=== PATIENT | male | born 1935 | race Caucasian/White ===

== ENCOUNTER → 2016-11-05 | Outpatient (CLI) | payer BC ==
[~2016-11-05] MED LIST: ASPI81TA28 PO; BTH25 PO; CHOL100010 PO; CLOP1TAB15 PO; CRD4 PO; CYAN250T PO; FINA5TAB PO; FOLI1TAB7 PO; LITH150C6 PO; LUTE15CA PO; MULT60CA PO; PANT40TA PO; VITACAP26 PO
--- NOTE | 2016-11-05 16:26 | ECHOCARDIOGRAM REPORT ---
*NOTICE TO RECEIVING REPUBLICAN AGENCY This information is strictly Confidential and protected under [place] law. [place] law prohibits you from making any further disclosure of this information unless further disclosure is expressly permitted by the written consent of the person to whom it pertains or is authorized by law. A general authorization for the release of medical or other information is not sufficient for this purpose. Hospital accepts no responsibility if the information is made available to any other person, INCLUDING THE PATIENT. Interpretation Summary * Name: RAHEL MORRISON Study Date: 11/05/2016 02:36 PM * Patient Location: [facility] HR: 61 * : 1935 (M/d/yyyy) Gender: Male Height: 71 in * Age: 81 yrs Ethnicity: CA Weight: 172 lb * Ordering Physician: Roberto Atkinson * Referring Physician: Roberto Atkinson * Performed By: Loyda Flood RDCS * * Reason For Study: Aortic stenosis, palpitations * BSA: 2.0 m2 * -- Conclusions -- * The left ventricle is hyperdynamic. * No regional wall motion abnormalities noted. * Ejection Fraction = >70 %. * There is borderline concentric left ventricular hypertrophy. * Grade I diastolic dysfunction, (abnormal relaxation pattern). * The prosthetic aortic valve appears to open well. Procedure Details * A complete two-dimensional transthoracic echocardiogram was performed (2D, M-mode, Doppler and color flow Doppler). Left Ventricle * The left ventricle is normal in size. * There is borderline concentric left ventricular hypertrophy. * Ejection Fraction = >70 %. * The left ventricle is hyperdynamic. * No regional wall motion abnormalities noted. Right Ventricle * The right ventricle is normal size. * The right ventricular systolic function is normal as assessed by tricuspid annular plane systolic excursion (TAPSE) (normal >1.5 cm). Atria * Borderline left atrial enlargement. * Right atrial size is normal. * No ASD detected; PFO is not assessed. Mitral Valve * The mitral valve anatomy is normal. * There is trace mitral regurgitation. Tricuspid Valve * The tricuspid valve anatomy is normal. * There is trace tricuspid regurgitation. Aortic Valve * No aortic regurgitation is present. * The prosthetic aortic valve is well-seated. * The prosthetic aortic valve appears to open well. Pulmonic Valve * The pulmonary valve is not well seen, but the Doppler examination is normal without significant regurgitation or stenosis. Great Vessels * The aortic root is normal size. * The pulmonary artery is not well visualized, but is probably normal size. Pericardium/Pleural * There is no pericardial effusion. Great Vessels * IVC not well seen. Left Ventricular Diastolic Function * Grade I diastolic dysfunction, (abnormal relaxation pattern). MMode 2D Measurements and Calculations IVSd 1.0 cm LVIDd 3.5 cm LVIDs 2.2 cm LVPWd 1.3 cm IVS/LVPW 0.80 FS 36.9 % EDV(Teich) 51.9 ml ESV(Teich) 16.7 ml EF(Teich) 67.8 % EDV(cubed) 44.0 ml ESV(cubed) 11.0 ml EF(cubed) 74.9 % LV mass(C)d 129.1 grams LV mass(C)dI 65.3 grams/m\S\2 SV(Teich) 35.2 ml SI(Teich) 17.8 ml/m\S\2 SV(cubed) 32.9 ml SI(cubed) 16.6 ml/m\S\2 LA dimension 3.0 cm asc Aorta Diam 3.0 cm LVAd ap4 20.8 cm\S\2 LVLd ap4 6.9 cm EDV(MOD-sp4) 51.5 ml EDV(sp4-el) 53.0 ml LVAs ap4 10.3 cm\S\2 LVLs ap4 5.6 cm ESV(MOD-sp4) 17.7 ml ESV(sp4-el) 15.8 ml EF(MOD-sp4) 65.7 % EF(sp4-el) 70.1 % LVAd ap2 22.9 cm\S\2 LVLd ap2 7.7 cm EDV(MOD-sp2) 54.8 ml EDV(sp2-el) 57.7 ml LVAs ap2 12.9 cm\S\2 LVLs ap2 6.8 cm ESV(MOD-sp2) 21.5 ml ESV(sp2-el) 20.8 ml EF(MOD-sp2) 60.8 % EF(sp2-el) 64.1 % LVLd %diff 10.3 % EDV(MOD-bp) 56.7 ml LVLs %diff 17.7 % ESV(MOD-bp) 21.2 ml EF(MOD-bp) 62.6 % SV(MOD-sp4) 33.8 ml SI(MOD-sp4) 17.1 ml/m\S\2 SV(MOD-sp2) 33.4 ml SI(MOD-sp2) 16.9 ml/m\S\2 SV(MOD-bp) 35.5 ml SI(MOD-bp) 18.0 ml/m\S\2 SV(sp4-el) 37.2 ml SI(sp4-el) 18.8 ml/m\S\2 SV(sp2-el) 37.0 ml SI(sp2-el) 18.7 ml/m\S\2 Doppler Measurements and Calculations MV E max mason 60.4 cm/sec MV A max mason 96.0 cm/sec MV E/A 0.63 MV dec time 0.29 sec Ao V2 max 239.7 cm/sec Ao max PG 23.0 mmHg Ao max PG (full) 16.7 mmHg Ao V2 mean 162.9 cm/sec Ao mean PG 12.2 mmHg Ao V2 VTI 49.5 cm LV V1 max PG 6.3 mmHg LV V1 max 125.1 cm/sec PA V2 max 87.1 cm/sec PA max PG 3.0 mmHg PA acc slope 654.0 cm/sec\S\2 PA acc time 0.12 sec PI max mason 136.5 cm/sec PI max PG 7.5 mmHg PI dec slope 104.9 cm/sec\S\2 PI P1/2t 381.1 msec TR max mason 203.2 cm/sec PA pr(Accel) 24.8 mmHg
== END | disposition home or self-care (01) ==
LOC: C.CPL 13:43
PROVIDERS: ATTEND Family Medicine
DX: I35.0 Nonrheumatic aortic (valve) stenosis (principal)

== ENCOUNTER → 2016-12-07 | Outpatient (CLI) | payer BC ==
[2016-12-07 12:11] LABS: BASO % 0.1 %; BASO ABS # 0.01 K/uL (0-0.2); COMPLETE YES; EOS % 0.6 %; HEMATOCRIT 41.6 % (42-52); IG% 0.3 %; LYMPH % 13.5 %; LYMPH ABS # 1.19 K/uL (1.2-3.4); MEAN CELL VOLUME 96.1 fL (80-100); MEAN CORPUSCULAR HEMOGLOBIN 33.3 pg (25-34); MEAN CORPUSCULAR HGB CONC 34.6 g/dl (32-36); MEAN PLATELET VOLUME 10.2 fL (7.4-10.4); MONO % 6.7 %; NEUT % 78.8 %; PLATELET COUNT 159 K/uL (130-400); RED BLOOD COUNT 4.33 M/uL (4.7-6.1); WHITE BLOOD COUNT 8.83 K/uL (4.8-10.8)
[2016-12-07 12:34] LABS: ESTIMATED AVERAGE GLUCOSE 126 mg/dl; HA1C FLAG Normal (Normal)
[2016-12-07 12:37] LABS: ALT/SGPT 28 U/L (12-78); AST/SGOT 18 U/L (15-37); BLOOD UREA NITROGEN 27 mg/dl (7-18); BUN/CREATININE RATIO 20.5 (10-20); CALCIUM 8.7 mg/dl (8.5-10.1); CARBON DIOXIDE 28 mmol/L (21-32); CHLORIDE 107 mmol/L (98-107); CHOLESTEROL 136 mg/dl (0-200); GLUCOSE 112 mg/dl (70-99); SODIUM 142 mmol/L (136-145); TRIGLYCERIDES 58 mg/dl (0-150); VERY LOW DENSITY LIPOPROT CALC 12 mg/dl
[2016-12-07 12:46] LABS: ALB/GLOB RATIO 1.3 (0.9-2); ALKALINE PHOSPHATASE 77 U/L (45-117); CHOLESTEROL/HDL RATIO 2.8; HDL CHOLESTEROL 49 mg/dl; LDL CHOLESTEROL CALCULATED 75 mg/dl; THYROID STIMULATING HORMONE 0.616 uIu/ml (0.300-4.500); TOTAL IRON BINDING CAPACITY 252 mcg/dl (250-450); URIC ACID 4.2 mg/dl (2.6-7.2)
[2016-12-09 22:05] LABS: 18KDIGG BAND NONREACTIVE (NONREACTIVE); 23KDIGG BAND NONREACTIVE (NONREACTIVE); 23KDIGM BAND REACTIVE (NONREACTIVE); 28KDIGG BAND NONREACTIVE (NONREACTIVE); 30KDIGG BAND NONREACTIVE (NONREACTIVE); 39KDIGG BAND NONREACTIVE (NONREACTIVE); 39KDIGM BAND NONREACTIVE (NONREACTIVE); 41KDIGG BAND REACTIVE (NONREACTIVE); 41KDIGM BAND REACTIVE (NONREACTIVE); 45KDIGG BAND NONREACTIVE (NONREACTIVE); 58KDIGG BAND NONREACTIVE (NONREACTIVE); 66KDIGG BAND REACTIVE (NONREACTIVE); 93KDIGG BAND NONREACTIVE (NONREACTIVE)
--- NOTE | 2016-12-14 08:37 | CODING QUERY MEDICAL NECESSITY ---
CQSUPPORTING DIAGNOSIS NEEDED A supporting diagnosis is required for the test/procedure performed on this patient in order for us to be reimbursed by the patient's insurance. Please provide a supporting diagnosis for the following test/procedure listed below next to the test name along with your signature. *If there is no additional diagnosis for this patient that would support the following test/procedure please document that below next to the test/procedure. Test(s)/Procedure(s) that require a supporting diagnosis: DOS 12/07/16 GLYCATED HEMOGLOBIN VITAMIN D VITAIN B12 FOLIC ACID Provider Signature: Date: Thank you [facility] Once completed, please kindly fax back to [phone] For questions please call [phone]
== END | disposition home or self-care (01) ==
LOC: C.LAB 09:40
PROVIDERS: ATTEND Family Medicine
DX: R53.83 Other fatigue (principal); E11.9 Type 2 diabetes mellitus without complications

== ENCOUNTER → 2017-02-10 | Outpatient (CLI) | payer BC ==
--- NOTE | 2017-02-10 11:40 | DIAGNOSTIC IMAGING REPORT ---
CHEST 2 VIEWS ROUTINE CLINICAL HISTORY: COUGH cough. Dyspnea. COMPARISON STUDY: 05/24/2016 FINDINGS: Tortuous thoracic aorta. Minimal chronic interstitial change left lung base. No focal infiltrate IMPRESSION: Chronic change. No acute process. Electronically signed by: Sukhjinder Wild M.D. 02/10/2017 11:39 AM Dictated Date/Time: 02/10/2017 11:38 AM
--- NOTE | 2017-02-10 14:40 | DIAGNOSTIC IMAGING REPORT ---
VIDEO SWALLOW CLINICAL HISTORY: 81-year-old male with a history of pneumonia, aspiration, swallow study for further evaluation. TECHNIQUE: Video fluoroscopic evaluation of swallowing was performed in the AP and lateral projections by the speech pathology staff. The patient is fed nectar-thick and thin liquid barium, a barium coated wafer, and barium pudding. COMPARISON: None. FINDINGS: There is normal hyoid excursion and epiglottic deflection. No significant penetration or aspiration identified. Swallowing function is within normal limits. Intraesophageal reflux noted. No gross evidence of morphologic esophageal abnormality. FLUOROSCOPY TIME: 2.4 minutes. IMPRESSION: 1. No aspiration or penetration. 2. Esophageal dysmotility evidenced by intraesophageal reflux. 3. Please see the speech pathologist report for detailed findings and recommendations. Electronically signed by: Edson Zhou M.D. 02/10/2017 12:28 PM Dictated Date/Time: 02/10/2017 12:24 PM
== END | disposition home or self-care (01) ==
LOC: C.RAD 11:17
PROVIDERS: ATTEND Family Medicine
DX: R05 Cough (principal); K22.4 Dyskinesia of esophagus; T17.920A Food in respiratory tract, part unspecified causing asphyxiation, initial encounter; X58.XXXA Exposure to other specified factors, initial encounter

== ENCOUNTER → 2017-02-10 | Outpatient (CLI) | payer BC ==
--- NOTE | 2017-02-10 14:09 | SWALLOWING EVALUATION ---
HISTORY: This 81 year-old man was referred for a VFSS at [facility] in order to rule out aspiration. The patient has a PMH significant for DM, HLD, HYN, restless leg, UTI, hypotension, stanton, dehydration, and aortic stenosis. Currently the patient's diet level is regular. PROCEDURE: The patient was seen in the Radiology Department of [facility] for the VFSS. Cursory examination of the oral cavity revealed adequate dentition. Movement of the articulators was WNL. The patient was seated on a stool and was viewed in both the Anterior-Posterior (A-P) and Lateral planes. Volitional phonation exercises completed in the A-P plane revealed bilateral vocal fold movement and vocal intensity was mildly low. In the lateral plane, the patient was given the following boluses: 1 tsp. thin liquid barium x 2, single swallow thin liquid barium self-presented from a cup, sequential swallows of thin liquid barium self-presented from a cup, 1 tsp. nectar-thick liquid barium, single swallow nectar-thick liquid barium self-presented from a cup, sequential swallows nectar-thick liquid barium self-presented from a cup, 1 tsp. barium pudding, and 1 club cracker with barium pudding. The patient was then repositioned into the A-P plane and given the following boluses: 1 tsp. nectar-thick liquid barium and 1 tsp. barium pudding. RESULTS: Oral Stage: Labial closure was adequate. There was a cohesive bolus held by the tongue. Mastication was timely and efficient. Bolus transport was mildly slow. There was a collection of residue on the tongue, however this was completely cleared with a second swallow. Swallow was slightly delayed with the bolus head at the valleculae at the initiation of the pharyngeal swallow. Delayed swallow is functional for patient's age. Pharyngeal Stage: Soft palate elevation was adequate. Laryngeal elevation was partial with partial superior movement of the thyroid cartilage and partial approximation of arytenoids to the epiglottic base. Anterior hyoid excursion was complete. Epiglottic inversion was complete. Laryngeal vestibular closure was incomplete with a narrow column of contrast. Pharyngeal stripping wave was present and complete. Pharyngeal contraction was complete. Pharyngoesophageal segment opening had partial distension and partial obstruction of flow. Tongue base retraction was slightly reduced with trace column of contrast between the tongue base and pharyngeal wall. There was complete pharyngeal clearance. There was no aspiration, but mild laryngeal penetration. Laryngeal movement was reduced, but functional for the patient's age. Esophageal Stage: There was mild esophageal retention and retrograde flow which is indicated of reflux and dysmotility. SUMMARY/RECOMMENDATIONS: This patient presents with mild oral-pharyngeal dysphagia characterized by reduced laryngeal movement and delayed swallow. Patient shows esophageal dysfunction. The following is recommended: 1. Regular diet, thin liquids. 2. GERD precautions: patient should be seated fully upright during and for 30 minutes after meals. Take small bites and small sips. Alternate solids and liquids. Head of bed should be elevated at least 30 degrees at all times even for bed. 3. Consider use of reflux medication to alleviate symptoms as needed. A summary of the results and recommendations was discussed with patient and understanding was verbalized. Thank you for referral of this patient. Please contact me at if any additional information is needed Mercedes Mcguire [facility]
[2017-02-10 14:31] LABS: BASO % 0.4 %; BASO ABS # 0.02 K/uL (0-0.2); COMPLETE YES; EOS % 2.7 %; HEMATOCRIT 39.4 % (42-52); IG% 0.2 %; LYMPH % 14.5 %; LYMPH ABS # 0.76 K/uL (1.2-3.4); MEAN CELL VOLUME 96.8 fL (80-100); MEAN CORPUSCULAR HEMOGLOBIN 33.2 pg (25-34); MEAN CORPUSCULAR HGB CONC 34.3 g/dl (32-36); MEAN PLATELET VOLUME 10.3 fL (7.4-10.4); MONO % 8.8 %; NEUT % 73.4 %; PLATELET COUNT 167 K/uL (130-400); RED BLOOD COUNT 4.07 M/uL (4.7-6.1); WHITE BLOOD COUNT 5.24 K/uL (4.8-10.8)
[2017-02-10 15:10] LABS: ALB/GLOB RATIO 1.3 (0.9-2); ALKALINE PHOSPHATASE 73 U/L (45-117); ALT/SGPT 22 U/L (12-78); AST/SGOT 20 U/L (15-37); BLOOD UREA NITROGEN 33 mg/dl (7-18); BUN/CREATININE RATIO 23.8 (10-20); CALCIUM 8.7 mg/dl (8.5-10.1); CARBON DIOXIDE 27 mmol/L (21-32); CHLORIDE 112 mmol/L (98-107); GLUCOSE 90 mg/dl (70-99); POTASSIUM 4.3 mmol/L (3.5-5.1); SODIUM 145 mmol/L (136-145)
[2017-02-10 15:45] LABS: URINE APPEARANCE CLEAR (CLEAR); URINE BILIRUBIN NEG (NEG); URINE COLOR DK YELLOW; URINE EPITHELIAL CELL AUTO >30 /lpf (0-5); URINE NITRITE NEG (NEG); URINE PH 5.5 (4.5-7.5); URINE SPECIFIC GRAVITY 1.025 (1.000-1.030); UROBILINOGEN NEG (NEG)
[2017-02-10 16:02] LABS: MANUAL MICROSCOPIC REQUIRED? NO; REVIEW REQ? NO
== END | disposition home or self-care (01) ==
LOC: C.LAB 13:39
PROVIDERS: ATTEND Family Medicine
DX: R53.83 Other fatigue (principal)

== ENCOUNTER → 2017-02-15 | Outpatient (CLI) | payer BC ==
--- NOTE | 2017-02-22 14:23 | PULMONARY FUNCTION TEST ---
CLINICAL DATA: An 81-year-old male with a height of 71 inches and a weight of 172 pounds, referred by Dr. Atkinson for evaluation of asthma and persistent cough. Spirometry pre- and post-bronchodilator, lung volumes, and diffusion capacity were performed. FINDINGS: Prebronchodilator spirometry demonstrates very mild obstructive small airways disease. FVC was 102% of predicted. FEV1 was 99% of predicted. JZO50-05 was 79% of predicted. There was slight improvement after inhaled bronchodilator. FVC improved to 9% to 111% of predicted. FEV1 improved 6% to 104% of predicted. JII42-32 improved 1% to 80% of predicted. Lung volumes show minimal elevation in residual volume at 131% of predicted. Diffusion capacity is normal at 101% of predicted. IMPRESSION: Very mild obstructive small airways disease with slight improvement after inhaled bronchodilator. MTDD
== END | disposition home or self-care (01) ==
LOC: C.RC 10:04
PROVIDERS: ATTEND Family Medicine
DX: J45.909 Unspecified asthma, uncomplicated (principal); R05 Cough

== ENCOUNTER → 2017-03-10 | Outpatient (CLI) | payer BC | END | disposition home or self-care (01) | LOC: C.LAB 11:45 | PROVIDERS: ATTEND Family Medicine | DX: R53.83 Other fatigue (principal) ==

== ENCOUNTER → 2017-03-30 | Outpatient (CLI) | payer BC ==
--- NOTE | 2017-03-30 15:06 | ECHOCARDIOGRAM REPORT ---
*NOTICE TO RECEIVING CONSTITUTION PARTY AGENCY This information is strictly Confidential and protected under [place] law. [place] law prohibits you from making any further disclosure of this information unless further disclosure is expressly permitted by the written consent of the person to whom it pertains or is authorized by law. A general authorization for the release of medical or other information is not sufficient for this purpose. Hospital accepts no responsibility if the information is made available to any other person, INCLUDING THE PATIENT. Interpretation Summary * Name: RAHEL MORRISON Study Date: 03/30/2017 01:04 PM BP: 129/56 mmHg * Patient Location: [facility] HR: 60 * : 1935 (M/d/yyyy) Gender: Male Height: 70 in * Age: 82 yrs Ethnicity: CA Weight: 165 lb * Ordering Physician: Roberto Atkinson * Referring Physician: Roberto Atkinson * Performed By: Diane Stuart RDCS * * Reason For Study: AORTIC STENOSIS * BSA: 1.9 m2 * Normal biventricular systolic function. * Mild concentric left ventricular hypertrophy. * Class I left ventricular diastolic dysfunction. * Borderline left atrial enlargement. * Properly functioning bioprosthetic aortic valve. * Trace pulmonic,mitral,and tricuspid regurgitation. * Normal estimated right ventricular systolic and central venous pressures. Procedure Details * A complete two-dimensional transthoracic echocardiogram was performed (2D, M-mode, Doppler and color flow Doppler). Left Ventricle * The left ventricle is normal in size. * There is mild concentric left ventricular hypertrophy. * Ejection Fraction = 65-70%. * A full diastolic examination was done with clinical findings of Class I diastolic dysfunction. * Left ventricular systolic function is normal. * No regional wall motion abnormalities noted. Right Ventricle * The right ventricle is normal in size and function. * The right ventricular systolic function is normal as assessed by tricuspid annular plane systolic excursion (TAPSE) (normal >1.5 cm). Atria * Borderline left atrial enlargement. * Right atrial size is normal. * No ASD detected; PFO is not assessed. Mitral Valve * The mitral valve is normal. * There is no mitral valve stenosis. * There is trace mitral regurgitation. Tricuspid Valve * The tricuspid valve is normal. * There is no tricuspid stenosis. * There is trace tricuspid regurgitation. * Right ventricular systolic pressure is normal. Aortic Valve * No aortic regurgitation is present. * There is a bioprosthetic aortic valve. * The gradient is normal for this prosthetic aortic valve. Pulmonic Valve * The pulmonic valve is not well visualized. * The pulmonary valve is inadequately visualized, but the Doppler data is adequate for interpretation. * There is no pulmonic valvular stenosis. * Trace pulmonic valvular regurgitation. Great Vessels * The aortic root is normal size. Pericardium/Pleural * There is no pericardial effusion. Great Vessels * Normal inferior vena cava diameter and respiratory variation suggests normal central venous pressure. MMode 2D Measurements and Calculations IVSd 1.2 cm IVSs 1.5 cm LVIDd 4.0 cm LVIDs 2.5 cm LVPWd 1.3 cm LVPWs 1.8 cm IVS/LVPW 0.94 FS 36.2 % EDV(Teich) 69.3 ml ESV(Teich) 23.3 ml EF(Teich) 66.4 % EDV(cubed) 63.2 ml ESV(cubed) 16.4 ml EF(cubed) 74.0 % % IVS thick 22.4 % % LVPW thick 35.9 % LV mass(C)d 182.5 grams LV mass(C)dI 94.9 grams/m\S\2 LV mass(C)s 155.3 grams LV mass(C)sI 80.8 grams/m\S\2 SV(Teich) 46.0 ml SI(Teich) 23.9 ml/m\S\2 SV(cubed) 46.8 ml SI(cubed) 24.3 ml/m\S\2 Ao root diam 3.5 cm Ao root area 9.9 cm\S\2 LA dimension 4.0 cm LA/Ao 1.1 LVOT diam 1.9 cm LVOT area 2.9 cm\S\2 LVAd ap4 30.4 cm\S\2 LVLd ap4 8.3 cm EDV(MOD-sp4) 92.6 ml EDV(sp4-el) 94.6 ml LVAs ap4 14.9 cm\S\2 LVLs ap4 6.9 cm ESV(MOD-sp4) 30.3 ml ESV(sp4-el) 27.5 ml EF(MOD-sp4) 67.3 % EF(sp4-el) 70.9 % SV(MOD-sp4) 62.4 ml SI(MOD-sp4) 32.4 ml/m\S\2 SV(sp4-el) 67.1 ml SI(sp4-el) 34.9 ml/m\S\2 Doppler Measurements and Calculations MV E max mason 57.2 cm/sec MV A max mason 78.7 cm/sec MV E/A 0.73 MV dec time 0.37 sec Ao V2 max 216.6 cm/sec Ao max PG 18.8 mmHg Ao max PG (full) 15.3 mmHg Ao V2 mean 146.0 cm/sec Ao mean PG 9.6 mmHg Ao mean PG (full) 7.8 mmHg Ao V2 VTI 44.6 cm DEEPA(I,A) 1.3 cm\S\2 DEEPA(I,D) 1.3 cm\S\2 DEEPA(V,A) 1.2 cm\S\2 DEEPA(V,D) 1.2 cm\S\2 LV V1 max PG 3.5 mmHg LV V1 mean PG 1.8 mmHg LV V1 max 93.3 cm/sec LV V1 mean 61.0 cm/sec LV V1 VTI 20.3 cm SV(Ao) 440.8 ml SI(Ao) 229.2 ml/m\S\2 SV(LVOT) 58.8 ml SI(LVOT) 30.6 ml/m\S\2 TR max mason 215.4 cm/sec
== END | disposition home or self-care (01) ==
LOC: C.CPL 12:55
PROVIDERS: ATTEND Family Medicine
DX: I35.0 Nonrheumatic aortic (valve) stenosis (principal); R01.1 Cardiac murmur, unspecified

== ENCOUNTER → 2017-07-05 | Outpatient (CLI) | payer BC ==
--- NOTE | 2017-07-05 12:52 | DIAGNOSTIC IMAGING REPORT ---
BRAIN WITHOUT CONTRAST HISTORY: 82 years-old Male CEREBRAL INFARCTION,AFIB,S/P VALVE REPLACEMENT acute dizziness with history of recent cardiac valve replacement. Associated headache. History of malignant melanoma COMPARISON: None available TECHNIQUE: Multiplanar multisequence MRI of the brain was obtained without contrast FINDINGS: There is no restricted diffusion to suggest acute infarction. The midline structures including the corpus callosum, brainstem, optic chiasm, pituitary and pineal glands are unremarkable the sagittal T1 sequence. No cerebellar tonsillar herniation. Degenerative changes of the imaged upper cervical spine are noted. No acute intracranial hemorrhage, midline shift, abnormal extra-axial collections or hydrocephalus. Moderate atrophy with ex vacuo ventriculomegaly. There is minimal degree of periventricular T2/FLAIR prolongation suggesting subtle chronic microvascular ischemic changes. The major flow voids at the level the skull base are patent. Orbits are symmetric. The mastoid air cells and paranasal sinuses are generally clear. Scalp, soft tissues and calvarium are unremarkable. IMPRESSION: No acute intracranial abnormality. Study is negative for infarction or hemorrhage. The above report was generated using voice recognition software. It may contain grammatical, syntax or spelling errors. Electronically signed by: Luís Heredia M.D. 07/05/2017 12:51 PM Dictated Date/Time: 07/05/2017 12:46 PM
[2017-07-05 13:33] LABS: BASO % 0.2 %; BASO ABS # 0.01 K/uL (0-0.2); COMPLETE YES; EOS % 0.8 %; HEMATOCRIT 41.1 % (42-52); IG% 0.4 %; LYMPH ABS # 0.92 K/uL (1.2-3.4); MEAN CELL VOLUME 96.5 fL (80-100); MEAN CORPUSCULAR HEMOGLOBIN 32.9 pg (25-34); MEAN CORPUSCULAR HGB CONC 34.1 g/dl (32-36); MEAN PLATELET VOLUME 10.2 fL (7.4-10.4); MONO % 7.8 %; NEUT % 72.8 %; PLATELET COUNT 137 K/uL (130-400); RED BLOOD COUNT 4.26 M/uL (4.7-6.1); WHITE BLOOD COUNT 5.11 K/uL (4.8-10.8)
[2017-07-05 14:07] LABS: ALT/SGPT 19 U/L (12-78); AST/SGOT 18 U/L (15-37); BLOOD UREA NITROGEN 27 mg/dl (7-18); BUN/CREATININE RATIO 20.2 (10-20); CALCIUM 8.5 mg/dl (8.5-10.1); CARBON DIOXIDE 30 mmol/L (21-32); CHLORIDE 107 mmol/L (98-107); CREATININE 1.35 mg/dl (0.60-1.40); GLUCOSE 100 mg/dl (70-99); POTASSIUM 3.9 mmol/L (3.5-5.1); SODIUM 142 mmol/L (136-145)
[2017-07-05 14:14] LABS: ALB/GLOB RATIO 1.1 (0.9-2); ALKALINE PHOSPHATASE 79 U/L (45-117); TOTAL IRON BINDING CAPACITY 261 mcg/dl (250-450)
== END | disposition home or self-care (01) ==
LOC: C.MRI 11:27
PROVIDERS: ATTEND Family Medicine
DX: I63.40 Cerebral infarction due to embolism of unspecified cerebral artery (principal); Z95.2 Presence of prosthetic heart valve; I48.0 Paroxysmal atrial fibrillation; R53.83 Other fatigue

== ENCOUNTER → 2017-08-18 | Outpatient (CLI) | payer BC | END | disposition home or self-care (01) | LOC: C.CTS 13:09 | DX: C65.9 Malignant neoplasm of unspecified renal pelvis (principal); K57.32 Diverticulitis of large intestine without perforation or abscess without bleeding ==

== ENCOUNTER → 2017-12-07 | Outpatient (CLI) | payer BC ==
[~2017-12-07] MED LIST changes: +ALBUTEROL NEB INH; +ASCO1CAP3 PO; -CHOL100010 PO; +CHOL20007 PO; +CLON1TAB3 PO; -CLOP1TAB15 PO; +CYAN100020 PO; -CYAN250T PO; -FOLI1TAB7 PO; -LITH150C6 PO; +MULT-190 PO; -MULT60CA PO; -PANT40TA PO; -VITACAP26 PO
== END | disposition home or self-care (01) ==
LOC: C.LABSPEC 17:16
PROVIDERS: ATTEND Urology
DX: R33.9 Retention of urine, unspecified (principal)

== ENCOUNTER → 2017-12-13 | Day surgery (SDC) | payer BC ==
[2017-12-02 08:40] VITALS: BMI 24.0
--- NOTE | 2017-12-02 09:22 | PAT Medication Instructions ---
Service Date December 02, 2017. Current Home Medication List Ascorbic Acid (Vitamin C), 500 MG PO QPM Aspirin (Aspirin Ec), 81 MG PO QPM Bethanechol Chl (Bethanechol Chloride), 25 MG PO BID Cholecalciferol (Vitamin D3), 1 TAB PO QPM Clonazepam (Klonopin), 1 MG PO HS Cyanocobalamin (Vitamin B12), 1,000 MCG PO QPM Doxazosin Mesylate (Doxazosin Mesylate), 4 MG PO QAM Finasteride (Proscar), 5 MG PO QAM Lutein-Zeaxanthin (Lutein), 20 MG PO BID Ocuvite Preservision (Ocuvite Preservision), 1 TAB PO BID [Albuterol Neb], 1 PUFF INH PRN Medication Instructions For Your Scheduled Surgery - Hold the following medications starting today: Lutein-Zeaxanthin (Lutein), 20 MG PO BID Ocuvite Preservision (Ocuvite Preservision), 1 TAB PO BID - Hold the following medications the morning of surgery: Bethanechol Chl (Bethanechol Chloride), 25 MG PO BID Finasteride (Proscar), 5 MG PO QAM - Take the following medications the morning of surgery with a sip of water: Doxazosin Mesylate (Doxazosin Mesylate), 4 MG PO QAM [Albuterol Neb], 1 PUFF INH PRN (if needed) - Take the following medications as scheduled the night before surgery: Ascorbic Acid (Vitamin C), 500 MG PO QPM Aspirin (Aspirin Ec), 81 MG PO QPM Bethanechol Chl (Bethanechol Chloride), 25 MG PO BID Cholecalciferol (Vitamin D3), 1 TAB PO QPM Clonazepam (Klonopin), 1 MG PO HS Cyanocobalamin (Vitamin B12), 1,000 MCG PO QPM [Albuterol Neb], 1 PUFF INH PRN (if needed) If you have any questions please call us at [phone] or [phone] or [phone]
[2017-12-02 10:10] LABS: BASO % 0.4 %; BASO ABS # 0.02 K/uL (0-0.2); EOS % 1.3 %; EOS ABS # 0.06 K/uL (0-0.5); HEMATOCRIT 40.2 % (42-52); HEMOGLOBIN 13.8 g/dL (14.0-18.0); IG# 0.01 K/uL (0.00-0.02); LYMPH ABS # 0.83 K/uL (1.2-3.4); MEAN CORPUSCULAR HEMOGLOBIN 32.6 pg (25-34); MEAN CORPUSCULAR HGB CONC 34.3 g/dl (32-36); MONO ABS # 0.46 K/uL (0.11-0.59); NEUT % 70.1 %; NEUT ABS # 3.24 K/uL (1.4-6.5); PLATELET COUNT 143 K/uL (130-400); RED CELL DISTRIBUTION WIDTH CV 13.3 % (11.5-14.5); RED CELL DISTRIBUTION WIDTH SD 46.4 fL (36.4-46.3); WHITE BLOOD COUNT 4.62 K/uL (4.8-10.8)
[2017-12-02 11:32] LABS: CALCIUM 8.8 mg/dl (8.5-10.1); CREATININE 1.42 mg/dl (0.60-1.40); POTASSIUM 4.2 mmol/L (3.5-5.1)
[~2017-12-13] VITALS: Ht 177.8 cm; Wt 77.3 kg
[~2017-12-13] MED LIST changes: +ACETAMINOPHEN 325 MG TAB PO PRN; +ATROPINE SULFATE 0.1 MG/ML 5ML SYR IV PRN; +CIPR-255 PO; +CIPROFLOXACIN / D5W 400 MG IV SCH; +DEXAMETHASONE SOD INJ 4 MG/ML VIAL ONE; +EpHEDrine SULFATE INJ 50 MG/ML AMP IV PRN; +EpHEDrine SULFATE INJ 50 MG/ML AMP ONE; +FENTANYL CITRATE INJ 50 MCG/1 ML 2 ML VIAL ONE; +HYDROCODONE/ACETAMIN 5/325MG TAB PO PRN; +HYDROmorphone INJ 2 MG/ML SYR/VIAL IV PRN; +LACTATED RINGER'S 1000ML 1,000 ML IV SCH; +LIDOCAINE HCL 2% 2 ML VIAL (20MG/ML) ONE; +ONDANSETRON INJ 2 MG/ML 2 ML VIAL IV PRN; +ONDANSETRON INJ 2 MG/ML 2 ML VIAL ONE; +PHEN95TA14 PO; +PHENYLEPHRINE 100MCG/ML 5ML SYR IV PRN; +PROPOFOL IV EMULSION 10 MG/ML 20 ML VIAL ONE; +SODIUM CHLORIDE 0.9% 1000ML 1,000 ML IV SCH
--- NOTE | 2017-12-13 07:23 | History & Physical Bridge Note ---
H&P Re-Evaluation Bridge Note: I have examined the patient, reviewed the History & Physical and in the interval since the performance of the History & Physical I have noted the following changes of clinical significance: No changes noted
[2017-12-13 09:32] VITALS: BP 107/54; PULSE 58; TEMP 36.9; O2SAT 96; Ht 177.8 cm; Wt 77.3 kg
--- NOTE | 2017-12-13 11:29 | [facility] Operative Report ---
Operative Report Operative Date December 13, 2017. Pre-Operative Diagnosis Benign Prostatic Hyperplasia, Urinary Retention Post-Operative Diagnosis Benign Prostatic Hyperplasia, Urinary Retention Procedure(s) Performed Transurethral Resection of Prostate Surgeon Dr. Burrows Account Executive Surgeon(s) none Estimated Blood Loss 5mL Specimens none per surgeon Drains 22 Georgian Oliver Anesthesia Type General Complication(s) none Disposition yes Recovery Room / PACU Indications Urinary retention Description of Procedure Patient was identified in the preoperative holding area, appropriate informed consents reviewed and completed and the patient was transported to the operating suite. Upon arrival he received appropriate preoperative antibiotics in the form of ciprofloxacin. Adequate general anesthesia was achieved, the patient was placed in dorsal lithotomy position where he was sterilely prepped and draped in standard fashion. I began the case by passing a 27 Georgian resectoscope with 30 lens and visual obturator. Inspection of the urethra revealed no evidence of stricture disease. Inspection of the prostate reveals a prostate that is status post TURP, however there is significant obstruction from an anterior left lateral lobe which hangs in a pedunculated fashion into the prostatic urethra. With the bladder full, he also has a tight band across the posterior aspect of the bladder neck which I suspect causes the obstruction he feels on occasion with passage of catheters. Inspection of the bladder revealed healthy appearing mucosa with ureteral orifices in orthotopic position. Following my inspection, exchanged the visual obturator for resecting element, choosing a button electrode. I then resected the tissue from a left anterior aspect of the prostate to completely clear the prostatic urethra. I incised the bladder neck at 5 and 7:00 to try to further reduce this intervening segment of tight tissue. I ensured excellent hemostasis, I confirmed an open and patent prostatic urethra, and I concluded the case. A 22 Georgian Oliver catheter with 30 balloon was placed without difficulty. Patient was subsequently extubated and taken to the PACU in stable condition. I attest to the content of the Intraoperative Record and any orders documented therein. Any exceptions are noted below.
--- NOTE | 2017-12-13 11:32 | Discharge Instructions ---
Discharge Instructions Date of Service December 13, 2017. Admission Reason for Admission: Urinary Retention Discharge Discharge Diagnosis / Problem: urinary retention Discharge Goals Goal(s): Decrease discomfort, Improve function, Increase independence, Improve disease control Activity Recommendations Activity Limitations: resume your previous activity Lifting Limitations: none, gradually increase as tolerated Exercise/Sports Limitations: none, gradually increase as tolerated May Resume Sexual Activity: when tolerated Shower/Bathe: no limitations Driving or Machine Use: resume 1 day after discharge . Instructions / Follow-Up Instructions / Follow-Up Please come to Dr. Burrows's office tomorrow to have your catheter removed. Please record the volume of urine you are voiding spontaneously as well as the volumes you are obtaining by self catheterization. As the majority of your output shifts to spontaneous voiding, I would like you to taper off the catheterizations. Current Hospital Diet Patient's current hospital diet: Discharge Diet Recommended Diet: Regular Diet Procedures Procedures Performed: Transurethral Resection of Prostate Pending Studies Studies pending at discharge: no Medical Emergencies . Who to Call and When: Medical Emergencies: If at any time you feel your situation is an emergency, please call 911 immediately. . Non-Emergent Contact Non-Emergency issues call your: Urologist Call Non-Emergent contact if: you have a fever, temperature is above 101.5, your pain is not controlled, your pain is worsening . . "Provider Documentation" section prepared by Torey Antonio. .
--- NOTE | 2017-12-13 11:45 | Anesthesiology Progress Note ---
Anesthesia Post Op Note Date & Time December 13, 2017 at 11:44 Vital Signs Pain Intensity: 3 Vital Signs Past 12 Hours Date Time Temp Pulse Resp B/P (MAP) Pulse Ox O2 Delivery O2 Flow Rate FiO2 12/13/17 09:32 36.9 58 18 107/54 (71) 96 Room Air Notes Mental Status: alert / awake / arousable, participated in evaluation Pt Amnestic to Procedure: Yes Nausea / Vomiting: adequately controlled Pain: adequately controlled Airway Patency, RR, SpO2: stable & adequate BP & HR: stable & adequate Hydration State: stable & adequate Anesthetic Complications: no major complications apparent
[2017-12-13 12:20] VITALS: BP 104/55; PULSE 57; TEMP 36.4; O2SAT 97
[2017-12-13 12:50] VITALS: BP 108/53; PULSE 50; O2SAT 99
[2017-12-13 13:20] VITALS: BP 96/56; PULSE 57; O2SAT 98
[2017-12-13 13:50] VITALS: BP 97/48; PULSE 51; TEMP 36.5; O2SAT 98
== END | disposition home or self-care (01) ==
LOC: C.ACU 08:53
PROVIDERS: ATTEND Urology
DX: N40.1 Benign prostatic hyperplasia with lower urinary tract symptoms (principal); R33.9 Retention of urine, unspecified; N31.2 Flaccid neuropathic bladder, not elsewhere classified; J44.9 Chronic obstructive pulmonary disease, unspecified; I25.10 Atherosclerotic heart disease of native coronary artery without angina pectoris; E11.40 Type 2 diabetes mellitus with diabetic neuropathy, unspecified; I48.91 Unspecified atrial fibrillation; K21.9 Gastro-esophageal reflux disease without esophagitis; Z95.2 Presence of prosthetic heart valve; Z79.82 Long term (current) use of aspirin; Z85.820 Personal history of malignant melanoma of skin; Z90.5 Acquired absence of kidney; Z83.3 Family history of diabetes mellitus; Z80.42 Family history of malignant neoplasm of prostate

== ENCOUNTER 2018-10-30 17:32 | Inpatient (IN) ==
[2018-10-30] MEDS ORDERED: ONDANSETRON INJ 2 MG/ML 2 ML VIAL IV STA ×2 (17:40→19:17)
[2018-10-30] MEDS ORDERED: SODIUM CHLORIDE 0.9% 1000ML 1,000 ML IV SCH (17:45)
[2018-10-30 18:26] LABS: Basophils # (auto) 0.01 K/uL (0-0.2); Basophils % (auto) 0.2 %; Eosinophils # (auto) 0.11 K/uL (0-0.5); Eosinophils % (auto) 1.7 %; Hematocrit (blood only) 41.3 % (42-52); Hemoglobin 14.7 g/dL (14.0-18.0); Immature Granulocytes # (auto) 0.02 K/uL (0.00-0.02); Immature Granulocytes % (auto) 0.3 %; Lymphocytes # (auto) 0.94 K/uL (1.2-3.4); Lymphocytes % (auto) 14.2 %; Mean Corpuscular Hgb Conc 35.6 g/dL (32-36); Mean Corpuscular Volume 96.3 fL (80-100); Mean Platelet Volume 10.1 fL (7.4-10.4); Monocytes # (auto) 0.57 K/uL (0.11-0.59); Monocytes % (auto) 8.6 %; Neutrophils # (auto) 4.99 K/uL (1.4-6.5); Platelet Count 119 K/uL (130-400); RDW Coefficient of Variation 14.1 % (11.5-14.5); RDW Standard Deviation 50.1 fL (36.4-46.3); Red Blood Count 4.29 M/uL (4.7-6.1); White Blood Count 6.64 K/uL (4.8-10.8)
[2018-10-30 18:33] LABS: Albumin Level 3.6 gm/dl (3.4-5.0); BUN Creatinine Ratio 25.4 (10-20); Calcium 8.6 mg/dl (8.5-10.1); Creatinine Clr Calc Pharmacy 41.7 ml/min; Est GFR (African American) 53.4; Est GFR (Non-African American) 46.1; Potassium 3.8 mmol/L (3.5-5.1)
[2018-10-30 18:37] LABS: Albumin Globulin Ratio 1.2 (0.9-2); Bilirubin,Total 0.6 mg/dl (0.2-1); Globulin 2.9 gm/dl (2.5-4.0); Total Protein 6.5 gm/dl (6.4-8.2)
[2018-10-30] MEDS ORDERED: MoRPHine SULFATE 4 MG/ML 1 ML CARP\\VIAL IV STA ×2 (19:17→19:58)
[2018-10-30] MEDS ORDERED: IOVERSOL 100ml IV PRN (19:31)
--- NOTE | 2018-10-30 19:57 | CT Scan Report ---
CT SCAN OF THE ABDOMEN AND PELVIS WITH IV CONTRAST CLINICAL HISTORY: Generalized abdominal pain. COMPARISON STUDY: Abdominal CT dated 03/29/2018. TECHNIQUE: Following the IV administration of 93 cc of Optiray 320, CT scan of the abdomen and pelvi s is performed from the lung bases to the proximal femora. Images are reviewed in the axial, sagittal , and coronal planes. IV contrast was administered without complication. A dose lowering technique wa s utilized adhering to the principles of ALARA. CT DOSE: 404.15 mGy.cm FINDINGS: Lung bases: Postoperative change is noted at the aortic valve. The heart is mildly enlarged and witho ut pericardial effusion. There are scattered calcified granulomas. The lung bases are otherwise clear noting bibasilar scarring/atelectasis. Liver: The contrast-enhanced liver is normal in size, contour, and attenuation. There is mild central intrahepatic biliary ductal dilatation. The hepatic veins and portal veins are patent. A 1.3 cm lipo ma is noted in the right lobe on image #82. Foci of linear subcapsular gas are present within the lef t hepatic lobe. Gallbladder: Surgically absent noting clips in the gallbladder fossa. Spleen: Normal in size and attenuation. Pancreas: There is moderate glandular atrophy of the pancreas. Scattered glandular calcifications sug gest chronic pancreatitis. Adrenal glands: Unremarkable. Kidneys: The left kidney is not identified and presumed surgically absent. The contrast enhanced righ t kidney demonstrates cortical atrophy and is without hydronephrosis. The right kidney enhances homog eneously. Foci of cortical scarring are noted in the interpolar region. A 3 mm nonobstructing calculu s is noted. 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 A 2.2 cm cyst a rises from the lower pole of the right kidney. Additional parapelvic cysts are noted. Abdominal vasculature: There is moderate atherosclerotic calcification and mild ectasia of the abdomi nal aorta. Bowel: The stomach is distended and filled with fluid. The proximal small bowel loops are also disten ded and fluid-filled measuring up to 4.5 cm diameter. The mid to distal small bowel and colon are dec ompressed, and a focal transition point is identified in the left upper quadrant on image #154. The a ppearance is consistent with a high-grade small bowel obstruction. There is trace interloop fluid wit h mild inflammatory change. No pneumatosis intestinalis. No mesenteric venous gas is appreciated. The re is subcapsular gas within the left hepatic lobe such that portal venous gas is not excluded. A duo denal diverticulum is noted. There is a large jejunal diverticulum seen in the anterior left upper qu adrant image #201. The appendix is well-visualized and normal. Peritoneum: There is no intraperitoneal free air. Trace pelvic ascites is noted. Lymphadenopathy: Prominent mesenteric lymph nodes in the left upper quadrant measure up to 10 mm and are likely on a reactive basis. Pelvic viscera: The prostate gland is diminutive and heterogeneous, noting median lobe hypertrophy. T he bladder is distended. The bladder wall is thickened and trabeculated indicating chronic outlet obs truction. There is a fat-containing left inguinal hernia. Skeletal structures: The skeletal structures are osteopenic. Moderate lumbosacral spondylosis is obse rved as well as mild scoliosis. No lytic or blastic lesions are seen. IMPRESSION: 1. Findings are consistent with a high-grade small bowel obstruction. A transition point is identifie d involving the jejunum in the left upper quadrant. 2. There is interloop fluid and trace pelvic ascites. 3. No focally thick walled bowel loops are identified. There is no intraperitoneal free air, pneumato sis intestinalis, or mesenteric venous gas. 4. Subcapsular gas within the left hepatic lobe is nonspecific and portal venous gas is suspected. Pn eumobilia is considered less likely given the peripheral location. 5. Right-sided nephrolithiasis. 6. 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 7. A large diverticulum is noted in the proximal jejunum. There is also a duodenal diverticulum. 8. Prostatomegaly with evidence of chronic bladder outlet obstruction. 9. Additional findings as above. Electronically signed by: Oliver Ram M.D. 10/30/2018 7:55 PM
[2018-10-30] MEDS ORDERED: AMPICILLIN/SULBACTAM SOD 3,000 MG in 0.9 % SODIUM CHLORIDE 100 ML IV STA (19:58)
[2018-10-30] MEDS ORDERED: metroNIDAZOLE 500 MG/100 ML BAG IV STA (19:58)
--- NOTE | 2018-10-30 21:00 | Surgery Consultation ---
Date of Consultation October 30, 2018 Assessment & Plan (1) Small bowel obstruction due to adhesions: 83-year-old male with small bowel obstruction likely secondary to adhesions from prior abdominal surgery. No acute surgical intervention indicated at this time The attempts at NG tube placement appear to be quite traumatic for the patient, so we will hold off as he is not vomiting and his abdominal pain is improved. If patient begins to vomit or his distention worsens, then we will reattempt with a smaller tube Admit to medicine service, appreciate their assistance with this patient N.p.o., IV fluids, ambulation Surgery will continue to follow, call with questions or concerns Present on Admission?: Yes History of Present Illness Reason for Consultation: Small bowel obstruction History of Present Illness 83-year-old male sent to the emergency department with worsening abdominal pain. Started on Tuesday, continued to worsen. He has been eating and drinking normally up until this point. He ate oatmeal for breakfast with no problem. He did not want to eat lunch due to the pain. Denies any vomiting. Had a bowel movement this morning, denies any flatus in the past few hours. He has never had similar symptoms in the past. He had prior abdominal surgery to include a lap scopic cholecystectomy, prostate surgery, right inguinal hernia repair, and left nephrectomy. He also had an aortic valve replacement. Allergies Allergy/AdvReac Type Severity Reaction Status Date / Time No Known Allergies Allergy Verified 10/30/18 18:55 Home Medications Home Medications Medication Instructions Recorded Confirmed Type albuterol sulfate 2.5 mg INHALATION QID PRN 05/10/18 10/30/18 History ascorbic acid (vitamin C) [Vitamin 500 mg PO DAILY 05/10/18 10/30/18 History C] bethanechol chloride 25 mg PO BID 05/10/18 10/30/18 History clonazepam 1 mg PO HS 05/10/18 10/30/18 History doxazosin 4 mg PO DAILY 05/10/18 10/30/18 History finasteride 5 mg PO DAILY 05/10/18 10/30/18 History lutein 20 mg PO BID 05/10/18 10/30/18 History memantine 10 mg PO BID 05/10/18 10/30/18 History metoprolol succinate 25 mg PO DAILY 05/10/18 10/30/18 History mirtazapine 7.5 mg PO HS 05/10/18 10/30/18 History pantoprazole 40 mg PO DAILY 05/10/18 10/30/18 History Patient History Medical History Aortic stenosis (Acute) Complication, blocked Oliver catheter (Acute) Hypotension (Acute) UTI (urinary tract infection) (Acute) Family History Other No significant family history Social History Feels Safe at Home: Yes Smoking Status: Never smoker Review of Systems 10 point review of systems negative except as above Physical Exam Vital Signs (Past 24 Hours): Last Vital Signs Temp 36.7 C 10/30/18 17:28 Pulse 63 10/30/18 20:07 Resp 20 10/30/18 20:07 BP 123/69 10/30/18 20:07 Pulse Ox 97 10/30/18 20:07 Constitutional: WD/WN, vitals as above Eyes: PERRL, conjunctivae normal, anicteric sclerae ENMT: external ear and nose normal, oropharynx normal (Some dried blood from attempted NG tube placement.) Neck: trachea midline, no thyromegaly Respiratory: normal respiratory effort, lungs clear to auscultation Cardiovascular: RRR, no murmur, no edema Gastrointestinal (Abdomen): Inspection/Auscultation: + abdomen distended Percussion/Palpation: abdomen soft; abdomen nontender, no guarding and no hernia Low midline incision and multiple port site incision Musculoskeletal: no cyanosis or clubbing, extremities motor strength 5/5 Skin: no rashes, warm and dry Neurologic: PERRL, EOMI, accommodation nl, no face palsy, no dysarthria Psychiatric: A+Ox3, euthymic affect Lymphatic: no cervical or axillary lymphadenopathy Results & Data Laboratory Results Laboratory Results - last 24 hr 10/30/18 10/30/18 17:56 17:56 WBC 6.64 RBC 4.29 L Hgb 14.7 Hct 41.3 L MCV 96.3 MCH 34.3 H MCHC 35.6 RDW Std Deviation 50.1 H RDW Coeff of Edgardo 14.1 Plt Count 119 L MPV 10.1 Immature Gran % (Auto) 0.3 Neut % (Auto) 75.0 Lymph % (Auto) 14.2 Rabun % (Auto) 8.6 Eos % (Auto) 1.7 Baso % (Auto) 0.2 Immature Gran # (Auto) 0.02 Neut # (Auto) 4.99 Lymph # (Auto) 0.94 L Rabun # (Auto) 0.57 Eos # (Auto) 0.11 Baso # (Auto) 0.01 Sodium 143 Potassium 3.8 Chloride 107 Carbon Dioxide 31 Anion Gap 5.0 BUN 36 H Creatinine 1.41 H Est Cr Clr Drug Dosing 41.7 Est GFR ( Amer) 53.4 Est GFR (Non-Af Amer) 46.1 BUN/Creatinine Ratio 25.4 H Glucose 131 H Calcium 8.6 Total Bilirubin 0.6 AST 20 ALT 25 Alkaline Phosphatase 101 Total Protein 6.5 Albumin 3.6 Globulin 2.9 Albumin/Globulin Ratio 1.2 [address] SCAN OF THE ABDOMEN AND PELVIS WITH IV CONTRAST CLINICAL HISTORY: Generalized abdominal pain. COMPARISON STUDY: Abdominal CT dated 03/29/2018. TECHNIQUE: Following the IV administration of 93 cc of Optiray 320, CT scan of the abdomen and pelvis is performed from the lung bases to the proximal femora. Images are reviewed in the axial, sagittal, and coronal planes. IV contrast was administered without complication. A dose lowering technique was utilized adhering to the principles of ALARA. CT DOSE: 404.15 mGy.cm FINDINGS: Lung bases: Postoperative change is noted at the aortic valve. The heart is mildly enlarged and without pericardial effusion. There are scattered calcified granulomas. The lung bases are otherwise clear noting bibasilar scarring/atelectasis. Liver: The contrast-enhanced liver is normal in size, contour, and attenuation. There is mild central intrahepatic biliary ductal dilatation. The hepatic veins and portal veins are patent. A 1.3 cm lipoma is noted in the right lobe on image #82. Foci of linear subcapsular gas are present within the left hepatic lobe. Gallbladder: Surgically absent noting clips in the gallbladder fossa. Spleen: Normal in size and attenuation. Pancreas: There is moderate glandular atrophy of the pancreas. Scattered glandular calcifications suggest chronic pancreatitis. Adrenal glands: Unremarkable. Kidneys: The left kidney is not identified and presumed surgically absent. The contrast enhanced right kidney demonstrates cortical atrophy and is without hyd ronephrosis. The right kidney enhances homogeneously. Foci of cortical scarring are noted in the interpolar region. A 3 mm nonobstructing calculus is noted. 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 A 2.2 cm cyst arises from the lower pole of the right kidney. Additional parapelvic cysts are noted. Abdominal vasculature: There is moderate atherosclerotic calcification and mild ectasia of the abdominal aorta. Bowel: The stomach is distended and filled with fluid. The proximal small bowel loops are also distended and fluid-filled measuring up to 4.5 cm diameter. The mid to distal small bowel and colon are decompressed, and a focal transition point is identified in the left upper quadrant on image #154. The appearance is consistent with a high-grade small bowel obstruction. There is trace interloop fluid with mild inflammatory change. No pneumatosis intestinalis. No mesenteric venous gas is appreciated. There is subcapsular gas within the left hepatic lobe such that portal venous gas is not excluded. A duodenal diverticulum is noted. There is a large jejunal diverticulum seen in the anterior left upper quadrant image #201. The appendix is well-visualized and normal. Peritoneum: There is no intraperitoneal free air. Trace pelvic ascites is noted. Lymphadenopathy: Prominent mesenteric lymph nodes in the left upper quadrant measure up to 10 mm and are likely on a reactive basis. Pelvic viscera: The prostate gland is diminutive and heterogeneous, noting median lobe hypertrophy. The bladder is distended. The bladder wall is thickened and trabeculated indicating chronic outlet obstruction. There is a fat- containing left inguinal hernia. Skeletal structures: The skeletal structures are osteopenic. Moderate lumbosacral spondylosis is observed as well as mild scoliosis. No lytic or blastic lesions are seen. IMPRESSION: 1. Findings are consistent with a high-grade small bowel obstruction. A transition point is identified involving the jejunum in the left upper quadrant. 2. There is interloop fluid and trace pelvic ascites. 3. No focally thick walled bowel loops are identified. There is no intraperitoneal free air, pneumatosis intestinalis, or mesenteric venous gas. 4. Subcapsular gas within the left hepatic lobe is nonspecific and portal venous gas is suspected. Pneumobilia is considered less likely given the peripheral location. 5. Right-sided nephrolithiasis. 6. 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 7. A large diverticulum is noted in the proximal jejunum. There is also a duodenal diverticulum. 8. Prostatomegaly with evidence of chronic bladder outlet obstruction. 9. Additional findings as above.
--- NOTE | 2018-10-30 22:41 | History & Physical Report ---
Date of Service October 30, 2018 Assessment & Plan (1) Small bowel obstruction due to adhesions: 83yoM with hx of difficulty finding words (mild dementia), Afib (not on anticoagulation), peptic ulcer disease, CKDIII, AV replacement (biprosthetic) in 2017, DM2, precancerous kidney lesion for which he had L nephrectomy, BPH, anxiety and R ankle fusion who presents with worsening abdominal pain x 3 days. SBO: shelia-umbilical abdominal pain -CT abdomen: high-grade small bowel obstruction, transition point in jejunum LUQ, interloop fluid and trace pelvic ascites -Received flagyl, amp-sulbactam, zofran, 1L NS and morphine in the ED -NG attempted in ED but pt had traumatic nose bleed - ok to hold off per Dr. Kevin -NPO on IVFs NS at 125cc/hr -Continue flagyl, amp-sulbactam -Zofran PRN for nausea -Tylenol PRN for pain -Surgery Dr. Kevin consulted: -conservative therapy: NPO, NG if vomits or distention worsens Hx of Afib (not-anticoagulated) -Continue home metoprolol CKDII -Baseline Cr 1.3-1.4 -BUN/Cr 36/1.4 (elevated BUN/Cr ratio likely due to dehydration in the setting of abdominal pain and decreased PO intake) -On IVFs -Monitor BMP Anxiety -Continue mirtazapine and clonazepam prn Mild dementia (chronic difficulty finding words) -Continue home memantine Peptic Ulcer Disease -Continue home protonix Hx of wheezing, asthma? -Continue home albuterol PRN BPH with urinary retention -Continue home doxazosin, bethannechol and finasteride Mild thrombocytopenia -Plt 119 -Plt 126 on 10/06 but previously normal -continue to monitor CBC Code: Full DVT prop: Lovenox and SCD Dispo: med/surg telemetry (2) BPH (benign prostatic hyperplasia): (3) Afib: (4) CKD (chronic kidney disease): (5) Peptic ulcer disease: (6) Mild dementia: (7) Anxiety: History of Present Illness Primary Care Provider: Roberto Atkinson 83yoM with hx of difficulty finding words (mild dementia), Afib (not on anticoagulation), peptic ulcer disease, CKDIII, AV replacement (biprosthetic) in 2017, DM2, precancerous kidney lesion for which he had L nephrectomy, BPH, anxiety, and R ankle fusion who presents with worsening abdominal pain x 3 days. Per pt and : Abdominal pain started on tuesday. Described as shelia- umbilical, achy and occasionally sharp as well. Pain was intermittent on tuesday but gradually worsened and became more constant today. Pt has been eating and drinking normally. Had a formed, brown, non-bloody bowel movement this morning. No flatus in the past few hours. A/w nasuea but no vomiting until this evening in the ED. Has not had similar symptoms in the past. Hx of prior abdominal surgeries: cholecystectomy, prostate surgery, right inguinal hernia repair, and left nephrectomy. He also had an aortic valve replacement. Denies any f/c, cold symptoms, sob, cp, dysuria, hematuria. Allergies Allergy/AdvReac Type Severity Reaction Status Date / Time No Known Allergies Allergy Verified 10/30/18 18:55 Home Medications Home Medications Medication Instructions Recorded Confirmed Type albuterol sulfate 2.5 mg INHALATION QID PRN 05/10/18 10/30/18 History ascorbic acid (vitamin C) [Vitamin 500 mg PO DAILY 05/10/18 10/30/18 History C] bethanechol chloride 25 mg PO BID 05/10/18 10/30/18 History clonazepam 1 mg PO HS 05/10/18 10/30/18 History doxazosin 4 mg PO DAILY 05/10/18 10/30/18 History finasteride 5 mg PO DAILY 05/10/18 10/30/18 History lutein 20 mg PO BID 05/10/18 10/30/18 History memantine 10 mg PO BID 05/10/18 10/30/18 History metoprolol succinate 25 mg PO DAILY 05/10/18 10/30/18 History mirtazapine 7.5 mg PO HS 05/10/18 10/30/18 History pantoprazole 40 mg PO DAILY 05/10/18 10/30/18 History Past Med/Surg History Medical History Aortic stenosis (Acute) Complication, blocked Oliver catheter (Acute) Hypotension (Acute) UTI (urinary tract infection) (Acute) Family History Other No significant family history Social History Communication Ability: Effective Beliefs That Will Affect Care: None Current Living Situation: Spouse Feels Safe at Home: Yes Safety Concerns: Feels Safe At This Time Smoking Status: Never smoker Hx Alcohol Use: No Hx Substance Use: No Review of Systems As per HPI Physical Exam Vital Signs (Past 24 Hours): Last Vital Signs Temp 36.7 C 10/30/18 17:28 Pulse 59 L 10/30/18 21:40 Resp 18 10/30/18 21:40 BP 126/65 10/30/18 21:40 Pulse Ox 92 10/30/18 21:40 Physical Exam: General: In NAD Neuro: A&O x 4, difficulty finding words CV: RRR, no m/r/g Pulm: CTAB, equal breath sounds bilaterally, on RA GI: +BS, non-distended, TTP in shelia-umbilical region Extremities: no calf tenderness, 1+ edema around R ankle (hx of ankle fusion s/p surgery) Results & Data Laboratory Results Abnormal lab results 10/30/18 10/30/18 Range/Units 17:56 17:56 RBC 4.29 L (4.7-6.1) M/uL Hct 41.3 L (42-52) % MCH 34.3 H (25-34) pg RDW Std Deviation 50.1 H (36.4-46.3) fL Plt Count 119 L (130-400) K/uL Lymph # (Auto) 0.94 L (1.2-3.4) K/uL BUN 36 H (7-18) mg/dl Creatinine 1.41 H (0.6-1.4) mg/dl BUN/Creatinine Ratio 25.4 H (10-20) Glucose 131 H (70-99) mg/dl Diagnostic Findings CT SCAN OF THE ABDOMEN AND PELVIS WITH IV CONTRAST CLINICAL HISTORY: Generalized abdominal pain. COMPARISON STUDY: Abdominal CT dated 03/29/2018. TECHNIQUE: Following the IV administration of 93 cc of Optiray 320, CT scan of the abdomen and pelvis is performed from the lung bases to the proximal femora. Images are reviewed in the axial, sagittal, and coronal planes. IV contrast was administered without complication. A dose lowering technique was utilized adhering to the principles of ALARA. CT DOSE: 404.15 mGy.cm FINDINGS: Lung bases: Postoperative change is noted at the aortic valve. The heart is mildly enlarged and without pericardial effusion. There are scattered calcified granulomas. The lung bases are otherwise clear noting bibasilar scarring/atelectasis. Liver: The contrast-enhanced liver is normal in size, contour, and attenuation. There is mild central intrahepatic biliary ductal dilatation. The hepatic veins and portal veins are patent. A 1.3 cm lipoma is noted in the right lobe on image #82. Foci of linear subcapsular gas are present within the left hepatic lobe. Gallbladder: Surgically absent noting clips in the gallbladder fossa. Spleen: Normal in size and attenuation. Pancreas: There is moderate glandular atrophy of the pancreas. Scattered glandular calcifications suggest chronic pancreatitis. Adrenal glands: Unremarkable. Kidneys: The left kidney is not identified and presumed surgically absent. The contrast enhanced right kidney demonstrates cortical atrophy and is without hydronephrosis. The right kidney enhances homogeneously. Foci of cortical scarring are noted in the interpolar region. A 3 mm nonobstructing calculus is noted. 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 A 2.2 cm cyst arises from the lower pole of the right kidney. Additional parapelvic cysts are noted. Abdominal vasculature: There is moderate atherosclerotic calcification and mild ectasia of the abdominal aorta. Bowel: The stomach is distended and filled with fluid. The proximal small bowel loops are also distended and fluid-filled measuring up to 4.5 cm diameter. The mid to distal small bowel and colon are decompressed, and a focal transition point is identified in the left upper quadrant on image #154. The appearance is consistent with a high-grade small bowel obstruction. There is trace interloop fluid with mild inflammatory change. No pneumatosis intestinalis. No mesenteric venous gas is appreciated. There is subcapsular gas within the left hepatic lobe such that portal venous gas is not excluded. A duodenal diverticulum is noted. There is a large jejunal diverticulum seen in the anterior left upper quadrant image #201. The appendix is well-visualized and normal. Peritoneum: There is no intraperitoneal free air. Trace pelvic ascites is noted. Lymphadenopathy: Prominent mesenteric lymph nodes in the left upper quadrant measure up to 10 mm and are likely on a reactive basis. Pelvic viscera: The prostate gland is diminutive and heterogeneous, noting median lobe hypertrophy. The bladder is distended. The bladder wall is thickened and trabeculated indicating chronic outlet obstruction. There is a fat- containing left inguinal hernia. Skeletal structures: The skeletal structures are osteopenic. Moderate lumbosacral spondylosis is observed as well as mild scoliosis. No lytic or blastic lesions are seen. IMPRESSION: 1. Findings are consistent with a high-grade small bowel obstruction. A transition point is identified involving the jejunum in the left upper quadrant. 2. There is interloop fluid and trace pelvic ascites. 3. No focally thick walled bowel loops are identified. There is no intraperitoneal free air, pneumatosis intestinalis, or mesenteric venous gas. 4. Subcapsular gas within the left hepatic lobe is nonspecific and portal venous gas is suspected. Pneumobilia is considered less likely given the peripheral location. 5. Right-sided nephrolithiasis. 6. 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 7. A large diverticulum is noted in the proximal jejunum. There is also a duodenal diverticulum. 8. Prostatomegaly with evidence of chronic bladder outlet obstruction. 9. Additional findings as above. Code Status & VTE Plan Code Status Full VTE Prophylaxis Plan VTE Prophylaxis will be ordered: Yes Supervising Physician Co-Signing Physician Notes Attending addendum: I have physically seen this patient, have supervised the medical residents activities, and agree with the H&P unless as otherwise noted. Assessment and Plan: High-grade recurrent small bowel obstruction-- Transition point in jejunum left upper quadrant, with interloop fluid and trace pelvic ascites. NPO NSS at 125 mL's per hour. Unasyn IV and Flagyl IV. Zofran 4 mg IV every 6 hours as needed. Pantoprazole 40 mg IV daily. Initial attempt at placement of NG tube resulted in mild epistaxis, with therefore not be placed. Surgery to follow. Atrial fibrillation-- Admit to medical telemetry, Lopressor IV as needed. Remainder of orders and notations as noted. Resident Activity Tracking Resident Involvement: Resident Care Provided Care Provided: Adult [facility]
[2018-10-30] MEDS ORDERED: ACETAMINOPHEN 325 MG TAB PO PRN (23:04)
[2018-10-30] MEDS ORDERED: ALUMINUM/MAGNESIUM SUSP 30 ML UDC PO PRN (23:04)
[2018-10-30] MEDS ORDERED: ALBUTEROL 0.083% NEBU SOLN 3 ML VIAL INH PRN (23:04)
[2018-10-30] MEDS ORDERED: ONDANSETRON INJ 2 MG/ML 2 ML VIAL IV PRN (23:04)
--- NOTE | 2018-10-30 23:50 | Emergency Department Note ---
Entered by Uriah Rivero acting as a scribe for Roger Fox DO History of Present Illness General Chief complaint: Abdominal Pain Stated complaint: AB PAIN Source: patient Limitations: no limitations History of Present Illness Provider complaint: ABD Pain Onset (ago): day(s) (2) Location: abdomen Pain Consistency: + intermittent Current Pain Intensity: 5 Quality: + sharp Associated symptoms: + loss of appetite; no chest pain and no cough Treatments prior to arrival: none The patient is an 83 year old male who presents to the Emergency Room with complaints of constant abdominal pain that began on Tuesday, 2 days ago. The p atient states that he first experienced pain around his belly button 2 days ago, which intermittently radiates into the right lower quadrant. He notes that his pain improved last night and he slept well. When he woke up this morning the pain was present again and has been constant since. He describes the current pain as a "sharp" sensation, that is a 5/10 in severity. He denies any cough or runny nose. The patient does have a midline abdominal incision, but cannot recall what the procedure was for. No other exacerbating or remitting factors. Home Medications Home Medications Medication Instructions Recorded Confirmed Type albuterol sulfate 2.5 mg INHALATION QID PRN 05/10/18 10/30/18 History ascorbic acid (vitamin C) [Vitamin 500 mg PO DAILY 05/10/18 10/30/18 History C] bethanechol chloride 25 mg PO BID 05/10/18 10/30/18 History clonazepam 1 mg PO HS 05/10/18 10/30/18 History doxazosin 4 mg PO DAILY 05/10/18 10/30/18 History finasteride 5 mg PO DAILY 05/10/18 10/30/18 History lutein 20 mg PO BID 05/10/18 10/30/18 History memantine 10 mg PO BID 05/10/18 10/30/18 History metoprolol succinate 25 mg PO DAILY 05/10/18 10/30/18 History mirtazapine 7.5 mg PO HS 05/10/18 10/30/18 History pantoprazole 40 mg PO DAILY 05/10/18 10/30/18 History Allergies Allergy/AdvReac Type Severity Reaction Status Date / Time No Known Allergies Allergy Verified 10/30/18 18:55 Past Med/Surg History Medical History Aortic stenosis (Acute) Complication, blocked Oliver catheter (Acute) Hypotension (Acute) UTI (urinary tract infection) (Acute) Family History Other No significant family history Social History Preferred Language: Bur[place]ian Communication Ability: Effective Tuna Purse Seiner Required: No Beliefs That Will Affect Care: None Current Living Situation: Spouse Feels Safe at Home: Yes Safety Concerns: Feels Safe At This Time Smoking Status: Never smoker Hx Alcohol Use: No Hx Substance Use: No Review of Systems See HPI for pertinent positives & negatives. and A total of 10 systems reviewed and were otherwise negative Physical Exam Vital Signs Vital Signs - 24 hr 10/30/18 17:28 10/30/18 18:01 10/30/18 19:05 Temperature 36.7 C Temperature Source Oral Sepsis Recent Fever Within 48 Hours No Sepsis New/Unexplained Change in Mental Status No Sepsis Action Taken by Nursing No Action Required Pulse Rate 57 L 66 Pulse Rate [Bilateral Apical] 62 Respiratory Rate 21 19 20 Respiratory Effort / Characteristics Non-Labored Spontaneous Respiratory Depth Normal Respiratory Pattern Regular Blood Pressure 138/71 138/71 Blood Pressure [Left Arm] 145/77 H Blood Pressure Mean 93 93 Blood Pressure Mean [Left Arm] 99 Pulse Oximetry 100 98 Oxygen Delivery Method Room Air Room Air 10/30/18 19:55 10/30/18 20:07 10/30/18 20:57 Temperature Temperature Source Sepsis Recent Fever Within 48 Hours Sepsis New/Unexplained Change in Mental Status Sepsis Action Taken by Nursing Pulse Rate Pulse Rate [Bilateral Apical] 63 63 61 Respiratory Rate 18 20 20 Respiratory Effort / Characteristics Respiratory Depth Respiratory Pattern Blood Pressure Blood Pressure [Left Arm] 92/83 L 123/69 127/71 Blood Pressure Mean Blood Pressure Mean [Left Arm] 86 87 89 Pulse Oximetry 98 97 94 Oxygen Delivery Method Room Air Room Air 10/30/18 21:31 10/30/18 21:36 10/30/18 21:40 Temperature Temperature Source Sepsis Recent Fever Within 48 Hours Sepsis New/Unexplained Change in Mental Status Sepsis Action Taken by Nursing Pulse Rate Pulse Rate [Bilateral Apical] 60 59 L Respiratory Rate 20 18 Respiratory Effort / Characteristics Non-Labored Respiratory Depth Normal Respiratory Pattern Blood Pressure Blood Pressure [Left Arm] 126/65 126/65 Blood Pressure Mean Blood Pressure Mean [Left Arm] 85 85 Pulse Oximetry 93 92 Oxygen Delivery Method Room Air Room Air Room Air 10/30/18 22:38 Temperature Temperature Source Sepsis Recent Fever Within 48 Hours Sepsis New/Unexplained Change in Mental Status Sepsis Action Taken by Nursing Pulse Rate Pulse Rate [Bilateral Apical] 57 L Respiratory Rate 18 Respiratory Effort / Characteristics Respiratory Depth Respiratory Pattern Blood Pressure Blood Pressure [Left Arm] 113/61 Blood Pressure Mean Blood Pressure Mean [Left Arm] 78 Pulse Oximetry 92 Oxygen Delivery Method Room Air GENERAL: Sitting up in bed, alert, well appearing, well nourished, no distress, non-toxic EYE EXAM: normal conjunctiva. OROPHARYNX: no exudate, no erythema, lips, buccal mucosa, and tongue normal and mucous membranes are moist NECK: supple, no nuchal rigidity, no adenopathy, non-tender LUNGS: Clear to auscultation. Normal chest wall mechanics HEART: no murmurs, S1 normal and S2 normal ABDOMEN: abdomen soft, tender to palpation around the umbilicus, normo-active bowel, sounds, no masses, no rebound or guarding. BACK: Back is symmetrical on inspection and there is no deformity, no midline tenderness, no CVA tenderness. SKIN: no rashes and no bruising UPPER EXTREMITIES: upper extremities are grossly normal. LOWER EXTREMITIES: No pitting edema. NEURO EXAM: Normal sensorium, cranial nerves II-XII grossly intact, normal speech, no gross weakness of arms, no gross weakness of legs. Course ED COURSE: Vital signs were reviewed and showed situational hypertension. The patients medical record was reviewed The above diagnostic studies were performed and reviewed. ED treatments and interventions as stated above. 1733: The patient was evaluated in room C12B. A complete history and physical examination was performed. 2001: I discussed the case with Dr. Kevin - General Surgery. He suggests admitting the patient to medicine and he will see in consult. 2051: I reviewed the patient's case with Dr. Perry - [facility] [place] Hospitalist. He will evaluate the patient for further management. 2054: Upon reevaluation, the patient is resting in bed. I discussed my findings with the patient and he understands and agrees with the treatment plan. Based on the patients age, coexisting illnesses, exam and lab findings the decision to treat as an inpatient was made. The patient remained stable while under my care. The patient will be evaluated for further management. Administered Medications Ioversol (Optiray 320 100ml) 93 ml IV ONCE PRN PRN Reason: Interaction Checking Stop: 11/03/18 19:30 Last Admin: 10/30/18 19:32 Dose: 93 ml Documented by: [id number] Discontinued Medications Sodium Chloride (Nss 1000ml) 1,000 mls @ 999 mls/hr IV .Q1H1M ANDREW Stop: 10/30/18 18:45 Last Infusion: 10/30/18 19:12 Dose: 0 mls/hr Documented by: [id number] Admin: 10/30/18 18:03 Dose: 999 mls/hr Documented by: [id number] Ampicillin Sodium/Sulbactam Sodium 3,000 mg/ Sodium Chloride 108 mls @ 200 ml s/hr IV NOW STA Stop: 10/30/18 20:30 Last Infusion: 10/30/18 21:41 Dose: 0 mls/hr Documented by: [id number] Admin: 10/30/18 20:52 Dose: 200 mls/hr Documented by: [id number] Metronidazole (Flagyl) 500 mg in 100 mls @ 100 mls/hr IV NOW STA Stop: 10/30/18 20:57 Last Infusion: 10/30/18 21:41 Dose: 0 mls/hr Documented by: [id number] Admin: 10/30/18 20:17 Dose: 100 mls/hr Documented by: [id number] Morphine Sulfate (Morphine Sulfate) 6 mg IV NOW STA Stop: 10/30/18 19:18 Last Admin: 10/30/18 19:52 Dose: 6 mg Documented by: [id number] Morphine Sulfate (Morphine Sulfate) 6 mg IV NOW STA Stop: 10/30/18 19:59 Last Admin: 10/30/18 21:51 Dose: Not Given Documented by: [id number] Ondansetron HCl (Zofran) 4 mg IV NOW STA Stop: 10/30/18 17:41 Last Admin: 10/30/18 18:22 Dose: 4 mg Documented by: [id number] Ondansetron HCl (Zofran) 4 mg IV NOW STA Stop: 10/30/18 19:18 Last Admin: 10/30/18 19:52 Dose: 4 mg Documented by: [id number] Medical Decision Making Differential Diagnosis Differential diagnosis: Etiologies such as biliary colic, cholecystitis, hepatitis, pancreatitis, cardiac disease, pancreatitis, gastritis, peptic ulcer disease, appendicitis, cystitis, diverticulitis, mesenteric ischemia, inflammatory bowel disease, ileus, bowel obstruction, testicular torsion, aortic pathology, shingles, as well as others were considered. Medical Records Attestation: I reviewed the patient's medical records. Home Medications Current Medication List: was personally reviewed by me Laboratory Data Attestation: I reviewed the patient's lab results. Result diagrams: 10/30/18 17:56 10/30/18 17:56 Lab Results 10/30/18 10/30/18 Range/Units 17:56 17:56 WBC 6.64 (4.8-10.8) K/uL RBC 4.29 L (4.7-6.1) M/uL Hgb 14.7 (14.0-18.0) g/dL Hct 41.3 L (42-52) % MCV 96.3 (80-100) fL MCH 34.3 H (25-34) pg MCHC 35.6 (32-36) g/dL RDW Std Deviation 50.1 H (36.4-46.3) fL RDW Coeff of Edgardo 14.1 (11.5-14.5) % Plt Count 119 L (130-400) K/uL MPV 10.1 (7.4-10.4) fL Immature Gran % (Auto) 0.3 % Neut % (Auto) 75.0 % Lymph % (Auto) 14.2 % Smyth % (Auto) 8.6 % Eos % (Auto) 1.7 % Baso % (Auto) 0.2 % Immature Gran # (Auto) 0.02 (0.00-0.02) K/uL Neut # (Auto) 4.99 (1.4-6.5) K/uL Lymph # (Auto) 0.94 L (1.2-3.4) K/uL Smyth # (Auto) 0.57 (0.11-0.59) K/uL Eos # (Auto) 0.11 (0-0.5) K/uL Baso # (Auto) 0.01 (0-0.2) K/uL Sodium 143 (136-145) mmol/L Potassium 3.8 (3.5-5.1) mmol/L Chloride 107 (98-107) mmol/L Carbon Dioxide 31 (21-32) mmol/L Anion Gap 5.0 (3-11) BUN 36 H (7-18) mg/dl Creatinine 1.41 H (0.6-1.4) mg/dl Est Cr Clr Drug Dosing 41.7 ml/min Est GFR ( Amer) 53.4 Est GFR (Non-Af Amer) 46.1 BUN/Creatinine Ratio 25.4 H (10-20) Glucose 131 H (70-99) mg/dl Calcium 8.6 (8.5-10.1) mg/dl Total Bilirubin 0.6 (0.2-1) mg/dl AST 20 (15-37) U/L ALT 25 (12-78) U/L Alkaline Phosphatase 101 (45-117) U/L Total Protein 6.5 (6.4-8.2) gm/dl Albumin 3.6 (3.4-5.0) gm/dl Globulin 2.9 (2.5-4.0) gm/dl Albumin/Globulin Ratio 1.2 (0.9-2) Lipase 187 (73-393) U/L Imaging Data Attestation: I personally reviewed and interpreted this imaging study as follows: Radiologist's Impression: CT SCAN OF THE ABDOMEN AND PELVIS WITH IV CONTRAST CLINICAL HISTORY: Generalized abdominal pain. COMPARISON STUDY: Abdominal CT dated 03/29/2018. TECHNIQUE: Following the IV administration of 93 cc of Optiray 320, CT scan of the abdomen and pelvis is performed from the lung bases to the proximal femora. Images are reviewed in the axial, sagittal, and coronal planes. IV contrast was administered without complication. A dose lowering technique was utilized adhering to the principles of ALARA. CT DOSE: 404.15 mGy.cm FINDINGS: Lung bases: Postoperative change is noted at the aortic valve. The heart is mildly enlarged and without pericardial effusion. There are scattered calcified granulomas. The lung bases are otherwise clear noting bibasilar scarring/atelectasis. Liver: The contrast-enhanced liver is normal in size, contour, and attenuation. There is mild central intrahepatic biliary ductal dilatation. The hepatic veins and portal veins are patent. A 1.3 cm lipoma is noted in the right lobe on image #82. Foci of linear subcapsular gas are present within the left hepatic lobe. Gallbladder: Surgically absent noting clips in the gallbladder fossa. Spleen: Normal in size and attenuation. Pancreas: There is moderate glandular atrophy of the pancreas. Scattered glandular calcifications suggest chronic pancreatitis. Adrenal glands: Unremarkable. Kidneys: The left kidney is not identified and presumed surgically absent. The c ontrast enhanced right kidney demonstrates cortical atrophy and is without hydronephrosis. The right kidney enhances homogeneously. Foci of cortical scarring are noted in the interpolar region. A 3 mm nonobstructing calculus is noted. 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 A 2.2 cm cyst arises from the lower pole of the right kidney. Additional parapelvic cysts are noted. Abdominal vasculature: There is moderate atherosclerotic calcification and mild ectasia of the abdominal aorta. Bowel: The stomach is distended and filled with fluid. The proximal small bowel loops are also distended and fluid-filled measuring up to 4.5 cm diameter. The mid to distal small bowel and colon are decompressed, and a focal transition point is identified in the left upper quadrant on image #154. The appearance is consistent with a high-grade small bowel obstruction. There is trace interloop fluid with mild inflammatory change. No pneumatosis intestinalis. No mesenteric venous gas is appreciated. There is subcapsular gas within the left hepatic lobe such that portal venous gas is not excluded. A duodenal diverticulum is noted. There is a large jejunal diverticulum seen in the anterior left upper quadrant image #201. The appendix is well-visualized and normal. Peritoneum: There is no intraperitoneal free air. Trace pelvic ascites is noted. Lymphadenopathy: Prominent mesenteric lymph nodes in the left upper quadrant measure up to 10 mm and are likely on a reactive basis. Pelvic viscera: The prostate gland is diminutive and heterogeneous, noting median lobe hypertrophy. The bladder is distended. The bladder wall is thickened and trabeculated indicating chronic outlet obstruction. There is a fat- containing left inguinal hernia. Skeletal structures: The skeletal structures are osteopenic. Moderate lumbosacral spondylosis is observed as well as mild scoliosis. No lytic or blastic lesions are seen. IMPRESSION: 1. Findings are consistent with a high-grade small bowel obstruction. A transition point is identified involving the jejunum in the left upper quadrant. 2. There is interloop fluid and trace pelvic ascites. 3. No focally thick walled bowel loops are identified. There is no intraperitoneal free air, pneumatosis intestinalis, or mesenteric venous gas. 4. Subcapsular gas within the left hepatic lobe is nonspecific and portal venous gas is suspected. Pneumobilia is considered less likely given the peripheral location. 5. Right-sided nephrolithiasis. 6. 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 7. A large diverticulum is noted in the proximal jejunum. There is also a duodenal diverticulum. 8. Prostatomegaly with evidence of chronic bladder outlet obstruction. 9. Additional findings as above. Electronically signed by: Oliver Ram M.D. 10/30/2018 7:55 PM Blood Pressure Blood Pressure Findings: Elevated blood pressure Blood Pressure Disposition: elevated BP felt to be situational MDM Narrative Patient is an 83-year-old male presents to the ER for abdominal pain which is b een present for the past 2 days. Last bowel movement was this morning. Belly pain is infraumbilical. Vitals were fairly unremarkable. Labs are obtained and shows no significant leukocytosis or anemia. BMP shows mild dehydration with a BUN of 36. LFTs bilirubin lipase is unremarkable. CT of the abdomen pelvis shows a high-grade bowel obstruction with questionable subcapsular pneumatosis. This was discussed with general surgery who evaluated the images. Recommended admission to the hospitalist. Patient was given IV Flagyl and Unasyn along with IV fluids, IV Zofran and IV morphine. Patient was updated bedside and admitted to the hospitalist for a high-grade bowel obstruction. Did attempt to place an NG tube but is started to have bleeding. General surgery was at bedside and recommended holding off. Impression & Plan Small bowel obstruction Discharge Plan Visit Data *Final* Discharge Date/Time: 10/30/18 22:39 Chief Complaint: Abdominal Pain Stated Complaint: AB PAIN ED Provider: Roger Fox Discharge Problem: Small bowel obstruction Patient Disposition: Admitted As Inpatient Discharge Instructions Interventions: ED Discharge Assessment Last Done: 10/30/18 22:39 The scribe's documentation has been prepared under my direction and personally reviewed by me in its entirety. I confirm that the note above accurately reflects all work, treatment, procedures, and medical decision making performed by me.
[2018-10-30] MEDS: SODIUM CHLORIDE 0.9% 1000ML 1,000 ML IV SCH (23:58)
[2018-10-31] MEDS: BETHANECHOL CHL 25 MG TAB PO SCH ×3 (00:10→20:36)
[2018-10-31] MEDS: MEMANTINE HCL 10 MG TAB PO SCH ×3 (00:10→20:38)
[2018-10-31] MEDS ORDERED: LORazepam 0.5 MG/1 ML VIAL IV STA (00:20)
[2018-10-31] MEDS: AMPICILLIN/SULBACTAM SOD 1,500 MG in 0.9 % SODIUM CHLORIDE 100 ML IV SCH ×3 (01:13→13:31)
[2018-10-31] MEDS: metroNIDAZOLE 500 MG/100 ML BAG IV SCH ×2 (05:29→12:22)
[2018-10-31 05:46] LABS: Eosinophils # (auto) 0.01 K/uL (0-0.5); Eosinophils % (auto) 0.1 %; Hematocrit (blood only) 39.1 % (42-52); Hemoglobin 13.7 g/dL (14.0-18.0); Immature Granulocytes # (auto) 0.01 K/uL (0.00-0.02); Immature Granulocytes % (auto) 0.1 %; Lymphocytes # (auto) 0.44 K/uL (1.2-3.4); Mean Corpuscular Volume 96.5 fL (80-100); Mean Platelet Volume 10.3 fL (7.4-10.4); Monocytes # (auto) 0.74 K/uL (0.11-0.59); Monocytes % (auto) 6.7 %; Neutrophils # (auto) 9.87 K/uL (1.4-6.5); Neutrophils % (auto) 89.1 %; Platelet Count 106 K/uL (130-400); RDW Coefficient of Variation 13.9 % (11.5-14.5); RDW Standard Deviation 49.4 fL (36.4-46.3); Red Blood Count 4.05 M/uL (4.7-6.1); White Blood Count 11.07 K/uL (4.8-10.8)
[2018-10-31 06:04] LABS: INR 1.1 (0.9-1.1); Prothrombin Time 11.1 Seconds (9.0-12.0)
[2018-10-31 06:09] LABS: Appearance Urine Clear (Clear); Bilirubin Urine Negative (Negative); Blood Urine Negative (Negative); Color Urine Dark Yellow; Glucose Urine UA Negative (Negative); Ketones Urine 1+ (Negative); Leukocyte Esterase Urine Negative (Negative); Nitrite Urine Negative (Negative); Protein Urine Negative (Negative); Specific Gravity Urine > 1.045 (1.000-1.030); Urobilinogen Urine Negative (Negative); pH Urine 5.5 (4.5-7.5)
[2018-10-31 06:21] LABS: BUN Creatinine Ratio 22.4 (10-20); Calcium 8.1 mg/dl (8.5-10.1); Creatinine Clr Calc Pharmacy 43.2 ml/min; Est GFR (African American) 55.8; Est GFR (Non-African American) 48.1; Potassium 4.1 mmol/L (3.5-5.1)
[2018-10-31] MEDS: METOPROLOL SUCC 25MG EXT REL TAB PO SCH (07:54)
[2018-10-31] MEDS: FINASTERIDE 5 MG TAB PO SCH (07:54)
[2018-10-31] MEDS: PANTOprazole 40 MG TAB PO SCH (07:54)
[2018-10-31] MEDS: DOXAZosin MESYLATE 4 MG TAB PO SCH (07:54)
[2018-10-31] MEDS: ENOXAPARIN INJ 30 MG/0.3 ML SYR SQ SCH (08:02)
--- NOTE | 2018-10-31 08:35 | Surgery Progress Note ---
Date of Service October 31, 2018 Assessment & Plan (1) Small bowel obstruction: will check KUB, consider clears Supervising Physician Co-Signing Physician Notes Patient seen and examined, agree with above. Feels better, less pain. May have passed gas. KUB improved. If continues to pass gas, then maybe clear liquids tonight. Surgery will follow. KUB HISTORY: Acute generalized abdominal pain with history of small bowel obstruction SBO COMPARISON: CT abdomen and pelvis 10/30/2018. FINDINGS: Cholecystectomy. Mild gaseous distention of the large bowel with decreased small bowel distention. Retained contrast within the urinary bladder lumen. Gaseous distended bowel of the abdominal left upper quadrant is noted. No renal calculi. No ureteral calculi. No pneumoperitoneum or pneumatosis. No fracture. IMPRESSION: 1. Decreased small bowel distention with mild gaseous distention of the large bowel. 2. No pneumatosis or pneumoperitoneum. Subjective intermittent pain, nausea, no vomiting, no flatus or BM Physical Exam Vital Signs (Past 24 Hours): Last Vital Signs Temp 36.6 C 10/31/18 07:45 Pulse 71 10/31/18 07:45 Resp 16 10/31/18 07:45 BP 96/56 L 10/31/18 07:45 Pulse Ox 92 10/31/18 07:45 Gastrointestinal (Abdomen): Inspection/Auscultation: abdomen not distended Percussion/Palpation: abdomen soft; abdomen nontender
[2018-10-31] MEDS ORDERED: ENOXAPARIN INJ 40 MG/0.4 ML SYR SQ SCH (09:00)
--- NOTE | 2018-10-31 09:05 | Family Medicine Progress Note ---
Date of Service October 31, 2018 Assessment & Plan (1) Anxiety: Mr. Gilbert is a 83 year old man here with what abdominal pain from what appears to be an improving SBO. SBO: CT showing high grade SBO History of abdominal surgery, could be 2/2 adhesions NPO, surgery attempted NG placement but were unsuccessful. Patient improved over course of day and KUB showed some improvement from CT, will advance diet to clear. If patient were to have worsening abdominal pain or vomiting will attempt again Pain appears to be improving, no vomiting today Will continue to monitor and advance diet slowly when pain free Patient placed on unasyn and flagyl for concern of bacterial translocation, D/C'd those today as this appears to be simple bowel obstruction Dementia Patient with difficulty relaying his medical history or recent events, will continue home memantine. A fib Continue home metoprolol Not on anticoagulation NPO IV NSS at 125 ml/hr (2) Mild dementia: (3) Peptic ulcer disease: (4) CKD (chronic kidney disease): (5) Small bowel obstruction: (6) BPH (benign prostatic hyperplasia): (7) Afib: (8) Small bowel obstruction due to adhesions: Supervising Physician Co-Signing Physician Notes I personally examined the patient and verified all wick points of history and exam, discussed case, and agree with decision making with Dr Brady. Feeling better, no nausea no abdominal pain. Actually feels a bit hungry. Notes he has not voided. Vitals noted, in general he is awake and in no distress. Abdomen is soft nondistended nontender no masses or organomegaly normal bowel sounds. No guarding rebound or rigidity. Small bowel obstructionappears to have been adhesional, appears to be improving. Clear liquid diet, ongoing observation and supportive care. Slowly advance diet as tolerated. Question of portal venous gas on CThe has no upper abdominal pain, no transaminitis, no elevation of bilirubin, no significant leukocytosis, no elevated alk phosthis appears to not fit the clinical picture. Ongoing exam/clinical follow-up. DVT prophylaxisLovenox Subjective Bart Gilbert is an 83 year old man with a history of abdominal surgery, nephrectomy, Dementia, Type II DM, and BPH who presents with a three day history of abdominal pain. He describes the symptoms as being mostly located in his lower abdomen. He has trouble describing his symptoms due to a lot of word searching, likely secondary to his dementia. He tells me his will be in later today. He had a regular bowel movement yesterday, He had several episodes of vomiting yesterday, he denies any bleeding, melena, straining, diarrhea, fevers, chills, shortness of breath, chest pain, lightheadedness, or any other pain. Physical Exam Vital Signs (Past 24 Hours): Last Vital Signs Temp 36.6 C 10/31/18 07:45 Pulse 71 10/31/18 07:45 Resp 16 10/31/18 07:45 BP 96/56 L 10/31/18 07:45 Pulse Ox 92 10/31/18 07:45 Constitutional: well developed, well nourished, cooperative and comfortable; no acute distress Respiratory: normal respiratory effort; no respiratory distress, no labored breathing and no cough Auscultation: lungs clear to auscultation bilaterally; no crackles, no rales and no rhonchi Cardiovascular: Heart Sounds: + murmur Gastrointestinal (Abdomen): Inspection/Auscultation: abdomen normal to inspection, normal bowel sounds and + abdominal surgical scar (midline); abdomen not distended and no visible peristalsis Percussion/Palpation: + abdomen tender (very mildly tender) and abdomen soft; no guarding, no hepatosplenomegaly and no abdominal mass Skin: no rashes, warm and dry
--- NOTE | 2018-10-31 09:33 | XRay Report ---
KUB HISTORY: Acute generalized abdominal pain with history of small bowel obstruction SBO COMPARISON: CT abdomen and pelvis 10/30/2018. FINDINGS: Cholecystectomy. Mild gaseous distention of the large bowel with decreased small bowel dist ention. Retained contrast within the urinary bladder lumen. Gaseous distended bowel of the abdominal left upper quadrant is noted. No renal calculi. No ureteral calculi. No pneumoperitoneum or pneumatos is. No fracture. IMPRESSION: 1. Decreased small bowel distention with mild gaseous distention of the large bowel. 2. No pneumatosis or pneumoperitoneum. Electronically signed by: Luís Heredia M.D. 10/31/2018 9:31 AM
[2018-10-31] MEDS: SODIUM CHLORIDE 0.9% 1000ML 1,000 ML IV SCH ×2 (10:19→20:38)
[2018-10-31] MEDS ORDERED: MIRTAZAPINE TAB 15 MG TAB PO SCH (21:00)
[2018-10-31] MEDS ORDERED: clonazePAM 1 MG TAB PO SCH (21:00)
[2018-11-01] MEDS: SODIUM CHLORIDE 0.9% 1000ML 1,000 ML IV SCH (04:04)
[2018-11-01] MEDS ORDERED: HALOPERIDOL LACTATE 5 MG/ML 1 ML VIAL IM STA (05:45)
[2018-11-01] MEDS: METOPROLOL SUCC 25MG EXT REL TAB PO SCH (08:25)
[2018-11-01] MEDS: MEMANTINE HCL 10 MG TAB PO SCH (08:25)
[2018-11-01] MEDS: PANTOprazole 40 MG TAB PO SCH (08:25)
[2018-11-01] MEDS: DOXAZosin MESYLATE 4 MG TAB PO SCH (08:25)
[2018-11-01] MEDS: FINASTERIDE 5 MG TAB PO SCH (08:25)
[2018-11-01] MEDS: BETHANECHOL CHL 25 MG TAB PO SCH (08:25)
[2018-11-01] MEDS: ENOXAPARIN INJ 30 MG/0.3 ML SYR SQ SCH (08:26)
--- NOTE | 2018-11-01 08:47 | Surgery Progress Note ---
Date of Service November 01, 2018 Assessment & Plan (1) Small bowel obstruction due to adhesions: improving full liquid lunch, consider low fiber tonight or in AM Subjective some flatus, tolerating clears Physical Exam Vital Signs (Past 24 Hours): Last Vital Signs Temp 36.4 C L 11/01/18 06:56 Pulse 52 L 11/01/18 06:56 Resp 16 11/01/18 06:56 BP 124/62 11/01/18 06:56 Pulse Ox 93 11/01/18 06:56 Gastrointestinal (Abdomen): Inspection/Auscultation: abdomen not distended Percussion/Palpation: abdomen soft; abdomen nontender
[2018-11-01] MEDS ORDERED: TAMSULOSIN HCL 0.4 MG CAP PO ONE (10:30)
--- NOTE | 2018-11-01 22:36 | Discharge Summary ---
Date of Service November 01, 2018 Admission HPI Per Admitting Provider 83yoM with hx of difficulty finding words (mild dementia), Afib (not on anticoagulation), peptic ulcer disease, CKDIII, AV replacement (biprosthetic) in 2017, DM2, precancerous kidney lesion for which he had L nephrectomy, BPH, anxiety, and R ankle fusion who presents with worsening abdominal pain x 3 days. Per pt and : Abdominal pain started on tuesday. Described as shelia- umbilical, achy and occasionally sharp as well. Pain was intermittent on tuesday but gradually worsened and became more constant today. Pt has been eating and drinking normally. Had a formed, brown, non-bloody bowel movement this morning. No flatus in the past few hours. A/w nasuea but no vomiting until this evening in the ED. Has not had similar symptoms in the past. Hx of prior abdominal surgeries: cholecystectomy, prostate surgery, right inguinal hernia repair, and left nephrectomy. He also had an aortic valve replacement. Denies any f/c, cold symptoms, sob, cp, dysuria, hematuria. Admission Exam Per Admitting Provider Temp 36.7 C 10/30/18 17:28 Pulse 59 L 10/30/18 21:40 Resp 18 10/30/18 21:40 BP 126/65 10/30/18 21:40 Pulse Ox 92 10/30/18 21:40 Physical Exam: General: In NAD Neuro: A&O x 4, difficulty finding words CV: RRR, no m/r/g Pulm: CTAB, equal breath sounds bilaterally, on RA GI: +BS, non-distended, TTP in shelia-umbilical region Extremities: no calf tenderness, 1+ edema around R ankle (hx of ankle fusion s/p surgery) Principal Diagnosis Small Bowel Obstruction Discharge Exam Constitutional well developed, well nourished, cooperative and comfortable; no acute distress Respiratory normal respiratory effort; no respiratory distress, no labored breathing and no cough Auscultation: lungs clear to auscultation bilaterally; no crackles, no rales and no rhonchi Cardiovascular Rate/Rhythm: regular rate; + abnormal rhythm Heart Sounds: + murmur Gastrointestinal (Abdomen) Inspection/Auscultation: abdomen normal to inspection, normal bowel sounds and + abdominal surgical scar (midline); abdomen not distended and no visible peristalsis Percussion/Palpation: abdomen soft; abdomen nontender, no guarding, no hepatosplenomegaly and no abdominal mass Skin no rashes, warm and dry Discharge Data Allergies Allergy/AdvReac Type Severity Reaction Status Date / Time No Known Allergies Allergy Verified 10/30/18 18:55 Consultations 10/30/18 20:04 ED Decision to Admit Stat 10/30/18 23:04 Consult General Surgery Routine Ordered Studies 10/30/18 17:40 CT abd pelvis IV con only Stat Hospital Course (1) Anxiety: Mr. Gilbert is a 83 year old man here with what abdominal pain from a small bowel obstruction SBO: CT on admission showing high grade SBO History of abdominal surgery, possibly 2/2 adhesions Patient initially made NPO, surgery attempted NG placement 2x but were unsuccessful resulting in epistaxis Patient's abdominal pain and nausea/vomiting mproved over course KUB on day 2 showed some improvement from CT, and diet was advanced to clear. Advanced diet on 11/01 to low fiber solid food and discharged home. Patient placed on unasyn and flagyl on admission for concern of bacterial tra nslocation, D/C'd those on day 1 as this appears to be simple bowel obstruction Dementia Patient with difficulty relaying his medical history or recent events, cont inued home memantine. Patient with some sundowning requiring 1 to 1 to reorient and prevent self injury due to agitation A fib Continued home metoprolol Not on anticoagulation Urinary Retention Was unable to spontaneously void, stanton placed on urology recommendation Will follow up as outpatient to get it removed. (2) Mild dementia: (3) Peptic ulcer disease: (4) CKD (chronic kidney disease): (5) Small bowel obstruction: (6) BPH (benign prostatic hyperplasia): (7) Afib: (8) Small bowel obstruction due to adhesions: Total Time Total Time Spent Total Time Spent (In Minutes): 35 Discharge Plan Discharge Items Patient Disposition: Home - Self-Care Reason For Visit: SMALL BOWEL OBSTRUCTION Discharge Diagnosis: Small Bowel Obstruction, Urinary Retention Discharge Goals: Decrease discomfort and Improve disease control Activity: As commented below Lifting: Gradually increase as tolerated Exercise/Sports: Gradually increase as tolerated Non-emergency contact: Primary Care Provider Call non-emergency contact if: your symptoms worsen and your pain is not controlled Follow-up/Referrals: Roberto Atkinson [Primary Care Provider] - 11/21/18 4:30 pm (Please keep your scheduled appointment with your Primary Care Provider, Dr. Atkinson on TuesdayNovember 21 at 4:30pm. If you have any questions, call the office at [phone].) Diet: Low Fiber Addtl Provider Instructions: Mr. Gilbert, you were treated in the hospital for a bowel obstruction. You discomfort improved over the course of your admission and we have successfully advanced your diet where you can now be discharge. It is important to continue a low fiber diet on discharge to prevent a future occurence. You also began to develop urinary retention and after speaking with Urology we placed a stanton catheter to help relieve the retention. We will leave in the stanton catheter at this time until you follow up with Urology in 1 week. The Urology office will call you once they have been able to make you an appointment. There is also a follow up scheduled with Dr. Sr your PCP. Medications: Continue all medications as previously prescribed Follow Up: - Urology within 1 week - Dr. Sr your primary care provider Prescriptions: Continued albuterol sulfate 2.5 mg /3 mL (0.083 %) Solution For Nebulization 2.5 mg INHALATION QID PRN (Reason: Shortness Of Breath Or Wheezing) RF: 0 clonazepam 1 mg Tablet 1 mg PO HS RF: 0 bethanechol chloride 25 mg Tablet 25 mg PO BID RF: 0 ascorbic acid (vitamin C) [Vitamin C] 500 mg Tablet 500 mg PO DAILY RF: 0 pantoprazole 40 mg Tablet,Delayed Release (Dr/Ec) 40 mg PO DAILY RF: 0 doxazosin 4 mg Tablet 4 mg PO DAILY RF: 0 metoprolol succinate 25 mg Tablet Extended Release 24 Hr 25 mg PO DAILY RF: 0 finasteride 5 mg Tablet 5 mg PO DAILY RF: 0 memantine 10 mg Tablet 10 mg PO BID RF: 0 mirtazapine 7.5 mg Tablet 7.5 mg PO HS RF: 0 lutein 20 mg Capsule 20 mg PO BID RF: 0 Stand-Alone Forms: [facility] Discharge Orders: Discharge Order (Routine); Ordered 11/01/18 Ordered By: Hema Mancia Admission Data Admit Date/Time: 10/30/18 22:02 Attending Provider: Roger García Admit Provider: Ascencion Perry Primary Care Provider: Roberto Atkinson Other Providers: Ascencion Perry ; Dino Kevin Service: Telemetry Medical Other Interventions: Discharge Summary Assessment (RN) Last Done: 11/01/18 14:16 DC Date/Time DO NOT enter until pt leaves facility: 11/01/18 14:40 Supervising Physician Co-Signing Physician Notes I personally examined the patient and verified all wick points of history and exam, discussed case, and agree with decision making with Dr Brady. Feeling better, eating well would like to go home. Still having trouble voiding. Vitals noted, in general he is awake and in no distress. Abdomen is soft nondistended nontender no masses or organomegaly normal bowel sounds. No guarding rebound or rigidity. Small bowel obstructionappears to have been adhesional, appears to be improved, stable for home. Low fiber diet. Urinary retentionBPH related. Stanton and close urology follow-up. Question of portal venous gas on CThe has no upper abdominal pain, no transaminitis, no elevation of bilirubin, no significant leukocytosis, no elevated alk phosthis appears to not fit the clinical picture. DVT prophylaxisLovenox utilized during his stay Stable for discharge, outpatient follow-up. Resident Activity Tracking Resident Involvement: Resident Care Provided Care Provided: Adult Hospital Medicine
== END 2018-11-01 14:40 | disposition home or self-care (01) | DRG 390 ==
LOC: ED 17:32 → 2N 22:02 → SUATTDRO 22:02 → 2N 22:39

== ENCOUNTER 2020-02-08 10:48 | Observation (INO) ==
[2020-02-08] MEDS ORDERED: ASPIRIN CHEW 324 MG PO STA (11:11)
[2020-02-08] MEDS ORDERED: SODIUM CHLORIDE 0.9% 500 ML IV SCH (11:15)
--- NOTE | 2020-02-08 11:16 | Emergency Department Note ---
Impression & Plan Chest pain, Abnormal ECG ED Provider Note NAME: RAHEL MORRISON AGE: 84 SEX: M : 1935 ARRIVES VIA: Ambulance INFORMANT: Patient ED PROVIDER(S): Roger Fox DO CHIEF COMPLAINT: Chest pain HPI: Patient is an 84-year-old male who presents the ER for chest discomfort. His woke him up this morning around 9 AM which is abnormal for him to sleeping that long. At that time his chest discomfort started. He notes it did not feel normal. The best he can describe the chest discomfort as a possible vibration. He does have a history of diabetes, hypertension, dementia and CAD with an aortic valve replacement. His gave him 2 nitro and his pain completely abated. She did give him a third although the pain had already resolved. Did not take any aspirin. There is no radiation to his arm neck or back. He had no shortness of breath that he remembers. Denies any belly pain nausea vomiting or diarrhea. notes that he was Possibly a little dizzy and weak but he adamantly denies this. ROS: See above HPI for pertinent positives & negatives. A total of 10 systems reviewed and were otherwise negative. PAST MEDICAL HISTORY:See Below PAST SURGICAL HISTORY:See Below FAMILY HISTORY:See Below SOCIAL HISTORY:See Below HOME MEDICATIONS:See Below ALLERGIES:See Below VITALS:See Below PHYSICAL EXAMINATION: GENERAL: Sitting up in bed, alert, well appearing, well nourished, no distress, non-toxic EYE EXAM: normal conjunctiva. PERRL and EOM's intact. OROPHARYNX: no exudate, no erythema, lips, buccal mucosa, and tongue normal and mucous membranes are moist NECK: supple, no nuchal rigidity, no adenopathy, non-tender LUNGS: Clear to auscultation. Normal chest wall mechanics HEART: no murmurs, S1 normal and S2 normal ABDOMEN: abdomen soft, non-tender, normo-active bowel sounds, no masses, no rebound or guarding. BACK: Back is symmetrical on inspection and there is no deformity, no midline tenderness, no CVA tenderness. SKIN: no rashes and no bruising UPPER EXTREMITIES: upper extremities are grossly normal. LOWER EXTREMITIES: No pitting edema. NEURO EXAM: Awake alert following commands, cranial nerves II-XII grossly intact, normal speech, no gross weakness of arms, no gross weakness of legs. No drift. Finger to nose intact. Gross sensation intact. MEDICAL DECISION MAKING: Patient is an 84-year-old male with a past medical history of hypertension, diabetes and CAD the presents the ER for weird feeling in the left side of his chest. IV was established with orders obtained. Labs show mild leukopenia. No significant anemia. BMP was unremarkable. LFTs bilirubin and troponin was negative. Lipase unremarkable. Chest x-ray without any acute pathology. EKG shows T WI in the inferior leads which appears to be new from the previous 2. Patient and was updated at bedside. With his pain remitting after nitro. Discussed with the hospitalist for observation. Triage Nursing notes reviewed. Prior medical records reviewed Vital Signs: reviewed and remarkable for no significant abnormalities Differential diagnosis: Differential diagnoses includes but is not limited to acute coronary syndrome, myocardial infarction, pericarditis, pulmonary embolus, aortic dissection, pneumonia, pneumothorax, musculoskeletal, shingles, esophageal. ER treatment provided: See below Diagnostics interpreted by me: ECG: Sinus bradycardia rate of 50 Normal axis No PVCs TWI in the inferior leads Normal QTC T wave inversion is new from 2019 Cardiac Monitoring: An order was placed for continuous cardiac monitoring. The monitor shows a rate of 52 with sinus rhythm. Laboratory studies: As stated above and show below. Imaging studies: AP upright 1 view of the chest shows no focal infiltrate Consultation(s): Tisha with Dr. Bhavik Macedo for further evaluation. ED COURSE: Procedures: none Critical Care: None Past Med/Surg History Medical History (Updated 02/08/20 @ 17:29 by Roger Fox DO) Aortic stenosis (Acute) Complication, blocked Oliver catheter (Acute) Hypertension, essential Hypotension (Acute) UTI (urinary tract infection) (Acute) Surgical History (Updated 02/08/20 @ 13:50 by Bhavik Macedo MD) S/P ablation of atrial fibrillation Status post transcatheter aortic valve replacement (TAVR) using bioprosthesis Social History Preferred Language: Cameroonian Communication Ability: Effective Financial Operations Consultant Required: No Beliefs That Will Affect Care: None Current Living Situation: Spouse Other Information That Helps Us Care for You: No Feels Safe at Home: Yes Safety Concerns: Feels Safe At This Time Smoking Status: Never smoker Hx Alcohol Use: No Hx Substance Use: No Allergies Allergies Allergy/AdvReac Type Severity Reaction Status Date / Time No Known Drug Allergies Allergy Verified 02/08/20 12:28 Home Meds Home Medications Medication Instructions Recorded Confirmed ascorbic acid (vitamin C) [Vitamin 500 mg PO QAM 05/10/18 02/08/20 C] bethanechol chloride 25 mg PO UD 05/10/18 02/08/20 clonazepam 1 mg PO HS 05/10/18 02/08/20 lutein 20 mg PO BID 05/10/18 02/08/20 Centrum Silver Men 1 tab PO QAM 03/16/19 02/08/20 aspirin [Aspir-81] 81 mg PO QPM 04/03/19 02/08/20 cholecalciferol (vitamin D3) 2,000 unit PO DAILY 04/03/19 02/08/20 [Vitamin D3] cyanocobalamin (vitamin B-12) 1,000 mcg PO DAILY 04/03/19 02/08/20 [Vitamin B-12] donepezil 10 mg PO DAILY 02/08/20 02/08/20 lansoprazole 30 mg PO BID 02/08/20 02/08/20 memantine 10 mg PO BID 02/08/20 02/08/20 metoprolol succinate 37.5 mg PO DAILY 02/08/20 02/08/20 tamsulosin 0.4 mg PO HS 02/08/20 02/08/20 vitamins A,C,G-bqmv-rejskg 2 tab PO BID 02/08/20 02/08/20 [PreserVision AREDS] Previous Rx's Medication Instructions Recorded nitroglycerin 0.4 mg sublingual 0.4 mg SL Q5M PRN #25 tab 03/27/19 tablet Results & Data (ED) Vital Signs Vital Signs - 24 hr 02/08/20 10:55 02/08/20 12:17 Temperature 36.7 C Temperature Source Oral Pulse Rate 53 L Pulse Rate [Apical] 47 L Respiratory Rate 16 16 Blood Pressure 113/65 Blood Pressure [Right Arm] 114/68 Blood Pressure Mean 81 Blood Pressure Mean [Right Arm] 83 Pulse Oximetry 99 98 Oxygen Delivery Method Room Air Room Air Sepsis Recent Fever Within 48 Hours No Sepsis New/Unexplained Change in Mental Status No Sepsis Action Taken by Nursing No Action Required Laboratory Data Result diagrams: 02/08/20 11:27 02/08/20 11:27 Lab Results 02/08/20 02/08/20 02/08/20 Range/Units 11:27 11:27 11:27 WBC 4.55 L (4.8-10.8) K/uL RBC 4.05 L (4.7-6.1) M/uL Hgb 13.5 L (14.0-18.0) g/dL Hct 40.7 L (42-52) % MCV 100.5 H (80-100) fL MCH 33.3 (25-34) pg MCHC 33.2 (32-36) g/dL RDW Std Deviation 51.5 H (36.4-46.3) fL RDW Coeff of Edgardo 13.9 (11.5-14.5) % Plt Count 124 L (130-400) K/uL MPV 10.2 (7.4-10.4) fL Immature Gran % (Auto) 0.2 % Neut % (Auto) 69.1 % Lymph % (Auto) 20.4 % [place] % (Auto) 8.1 % Eos % (Auto) 2.0 % Baso % (Auto) 0.2 % Neut # (Auto) 3.14 (1.4-6.5) K/uL Lymph # (Auto) 0.93 L (1.2-3.4) K/uL [place] # (Auto) 0.37 (0.11-0.59) K/uL Eos # (Auto) 0.09 (0-0.5) K/uL Baso # (Auto) 0.01 (0-0.2) K/uL Immature Gran # (Auto) 0.01 (0.00-0.02) K/uL Echinocytes 1+ PT 11.2 (9.0-12.0) Seconds INR 1.1 (0.9-1.1) APTT 32.1 H (21.0-31.0) Seconds PTT Ratio 1.2 Sodium 145 (136-145) mmol/L Potassium 4.4 (3.5-5.1) mmol/L Chloride 114 H (98-107) mmol/L Carbon Dioxide 28 (21-32) mmol/L Anion Gap 3.0 (3-11) BUN 25 H (7-18) mg/dl Creatinine 1.29 (0.6-1.4) mg/dl Est Cr Clr Drug Dosing 41.7 ml/min Est GFR ( Amer) 59.0 Est GFR (Non-Af Amer) 50.9 BUN/Creatinine Ratio 19.5 (10-20) Glucose 118 H (70-99) mg/dl Calcium 8.4 L (8.5-10.1) mg/dl Total Bilirubin 0.6 (0.2-1) mg/dl AST 15 (15-37) U/L ALT 19 (12-78) U/L Alkaline Phosphatase 108 (45-117) U/L Troponin I < 0.015 (0-0.045) ng/ml Total Protein 6.3 L (6.4-8.2) gm/dl Albumin 3.2 L (3.4-5.0) gm/dl Globulin 3.1 (2.5-4.0) gm/dl Albumin/Globulin Ratio 1.0 (0.9-2) Lipase 103 (73-393) U/L Administered Medications Discontinued Medications Aspirin (Aspirin) 324 mg PO NOW STA Stop: 02/08/20 11:12 Last Admin: 02/08/20 12:17 Dose: 324 mg Documented by: [id number] Sodium Chloride (Nss) 500 mls @ 999 mls/hr IV .Q31M ANDREW Stop: 02/08/20 11:45 Last Infusion: 02/08/20 13:03 Dose: 0 mls/hr Documented by: [id number] Admin: 02/08/20 12:17 Dose: 999 mls/hr Documented by: [id number] Discharge Plan Visit Data *Final* Discharge Date/Time: 02/08/20 14:24 Chief Complaint: Cardiac Assessment ED Provider: Roger Fox Discharge Problem: Chest pain, Abnormal ECG Patient Disposition: Admitted As Inpatient Discharge Instructions Interventions: ED Discharge Assessment Last Done: 02/08/20 14:05 Discharge Problem: Chest pain Qualifiers: Chest pain type: unspecified Qualified Code(s): R07.9 - Chest pain, unspecified
[2020-02-08 11:52] LABS: Basophils # (auto) 0.01 K/uL (0-0.2); Basophils % (auto) 0.2 %; Eosinophils # (auto) 0.09 K/uL (0-0.5); Hematocrit (blood only) 40.7 % (42-52); Hemoglobin 13.5 g/dL (14.0-18.0); Immature Granulocytes # (auto) 0.01 K/uL (0.00-0.02); Immature Granulocytes % (auto) 0.2 %; Lymphocytes # (auto) 0.93 K/uL (1.2-3.4); Lymphocytes % (auto) 20.4 %; Mean Corpuscular Hemoglobin 33.3 pg (25-34); Mean Corpuscular Hgb Conc 33.2 g/dL (32-36); Mean Corpuscular Volume 100.5 fL (80-100); Mean Platelet Volume 10.2 fL (7.4-10.4); Monocytes # (auto) 0.37 K/uL (0.11-0.59); Monocytes % (auto) 8.1 %; Neutrophils # (auto) 3.14 K/uL (1.4-6.5); Neutrophils % (auto) 69.1 %; Platelet Count 124 K/uL (130-400); RDW Coefficient of Variation 13.9 % (11.5-14.5); RDW Standard Deviation 51.5 fL (36.4-46.3); Red Blood Count 4.05 M/uL (4.7-6.1); White Blood Count 4.55 K/uL (4.8-10.8)
[2020-02-08 11:55] LABS: INR 1.1 (0.9-1.1); Partial Thromboplastin Ratio 1.2; Partial Thromboplastin Time 32.1 Seconds (21.0-31.0); Prothrombin Time 11.2 Seconds (9.0-12.0)
[2020-02-08 11:57] LABS: Alanine Aminotransferase 19 U/L (12-78); Albumin Level 3.2 gm/dl (3.4-5.0); Aspartate Aminotransferase 15 U/L (15-37); BUN Creatinine Ratio 19.5 (10-20); Blood Urea Nitrogen 25 mg/dl (7-18); Calcium 8.4 mg/dl (8.5-10.1); Carbon Dioxide 28 mmol/L (21-32); Chloride 114 mmol/L (98-107); Creatinine Clr Calc Pharmacy 41.7 ml/min; Est GFR (Non-African American) 50.9; Glucose 118 mg/dl (70-99); Lipase 103 U/L (73-393); Potassium 4.4 mmol/L (3.5-5.1); Sodium 145 mmol/L (136-145)
[2020-02-08 12:02] LABS: Alkaline Phosphatase 108 U/L (45-117); Bilirubin,Total 0.6 mg/dl (0.2-1); Globulin 3.1 gm/dl (2.5-4.0); Total Protein 6.3 gm/dl (6.4-8.2); Troponin I < 0.015 ng/ml (0-0.045)
--- NOTE | 2020-02-08 12:02 | XRay Report ---
XR chest 1V portable CLINICAL HISTORY: Chest Pain pain COMPARISON STUDY: 03/16/2019 FINDINGS: The bones soft tissues and hemidiaphragms are normal. The cardiomediastinal silhouette is n ormal. The lungs are clear. The pulmonary vasculature is normal. IMPRESSION: Negative chest. ACT 112: Negative or not required by law. The above report was generated using voice recognition software. It may contain grammatical, syntax or spelling errors. Electronically signed by: Sukhjinder Wild M.D. 02/08/2020 12:00 PM
--- NOTE | 2020-02-08 13:09 | History & Physical Report ---
Date of Service February 08, 2020 Assessment & Plan (1) Chest discomfort: Flutter/vibration feeling in chest. Relieved with nitro. No prior anginal symptoms leading up to this with generally good exercise tolerance. Mild EKG changes from prior in inferior leads. r/o DC Serial troponins TTE Given low likelihood he can eat heart healthy diet (2) Status post transcatheter aortic valve replacement (TAVR) using bioprosthesis: Noted history of this. (3) S/P ablation of atrial fibrillation: ?atrial fibrillation is what he felt this morning (4) BPH (benign prostatic hyperplasia): Continue tamsulosin (5) Urinary retention: Previously under urology for this (6) CKD (chronic kidney disease): At baseline. Repeat BMP in AM (7) Macrocytic anemia: Denies alcohol history Admission and Anticipated Discharge Date Admission Date: 02/08/2020 History of Present Illness Chief Complaint: Chest pain Primary Care Provider: Roberto Atkinson MD Bart Gilbert is an 84-year-old male who presents to the ER with chest fluttering. When seen the patient was unaware he had been seen by an emergency room physician or what had been done. Appears to have some word finding difficulty and problems with fluency in addition to memory of recent events making history taking difficult. His had left the ER when seen as she had to return home to get her car to come back. He denies any chest pain and initially just called it a feeling but finding it hard to find the right word. With prompting he called it a fluttering. Unknown how long it lasted but occurred after waking up from his bed. His gave him a pill (he is unable to remember the name) and it improved. From the ER note I gather this was a nitroglycerin. He is currently symptom free when seen. Allergies Allergy/AdvReac Type Severity Reaction Status Date / Time No Known Drug Allergies Allergy Verified 02/08/20 17:53 donepezil AdvReac Verified 02/08/20 17:53 Home Medications Home Medications Medication Instructions Recorded Confirmed Type ascorbic acid (vitamin C) [Vitamin 500 mg PO QAM 05/10/18 02/08/20 History C] bethanechol chloride 25 mg PO UD 05/10/18 02/08/20 History clonazepam 1 mg PO HS 05/10/18 02/08/20 History lutein 20 mg PO BID 05/10/18 02/08/20 History Centrum Silver Men 1 tab PO QAM 03/16/19 02/08/20 History nitroglycerin 0.4 mg sublingual 0.4 mg SL Q5M PRN #25 tab 03/27/19 02/08/20 Rx tablet aspirin [Aspir-81] 81 mg PO QPM 04/03/19 02/08/20 History cholecalciferol (vitamin D3) 2,000 unit PO DAILY 04/03/19 02/08/20 History [Vitamin D3] cyanocobalamin (vitamin B-12) 1,000 mcg PO DAILY 04/03/19 02/08/20 History [Vitamin B-12] PreserVision AREDS 2 tab PO BID 02/08/20 02/08/20 History lansoprazole 30 mg PO BID 02/08/20 02/08/20 History memantine 10 mg PO BID 02/08/20 02/08/20 History metoprolol succinate 25 mg PO DAILY 02/08/20 02/09/20 History tamsulosin 0.4 mg PO HS 02/08/20 02/08/20 History metoprolol succinate 12.5 mg PO DAILY 30 Days #15 tab 02/09/20 Rx Past Med/Surg History Medical History (Updated 02/10/20 @ 12:22 by Bhavik Macedo MD) Aortic stenosis (Acute) Complication, blocked Oliver catheter (Acute) Hypertension, essential Hypotension (Acute) UTI (urinary tract infection) (Acute) Surgical History (Updated 02/08/20 @ 13:50 by Bhavik Macedo MD) S/P ablation of atrial fibrillation Status post transcatheter aortic valve replacement (TAVR) using bioprosthesis Social History Preferred Language: Georgian Communication Ability: Effective 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 House 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: No Beliefs That Will Affect Care: None Current Living Situation: Spouse Feels Safe at Home: Yes Smoking Status: Never smoker Hx Alcohol Use: No Hx Substance Use: No Review of Systems Review of Systems: All systems reviewed & are unremarkable except as noted in HPI & below Physical Exam Constitutional: well developed and well nourished; no acute distress Eyes: PERRL, conjunctivae normal, anicteric sclerae ENMT: external ear and nose normal, oropharynx normal Neck: trachea midline, no thyromegaly Respiratory: normal respiratory effort, lungs clear to auscultation Cardiovascular: RRR, no murmur, no edema Gastrointestinal (Abdomen): normal bowel sounds, soft, nontender, no hepatosplenomegaly Musculoskeletal: no cyanosis or clubbing, extremities motor strength 5/5 Skin: no rashes, warm and dry Neurologic: moves all extremities, awake and + confused (unable to remember recent events) Speech / Cognition: + abnormal speech (speech fluency impaired) and + expressive aphasia (a lot of difficulty finding the right words) Psychiatric: Orientation: alert and oriented to person (self); + not oriented to place (only able to tell me he was in the hospital) and + not oriented to time (year only) Eye Contact: good eye contact Motor Behavior: no abnormal motor movements Speech: + abnormal rate/rhythm/volume of speech (reduced rate, very slow at times, normal volume) Thought Process: + circumstantial thought process and + tangential thought process; no flight of ideas, no confabulations, thought process not incoherent and no word salad Results & Data Results & Data ([facility]) Vital Signs (Past 12 Hours) Vital Signs Temp Pulse Pulse Resp BP BP Pulse Ox 02/08/20 12:17 47 L 16 114/68 98 02/08/20 10:55 36.7 C 53 L 16 113/65 99 Diagnostic Findings XR chest 1V portable IMPRESSION: Negative chest. ECG Indication: other (chest feeling) Rate (beats per minute): 50 Rhythm: sinus bradycardia Comparison ECG Date: from (Mar 16, 2020) Change: the following changes noted Code Status & VTE Plan Code Status Full VTE Prophylaxis Plan VTE Prophylaxis will be ordered: No Reason for no VTE drug order: Treatment not indicated Reason for no VTE mechanical prophylaxis: Treatment not indicated Critical Care Time Prolonged Care Time Prolonged Care Time: Yes Total Prolonged Care Time: 135 PG Care Time/CCT Total # of Minutes Spent Total Time Spent with Patient: Total time spent is greater than 50% in coordination of care (as documented) at patient's floor/unit and/or counseling patient: Prolonged Care Time Prolonged Care Time: Yes Total Prolonged Care Time: 135 Coding Level of Care Code 83873 OBS Care - Level 3 Diagnoses Chest discomfort R07.89 Status post transcatheter aortic valve replacement (TAVR) using bioprosthesis Z95.3 S/P ablation of atrial fibrillation Z98.890; Z86.79 BPH (benign prostatic hyperplasia) N40.0 Urinary retention R33.9 CKD (chronic kidney disease) N18.9 Macrocytic anemia D53.9 Additional Codes Prolonged Care Time - Prolonged Care Time: Yes ([id number])
[2020-02-08 13:38] LABS: Echinocytes 1+
[2020-02-08] MEDS ORDERED: MAGNESIUM HYDROXIDE SUSP 30 ML UDC PO PRN (14:23)
[2020-02-08] MEDS ORDERED: POLYETHYLENE (MIRALAX) 17 GM PACK PO PRN (14:23)
[2020-02-08] MEDS ORDERED: ALUMINUM/MAGNESIUM SUSP 30 ML UDC PO PRN (14:23)
[2020-02-08] MEDS ORDERED: ACETAMINOPHEN 325 MG TAB PO PRN (14:23)
[2020-02-08] MEDS ORDERED: NITROGLYCERIN SL 0.4 MG/TAB TAB SL PRN ×2 (14:23)
[2020-02-08] MEDS ORDERED: ONDANSETRON INJ 2 MG/ML 2 ML VIAL IV PRN (14:23)
--- NOTE | 2020-02-08 18:08 | XCELERA ---
[id number]
[2020-02-08] MEDS: MEMANTINE HCL 10 MG TAB PO SCH (19:47)
[2020-02-08] MEDS: BETHANECHOL CHL 25 MG TAB PO SCH (19:48)
[2020-02-08] MEDS: PANTOprazole 40 MG TAB PO SCH (19:48)
[2020-02-08] MEDS ORDERED: NON-FORMULARY MEDICATION (Lutein 20 MG) PO SCH (21:00)
[2020-02-08] MEDS ORDERED: ASPIRIN 81 MG ECTAB PO SCH (21:00)
[2020-02-08] MEDS ORDERED: TAMSULOSIN HCL 0.4 MG CAP PO SCH (21:00)
[2020-02-08] MEDS ORDERED: clonazePAM 1 MG TAB PO SCH (21:00)
[2020-02-08] MEDS ORDERED: VITAMINS A C E ZINC COPPER PO SCH (21:00)
--- NOTE | 2020-02-09 07:22 | Electrocardiogram Report ---
Test Reason : Blood Pressure : / mmHG Vent. Rate : 050 BPM Atrial Rate : 050 BPM P-R Int : 190 ms QRS Dur : 082 ms QT Int : 460 ms P-R-T Axes : -20 -01 -06 degrees QTc Int : 419 ms Sinus bradycardia Cannot rule out Inferior infarct , age undetermined Abnormal ECG When compared with ECG of 16-MAR-2019 15:23, Inverted T waves have replaced nonspecific T wave abnormality in Inferior leads Confirmed by Pito Gandara ([id number]) on 02/09/2020 7:22:33 AM Referred By: Confirmed By:Pito Gandara
[2020-02-09] MEDS ORDERED: METOPROLOL SUCC 25MG EXT REL TAB PO SCH (09:00)
[2020-02-09] MEDS ORDERED: CHOLECALCIFEROL 1,000 UNITS 25 MCG TAB PO SCH (09:00)
[2020-02-09] MEDS ORDERED: CEROVITE ADV FORMULA TAB PO SCH (09:00)
[2020-02-09] MEDS ORDERED: DONEPEZIL HCL 10 MG TAB PO SCH (09:00)
[2020-02-09] MEDS ORDERED: CYANOCOBALAMIN 500 MCG TABLET (VITAMIN B-12) PO SCH (09:00)
[2020-02-09] MEDS: PANTOprazole 40 MG TAB PO SCH (10:05)
[2020-02-09] MEDS: BETHANECHOL CHL 25 MG TAB PO SCH (10:05)
[2020-02-09] MEDS: MEMANTINE HCL 10 MG TAB PO SCH (10:05)
[2020-02-10] MEDS ORDERED: METOPROLOL SUCC 25MG EXT REL TAB PO SCH (09:00)
--- NOTE | 2020-02-10 14:41 | Discharge Summary ---
Date of Service February 09, 2020 Admission HPI Per Admitting Provider Bart Gilbert is an 84-year-old male who presents to the ER with chest fluttering. When seen the patient was unaware he had been seen by an emergency room physician or what had been done. Appears to have some word finding difficulty and problems with fluency in addition to memory of recent events making history taking difficult. His had left the ER when seen as she had to return home to get her car to come back. He denies any chest pain and initially just called it a feeling but finding it hard to find the right word. With prompting he called it a fluttering. Unknown how long it lasted but occurred after waking up from his bed. His gave him a pill (he is unable to remember the name) and it improved. From the ER note I gather this was a nitroglycerin. He is currently symptom free when seen. Admission Exam Per Admitting Provider Constitutional: well developed and well nourished; no acute distress Eyes: PERRL, conjunctivae normal, anicteric sclerae ENMT: external ear and nose normal, oropharynx normal Neck: trachea midline, no thyromegaly Respiratory: normal respiratory effort, lungs clear to auscultation Cardiovascular: RRR, no murmur, no edema Gastrointestinal (Abdomen): normal bowel sounds, soft, nontender, no hepatosplenomegaly Musculoskeletal: no cyanosis or clubbing, extremities motor strength 5/5 Skin: no rashes, warm and dry Neurologic: moves all extremities, awake and + confused (unable to remember recent events) Speech / Cognition: + abnormal speech (speech fluency impaired) and + expressive aphasia (a lot of difficulty finding the right words) Psychiatric: Orientation: alert and oriented to person (self); + not oriented to place (only able to tell me he was in the hospital) and + not oriented to time (year only) Eye Contact: good eye contact Motor Behavior: no abnormal motor movements Speech: + abnormal rate/rhythm/volume of speech (reduced rate, very slow at times, normal volume) Thought Process: + circumstantial thought process and + tangential thought process; no flight of ideas, no confabulations, thought process not incoherent and no word salad Principal Diagnosis Atypical chest fluttering Discharge Exam No recurrence of chest feeling. Constitutional well developed and well nourished; no acute distress Respiratory normal respiratory effort, lungs clear to auscultation Cardiovascular RRR, no murmur, no edema Skin no rashes, warm and dry Neurologic moves all extremities and awake; not confused Speech / Cognition: + abnormal speech (speech fluency impaired) and + expressive aphasia (difficulty finding the right words) Psychiatric Orientation: alert Eye Contact: good eye contact Motor Behavior: no abnormal motor movements Speech: + abnormal rate/rhythm/volume of speech (reduced rate, very slow at times, normal volume) Thought Process: + circumstantial thought process and + tangential thought pr ocess; no flight of ideas, no confabulations, thought process not incoherent and no word salad Discharge Data Allergies Allergy/AdvReac Type Severity Reaction Status Date / Time No Known Drug Allergies Allergy Verified 02/08/20 17:53 donepezil AdvReac Verified 02/08/20 17:53 Consultations 02/08/20 12:36 ED Decision to Admit Stat Hospital Course (1) Chest discomfort: Bart Gilbert is an 84 year old male who presented to the ER with chest fluttering. EKG with TWI in inferior leads new from prior EKG. Serial troponins are negative. Transthoracic echocardiogram LVEF 60-65%, no wall motion abnormalities. Recommended following up with their outpatient implementation technician. Bladder scan confirmed ongoing urinary retention. Patient and his informed of this and recommend following up with their urologist as last urology note from Dr Burrows notes he should be continuing continuous intermittent catheterization. Apparently over the phone he was told he could stop does continuous intermittent catheterization and has follow up at [facility]'s urology (although unknown when this appointment is). Loss of appetite, short term memory loss, loss of fluency of speech, mild expressive dysphasia - now feels these have been getting gradually worse over the last [address] years, [address] Dr Atkinson's outpatient note appears to suggest his speech fluency is something relatively new. 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 on three occasions as an answer to question which has very little relevance to this answer. I noted Dr Atkinson had similar concerns in his clinic note and informed [employer] prior to Aricept given. This was discussed with the patient and his who do not appear to have much insight into his condition severity. I advised them when memory problems come on gradually enough it can be difficult for patients to realize this and even difficult for family members. I do not feel he needs to stay in hospital against his will despite poor insight as this insight is mainly poor with regards to his memory and speech rather than the problem he was admitted with is very low risk to be cardiac in nature. Driving license - discussed on multiple occasions and advised they follow up with Dr Atkinson with their concerns. Macrocytic anemia - very mild. Already on B12 supplement. Recommend repeating in 1-3 months to check for resolution. 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 Advised on multiple occasions NOT to stop without discussing it with their PCP. (2) Status post transcatheter aortic valve replacement (TAVR) using bioprosthesis: (3) S/P ablation of atrial fibrillation: (4) BPH (benign prostatic hyperplasia): (5) Urinary retention: (6) CKD (chronic kidney disease): (7) Macrocytic anemia: Total Time Total Time Spent Total Time Spent (In Minutes): 90 Total Time Includes: Examination of the Patient, Discharge Planning and Medication Reconciliation Discharge Plan Discharge Items Patient Disposition: Home - Self-Care Reason For Visit: Chest fluttering Discharge Diagnosis: Atypical chest feeling Activity: Resume your previous activity Non-emergency contact: Primary Care Provider Call non-emergency contact if: you have any medication questions and your symptoms worsen Follow-up/Referrals: Roberto Atkinson MD [Primary Care Provider] - Diet: Heart Healthy Addtl Attending Provider Instructions: You are observed overnight and [facility] from February 07-2019 due to an abnormal chest feeling which occurred at rest. Given your history with mild nonobstructive coronary artery disease, mild EKG changes (non- dynamic T-wave inversions in inferior leads) and improvement with nitroglycerin we observed you overnight with repeat cardiac enzymes to make sure this was not a heart attack and these were subsequently negative confirming that heart attack took place. Echocardiogram showed normal ejection fraction 60-65% with no regional wall motion abnormalities. Given low likelihood this feeling was heart related recommend no further testing at this stage and following up with your implementation technician for a routine appointment in the next 1-2 months or sooner if this chest feeling reoccurs. Medicine reconciliation was initially performed with you taking metoprolol succinate 37.5mg PO daily, therefore this was given on day of discharge. Given your bradycardia even on 25mg and improvement previously with taking 12.5mg recommend you continue on this dose. Please be safe for the rest of the day as the increased dose may make you feel dizzy and light headed despite you not currently having these feelings. Recommend stopping donepezil as you already have due to hallucinations and delusions while on this medication. Recommend discussing you concerns regarding you driving license with your primary care physician given the high amount of stress this appears to be causing. As discussed in some detail you do appear to be having a number of problems consistent with dementia and recommend following up with your primary care physician or neurologist regarding this. As per bladder scan performed you are still having urinary retention, recommend following up with your urologist regarding this. Kind regards, Dr. Bhavik Macedo Pending Studies at Discharge: No Stand-Alone Forms: My [facility] [place], Smoking Cessation Medications and DC Order Prescriptions: New metoprolol succinate 25 mg Tablet Extended Release 24 Hr 12.5 mg PO DAILY 30 Days Qty: 15 RF: 0 Continued nitroglycerin 0.4 mg tablet, sublingual 0.4 mg SL Q5M PRN (Reason: chest pain) Qty: 25 RF: 3 cyanocobalamin (vitamin B-12) [Vitamin B-12] 1,000 mcg Tablet 1,000 mcg PO DAILY RF: 0 cholecalciferol (vitamin D3) [Vitamin D3] 2,000 unit Capsule 2,000 unit PO DAILY RF: 0 aspirin [Aspir-81] 81 mg Tablet,Delayed Release (Dr/Ec) 81 mg PO QPM RF: 0 PreserVision AREDS [id number] [id number] Tablet 2 tab PO BID RF: 0 tamsulosin 0.4 mg capsule 0.4 mg PO HS RF: 0 lansoprazole 30 mg capsule,delayed release(DR/EC) 30 mg PO BID RF: 0 metoprolol succinate 25 mg tablet extended release 24 hr 25 mg PO DAILY RF: 0 memantine 10 mg tablet 10 mg PO BID RF: 0 clonazepam 1 mg Tablet 1 mg PO HS RF: 0 bethanechol chloride 25 mg Tablet 25 mg PO UD RF: 0 ascorbic acid (vitamin C) [Vitamin C] 500 mg Tablet 500 mg PO QAM RF: 0 lutein 20 mg Capsule 20 mg PO BID RF: 0 Centrum Silver Men 300-600-300 mcg Tablet 1 tab PO QAM RF: 0 Discontinued donepezil 10 mg tablet 10 mg PO DAILY RF: 0 Discharge Orders: Discharge Order (Routine); Ordered 02/09/20 Ordered By: Bhavik Macedo Admission Data Admit Date/Time: 02/08/20 13:17 Attending Provider: Bhavik Macedo Admit Provider: Bhavik Macedo Primary Care Provider: Roberto Atkinson Other Providers: Bhavik Macedo Other Interventions: Discharge Summary Assessment (RN) Last Done: 02/09/20 13:19 DC Date/Time DO NOT enter until pt leaves facility: 02/09/20 13:55 Coding Level of Care Code 44685 OBS Care - Discharge Diagnoses Chest discomfort R07.89 Status post transcatheter aortic valve replacement (TAVR) using bioprosthesis Z95.3 S/P ablation of atrial fibrillation Z98.890; Z86.79 BPH (benign prostatic hyperplasia) N40.0 Urinary retention R33.9 CKD (chronic kidney disease) N18.9 Macrocytic anemia D53.9
== END 2020-02-09 13:55 | disposition home or self-care (01) ==
LOC: ED 10:48 → 2E 10:48

== ENCOUNTER 2020-09-11 10:06 | Inpatient (IN) ==
[2020-09-11 10:59] LABS: Basophils # (auto) 0.02 K/uL (0-0.2); Basophils % (auto) 0.2 %; Eosinophils # (auto) 0.03 K/uL (0-0.5); Eosinophils % (auto) 0.3 %; Hematocrit (blood only) 45.1 % (42-52); Hemoglobin 15.9 g/dL (14.0-18.0); Immature Granulocytes # (auto) 0.02 K/uL (0.00-0.02); Immature Granulocytes % (auto) 0.2 %; Lymphocytes # (auto) 0.82 K/uL (1.2-3.4); Lymphocytes % (auto) 6.9 %; Mean Corpuscular Hemoglobin 33.6 pg (25-34); Mean Corpuscular Hgb Conc 35.3 g/dL (32-36); Mean Corpuscular Volume 95.3 fL (80-100); Mean Platelet Volume 10.2 fL (7.4-10.4); Monocytes # (auto) 0.63 K/uL (0.11-0.59); Monocytes % (auto) 5.3 %; Neutrophils # (auto) 10.35 K/uL (1.4-6.5); Neutrophils % (auto) 87.1 %; Platelet Count 152 K/uL (130-400); RDW Coefficient of Variation 13.4 % (11.5-14.5); RDW Standard Deviation 46.8 fL (36.4-46.3); Red Blood Count 4.73 M/uL (4.7-6.1); White Blood Count 11.87 K/uL (4.8-10.8)
[2020-09-11 11:13] LABS: Alanine Aminotransferase 21 U/L (12-78); Aspartate Aminotransferase 19 U/L (15-37); BUN Creatinine Ratio 15.5 (10-20); Blood Urea Nitrogen 19 mg/dl (7-18); Calcium 9.2 mg/dl (8.5-10.1); Carbon Dioxide 28 mmol/L (21-32); Chloride 104 mmol/L (98-107); Creatinine Clr Calc Pharmacy 45.8 ml/min; Est GFR (African American) 61.5; Est GFR (Non-African American) 53.1; Glucose 155 mg/dl (70-99); Lipase 206 U/L (73-393); Potassium 4.3 mmol/L (3.5-5.1); Sodium 137 mmol/L (136-145)
[2020-09-11 11:18] LABS: Albumin Globulin Ratio 1.3 (0.9-2); Alkaline Phosphatase 118 U/L (45-117); Bilirubin,Total 1.3 mg/dl (0.2-1); Globulin 3.2 gm/dl (2.5-4.0); Total Protein 7.2 gm/dl (6.4-8.2); Troponin I < 0.015 ng/ml (0-0.045)
--- NOTE | 2020-09-11 11:43 | Electrocardiogram Report ---
Test Reason : Blood Pressure : / mmHG Vent. Rate : 056 BPM Atrial Rate : 056 BPM P-R Int : 162 ms QRS Dur : 080 ms QT Int : 426 ms P-R-T Axes : 060 039 -01 degrees QTc Int : 411 ms Sinus bradycardia Nonspecific T wave abnormality Anterior leads Abnormal ECG When compared with ECG of 08-FEB-2020 10:53, Minimal criteria for Inferior infarct are no longer Present Minor T wave inversion now evident in Anterior leads Confirmed by Nitesh Becker ([id number]) on 09/11/2020 11:42:46 AM Referred By: Melvin Cooper Confirmed By:Nitesh Becker
--- NOTE | 2020-09-11 12:09 | XRay Report ---
XR abdomen 2V w PA chest CLINICAL HISTORY: chest pain, abdominal pain COMPARISON STUDY: March 02, 2020 FINDINGS: Erect chest reveals normal cardiac size. There is an aortic valve graft present. There is a ortic tortuosity. There is no focal pulmonary consolidation. There is no free intraperitoneal air. Erect and supine views the abdomen reveal gas within both colonic and small bowel loops. There is mod erate right colonic stool. There is portal small bowel dilatation. Multiple air-fluid levels are visu alized on the erect study. IMPRESSION: 1. No evidence of free intraperitoneal air 2. Nonspecific bowel gas pattern with borderline dilated small bowel loops and multiple air-fluid lev els. The findings could indicate either a partial bowel obstruction or ileus. Clinical and/or magneti c follow-up recommended. ACT 112: Negative or not required by law. Electronically signed by: Garry Eastman M.D. 09/11/2020 12:08 PM
[2020-09-11] MEDS ORDERED: OPTIRAY 320 100ml IV ONE (12:42)
--- NOTE | 2020-09-11 12:57 | CT Scan Report ---
CT abd pelvis IV con only CLINICAL HISTORY: Abdominal pain radiating to the lower abdomen COMPARISON STUDY: March 2019 TECHNIQUE: The patient was scanned in a dynamic helical fashion during intravenous administration of 94 cc of Optiray 320 A dose lowering technique was utilized adhering to the principles of ALARA. CT DOSE: 460.55 mGycm FINDINGS: Lower chest: There are basilar atelectatic changes. Liver: There is a 13 mm right hepatic lobe lipoma. There is pneumobilia. The hepatic and portal veins appear patent. Gallbladder: Surgically absent Spleen: Normal in size and attenuation. Pancreas: Unremarkable. Adrenal glands: Unremarkable. Kidneys: The left kidney is surgically absent. No solid right renal masses are visualized. There are multiple cysts and parapelvic cysts. Bowel: There are multiple mildly dilated fluid-filled small bowel loops with air-fluid levels. The di stal small bowel is of normal caliber. There is a left mid abdominal transition zone. The findings ar e indicative of a small bowel obstruction. Peritoneum: There is trace abdominal fluid. There is no free intraperitoneal air. Vasculature: The abdominal aorta is normal in course and caliber. Adenopathy: None. Pelvic viscera: There is an indwelling Oliver catheter. There are small fat-containing left inguinal h ernia. Skeletal structures: No destructive osseous lesions are seen. IMPRESSION: 1. Small bowel obstruction 2. Hepatic gas most consistent with pneumobilia 3. Minimal free intraperitoneal fluid 4. Surgically absent left kidney and gallbladder. ACT 112: Negative or not required by law. Electronically signed by: Garry Eastman M.D. 09/11/2020 12:56 PM
--- NOTE | 2020-09-11 15:17 | History & Physical Report ---
Date of Service September 11, 2020 Assessment & Plan (1) SBO (small bowel obstruction): -Admit to [facility] -Patient presenting with reports of abdominal pain and decreased bowel movements x 3 days -In the ED, CT ABD/pelvis shows signs of SBO -Likely secondary to adhesions from prior abdominal surgeries -Patient currently hemodynamically stable, no active vomiting or abdominal distention, pain controlled; hold on NG tube at this time -N.p.o., IVF -Follow-up [facility] in the morning -General surgery consult (2) Status post transcatheter aortic valve replacement (TAVR) using bioprosthesis: (3) Mild CAD: -Appears stable -Continue aspirin and beta-nicole (4) Chronic indwelling Oliver catheter: -No issues -Continue finasteride (5) Alzheimer disease: -Continue home medications (6) DVT prophylaxis: -SQ heparin Patient's daughter, Shazia, was updated via telephone. [phone] History of Present Illness Chief Complaint: Abdominal pain Primary Care Provider: Melvin Cooper MD 85-year-old male with PMH paroxysmal atrial fibrillation s/p ablation (not anticoagulated secondary to fall risk), aortic stenosis s/p TAVR, Alzheimer's, chronic Oliver catheter, and other problems listed below who presents the ED for evaluation of abdominal pain. History is limited from the patient due to underlying cognitive impairment. Patient reports he has had abdominal pain for the past 3 days. Pain is located in the lower abdomen. Pain was somewhat severe overnight and patient did not get much sleep. He reports associated nausea however no vomiting. Denies worsening abdominal distention. Last bowel movement was yesterday however was small and hard. Patient reports passing flatus. Has chronic Oliver catheter in place, no problems reported. In the ED, CT ABD/pelvis shows small bowel obstruction. Patient is hemodynamically stable, labs are unremarkable. Allergies Allergy/AdvReac Type Severity Reaction Status Date / Time No Known Allergies Allergy Verified 09/11/20 12:16 Home Medications Medication Instructions Recorded Confirmed Type PreserVision AREDS 1 tab PO BID 02/08/20 09/11/20 History aspirin [Aspirin Low Dose] 81 mg PO QPM 05/08/20 09/11/20 History finasteride 5 mg tablet 5 mg PO DAILY #90 tab 07/01/20 09/11/20 Rx lutein 20 mg capsule 20 mg PO BID #90 cap 07/01/20 09/11/20 Rx memantine 10 mg tablet 10 mg PO BID #180 tab 07/01/20 09/11/20 Rx nitroglycerin 0.4 mg sublingual 0.4 mg SL DIRECTED PRN #25 tab 07/01/20 09/11/20 Rx tablet bethanechol chloride 25 mg PO BID 09/11/20 09/11/20 History metoprolol succinate 25 mg PO QAM 09/11/20 09/11/20 History Past Med/Surg History Medical History Alzheimer disease Aortic stenosis HX AORTIC VALVE REPLACEMENT Asthma 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 CAD (coronary artery disease) Chronic indwelling Oliver catheter Diabetes mellitus, type 2 Gastric ulcer GERD (gastroesophageal reflux disease) Hearing loss HTN (hypertension) Lyme disease Macular degeneration Memory loss or impairment Mild CAD 30% mid LAD stenosis Orthostatic hypotension Paroxysmal A-fib Peripheral neuropathy Personal history of malignant melanoma of skin Restless legs (09/21/11) Shoulder problem RIGHT, TORN LIGAMENTS/TENDONS Sleep disorder Thyroid nodule Urinary retention with incomplete bladder emptying Surgical History H/O ankle fusion History of aortic valve replacement TAVR History of nephrectomy, left S/P ablation of atrial fibrillation S/P cholecystectomy S/P inguinal herniorrhaphy Status post transcatheter aortic valve replacement (TAVR) using bioprosthesis Family History Other Family history of diabetes mellitus in mother Social History Smoking Status: Never smoker Hx Alcohol Use: No Hx Substance Use: No Preferred Language: Indonesian Communication Ability: Impaired Visual Impairment: No 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 Beliefs That Will Affect Care: None Current Living Situation: Spouse Current Living Situation Comment: daughter lives next door Other Information That Helps Us Care for You: No Feels Safe at Home: Yes Safety Concerns: Feels Safe At This Time Assistive Devices: Glasses Review of Systems Review of Systems: Full ROS unobtainable due to cognitive status Physical Exam Constitutional: WD/WN, vitals as above Eyes: PERRL, conjunctivae normal, anicteric sclerae ENMT: external ear and nose normal, oropharynx normal Respiratory: normal respiratory effort, lungs clear to auscultation Cardiovascular: Rate/Rhythm: regular rate and regular rhythm Vessels: normal peripheral pulses Extremities: no edema Gastrointestinal (Abdomen): Inspection/Auscultation: abdomen not distended and + abnormal bowel sounds (Hypoactive) Percussion/Palpation: + abdomen tender (Periumbilical and lower abdominal tenderness) and abdomen soft; abdomen not rigid and no hepatosplenomegaly Musculoskeletal: no cyanosis or clubbing, extremities motor strength 5/5 Skin: no rashes, warm and dry Neurologic: PERRL, EOMI, accommodation nl, no face palsy, no dysarthria Psychiatric: Orientation: alert, oriented to person and oriented to place; + not oriented to time Insight: + limited insight Results & Data Results & Data ([facility]) Vital Signs (Past 12 Hours) Vital Signs Temp Pulse Resp BP Pulse Ox 09/11/20 13:32 53 L 23 157/70 H 98 09/11/20 13:00 57 L 23 149/80 H 99 09/11/20 12:30 54 L 20 150/80 H 99 09/11/20 11:30 56 L 17 155/83 H 97 09/11/20 11:29 98 09/11/20 11:01 58 L 19 142/73 H 99 09/11/20 10:30 59 L 20 123/56 L 98 09/11/20 10:22 36.4 C L 66 18 127/72 99 09/11/20 10:10 64 21 127/72 99 Laboratory Results Short CBC 09/11/20 Range/Units 10:15 WBC 11.87 H (4.8-10.8) K/uL Hgb 15.9 (14.0-18.0) g/dL Hct 45.1 (42-52) % Plt Count 152 (130-400) K/uL BMP 09/11/20 10:15 Sodium 137 Potassium 4.3 Chloride 104 Carbon Dioxide 28 BUN 19 H Creatinine 1.24 Glucose 155 H Calcium 9.2 Cardiac Enzymes 09/11/20 Range/Units 10:15 Troponin I < 0.015 (0-0.045) ng/ml Liver Function 09/11/20 Range/Units 10:15 Total Bilirubin 1.3 H (0.2-1) mg/dl AST 19 (15-37) U/L ALT 21 (12-78) U/L Alkaline Phosphatase 118 H (45-117) U/L Albumin 4.0 (3.4-5.0) gm/dl Diagnostic Findings CT ABD/PELVIS IMPRESSION: 1. Small bowel obstruction 2. Hepatic gas most consistent with pneumobilia 3. Minimal free intraperitoneal fluid 4. Surgically absent left kidney and gallbladder. CHEST/ABD XR IMPRESSION: 1. No evidence of free intraperitoneal air 2. Nonspecific bowel gas pattern with borderline dilated small bowel loops and multiple air-fluid levels. The findings could indicate either a partial bowel obstruction or ileus. Clinical and/or magnetic follow-up recommended. Code Status & VTE Plan Code Status Patient is a full code as per my discussion with patient's who is the bedside. VTE Prophylaxis Plan VTE Prophylaxis will be ordered: Yes Supervising Physician Co-Signing Physician Notes Attending addendum: The patient was seen and examined in the medical floor in presence of the He complains to have abdominal pain and nausea and dry heaves He has not had a bowel movement for the last 3 days No chest pain and no shortness of breath, no fever and/or chills. On examination: Pleasantly confused with moderate distress at rest due to abdominal pain Hemodynamically stable with blood pressure on the upper side at 178/79 Chestclear to auscultate bilaterally Heart-S1-S2, regular, no murmur appreciated Abdomen-mildly distended, soft, tender all over without guarding and/or rigidity, bowel sounds sluggish Extremities-negative for any edema [employer]CH[employer]IC-has dementia with pleasantly confused . Moves all limbs Admission labs and imaging studies reviewed Has SBO with left mid abdominal transition zone-likely secondary to adhesions Surgery consulted Conservative management and no NG tube needed at this time Discussed with the Agree with assessment and plan as outlined above by Malu Denis
--- NOTE | 2020-09-11 15:32 | Surgery Consultation ---
Date of Consultation September 11, 2020 Assessment & Plan (1) SBO (small bowel obstruction): 85 year-old male with Alzheimer's disease and past history of SBO in 2019 presented to ED with generalized worsening abdominal pain with associated sweats and dry heaves. CT scan showing dilated small bowel with transition point in mid left abdomen. Hx of cholecystectomy and left nephrectomy. Likely SBO secondary to adhesions Abdomen soft, tender, no peritonitis Plan: No acute surgical intervention recommended at this time. Conservative management: strict npo, IV fluids, pain management, Zofran prn nausea, ambulate/OOB with assistance. Low threshold for NGT placement given dry heaves, distended fluid filled stomach on CT scan. Medicine admitting patient will continue to follow Dr. Dunn has seen and examined pt, agrees with above. Supervising Physician Co-Signing Physician Notes I interviewed and examined this patient and agree wit the above note. He has not had BM or flatus for at least 3 days and has a [address] sowing SBO. He has had this in the past and it resolved without surgical intervention. Would agree wit conservative measures for now. There is no evidence of peritonitis at the present time History of Present Illness Reason for Consultation: SBO Requesting Physician: Malu Lauren PA-C History of Present Illness Bart is 85 year-old male who presented to ED with complaint of worsening abdominal pain. History mostly obtained from the medical chart as the history was limited by patient and his . Per record he was admitted to [facility] in October of 2018 with small bowel obstruction which resolved with conse rvative measures. He has history of cholecystectomy and left nephrectomy. He states the abdominal pain comes in waves and is sharp and cramping at times. Associated sweats and dry heaving but no true vomiting. Has not passed gas for a few days per patient. ER work-up included labs which showed leukocytosis of 11K. CT scan of abd and pelvis with IV contrast showing dilated fluid filled loops of small bowel with transition zone in the left mid abdomen. Stomach is also fluid filled and distended. Allergies Allergy/AdvReac Type Severity Reaction Status Date / Time No Known Allergies Allergy Verified 09/11/20 12:16 Home Medications Medication Instructions Recorded Confirmed Type PreserVision AREDS 1 tab PO BID 02/08/20 09/11/20 History aspirin [Aspirin Low Dose] 81 mg PO QPM 05/08/20 09/11/20 History finasteride 5 mg tablet 5 mg PO DAILY #90 tab 07/01/20 09/11/20 Rx lutein 20 mg capsule 20 mg PO BID #90 cap 07/01/20 09/11/20 Rx memantine 10 mg tablet 10 mg PO BID #180 tab 07/01/20 09/11/20 Rx nitroglycerin 0.4 mg sublingual 0.4 mg SL DIRECTED PRN #25 tab 07/01/20 09/11/20 Rx tablet bethanechol chloride 25 mg PO BID 09/11/20 09/11/20 History metoprolol succinate 25 mg PO QAM 09/11/20 09/11/20 History Patient History Medical History Alzheimer disease Aortic stenosis HX AORTIC VALVE REPLACEMENT Asthma 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 CAD (coronary artery disease) Chronic indwelling Oliver catheter Diabetes mellitus, type 2 Gastric ulcer GERD (gastroesophageal reflux disease) Hearing loss HTN (hypertension) Lyme disease Macular degeneration Memory loss or impairment Mild CAD 30% mid LAD stenosis Orthostatic hypotension Paroxysmal A-fib Peripheral neuropathy Personal history of malignant melanoma of skin Restless legs (09/21/11) Shoulder problem RIGHT, TORN LIGAMENTS/TENDONS Sleep disorder Thyroid nodule Urinary retention with incomplete bladder emptying Surgical History H/O ankle fusion History of aortic valve replacement TAVR History of nephrectomy, left S/P ablation of atrial fibrillation S/P cholecystectomy S/P inguinal herniorrhaphy Status post transcatheter aortic valve replacement (TAVR) using bioprosthesis Family History Other Family history of diabetes mellitus in mother Social History Smoking Status: Never smoker Hx Alcohol Use: No Hx Substance Use: No Preferred Language: Luxembourgish Communication Ability: Impaired Visual Impairment: No Limitations County Court Judge Required: No Beliefs That Will Affect Care: None Current Living Situation: Spouse Current Living Situation Comment: daughter lives next door Other Information That Helps Us Care for You: No Feels Safe at Home: Yes Safety Concerns: Feels Safe At This Time Assistive Devices: Glasses Review of Systems Review of Systems: Limited review of systems but as per HPI. Physical Exam Constitutional: cooperative and + diaphoretic (while dry heaving); no acute distress, not in distress and not combative Respiratory: normal respiratory effort; no respiratory distress and no labored breathing Gastrointestinal (Abdomen): Inspection/Auscultation: abdomen normal to inspection and + abdominal surgical scar (midline infraumbilical scar); abdomen not distended and + abnormal bowel sounds Percussion/Palpation: + abdomen tender and abdomen soft; no guarding and abdomen not rigid Skin: no rashes, warm and dry Psychiatric: Orientation: alert and cooperative Results & Data ([facility]) Vital Signs (Past 12 Hours) Vital Signs Temp Pulse Resp BP Pulse Ox 09/11/20 13:32 53 L 23 157/70 H 98 09/11/20 13:00 57 L 23 149/80 H 99 09/11/20 12:30 54 L 20 150/80 H 99 09/11/20 11:30 56 L 17 155/83 H 97 09/11/20 11:29 98 09/11/20 11:01 58 L 19 142/73 H 99 09/11/20 10:30 59 L 20 123/56 L 98 09/11/20 10:22 36.4 C L 66 18 127/72 99 09/11/20 10:10 64 21 127/72 99 Laboratory Results 09/11/20 09/11/20 09/11/20 Range/Units 14:14 13:35 13:35 WBC (4.8-10.8) K/uL RBC (4.7-6.1) M/uL Hgb (14.0-18.0) g/dL Hct (42-52) % MCV (80-100) fL MCH (25-34) pg MCHC (32-36) g/dL RDW Std Deviation (36.4-46.3) fL RDW Coeff of Edgardo (11.5-14.5) % Plt Count (130-400) K/uL MPV (7.4-10.4) fL Immature Gran % (Auto) % Neut % (Auto) % Lymph % (Auto) % [place] % (Auto) % Eos % (Auto) % Baso % (Auto) % Neut # (Auto) (1.4-6.5) K/uL Lymph # (Auto) (1.2-3.4) K/uL [place] # (Auto) (0.11-0.59) K/uL Eos # (Auto) (0-0.5) K/uL Baso # (Auto) (0-0.2) K/uL Immature Gran # (Auto) (0.00-0.02) K/uL Sodium (136-145) mmol/L Potassium (3.5-5.1) mmol/L Chloride (98-107) mmol/L Carbon Dioxide (21-32) mmol/L Anion Gap (3-11) BUN (7-18) mg/dl Creatinine (0.6-1.4) mg/dl Est Cr Clr Drug Dosing ml/min Est GFR ( Amer) Est GFR (Non-Af Amer) BUN/Creatinine Ratio (10-20) Glucose (70-99) mg/dl Lactate 1.7 (0.4-2.0) mmol/L Calcium (8.5-10.1) mg/dl Total Bilirubin (0.2-1) mg/dl AST (15-37) U/L ALT (12-78) U/L Alkaline Phosphatase (45-117) U/L Troponin I (0-0.045) ng/ml Total Protein (6.4-8.2) gm/dl Albumin (3.4-5.0) gm/dl Globulin (2.5-4.0) gm/dl Albumin/Globulin Ratio (0.9-2) Lipase (73-393) U/L COVID-19 Eval [facility] SARS-CoV-2, RNA, NAAT NEGATIVE (NEGATIVE) 09/11/20 09/11/20 Range/Units 10:15 10:15 WBC 11.87 H (4.8-10.8) K/uL RBC 4.73 (4.7-6.1) M/uL Hgb 15.9 (14.0-18.0) g/dL Hct 45.1 (42-52) % MCV 95.3 (80-100) fL MCH 33.6 (25-34) pg MCHC 35.3 (32-36) g/dL RDW Std Deviation 46.8 H (36.4-46.3) fL RDW Coeff of Edgardo 13.4 (11.5-14.5) % Plt Count 152 (130-400) K/uL MPV 10.2 (7.4-10.4) fL Immature Gran % (Auto) 0.2 % Neut % (Auto) 87.1 % Lymph % (Auto) 6.9 % [place] % (Auto) 5.3 % Eos % (Auto) 0.3 % Baso % (Auto) 0.2 % Neut # (Auto) 10.35 H (1.4-6.5) K/uL Lymph # (Auto) 0.82 L (1.2-3.4) K/uL [place] # (Auto) 0.63 H (0.11-0.59) K/uL Eos # (Auto) 0.03 (0-0.5) K/uL Baso # (Auto) 0.02 (0-0.2) K/uL Immature Gran # (Auto) 0.02 (0.00-0.02) K/uL Sodium 137 (136-145) mmol/L Potassium 4.3 (3.5-5.1) mmol/L Chloride 104 (98-107) mmol/L Carbon Dioxide 28 (21-32) mmol/L Anion Gap 5.0 (3-11) BUN 19 H (7-18) mg/dl Creatinine 1.24 (0.6-1.4) mg/dl Est Cr Clr Drug Dosing 45.8 ml/min Est GFR ( Amer) 61.5 Est GFR (Non-Af Amer) 53.1 BUN/Creatinine Ratio 15.5 (10-20) Glucose 155 H (70-99) mg/dl Lactate (0.4-2.0) mmol/L Calcium 9.2 (8.5-10.1) mg/dl Total Bilirubin 1.3 H (0.2-1) mg/dl AST 19 (15-37) U/L ALT 21 (12-78) U/L Alkaline Phosphatase 118 H (45-117) U/L Troponin I < 0.015 (0-0.045) ng/ml Total Protein 7.2 (6.4-8.2) gm/dl Albumin 4.0 (3.4-5.0) gm/dl Globulin 3.2 (2.5-4.0) gm/dl Albumin/Globulin Ratio 1.3 (0.9-2) Lipase 206 (73-393) U/L COVID-19 Eval Order SARS-CoV-2, RNA, NAAT (NEGATIVE) Diagnostic Findings CT abd pelvis IV con only CLINICAL HISTORY: Abdominal pain radiating to the lower abdomen COMPARISON STUDY: March 2019 TECHNIQUE: The patient was scanned in a dynamic helical fashion during intravenous administration of 94 cc of Optiray 320 A dose lowering technique was utilized adhering to the principles of ALARA. CT DOSE: 460.55 mGycm FINDINGS: Lower chest: There are basilar atelectatic changes. Liver: There is a 13 mm right hepatic lobe lipoma. There is pneumobilia. The hepatic and portal veins appear patent. Gallbladder: Surgically absent Spleen: Normal in size and attenuation. Pancreas: Unremarkable. Adrenal glands: Unremarkable. Kidneys: The left kidney is surgically absent. No solid right renal masses are visualized. There are multiple cysts and parapelvic cysts. Bowel: There are multiple mildly dilated fluid-filled small bowel loops with air-fluid levels. The distal small bowel is of normal caliber. There is a left mid abdominal transition zone. The findings are indicative of a small bowel obstruction. Peritoneum: There is trace abdominal fluid. There is no free intraperitoneal air. Vasculature: The abdominal aorta is normal in course and caliber. Adenopathy: None. Pelvic viscera: There is an indwelling Oliver catheter. There are small fat- containing left inguinal hernia. Skeletal structures: No destructive osseous lesions are seen. IMPRESSION: 1. Small bowel obstruction 2. Hepatic gas most consistent with pneumobilia 3. Minimal free intraperitoneal fluid 4. Surgically absent left kidney and gallbladder.
[2020-09-11 16:10] LABS: Magnesium 2.2 mg/dl (1.8-2.4); Phosphorus 3.2 mg/dl (2.5-4.9)
[2020-09-11 16:12] LABS: Appearance Urine Clear (Clear); Bacteria Urine Automated Negative (Negative); Bilirubin Urine Negative (Negative); Blood Urine Trace (Negative); Color Urine Yellow; Epithelial Cell Urine Auto >30 /lpf (0-5); Glucose Urine UA Negative (Negative); Ketones Urine 3+ (Negative); Leukocyte Esterase Urine Negative (Negative); Nitrite Urine Negative (Negative); Protein Urine 1+ (Negative); RBC Urine Automated 0-4 /hpf (0-4); Specific Gravity Urine > 1.045 (1.000-1.030); Urobilinogen Urine Negative (Negative); pH Urine 5.5 (4.5-7.5)
[2020-09-11] MEDS: SODIUM CHLORIDE 0.9% 1000ML 1,000 ML IV SCH ×3 (17:03→23:57)
[2020-09-11] MEDS: MoRPHine SULFATE 4 MG/ML 1 ML CARP\\VIAL IV PRN (17:06)
[2020-09-11] MEDS: ONDANSETRON INJ 2 MG/ML 2 ML VIAL IV PRN (17:06)
[2020-09-11] MEDS: HEPARIN SOD 5,000 UNIT/0.5 ML VIAL SQ SCH (21:11)
[2020-09-11] MEDS: ASPIRIN 81 MG ECTAB PO SCH (21:11)
[2020-09-11] MEDS: MEMANTINE HCL 10 MG TAB PO SCH (21:11)
[2020-09-11] MEDS: BETHANECHOL CHL 25 MG TAB PO SCH (21:11)
[2020-09-11] MEDS: ACETAMINOPHEN 325 MG TAB PO PRN (21:13)
[2020-09-12] MEDS: ONDANSETRON INJ 2 MG/ML 2 ML VIAL IV PRN (03:26)
[2020-09-12] MEDS: MoRPHine SULFATE 4 MG/ML 1 ML CARP\\VIAL IV PRN (03:26)
[2020-09-12] MEDS: HEPARIN SOD 5,000 UNIT/0.5 ML VIAL SQ SCH ×3 (05:34→20:47)
[2020-09-12 06:30] LABS: Hematocrit (blood only) 41.2 % (42-52); Hemoglobin 14.3 g/dL (14.0-18.0); Mean Corpuscular Hemoglobin 33.1 pg (25-34); Mean Corpuscular Hgb Conc 34.7 g/dL (32-36); Mean Corpuscular Volume 95.4 fL (80-100); Mean Platelet Volume 10.2 fL (7.4-10.4); Platelet Count 153 K/uL (130-400); RDW Coefficient of Variation 13.4 % (11.5-14.5); RDW Standard Deviation 47.3 fL (36.4-46.3); Red Blood Count 4.32 M/uL (4.7-6.1); White Blood Count 14.77 K/uL (4.8-10.8)
[2020-09-12 07:25] LABS: BUN Creatinine Ratio 21.5 (10-20); Calcium 7.8 mg/dl (8.5-10.1); Est GFR (African American) 64.6; Est GFR (Non-African American) 55.8; Potassium 4.3 mmol/L (3.5-5.1)
[2020-09-12] MEDS: SODIUM CHLORIDE 0.9% 1000ML 1,000 ML IV SCH ×2 (07:27→16:06)
[2020-09-12] MEDS: BETHANECHOL CHL 25 MG TAB PO SCH ×2 (07:35→20:47)
[2020-09-12] MEDS: FINASTERIDE 5 MG TAB PO SCH (07:35)
[2020-09-12] MEDS: MEMANTINE HCL 10 MG TAB PO SCH ×2 (07:35→20:47)
[2020-09-12] MEDS: ACETAMINOPHEN 325 MG TAB PO PRN ×2 (07:36→20:49)
[2020-09-12] MEDS: METOPROLOL SUCC 25MG EXT REL TAB PO SCH (07:36)
--- NOTE | 2020-09-12 09:02 | XRay Report ---
KUB CLINICAL HISTORY: Follow up small bowel obstruction. COMPARISON STUDY: CT of the abdomen and pelvis September 11, 2020. FINDINGS: Incidental note is made of prosthetic aortic valve and cholecystectomy clips. Numerous loop s of moderately dilated small bowel are noted. The findings suggest a persistent small bowel obstruct ion. A moderate amount of stool within the cecum and ascending colon is noted. IMPRESSION: Findings suggestive of a persistent small bowel obstruction. ACT 112: Negative or not required by law. Electronically signed by: Leon Sheldon M.D. 09/12/2020 9:01 AM
--- NOTE | 2020-09-12 09:58 | Surgery Progress Note ---
Date of Service September 12, 2020 Assessment & Plan (1) SBO (small bowel obstruction): Clinically somewhat improved although has not had bowel movement or flatus. White blood cell count did increase but there is no evidence of peritonitis by exam. Would continue with conservative measures for now. Continue with serial exams. Repeat white blood cell count tomorrow Admission and Anticipated Discharge Date Admission Date: September 11, 2020 Subjective In general appears better today Still having episodes of retching Pain has decreased Has not had bowel movement or flatus Has not vomited Physical Exam Gastrointestinal (Abdomen): Inspection/Auscultation: + abdomen distended (Mild to moderate) and normal bowel sounds Percussion/Palpation: + abdomen tender (Minimal tenderness in the left upper side) and abdomen soft Skin: no rashes, warm and dry Lymphatic: no cervical lymphadenopathy Results & Data ([facility]) Vital Signs (Past 12 Hours) Vital Signs Temp Pulse Resp BP Pulse Ox 09/12/20 07:36 36.9 C 64 18 161/82 H 96 09/11/20 22:32 36.9 C 61 16 151/76 H 94 Laboratory Results 09/12/20 09/12/20 09/11/20 Range/Units 05:49 05:49 16:03 WBC 14.77 H (4.8-10.8) K/uL RBC 4.32 L (4.7-6.1) M/uL Hgb 14.3 (14.0-18.0) g/dL Hct 41.2 L (42-52) % MCV 95.4 (80-100) fL MCH 33.1 (25-34) pg MCHC 34.7 (32-36) g/dL RDW Std Deviation 47.3 H (36.4-46.3) fL RDW Coeff of Edgardo 13.4 (11.5-14.5) % Plt Count 153 (130-400) K/uL MPV 10.2 (7.4-10.4) fL Immature Gran % (Auto) % Neut % (Auto) % Lymph % (Auto) % [place] % (Auto) % Eos % (Auto) % Baso % (Auto) % Neut # (Auto) (1.4-6.5) K/uL Lymph # (Auto) (1.2-3.4) K/uL [place] # (Auto) (0.11-0.59) K/uL Eos # (Auto) (0-0.5) K/uL Baso # (Auto) (0-0.2) K/uL Immature Gran # (Auto) (0.00-0.02) K/uL Sodium 138 (136-145) mmol/L Potassium 4.3 (3.5-5.1) mmol/L Chloride 105 (98-107) mmol/L Carbon Dioxide 26 (21-32) mmol/L Anion Gap 7.0 (3-11) BUN 26 H (7-18) mg/dl Creatinine 1.19 (0.6-1.4) mg/dl Est Cr Clr Drug Dosing 44.0 ml/min Est GFR ( Amer) 64.6 Est GFR (Non-Af Amer) 55.8 BUN/Creatinine Ratio 21.5 H (10-20) Glucose 132 H (70-99) mg/dl Lactate (0.4-2.0) mmol/L Calcium 7.8 L D (8.5-10.1) mg/dl Phosphorus (2.5-4.9) mg/dl Magnesium (1.8-2.4) mg/dl Total Bilirubin (0.2-1) mg/dl AST (15-37) U/L ALT (12-78) U/L Alkaline Phosphatase (45-117) U/L Troponin I (0-0.045) ng/ml Total Protein (6.4-8.2) gm/dl Albumin (3.4-5.0) gm/dl Globulin (2.5-4.0) gm/dl Albumin/Globulin Ratio (0.9-2) Lipase (73-393) U/L Urine Color Yellow Urine Appearance Clear (Clear) Urine pH 5.5 (4.5-7.5) Ur Specific [place] > 1.045 H (1.000-1.030) Urine Protein 1+ H (Negative) Urine Glucose (UA) Negative (Negative) Urine Ketones 3+ H (Negative) Urine Blood Trace H (Negative) Urine Nitrite Negative (Negative) Urine Bilirubin Negative (Negative) Urine Urobilinogen Negative (Negative) Ur Leukocyte Esterase Negative (Negative) Urine WBC (Auto) 10-30 H (0-5) /hpf Urine RBC (Auto) 0-4 (0-4) /hpf U Hyaline Cast (Auto) 1-5 (0-5) /lpf U Epithel Cells (Auto) >30 H (0-5) /lpf Urine Bacteria (Auto) Negative (Negative) COVID-19 Eval Order SARS-CoV-2, RNA, NAAT (NEGATIVE) 09/11/20 09/11/20 09/11/20 Range/Units 14:14 13:35 13:35 WBC (4.8-10.8) K/uL RBC (4.7-6.1) M/uL Hgb (14.0-18.0) g/dL Hct (42-52) % MCV (80-100) fL MCH (25-34) pg MCHC (32-36) g/dL RDW Std Deviation (36.4-46.3) fL RDW Coeff of Edgardo (11.5-14.5) % Plt Count (130-400) K/uL MPV (7.4-10.4) fL Immature Gran % (Auto) % Neut % (Auto) % Lymph % (Auto) % [place] % (Auto) % Eos % (Auto) % Baso % (Auto) % Neut # (Auto) (1.4-6.5) K/uL Lymph # (Auto) (1.2-3.4) K/uL [place] # (Auto) (0.11-0.59) K/uL Eos # (Auto) (0-0.5) K/uL Baso # (Auto) (0-0.2) K/uL Immature Gran # (Auto) (0.00-0.02) K/uL Sodium (136-145) mmol/L Potassium (3.5-5.1) mmol/L Chloride (98-107) mmol/L Carbon Dioxide (21-32) mmol/L Anion Gap (3-11) BUN (7-18) mg/dl Creatinine (0.6-1.4) mg/dl Est Cr Clr Drug Dosing ml/min Est GFR ( Amer) Est GFR (Non-Af Amer) BUN/Creatinine Ratio (10-20) Glucose (70-99) mg/dl Lactate 1.7 (0.4-2.0) mmol/L Calcium (8.5-10.1) mg/dl Phosphorus (2.5-4.9) mg/dl Magnesium (1.8-2.4) mg/dl Total Bilirubin (0.2-1) mg/dl AST (15-37) U/L ALT (12-78) U/L Alkaline Phosphatase (45-117) U/L Troponin I (0-0.045) ng/ml Total Protein (6.4-8.2) gm/dl Albumin (3.4-5.0) gm/dl Globulin (2.5-4.0) gm/dl Albumin/Globulin Ratio (0.9-2) Lipase (73-393) U/L Urine Color Urine Appearance (Clear) Urine pH (4.5-7.5) Ur Specific [place] (1.000-1.030) Urine Protein (Negative) Urine Glucose (UA) (Negative) Urine Ketones (Negative) Urine Blood (Negative) Urine Nitrite (Negative) Urine Bilirubin (Negative) Urine Urobilinogen (Negative) Ur Leukocyte Esterase (Negative) Urine WBC (Auto) (0-5) /hpf Urine RBC (Auto) (0-4) /hpf U Hyaline Cast (Auto) (0-5) /lpf U Epithel Cells (Auto) (0-5) /lpf Urine Bacteria (Auto) (Negative) COVID-19 Eval Order Covid19 IDNow [facility] SARS-CoV-2, RNA, NAAT NEGATIVE (NEGATIVE) 09/11/20 09/11/20 09/11/20 Range/Units 10:15 10:15 10:15 WBC 11.87 H (4.8-10.8) K/uL RBC 4.73 (4.7-6.1) M/uL Hgb 15.9 (14.0-18.0) g/dL Hct 45.1 (42-52) % MCV 95.3 (80-100) fL MCH 33.6 (25-34) pg MCHC 35.3 (32-36) g/dL RDW Std Deviation 46.8 H (36.4-46.3) fL RDW Coeff of Edgardo 13.4 (11.5-14.5) % Plt Count 152 (130-400) K/uL MPV 10.2 (7.4-10.4) fL Immature Gran % (Auto) 0.2 % Neut % (Auto) 87.1 % Lymph % (Auto) 6.9 % [place] % (Auto) 5.3 % Eos % (Auto) 0.3 % Baso % (Auto) 0.2 % Neut # (Auto) 10.35 H (1.4-6.5) K/uL Lymph # (Auto) 0.82 L (1.2-3.4) K/uL [place] # (Auto) 0.63 H (0.11-0.59) K/uL Eos # (Auto) 0.03 (0-0.5) K/uL Baso # (Auto) 0.02 (0-0.2) K/uL Immature Gran # (Auto) 0.02 (0.00-0.02) K/uL Sodium 137 (136-145) mmol/L Potassium 4.3 (3.5-5.1) mmol/L Chloride 104 (98-107) mmol/L Carbon Dioxide 28 (21-32) mmol/L Anion Gap 5.0 (3-11) BUN 19 H (7-18) mg/dl Creatinine 1.24 (0.6-1.4) mg/dl Est Cr Clr Drug Dosing 45.8 ml/min Est GFR ( Amer) 61.5 Est GFR (Non-Af Amer) 53.1 BUN/Creatinine Ratio 15.5 (10-20) Glucose 155 H (70-99) mg/dl Lactate (0.4-2.0) mmol/L Calcium 9.2 (8.5-10.1) mg/dl Phosphorus 3.2 (2.5-4.9) mg/dl Magnesium 2.2 (1.8-2.4) mg/dl Total Bilirubin 1.3 H (0.2-1) mg/dl AST 19 (15-37) U/L ALT 21 (12-78) U/L Alkaline Phosphatase 118 H (45-117) U/L Troponin I < 0.015 (0-0.045) ng/ml Total Protein 7.2 (6.4-8.2) gm/dl Albumin 4.0 (3.4-5.0) gm/dl Globulin 3.2 (2.5-4.0) gm/dl Albumin/Globulin Ratio 1.3 (0.9-2) Lipase 206 (73-393) U/L Urine Color Urine Appearance (Clear) Urine pH (4.5-7.5) Ur Specific [place] (1.000-1.030) Urine Protein (Negative) Urine Glucose (UA) (Negative) Urine Ketones (Negative) Urine Blood (Negative) Urine Nitrite (Negative) Urine Bilirubin (Negative) Urine Urobilinogen (Negative) Ur Leukocyte Esterase (Negative) Urine WBC (Auto) (0-5) /hpf Urine RBC (Auto) (0-4) /hpf U Hyaline Cast (Auto) (0-5) /lpf U Epithel Cells (Auto) (0-5) /lpf Urine Bacteria (Auto) (Negative) COVID-19 Eval Order SARS-CoV-2, RNA, NAAT (NEGATIVE)
[2020-09-12] MEDS: cefTRIAXone SODIUM 1,000 MG in DEXTROSE 5% 50 ML IV SCH (11:11)
[2020-09-12] MEDS: METOCLOPRAMIDE HCL INJ 5 MG/ML 2 ML VIAL IV PRN (13:29)
--- NOTE | 2020-09-12 17:25 | Hospitalist Progress Note ---
Date of Service September 12, 2020 Assessment & Plan (1) SBO (small bowel obstruction): Patient presenting with reports of abdominal pain and decreased bowel movements x [address] ABD/pelvis on admission showed signs of SBO Likely secondary to adhesions from prior abdominal surgeries Suregery on board Continue conservative management with bowel rest, pain control and IVF KUB showed findings suggestive of a persistent small bowel obstruction. Will keep NPO (2) UTI (urinary tract infection): Urine cx positive for gram negative bacilli Starting on Rocephin IV Follow up urine sensitivity (3) Status post transcatheter aortic valve replacement (TAVR) using bioprosthesis: (4) Mild CAD: -Appears stable -Continue aspirin and beta-nicole (5) Chronic indwelling Oliver catheter: -No issues -Continue finasteride (6) Alzheimer disease: -Continue home medications (7) DVT prophylaxis: -SQ heparin Patient's daughter, Shazia, was updated via telephone. [phone] Admission and Anticipated Discharge Date Admission Date: September 11, 2020 Subjective Pt was seen and examined for follow up of small bowel obstruction Lying in bed with no distress with at bedside Pt said that his pain is much better said that pt has not been moving around Denies any chest pain, palpitation, dizziness and SOB Physical Exam Physical Exam: General- No acute distress Head- atraumatic Eyes-decrease hearing function ENT- oropharynx clear Neck- supple, no JVD Lungs- clear to auscultation Heart- regular rhythm; no murmur Abdomen- Hypoactive BS, mild distended Extremities- no calf tenderness Neuro- alert, oriented x 3; PERRL, EOMI; no facial palsy; no dysarthria Skin- warm & dry Results & Data Results & Data ([facility]) Vital Signs (Past 12 Hours) Vital Signs Temp Pulse Resp BP Pulse Ox 09/12/20 15:16 37.0 C 59 L 16 119/73 96 09/12/20 07:36 36.9 C 64 18 161/82 H 96
--- NOTE | 2020-09-12 19:45 | Emergency Department Note ---
Impression & Plan SBO (small bowel obstruction), Alzheimer disease ED Provider Note NAME: RAHEL MORRISON AGE: 85 SEX: M ARRIVES VIA: Ambulance INFORMANT: ED PROVIDER(S): Kelly Ortiz MD CHIEF COMPLAINT: Abd pain PLAN: Disposition: Inpatient Condition: Fair Referral: Hospitalist, General Surgery MEDICAL DECISION MAKING:IV access was obtained and lab work was drawn. Pt was placed on the publishing director. IV hydration was initiated. CXR and KUB reveal dilated bowel loops. WBC was mildly elevated. CT abd pelvis revealed evidence of SBO. Case was discussed with the hospitalist service for further management. General surgery was consulted. Pt and were informed of the findings and plan. Pt's seemed to be repetitive with her questions and agitated. She did express understanding, but nursing was attempting to get a hold of immediate family for support. Triage Nursing notes reviewed. Prior medical records reviewed. Vital Signs: reviewed and remarkable for no significant abnormalities Differential diagnosis: Appendicitis, testicular torsion, infections, diverticulitis, UTI, obstruction, mesenteric ischemia, aortic pathology, inflammatory bowel disease, renal colic, PUD, pancreatitis, biliary pathology, hernia, volvulus, constipation, as well as other pathologies. ER treatment provided: IV NSS Diagnostics interpreted by me: ECG: Sinus bradycardia at 56 bpm, nonspecific T wave abnl in anterior/lateral leads, no PVC, no PAC, QTc 411. No ST changes Cardiac Monitoring: An order for cardiac monitoring was placed and pt was noted to be in a sinus rhythm at 64 bpm. Laboratory studies: See below Imaging studies: XR abdomen 2V w PA chest CLINICAL HISTORY: chest pain, abdominal pain COMPARISON STUDY: March 02, 2020 FINDINGS: Erect chest reveals normal cardiac size. There is an aortic valve graft present. There is aortic tortuosity. There is no focal pulmonary consolidation. There is no free intraperitoneal air. Erect and supine views the abdomen reveal gas within both colonic and small bowel loops. There is moderate right colonic stool. There is portal small bowel dilatation. Multiple air-fluid levels are visualized on the erect study. IMPRESSION: 1. No evidence of free intraperitoneal air 2. Nonspecific bowel gas pattern with borderline dilated small bowel loops and multiple air-fluid levels. The findings could indicate either a partial bowel obstruction or ileus. Clinical and/or magnetic follow-up recommended. ACT 112: Negative or not required by law. Electronically signed by: Garry Eastman M.D. 09/11/2020 12:08 PM Dictated: 09/11/20 1202Transcribed: 09/11/[address] abd pelvis IV con only CLINICAL HISTORY: Abdominal pain radiating to the lower abdomen COMPARISON STUDY: March 2019 TECHNIQUE: The patient was scanned in a dynamic helical fashion during intravenous administration of 94 cc of Optiray 320 A dose lowering technique was utilized adhering to the principles of ALARA. CT DOSE: 460.55 mGycm FINDINGS: Lower chest: There are basilar atelectatic changes. Liver: There is a 13 mm right hepatic lobe lipoma. There is pneumobilia. The hepatic and portal veins appear patent. Gallbladder: Surgically absent Spleen: Normal in size and attenuation. Pancreas: Unremarkable. Adrenal glands: Unremarkable. Kidneys: The left kidney is surgically absent. No solid right renal masses are visualized. There are multiple cysts and parapelvic cysts. Bowel: There are multiple mildly dilated fluid-filled small bowel loops with air-fluid levels. The distal small bowel is of normal caliber. There is a left mid abdominal transition zone. The findings are indicative of a small bowel obstruction. Peritoneum: There is trace abdominal fluid. There is no free intraperitoneal air. Vasculature: The abdominal aorta is normal in course and caliber. Adenopathy: None. Pelvic viscera: There is an indwelling Oliver catheter. There are small fat- containing left inguinal hernia. Skeletal structures: No destructive osseous lesions are seen. IMPRESSION: 1. Small bowel obstruction 2. Hepatic gas most consistent with pneumobilia 3. Minimal free intraperitoneal fluid 4. Surgically absent left kidney and gallbladder. ACT 112: Negative or not required by law. Electronically signed by: Garry Eastman M.D. 09/11/2020 12:56 PM Dictated: 09/11/20 1247Transcribed: 09/11/20 1247 Consultation(s): hospitalist, general surgery HPI: 85/M arrives for evaluation of lower abd pain. He has h/o dementia but is able to give some account. He states it feels as though he is constipated, but the symptoms began prior to having trouble moving his bowels, about 3 days ago. He c/o a fell sensation and a lower abdominal pressure. He denies vomiting. He belched today, his states it was violent. There is no report of blood in the bowels. He was able to pass a few hard balls of stool today. He denies COVID exposure, CP, SOB and fever. ROS: See above HPI for pertinent positives & negatives. A total of 10 systems reviewed and were otherwise negative. History is ? reliable and limited d/t patient's dementia and uncertain cognition of . PAST MEDICAL HISTORY:See Below PAST SURGICAL HISTORY:See Below FAMILY HISTORY:See Below SOCIAL HISTORY:See Below HOME MEDICATIONS:See Below ALLERGIES:See Below VITALS:See Below PHYSICAL EXAMINATION: Vital signs reviewed. General: Well-appearing 85 yo male, in no significant distress. HEENT: No scleral icterus, PERRLA, neck supple. Atraumatic. Cardiovascular: Regular rate and rhythm, no extra sounds. Pulmonary: Clear to auscultation bilaterally, normal work of breathing. Abdomen: Soft, mildly tender lower abdomen, + distended, + tympany to percussion, positive bowel sounds. Musculoskeletal: Atraumatic, no peripheral edema. 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 CAD (coronary artery disease) Chronic indwelling Oliver catheter Diabetes mellitus, type 2 Gastric ulcer GERD (gastroesophageal reflux disease) Hearing loss HTN (hypertension) Lyme disease Macular degeneration Memory loss or impairment Mild CAD 30% mid LAD stenosis Orthostatic hypotension Paroxysmal A-fib Peripheral neuropathy Personal history of malignant melanoma of skin Restless legs (09/21/11) Shoulder problem RIGHT, TORN LIGAMENTS/TENDONS Sleep disorder Thyroid nodule Urinary retention with incomplete bladder emptying Surgical History H/O ankle fusion History of aortic valve replacement TAVR History of nephrectomy, left S/P ablation of atrial fibrillation S/P cholecystectomy S/P inguinal herniorrhaphy Status post transcatheter aortic valve replacement (TAVR) using bioprosthesis Family History Other Family history of diabetes mellitus in mother Social History Smoking Status: Never smoker Hx Alcohol Use: No Hx Substance Use: No Preferred Language: Lao Communication Ability: Effective Visual Impairment: No Limitations Pump Tender Required: No Beliefs That Will Affect Care: None Current Living Situation: Spouse Current Living Situation Comment: daughter lives next door Other Information That Helps Us Care for You: No Feels Safe at Home: Yes Safety Concerns: Feels Safe At This Time Assistive Devices: None Allergies Allergies Allergy/AdvReac Type Severity Reaction Status Date / Time No Known Allergies Allergy Verified 09/11/20 12:16 Home Meds Home Medications Medication Instructions Recorded Confirmed PreserVision AREDS 1 tab PO BID 02/08/20 09/11/20 aspirin [Aspirin Low Dose] 81 mg PO QPM 05/08/20 09/11/20 bethanechol chloride 25 mg PO BID 09/11/20 09/11/20 metoprolol succinate 25 mg PO QAM 09/11/20 09/11/20 Previous Rx's Medication Instructions Recorded finasteride 5 mg tablet 5 mg PO DAILY #90 tab 07/01/20 lutein 20 mg capsule 20 mg PO BID #90 cap 07/01/20 memantine 10 mg tablet 10 mg PO BID #180 tab 07/01/20 nitroglycerin 0.4 mg sublingual 0.4 mg SL DIRECTED PRN #25 tab 07/01/20 tablet Results & Data (ED) Home Medications Current Medication List: was personally reviewed by me Laboratory Data Attestation: I reviewed the patient's lab results. Result diagrams: 09/13/20 06:05 09/14/20 06:09 Lab Results 09/11/20 09/11/20 09/11/20 Range/Units 10:15 10:15 10:15 WBC 11.87 H (4.8-10.8) K/uL RBC 4.73 (4.7-6.1) M/uL Hgb 15.9 (14.0-18.0) g/dL Hct 45.1 (42-52) % MCV 95.3 (80-100) fL MCH 33.6 (25-34) pg MCHC 35.3 (32-36) g/dL RDW Std Deviation 46.8 H (36.4-46.3) fL RDW Coeff of Edgardo 13.4 (11.5-14.5) % Plt Count 152 (130-400) K/uL MPV 10.2 (7.4-10.4) fL Immature Gran % (Auto) 0.2 % Neut % (Auto) 87.1 % Lymph % (Auto) 6.9 % [place] % (Auto) 5.3 % Eos % (Auto) 0.3 % Baso % (Auto) 0.2 % Neut # (Auto) 10.35 H (1.4-6.5) K/uL Lymph # (Auto) 0.82 L (1.2-3.4) K/uL [place] # (Auto) 0.63 H (0.11-0.59) K/uL Eos # (Auto) 0.03 (0-0.5) K/uL Baso # (Auto) 0.02 (0-0.2) K/uL Immature Gran # (Auto) 0.02 (0.00-0.02) K/uL Sodium 137 (136-145) mmol/L Potassium 4.3 (3.5-5.1) mmol/L Chloride 104 (98-107) mmol/L Carbon Dioxide 28 (21-32) mmol/L Anion Gap 5.0 (3-11) BUN 19 H (7-18) mg/dl Creatinine 1.24 (0.6-1.4) mg/dl Est Cr Clr Drug Dosing 45.8 ml/min Est GFR ( Amer) 61.5 Est GFR (Non-Af Amer) 53.1 BUN/Creatinine Ratio 15.5 (10-20) Glucose 155 H (70-99) mg/dl Lactate (0.4-2.0) mmol/L Calcium 9.2 (8.5-10.1) mg/dl Phosphorus 3.2 (2.5-4.9) mg/dl Magnesium 2.2 (1.8-2.4) mg/dl Total Bilirubin 1.3 H (0.2-1) mg/dl AST 19 (15-37) U/L ALT 21 (12-78) U/L Alkaline Phosphatase 118 H (45-117) U/L Troponin I < 0.015 (0-0.045) ng/ml Total Protein 7.2 (6.4-8.2) gm/dl Albumin 4.0 (3.4-5.0) gm/dl Globulin 3.2 (2.5-4.0) gm/dl Albumin/Globulin Ratio 1.3 (0.9-2) Lipase 206 (73-393) U/L COVID-19 Eval Order SARS-CoV-2, RNA, NAAT (NEGATIVE) 09/11/20 09/11/20 09/11/20 Range/Units 13:35 13:35 14:14 WBC (4.8-10.8) K/uL RBC (4.7-6.1) M/uL Hgb (14.0-18.0) g/dL Hct (42-52) % MCV (80-100) fL MCH (25-34) pg MCHC (32-36) g/dL RDW Std Deviation (36.4-46.3) fL RDW Coeff of Edgardo (11.5-14.5) % Plt Count (130-400) K/uL MPV (7.4-10.4) fL Immature Gran % (Auto) % Neut % (Auto) % Lymph % (Auto) % [place] % (Auto) % Eos % (Auto) % Baso % (Auto) % Neut # (Auto) (1.4-6.5) K/uL Lymph # (Auto) (1.2-3.4) K/uL [place] # (Auto) (0.11-0.59) K/uL Eos # (Auto) (0-0.5) K/uL Baso # (Auto) (0-0.2) K/uL Immature Gran # (Auto) (0.00-0.02) K/uL Sodium (136-145) mmol/L Potassium (3.5-5.1) mmol/L Chloride (98-107) mmol/L Carbon Dioxide (21-32) mmol/L Anion Gap (3-11) BUN (7-18) mg/dl Creatinine (0.6-1.4) mg/dl Est Cr Clr Drug Dosing ml/min Est GFR ( Amer) Est GFR (Non-Af Amer) BUN/Creatinine Ratio (10-20) Glucose (70-99) mg/dl Lactate 1.7 (0.4-2.0) mmol/L Calcium (8.5-10.1) mg/dl Phosphorus (2.5-4.9) mg/dl Magnesium (1.8-2.4) mg/dl Total Bilirubin (0.2-1) mg/dl AST (15-37) U/L ALT (12-78) U/L Alkaline Phosphatase (45-117) U/L Troponin I (0-0.045) ng/ml Total Protein (6.4-8.2) gm/dl Albumin (3.4-5.0) gm/dl Globulin (2.5-4.0) gm/dl Albumin/Globulin Ratio (0.9-2) Lipase (73-393) U/L COVID-19 Eval Order Covid19 IDNow atMMAC SARS-CoV-2, RNA, NAAT NEGATIVE (NEGATIVE) Administered Medications Acetaminophen (Acetaminophen 325 Mg Tab) 650 mg PO Q4H PRN PRN Reason: pain/fever Stop: 10/11/20 16:18 Last Admin: 09/14/20 15:41 Dose: 650 mg Documented by: [id number] Admin: 09/12/20 20:49 Dose: 650 mg Documented by: [id number] Admin: 09/12/20 07:36 Dose: 650 mg Documented by: [id number] Admin: 09/11/20 21:13 Dose: 650 mg Documented by: [id number] Aspirin (Aspirin 81 Mg Ectab) 81 mg PO QPM [facility] Stop: 10/11/20 20:59 Last Admin: 09/13/20 20:07 Dose: 81 mg Documented by: [id number] Admin: 09/12/20 20:47 Dose: 81 mg Documented by: [id number] Admin: 09/11/20 21:11 Dose: 81 mg Documented by: [id number] Bethanechol Chloride (Bethanechol Chl 25 Mg Tab) 25 mg PO BID [facility] Stop: 10/11/20 20:59 Last Admin: 09/14/20 08:33 Dose: 25 mg Documented by: [id number] Admin: 09/13/20 20:07 Dose: 25 mg Documented by: [id number] Admin: 09/13/20 07:45 Dose: 25 mg Documented by: [id number] Admin: 09/12/20 20:47 Dose: 25 mg Documented by: [id number] Admin: 09/12/20 07:35 Dose: 25 mg Documented by: [id number] Admin: 09/11/20 21:11 Dose: 25 mg Documented by: [id number] Finasteride (Finasteride 5 Mg Tab) 5 mg PO DAILY [facility] Stop: 10/12/20 08:59 Last Admin: 09/14/20 08:33 Dose: 5 mg Documented by: [id number] Admin: 09/13/20 07:44 Dose: 5 mg Documented by: [id number] Admin: 09/12/20 07:35 Dose: 5 mg Documented by: [id number] Heparin Sodium (Porcine) (Heparin Sod 5,000 Unit/0.5 Ml Vial) 5,000 units SQ Q8 [facility] Stop: 10/11/20 21:59 Last Admin: 09/14/20 14:10 Dose: 5,000 units Documented by: [id number] Admin: 09/14/20 05:50 Dose: 5,000 units Documented by: [id number] Admin: 09/13/20 20:07 Dose: 5,000 units Documented by: [id number] Admin: 09/13/20 14:20 Dose: 5,000 units Documented by: [id number] Admin: 09/13/20 05:21 Dose: 5,000 units Documented by: [id number] Admin: 09/12/20 20:47 Dose: 5,000 units Documented by: [id number] Admin: 09/12/20 14:45 Dose: 5,000 units Documented by: [id number] Admin: 09/12/20 05:34 Dose: 5,000 units Documented by: [id number] Admin: 09/11/20 21:11 Dose: 5,000 units Documented by: [id number] Sodium Chloride (Nss 1000ml) 1,000 mls @ 70 mls/hr IV .[id number] [facility] Stop: 10/11/20 14:44 Last Admin: 09/14/20 05:51 Dose: 70 mls/hr Documented by: [id number] Infusion: 09/14/20 05:50 Dose: 0 mls/hr Documented by: [id number] Admin: 09/13/20 16:17 Dose: 70 mls/hr Documented by: [id number] Infusion: 09/13/20 16:17 Dose: 70 mls/hr Documented by: [id number] Admin: 09/13/20 02:13 Dose: 70 mls/hr Documented by: [id number] Infusion: 09/13/20 02:12 Dose: 0 mls/hr Documented by: [id number] Admin: 09/12/20 16:06 Dose: 100 mls/hr Documented by: [id number] Infusion: 09/12/20 16:06 Dose: 100 mls/hr Documented by: [id number] Infusion: 09/12/20 10:27 Dose: 100 mls/hr Documented by: [id number] Admin: 09/12/20 07:27 Dose: 125 mls/hr Documented by: [id number] Infusion: 09/12/20 07:27 Dose: 125 mls/hr Documented by: [id number] Admin: 09/11/20 23:57 Dose: Not Given Documented by: [id number] Admin: 09/11/20 23:56 Dose: 125 mls/hr Documented by: [id number] Infusion: 09/11/20 23:56 Dose: 0 mls/hr Documented by: [id number] Admin: 09/11/20 17:03 Dose: 125 mls/hr Documented by: [id number] Ceftriaxone Sodium 1,000 mg/ (Dextrose) 50 mls @ 100 mls/hr IV Q24H [facility]REW; Protocol Stop: 09/22/20 10:29 Last Infusion: 09/14/20 10:52 Dose: 0 mls/hr Documented by: [id number] Admin: 09/14/20 10:21 Dose: 100 mls/hr Documented by: [id number] Infusion: 09/13/20 10:44 Dose: 0 mls/hr Documented by: [id number] Admin: 09/13/20 10:10 Dose: 100 mls/hr Documented by: [id number] Infusion: 09/12/20 12:15 Dose: 0 mls/hr Documented by: [id number] Admin: 09/12/20 11:11 Dose: 100 mls/hr Documented by: [id number] Memantine (Memantine Hcl 10 Mg Tab) 10 mg PO BID [facility] Stop: 10/11/20 20:59 Last Admin: 09/14/20 08:33 Dose: 10 mg Documented by: [id number] Admin: 09/13/20 20:07 Dose: 10 mg Documented by: [id number] Admin: 09/13/20 07:45 Dose: 10 mg Documented by: [id number] Admin: 09/12/20 20:47 Dose: 10 mg Documented by: [id number] Admin: 09/12/20 07:35 Dose: 10 mg Documented by: [id number] Admin: 09/11/20 21:11 Dose: 10 mg Documented by: [id number] Metoclopramide HCl (Metoclopramide Hcl Inj 5 Mg/Ml 2 Ml Vial) 10 mg IV Q6H PRN PRN Reason: Nausea/hiccups Stop: 10/12/20 13:09 Last Admin: 09/14/20 11:29 Dose: 10 mg Documented by: [id number] Admin: 09/14/20 02:18 Dose: 10 mg Documented by: [id number] Admin: 09/13/20 13:15 Dose: 10 mg Documented by: [id number] Admin: 09/13/20 00:27 Dose: 10 mg Documented by: [id number] Admin: 09/12/20 13:29 Dose: 10 mg Documented by: [id number] Metoprolol Succinate (Metoprolol Succ 25mg Ext Rel Tab) 25 mg PO QAM [facility] Stop: 10/12/20 08:59 Last Admin: 09/14/20 08:31 Dose: Not Given Documented by: [id number] Admin: 09/13/20 07:44 Dose: 25 mg Documented by: [id number] Admin: 09/12/20 07:36 Dose: 25 mg Documented by: [id number] Morphine Sulfate (Morphine Sulfate 4 Mg/Ml 1 Ml Carp\Vial) 3 mg IV Q4H PRN PRN Reason: pain Stop: 09/25/20 16:18 Last Admin: 09/13/20 13:10 Dose: 3 mg Documented by: [id number] Admin: 09/12/20 03:26 Dose: 3 mg Documented by: [id number] Admin: 09/11/20 17:06 Dose: 3 mg Documented by: [id number] Ondansetron HCl (Ondansetron Inj 2 Mg/Ml 2 Ml Vial) 4 mg IV Q6H PRN PRN Reason: Nausea Stop: 10/11/20 16:18 Last Admin: 09/12/20 03:26 Dose: 4 mg Documented by: [id number] Admin: 09/11/20 17:06 Dose: 4 mg Documented by: [id number] Discontinued Medications Ioversol (Ioversol 100ml) 94 ml IV ONCE ONE Stop: 09/11/20 12:43 Last Admin: 09/11/20 12:42 Dose: 94 ml Documented by: [id number] Discharge Plan Visit Data Chief Complaint: Abdominal Pain ED Provider: Kelly Ortiz Discharge Problem: SBO (small bowel obstruction), Alzheimer disease Patient Disposition: Admitted As Inpatient Discharge Instructions Interventions: ED Discharge Assessment Last Done: 09/11/20 15:55
[2020-09-12] MEDS: ASPIRIN 81 MG ECTAB PO SCH (20:47)
[2020-09-13] MEDS: METOCLOPRAMIDE HCL INJ 5 MG/ML 2 ML VIAL IV PRN ×2 (00:27→13:15)
[2020-09-13] MEDS: SODIUM CHLORIDE 0.9% 1000ML 1,000 ML IV SCH ×2 (02:13→16:17)
[2020-09-13] MEDS: HEPARIN SOD 5,000 UNIT/0.5 ML VIAL SQ SCH ×3 (05:21→20:07)
--- NOTE | 2020-09-13 06:11 | Surgery Progress Note ---
Date of Service September 13, 2020 Assessment & Plan (1) SBO (small bowel obstruction): Patient is currently only taking ice chips. I would continue this diet until he has improved bowel function. Encourage ambulation with assistance Noted on yesterday's labs he had leukocytosis. Labs this a.m. are pending Admission and Anticipated Discharge Date Admission Date: September 11, 2020 Supervising Physician Co-Signing Physician Notes Had a long talk with the guarding the patient status At this time the patient still has not had any return of GI function in fact the x-rays obtained this morning showed significant small bowel distention. The states that the patient has had some hiccuping and spitting up occasionally but no vomiting The patient denies any nausea. The abdomen is distended there is no localized tenderness that I can appreciate generalized guarding I discussed the option of therapy with the and the need for an NG tube placement if he has more hiccups or vomits She is concerned that the patient has not been up all day and if the nurse will walk him this would help the situation I suspect that the patient will need an NG tube and may need an upper GI with small bowel follow-through to try to delineate the obstruction or that that be a therapeutic method Subjective Patient notes minor abdominal pain. He says over the past evening he has not had any nausea or vomiting. He denies passing any flatus. He has not had a bowel movement. I discussed with the nurse at bedside. She notes the patient has had intermittent periods of confusion. She does note he has not been vomiting but again has had no bowel movement. Physical Exam Respiratory: normal respiratory effort; no respiratory distress and no labored breathing Gastrointestinal (Abdomen): Percussion/Palpation: abdomen soft Abdomen is nondistended. Bowel sounds are present but hypoactive. There is minimal pain with palpation. Results & Data ([facility]) Vital Signs (Past 12 Hours) Vital Signs Temp Pulse Resp BP Pulse Ox 09/12/20 23:26 37.2 C 61 18 141/46 H 95 PG Care Time/CCT Total # of Minutes Spent Total Time Spent with Patient: Total time spent is greater than 50% in coordination of care (as documented) at patient's floor/unit and/or counseling patient: Coding Level of Care Code 88513 Subseq Hosp Care Lvl 2 Diagnoses SBO (small bowel obstruction) K56.609
[2020-09-13 06:15] LABS: Hematocrit (blood only) 37.3 % (42-52); Mean Corpuscular Hemoglobin 33.6 pg (25-34); Mean Corpuscular Hgb Conc 34.9 g/dL (32-36); Mean Corpuscular Volume 96.4 fL (80-100); Mean Platelet Volume 9.8 fL (7.4-10.4); Platelet Count 147 K/uL (130-400); RDW Coefficient of Variation 13.5 % (11.5-14.5); RDW Standard Deviation 47.5 fL (36.4-46.3); Red Blood Count 3.87 M/uL (4.7-6.1); White Blood Count 9.54 K/uL (4.8-10.8)
[2020-09-13 06:55] LABS: BUN Creatinine Ratio 27.1 (10-20); Calcium 8.1 mg/dl (8.5-10.1); Creatinine Clr Calc Pharmacy 45.9 ml/min; Est GFR (African American) 68.1; Est GFR (Non-African American) 58.7
[2020-09-13] MEDS: METOPROLOL SUCC 25MG EXT REL TAB PO SCH (07:44)
[2020-09-13] MEDS: FINASTERIDE 5 MG TAB PO SCH (07:44)
[2020-09-13] MEDS: MEMANTINE HCL 10 MG TAB PO SCH ×2 (07:45→20:07)
[2020-09-13] MEDS: BETHANECHOL CHL 25 MG TAB PO SCH ×2 (07:45→20:07)
--- NOTE | 2020-09-13 08:22 | XRay Report ---
KUB CLINICAL HISTORY: Follow-up small bowel obstruction. FINDINGS: 2 AP, portable, supine abdominal radiographs are compared to study dated 09/12/2020 and [facility] with abdominal CT dated 09/11/2020. Cholecystectomy clips are seen in the right upper quadrant. Additional surgical clips are seen in the left lower quadrant. There is evidence of persistent small bowel obstruction. There is gaseous distention of the small bowel loops which measure up to 4 cm in diameter. No evidence of intraperitoneal free air is seen on these supine views. A phlebolith is agai n seen in the right hemipelvis. The skeletal structures are osteopenic and appear intact. There is mo derate to advanced lumbosacral spondylosis as well as scoliosis. IMPRESSION: Persistent small bowel obstruction. Electronically signed by: Oliver Ram M.D. 09/13/2020 8:21 AM
[2020-09-13] MEDS: cefTRIAXone SODIUM 1,000 MG in DEXTROSE 5% 50 ML IV SCH (10:10)
[2020-09-13] MEDS: MoRPHine SULFATE 4 MG/ML 1 ML CARP\\VIAL IV PRN (13:10)
--- NOTE | 2020-09-13 15:50 | Hospitalist Progress Note ---
Date of Service September 13, 2020 Assessment & Plan (1) SBO (small bowel obstruction): Patient presenting with reports of abdominal pain and decreased bowel movements x [address] ABD/pelvis on admission showed signs of SBO Likely secondary to adhesions from prior abdominal surgeries Surgery on board Continue conservative management with bowel rest, pain control and IVF KUB performed today showed Persistent small bowel obstruction. Continue Ice chip for now (2) UTI (urinary tract infection): Urine cx positive for gram negative bacilli Urine cx grew Acinetobacter baumanni WBC trending down Continue Rocephin IV (3) Status post transcatheter aortic valve replacement (TAVR) using bioprosthesis: (4) Mild CAD: -Appears stable -Continue aspirin and beta-nicole (5) Chronic indwelling Oliver catheter: -No issues -Continue finasteride (6) Alzheimer disease: -Continue home medications (7) DVT prophylaxis: -SQ heparin Daughter Shazia requests update [phone] Admission and Anticipated Discharge Date Admission Date: September 11, 2020 Subjective Pt was seen and examined for follow up of SBO Lying in bed with no distress with at bedside Pt said that pain is stable He said that he is not feeling any worst Denies any chest pain, palpitation, dizziness and SOB Physical Exam Physical Exam: General- No acute distress Head- atraumatic Eyes-decrease hearing function ENT- oropharynx clear Neck- supple, no JVD Lungs- clear to auscultation Heart- regular rhythm; no murmur Abdomen- Hypoactive BS, mild distended Extremities- no calf tenderness Neuro- alert, oriented x 3; PERRL, EOMI; no facial palsy; no dysarthria Skin- warm & dry Results & Data Results & Data ([facility]) Vital Signs (Past 12 Hours) Vital Signs Temp Pulse Resp BP Pulse Ox 09/13/20 07:45 37.1 C 54 L 14 133/66 96
[2020-09-13] MEDS: ASPIRIN 81 MG ECTAB PO SCH (20:07)
[2020-09-14] MEDS: METOCLOPRAMIDE HCL INJ 5 MG/ML 2 ML VIAL IV PRN ×3 (02:18→21:13)
--- NOTE | 2020-09-14 05:09 | Surgery Progress Note ---
Date of Service September 14, 2020 Assessment & Plan (1) SBO (small bowel obstruction): This point we will repeat a KUB this morning yesterday's show the moderate small bowel distention with no apparent gas in the colon we will be attempting to pull out a NG tube in the patient and I mentioned this to his yesterday but given his mental status think it would be counterproductive unsure he would pull it out based on a KUB today he may benefit to get an upper GI with small bowel follow-through tomorrow as both a therapeutic and diagnostic method Present on Admission?: Yes Admission and Anticipated Discharge Date Admission Date: September 11, 2020 Subjective Patient is pretty much baseline regarding his coherency reassured him that his was there yesterday seeing him and I talked to her and he denied seeing her Physical Exam Physical Exam: Appears comfortable laying on his left side in no distress The abdomen is a bit softer than it was yesterday he stated that he has moved some flatus although I am not sure given his mental status if this is correct or not the nurses denied hearing anything they did state that he has some hiccups off and on PG Care Time/CCT Total # of Minutes Spent Total Time Spent with Patient: Total time spent is greater than 50% in coordination of care (as documented) at patient's floor/unit and/or counseling patient: Coding Level of Care Code 99697 Subseq Hosp Care Lvl 2 Diagnoses SBO (small bowel obstruction) K56.609
[2020-09-14] MEDS: HEPARIN SOD 5,000 UNIT/0.5 ML VIAL SQ SCH ×3 (05:50→21:13)
[2020-09-14] MEDS: SODIUM CHLORIDE 0.9% 1000ML 1,000 ML IV SCH ×2 (05:51→20:29)
[2020-09-14 06:56] LABS: Calcium 8.1 mg/dl (8.5-10.1); Creatinine Clr Calc Pharmacy 48.9 ml/min; Est GFR (African American) 73.5; Est GFR (Non-African American) 63.4; Magnesium 2.2 mg/dl (1.8-2.4); Potassium 3.9 mmol/L (3.5-5.1)
[2020-09-14] MEDS: METOPROLOL SUCC 25MG EXT REL TAB PO SCH (08:31)
[2020-09-14] MEDS: FINASTERIDE 5 MG TAB PO SCH (08:33)
[2020-09-14] MEDS: BETHANECHOL CHL 25 MG TAB PO SCH ×2 (08:33→21:14)
[2020-09-14] MEDS: MEMANTINE HCL 10 MG TAB PO SCH ×2 (08:33→21:14)
--- NOTE | 2020-09-14 08:35 | XRay Report ---
XR KUB/Abdomen 1 view CLINICAL HISTORY: follow up bowel obstruction COMPARISON STUDY: 09/13/2020 FINDINGS: There are persistent dilated small bowel loops measuring up to 47 mm in diameter. There is a paucity of colonic gas. There are surgical clips in the right upper quadrant consistent with a prio r cholecystectomy. IMPRESSION: Persistent small bowel obstructive pattern. ACT 112: Negative or not required by law. Electronically signed by: Garry Eastman M.D. 09/14/2020 8:34 AM
[2020-09-14] MEDS: cefTRIAXone SODIUM 1,000 MG in DEXTROSE 5% 50 ML IV SCH (10:21)
[2020-09-14] MEDS: ACETAMINOPHEN 325 MG TAB PO PRN ×2 (15:41→21:14)
--- NOTE | 2020-09-14 17:19 | Hospitalist Progress Note ---
Date of Service September 14, 2020 Assessment & Plan (1) SBO (small bowel obstruction): Patient presenting with reports of abdominal pain and decreased bowel movements x [address] ABD/pelvis on admission showed signs of SBO Likely secondary to adhesions from prior abdominal surgeries Surgery on board Continue conservative management with bowel rest, pain control and IVF KUB performed today showed Persistent small bowel obstruction. Plan to get an Upper GI small bowel through in am Continue Ice chip for now (2) UTI (urinary tract infection): Urine cx positive for gram negative bacilli Urine cx grew Acinetobacter baumanni WBC trending down to normal Continue Rocephin IV (3) Status post transcatheter aortic valve replacement (TAVR) using bioprosthesis: (4) Mild CAD: -Appears stable -Continue aspirin and beta-nicole (5) Chronic indwelling Oliver catheter: -No issues -Continue finasteride (6) Alzheimer disease: -Continue home medications (7) DVT prophylaxis: -SQ heparin Daughter Shazia requests update [phone] Admission and Anticipated Discharge Date Admission Date: September 11, 2020 Subjective Pt was seen and examined for follow up of SBO Sitting in chair with no distress with at bedside Pt said that that he continues to have discomfort in his abdomen is still concerned because pt has not been walking much around Pt said that he is not feeling any worst Denies any chest pain, palpitation, dizziness and SOB Physical Exam Physical Exam: General- No acute distress Head- atraumatic Eyes-decrease hearing function ENT- oropharynx clear Neck- supple, no JVD Lungs- clear to auscultation Heart- regular rhythm; no murmur Abdomen- Hypoactive BS, mild distended Extremities- no calf tenderness Neuro- alert, oriented x 3; PERRL, EOMI; no facial palsy; no dysarthria Skin- warm & dry Results & Data Results & Data ([facility]) Vital Signs (Past 12 Hours) Vital Signs Temp Pulse Resp BP Pulse Ox 09/14/20 15:35 36.9 C 48 L 18 146/65 H 95 09/14/20 08:26 47 L 158/75 H 09/14/20 07:27 36.7 C 43 L 14 147/66 H 94
[2020-09-14] MEDS: ASPIRIN 81 MG ECTAB PO SCH (21:14)
[2020-09-15] MEDS: HEPARIN SOD 5,000 UNIT/0.5 ML VIAL SQ SCH ×3 (05:58→21:00)
[2020-09-15] MEDS: BETHANECHOL CHL 25 MG TAB PO SCH ×2 (08:26→21:00)
[2020-09-15] MEDS: MEMANTINE HCL 10 MG TAB PO SCH ×2 (08:26→21:00)
[2020-09-15] MEDS: METOPROLOL SUCC 25MG EXT REL TAB PO SCH (08:27)
[2020-09-15] MEDS: FINASTERIDE 5 MG TAB PO SCH (08:27)
--- NOTE | 2020-09-15 09:16 | XRay Report ---
KUB HISTORY: Small bowel obstruction. Follow-up. COMPARISON: KUB 09/14/2020. FINDINGS: Persistent dilated gas-filled loops of small bowel seen throughout the abdomen. These measu re up to 4.7 cm in diameter. This is not significant changed. Focus of gas within the deep pelvis may be within the bladder. There is also gas within the colon. No renal calculi. No ureteral calculi. N o pneumoperitoneum or pneumatosis. Surgical clips within the right upper quadrant consistent with a p rior cholecystectomy. IMPRESSION: Persistent small bowel obstructive pattern. ACT 112: Negative or not required by law. Electronically signed by: Rodney Ramirez M.D. 09/15/2020 9:15 AM
[2020-09-15] MEDS: SODIUM CHLORIDE 0.9% 1000ML 1,000 ML IV SCH ×2 (09:30→22:09)
[2020-09-15] MEDS: METOCLOPRAMIDE HCL INJ 5 MG/ML 2 ML VIAL IV PRN ×3 (09:31→22:39)
[2020-09-15] MEDS: cefTRIAXone SODIUM 1,000 MG in DEXTROSE 5% 50 ML IV SCH (13:47)
--- NOTE | 2020-09-15 14:02 | Surgery Progress Note ---
Date of Service September 15, 2020 Assessment & Plan (1) SBO (small bowel obstruction): KUB showing persistent SBO No return of bowel function No vomiting Abdomen more distended today Dr. Dunn discussed with patient and the options going forward given his clinical picture at the current time and no significant improvement in the last 4 days since admission. Option 1 would be upper GI with small bowel follow-through to see if contrast reaches the colon. Option 2 would be surgical exploration. Discussed with patient and the risks of the upper GI study of vomiting and aspiration if there is an obstruction and not having NGT placed. Discussed risks of surgery including bleeding, infection, injury to bowel, cardiopulmonary complications, delayed healing, decompensation given his age. Discussed that surgery may be as simple as releasing an adhesion vs more extensi ve depending on intraoperative findings. Patient referred to his in making the decision multiple times. was unsure and concerned of surgical option given his overall health, recent "Chest pains", and his age. stated daughter and son are listed as POA however that Bart and herself would make the final decision and sign consents. states her daughter Shazia could be updated with what the current situation is. Dr. Dunn also discussed patients clinical status with patient's Daughter Shazia who is POA. Discussed options above as well as risks. Will plan for upper GI study with small bowel follow through to assess for complete vs partial obstruction. Looking into [facility] records, he had an ECHO on 08/21/2020 with results below: Interpretation Summary The examination is adequate to evaluate the referral indication. There was sinus bradycardia during the examination. The left ventricular cavity size is normal. The LV wall thickness is mildly increased (concentric). The left ventricular wall motion is normal. The qualitative LV ejection fraction is 60-64% (normal). The left ventricular diastolic function is mildly abnormal (grade I). The patient is status post TAVR with Rios type prosthetic valve. Aortic valve prosthesis stenosis is absent. Significant aortic valve prosthesis regurgitation is absent. The aortic root and proximal ascending aorta are normal sized. Will await results of small bowel follow through study He will need his head of bed elevated /aspiration precautions when drinking contrast ambulate hallway continue medical management Dr. Dunn has seen and examined patient, agrees with above. Admission and Anticipated Discharge Date Admission Date: September 11, 2020 Subjective unable to obtain complete ROS given cognitive status states he is passing some gas but states she is unaware of any gas having some pain at bedside states he has a cough now and still having hiccups Physical Exam Constitutional: cooperative and comfortable; no acute distress and not ill appearing Elderly male Respiratory: normal respiratory effort; no respiratory distress and no labored breathing Gastrointestinal (Abdomen): Inspection/Auscultation: + abdomen distended Percussion/Palpation: abdomen soft; no guarding and abdomen not rigid Skin: no rashes, warm and dry Psychiatric: A+Ox3, euthymic affect Results & Data ([facility]) Vital Signs (Past 12 Hours) Vital Signs Temp Pulse Resp BP Pulse Ox 09/15/20 07:24 36.4 C L 63 16 160/68 H 94 Diagnostic Findings KUB HISTORY: Small bowel obstruction. Follow-up. COMPARISON: KUB 09/14/2020. FINDINGS: Persistent dilated gas-filled loops of small bowel seen throughout the abdomen. These measure up to 4.7 cm in diameter. This is not significant changed. Focus of gas within the deep pelvis may be within the bladder. There is also gas within the colon. No renal calculi. No ureteral calculi. No pneumoperitoneum or pneumatosis. Surgical clips within the right upper quadrant consistent with a prior cholecystectomy. IMPRESSION: Persistent small bowel obstructive pattern.
--- NOTE | 2020-09-15 17:46 | Hospitalist Progress Note ---
Date of Service September 15, 2020 Assessment & Plan (1) SBO (small bowel obstruction): Patient presenting with reports of abdominal pain and decreased bowel movements x [address] ABD/pelvis on admission showed signs of SBO Likely secondary to adhesions from prior abdominal surgeries Surgery on board Continue conservative management with bowel rest, pain control and IVF KUB performed today showed Persistent small bowel obstruction. Plan to get an Upper GI small bowel through in am Spoke to daughter in details about the study Daughter understand that there is a risk of vomiting and aspiration after the contrast if no NGT in place Daughter requested GI consult (She called the office and office told her to tell the hospitalist to place a consult) Will start him on PPN since pt has been NPO for a few days Continue Ice chip for now (2) UTI (urinary tract infection): Urine cx positive for gram negative bacilli Urine cx grew Acinetobacter baumanni WBC trending down to normal Continue Rocephin IV (3) Status post transcatheter aortic valve replacement (TAVR) using bioprosthesis: (4) Mild CAD: -Appears stable -Continue aspirin and beta-nicole (5) Chronic indwelling Loiver catheter: -No issues -Continue finasteride (6) Alzheimer disease: -Continue home medications (7) DVT prophylaxis: -SQ heparin Daughter Shazia requests update [phone] Admission and Anticipated Discharge Date Admission Date: September 11, 2020 Subjective Pt was seen and examined for follow up of SBO Lying in bed no distress with at bedside Pt said that that he continues to have discomfort in his abdomen is still concerned because pt has not been walking much around said that pt has been coughing Spoke to daughter Shazia in details and provided update to her and answered all her questions Daughter said that she called her GI specialist and requested to place a consult Denies any chest pain, palpitation, dizziness and SOB Physical Exam Physical Exam: General- No acute distress Head- atraumatic Eyes-decrease hearing function ENT- oropharynx clear Neck- supple, no JVD Lungs- clear to auscultation Heart- regular rhythm; no murmur Abdomen- Hypoactive BS, mild distended Extremities- no calf tenderness Neuro- alert, oriented x 3; PERRL, EOMI; no facial palsy; no dysarthria Skin- warm & dry Results & Data Results & Data ([facility]) Vital Signs (Past 12 Hours) Vital Signs Temp Pulse Resp BP BP Pulse Ox 09/15/20 15:04 36.6 C 59 L 16 158/88 H 97 09/15/20 07:24 36.4 C L 63 16 160/68 H 94
[2020-09-15] MEDS ORDERED: TPN/PPN CONSULT PHARMACY PRN (18:11)
[2020-09-15] MEDS ORDERED: DEXTROSE 10% 1,000 ML IV PRN (18:12)
[2020-09-15] MEDS ORDERED: TPN/PPN CONSULT PHARMACY STA (18:12)
[2020-09-15] MEDS: ASPIRIN 81 MG ECTAB PO SCH (21:00)
[2020-09-16] MEDS: HEPARIN SOD 5,000 UNIT/0.5 ML VIAL SQ SCH ×2 (05:16→14:29)
[2020-09-16 06:25] LABS: Hematocrit (blood only) 39.9 % (42-52); Mean Corpuscular Hemoglobin 33.3 pg (25-34); Mean Corpuscular Hgb Conc 35.1 g/dL (32-36); Mean Corpuscular Volume 94.8 fL (80-100); Mean Platelet Volume 9.7 fL (7.4-10.4); Platelet Count 181 K/uL (130-400); RDW Coefficient of Variation 13.2 % (11.5-14.5); RDW Standard Deviation 45.7 fL (36.4-46.3); Red Blood Count 4.21 M/uL (4.7-6.1)
[2020-09-16 06:53] LABS: BUN Creatinine Ratio 24.8 (10-20); Calcium 8.4 mg/dl (8.5-10.1); Creatinine Clr Calc Pharmacy 50.8 ml/min; Est GFR (Non-African American) 66.4; Magnesium 2.1 mg/dl (1.8-2.4); Potassium 3.5 mmol/L (3.5-5.1)
[2020-09-16 06:54] LABS: Phosphorus 2.8 mg/dl (2.5-4.9)
[2020-09-16] MEDS: cefTRIAXone SODIUM 1,000 MG in DEXTROSE 5% 50 ML IV SCH (10:41)
--- NOTE | 2020-09-16 11:44 | Gastrointestinal Consultation ---
Date of Consultation September 16, 2020 Assessment & Plan (1) SBO (small bowel obstruction): The patient was admitted 09/11/2020 due to of small bowel obstruction. He has had persistent small bowel obstruction despite conservative measures. Surgical services continues to follow and manage care. Plan at this time is an upper GI study with small bowel follow-through to assess for complete versus partial obstruction. Plan is for the study to be completed today. NG tube is going to be inserted by nursing staff prior to the upper GI study. Maintain n.p.o. status. Continue IV fluids. Continue conservative care measures. Reviewed case and plan of care with Dr. Stoner who will evaluate the patient independently later today. Please refer to supervising physician addendum for further recommendations. Supervising Physician Co-Signing Physician Notes I have seen and examined the patient. I agree with note above by HUYEN Chávez except as noted below. HPI in the room with patient during H and P. Per nurse he is bringing up contrast from UGI/SBFT today. Looked at 2hour/15 min film and contrast does not seem to be moving past a certain point in SB c/w high grade SBO. Pt states he is having some abd pain possilbly lower but radiates. Per the patients abdomen seems more distended this afternoon than this am. PE Abdomen no bs noted, abdomen moderately distended but not tense, no guarding nor rebound A/P SBO---Discussed with in room and daughter Shazia on phone that I feel like the SB is not opening up since 2010 CT and surgery would be the next step. Stated GI does not so surgery so that would be Dr Lancaster group. Per nursing Dr Dunn is on his way and plans to see patient yet today which I conveyed to and daughter. . History of Present Illness Attending Physician: Doris Campuzano MD History of Present Illness The patient is a pleasant 85-year-old male with past medical history to include paroxysmal atrial fibrillation s/p ablation (not anticoagulated secondary to fall risk), aortic stenosis s/p TAVR, Alzheimer's, chronic Oliver catheter, and other problems listed below who presents the ED on 09/11/2020 for evaluation of abdominal pain that began 3 days prior to arrival. CT A/P demonstrated multiple mildly dilated fluid-filled small bowel loops with air-fluid levels, distal small bowel is of normal caliber, left mid abdominal transition zone consistent with small bowel obstruction. He was subsequently mated with surgical consult for further management. GI service was consulted at the patient's family request as the patient is a current patient of Dr. Isabel. On exam/interview today, the patient reports that overall about the same. He reports generalized lower abdominal pain that is bilateral. Denies any nausea or vomiting. He states that he is unsure if he has been passing a significant gas. He reports a cough even with sitting upright in the chair. His confirms coughing. Nursing notes are reviewed. No bowel movement documented during admission. HPI difficult to obtain due to cognitive status. Spouse assists with history. Surgical consult notes are reviewed from Dr. Dunn and the surgical service. The patient has a history of admission October 2018 with small bowel obstruction with resolved and conservative measures. He has had a cholecystectomy and left nephrectomy in the past. Plan at this time is upper GI study with small bowel follow-through to assess for complete versus partial obstruction. Elevate head of bed and maintain strict aspiration precautions with drinking contrast. Encouraged to ambulate in the hallway and continue medical management. The patient is a lifetime non-smoker. Denies any use of alcohol or recreational drugs including marijuana. His is at bedside today. They have been for 63 years. The patient reports that he has been retired for the last 25 years. He was seen at [facility] [place] [employer] [place] [employer]. His children Shay are his power of divorce attorney's. Allergies Allergy/AdvReac Type Severity Reaction Status Date / Time No Known Allergies Allergy Verified 09/11/20 12:16 Home Medications Medication Instructions Recorded Confirmed Type PreserVision AREDS 1 tab PO BID 02/08/20 09/11/20 History aspirin [Aspirin Low Dose] 81 mg PO QPM 05/08/20 09/11/20 History finasteride 5 mg tablet 5 mg PO DAILY #90 tab 07/01/20 09/11/20 Rx lutein 20 mg capsule 20 mg PO BID #90 cap 07/01/20 09/11/20 Rx memantine 10 mg tablet 10 mg PO BID #180 tab 07/01/20 09/11/20 Rx nitroglycerin 0.4 mg sublingual 0.4 mg SL DIRECTED PRN #25 tab 07/01/20 09/11/20 Rx tablet bethanechol chloride 25 mg PO BID 09/11/20 09/11/20 History metoprolol succinate 25 mg PO QAM 09/11/20 09/11/20 History Patient History Medical History Alzheimer disease Aortic stenosis HX AORTIC VALVE REPLACEMENT Asthma 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 CAD (coronary artery disease) Chronic indwelling Oliver catheter Diabetes mellitus, type 2 Gastric ulcer GERD (gastroesophageal reflux disease) Hearing loss HTN (hypertension) Lyme disease Macular degeneration Memory loss or impairment Mild CAD 30% mid LAD stenosis Orthostatic hypotension Paroxysmal A-fib Peripheral neuropathy Personal history of malignant melanoma of skin Restless legs (09/21/11) Shoulder problem RIGHT, TORN LIGAMENTS/TENDONS Sleep disorder Thyroid nodule Urinary retention with incomplete bladder emptying Surgical History H/O ankle fusion History of aortic valve replacement TAVR History of nephrectomy, left S/P ablation of atrial fibrillation S/P cholecystectomy S/P inguinal herniorrhaphy Status post transcatheter aortic valve replacement (TAVR) using bioprosthesis Family History Other Family history of diabetes mellitus in mother Social History Smoking Status: Never smoker Hx Alcohol Use: No Hx Substance Use: No Preferred Language: Swedish Communication Ability: Effective Visual Impairment: No Limitations Ordnance Engineer Required: No Beliefs That Will Affect Care: None Current Living Situation: Spouse Current Living Situation Comment: daughter lives next door Other Information That Helps Us Care for You: No Feels Safe at Home: Yes Safety Concerns: Feels Safe At This Time Assistive Devices: Walker Review of Systems Review of Systems: difficult to obtain due to cognitive status, see HPI Physical Exam Constitutional: cooperative and comfortable; no acute distress and not ill appearing Elderly male Respiratory: normal respiratory effort; no respiratory distress and no labored breathing Cardiovascular: Rate/Rhythm: regular rate and regular rhythm Gastrointestinal (Abdomen): Inspection/Auscultation: + abdomen distended Percussion/Palpation: abdomen soft and + tympanic to percussion; no guarding and abdomen not rigid Skin: no rashes, warm and dry Psychiatric: Orientation: alert, oriented to person and oriented to place Genitourinary: indwelling urinary catheter Results & Data ([facility]) Vital Signs (Past 12 Hours) Vital Signs Temp Pulse Resp BP Pulse Ox 09/16/20 07:42 36.7 C 57 L 16 163/84 H 96 Laboratory Results - last 24 hr 09/16/20 09/16/20 06:00 06:00 WBC 7.60 RBC 4.21 L Hgb 14.0 Hct 39.9 L MCV 94.8 MCH 33.3 MCHC 35.1 RDW Std Deviation 45.7 RDW Coeff of Edgardo 13.2 Plt Count 181 MPV 9.7 Sodium 143 Potassium 3.5 Chloride 109 H Carbon Dioxide 25 Anion Gap 9.0 BUN 26 H Creatinine 1.03 Est Cr Clr Drug Dosing 50.8 Est GFR ( Amer) 77.0 Est GFR (Non-Af Amer) 66.4 BUN/Creatinine Ratio 24.8 H Glucose 126 H Calcium 8.4 L Phosphorus 2.8 Magnesium 2.1 Triglycerides 90 09/15/2020: KUB demonstrates persistent small bowel obstructive pattern.
[2020-09-16] MEDS: CEFEPIME 2,000 MG in SYRINGE 0 ML IV SCH (12:30)
--- NOTE | 2020-09-16 15:19 | Pharmacy Report ---
PHA: Parenteral Nutrition Con - Date of Service September 16, 2020 - Scope Pharmacy was consulted on 09/15 to manage parenteral nutrition orders for this patient. - Subjective The patient is currently on day 1 of peripheral parenteral nutrition for SBO/NPO status - Objective Height: 5 ft 9 in Weight: 67.302 kg Intake & Output (24hrs):: Intake & Output 09/14/20 09/15/20 09/16/20 09/17/20 06:59 06:59 06:59 06:59 Intake Total 1983.167 / 3781.783 1101 / 1050 1905.500 / 5416.880 6218 / 1050 Output Total 950 / 950 825 / 825 850 / 850 225 / 225 Balance 1033.167 / 1033.167 225 / 225 1055.500 / 1055.500 825 / 825 Weight 67.302 kg 67.302 kg Laboratory Data (Last 24 Hr):: 09/16/20 06:00 Sodium 143 Potassium 3.5 Chloride 109 H Carbon Dioxide 25 BUN 26 H Creatinine 1.03 Glucose 126 H Calcium 8.4 L Phosphorus 2.8 Magnesium 2.1 Triglycerides 90 Nutrition Assessment:: Please refer to the Notes section of the EMR for the most recent cnc programmer note. - Assessment Patient admitted with SBO, NPO for minimum 4 days. Surgical intervention vs. GI assessment. Current plan for an upper GI study with small bowel follow-through to assess for complete versus partial obstruction. PPN initiated for prolonged NPO status. Awaiting study results. if prolonged parenteral therapy anticipated can consider getting central access, peripheral parenteral nutrition for now. - Plan For day 1 of PN administration, the following will be ordered: F: NS @ 70 ml/hr, to discontinue when ppn begins E: WNL except Cl which is slightly elevated, minimize Cl in tpn N: glucose 126 mg/dL, TG 90, Albumin from 09/11 4.0 Macronutrients Amino acids 60 grams/day Dextrose 100 grams/day Lipids 25 grams/day Micronutrients Combined electrolytes 20 mL - contains 35 mEq Na, 20 meq K, 4.5 mEq Ca, 5 mEq Mg, 35 mEq Cl, 29.5 mEq acetate per 20 mL Sodium chloride 10 mEq Sodium acetate 50 mEq Potassium phosphate 15 mMol Multivitamins 10 mL Trace Elements 1 mL Additional additives: Total volume 1500 mL to be infused over 24 hrs will provide 830 kcal/day Final osmolarity 894mOsm/L (maximum for PPN is 900 mOsm/L) Labs, as indicated, will be ordered per protocol Pharmacy will continue to follow and adjust parenteral nutrition orders on a daily basis. Thank you for allowing us to participate in the care of this patient.
[2020-09-16] MEDS: MEMANTINE HCL 10 MG TAB PO SCH (15:32)
[2020-09-16] MEDS: BETHANECHOL CHL 25 MG TAB PO SCH (15:32)
[2020-09-16] MEDS ORDERED: Custom Peripheral Pn 1,500 ML in TPN BAG 0 ML IV SCH (16:00)
[2020-09-16] MEDS ORDERED: DEXTROSE 10% 1,000 ML IV PRN (16:00)
[2020-09-16] MEDS: METOPROLOL SUCC 25MG EXT REL TAB PO SCH (16:12)
[2020-09-16] MEDS: FINASTERIDE 5 MG TAB PO SCH (16:12)
[2020-09-16] MEDS ORDERED: ATROPINE SULFATE 0.1 MG/ML 10ML SYR IV PRN (17:11)
[2020-09-16] MEDS ORDERED: ONDANSETRON INJ 2 MG/ML 2 ML VIAL IV PRN (17:11)
[2020-09-16] MEDS ORDERED: ePHEDrine sulfate 50 MG/ML AMP IV PRN (17:11)
[2020-09-16] MEDS ORDERED: fentaNYL citrate 100 MCG/2 ML VIAL IV PRN (17:11)
--- NOTE | 2020-09-16 17:16 | Anesthesiology Consultation ---
Date of Service September 16, 2020 Assessment & Plan (1) Encounter for pre-operative examination: Chart Review Chart Review: medical charge entry specialist initiated History Surgery Operation Date: 09/16/20 12:45 Proposed Procedures p Exploratory Laparotomy Release of Small Bowel Obstruction - Sukhjinder Dunn MD Height/Weight Height: 5 ft 9 in Weight: 67.302 kg Allergies Allergy/AdvReac Type Severity Reaction Status Date / Time No Known Allergies Allergy Verified 09/11/20 12:16 Medications Home Medications Medication Instructions Recorded Confirmed Last Taken PreserVision AREDS 1 tab PO BID 02/08/20 09/11/20 09/10/20 aspirin [Aspirin Low Dose] 81 mg PO QPM 05/08/20 09/11/20 09/10/20 finasteride 5 mg tablet 5 mg PO DAILY #90 tab 07/01/20 09/11/20 09/10/20 lutein 20 mg capsule 20 mg PO BID #90 cap 07/01/20 09/11/20 09/10/20 memantine 10 mg tablet 10 mg PO BID #180 tab 07/01/20 09/11/20 09/10/20 nitroglycerin 0.4 mg sublingual 0.4 mg SL DIRECTED PRN #25 tab 07/01/20 09/11/20 Unknown tablet bethanechol chloride 25 mg PO BID 09/11/20 09/11/20 Unknown metoprolol succinate 25 mg PO QAM 09/11/20 09/11/20 09/10/20 Active Medications Generic Name Dose Route Start Last Admin Trade Name Freq PRN Reason Stop Dose Admin Acetaminophen 650 mg 09/11/20 16:19 09/14/20 21:14 Acetaminophen 325 Mg Tab PO 10/11/20 16:18 650 mg Q4H PRN Administration pain/fever Aspirin 81 mg 09/11/20 21:00 09/15/20 21:00 Aspirin 81 Mg Ectab PO 10/11/20 20:59 81 mg QPM ANDREW Administration Bethanechol Chloride 25 mg 09/11/20 21:00 09/16/20 15:32 Bethanechol Chl 25 Mg Tab PO 10/11/20 20:59 Not Given BID ANDREW Finasteride 5 mg 09/12/20 09:00 09/16/20 16:12 Finasteride 5 Mg Tab PO 10/12/20 08:59 Not Given DAILY ANDREW Heparin Sodium (Porcine) 5,000 units 09/11/20 22:00 09/16/20 14:29 Heparin Sod 5,000 Unit/0.5 Ml Vial SQ 10/11/20 21:59 5,000 units Q8 ANDREW Administration Cefepime HCl 2,000 mg/ Syringe 20 mls @ 5 mls/min 09/16/20 12:00 09/16/20 12:30 IV 09/26/20 11:59 5 mls/min Q12H ANDREW Administration Protocol Memantine 10 mg 09/11/20 21:00 09/16/20 15:32 Memantine Hcl 10 Mg Tab PO 10/11/20 20:59 Not Given BID ANDREW Metoclopramide HCl 10 mg 09/12/20 13:10 09/15/20 22:39 Metoclopramide Hcl Inj 5 Mg/Ml 2 Ml Vial IV 10/12/20 13:09 10 mg Q6H PRN Administration Nausea/hiccups Metoprolol Succinate 25 mg 09/12/20 09:00 09/16/20 16:12 Metoprolol Succ 25mg Ext Rel Tab PO 10/12/20 08:59 Not Given QAM [facility] Morphine Sulfate 3 mg 09/11/20 16:19 09/13/20 13:10 Morphine Sulfate 4 Mg/Ml 1 Ml Carp\Vial IV 09/25/20 16:18 3 mg Q4H PRN Administration pain Ondansetron HCl 4 mg 09/11/20 16:19 09/12/20 03:26 Ondansetron Inj 2 Mg/Ml 2 Ml Vial IV 10/11/20 16:18 4 mg Q6H PRN Administration Nausea Past Medical History Medical History Alzheimer disease Aortic stenosis HX AORTIC VALVE REPLACEMENT Asthma 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 CAD (coronary artery disease) Chronic indwelling Oliver catheter Diabetes mellitus, type 2 Gastric ulcer GERD (gastroesophageal reflux disease) Hearing loss HTN (hypertension) Lyme disease Macular degeneration Memory loss or impairment Mild CAD 30% mid LAD stenosis Orthostatic hypotension Paroxysmal A-fib Peripheral neuropathy Personal history of malignant melanoma of skin Restless legs (09/21/11) Shoulder problem RIGHT, TORN LIGAMENTS/TENDONS Sleep disorder Thyroid nodule Urinary retention with incomplete bladder emptying Past Family History Family History Other Family history of diabetes mellitus in mother Past Surgical History Surgical History H/O ankle fusion History of aortic valve replacement TAVR History of nephrectomy, left S/P ablation of atrial fibrillation S/P cholecystectomy S/P inguinal herniorrhaphy Status post transcatheter aortic valve replacement (TAVR) using bioprosthesis Social History Smoking Status: Never smoker Hx Alcohol Use: No Hx Substance Use: No substance use type: does not use Physical Exam Vital Signs Last Vital Signs Temp 97.7 F 09/16/20 14:36 Pulse 64 09/16/20 14:36 Resp 16 09/16/20 14:36 BP 188/76 H 09/16/20 16:50 Pulse Ox 94 09/16/20 14:36 Testing Laboratory Results 09/16/20 06:00 09/16/20 06:00 Urine Color Yellow 09/11/20 16:03 Urine Appearance Clear (Clear) 09/11/20 16:03 Urine pH 5.5 (4.5-7.5) 09/11/20 16:03 Ur Specific [place] > 1.045 (1.000-1.030) H 09/11/20 16:03 Urine Protein 1+ (Negative) H 09/11/20 16:03 Urine Glucose (UA) Negative (Negative) 09/11/20 16:03 Urine Ketones 3+ (Negative) H 09/11/20 16:03 Urine Nitrite Negative (Negative) 09/11/20 16:03 Ur Leukocyte Esterase Negative (Negative) 09/11/20 16:03 Urine WBC (Auto) 10-30 /hpf (0-5) H 09/11/20 16:03 Urine RBC (Auto) 0-4 /hpf (0-4) 09/11/20 16:03 U Hyaline Cast (Auto) 1-5 /lpf (0-5) 09/11/20 16:03 U Epithel Cells (Auto) >30 /lpf (0-5) H 09/11/20 16:03 Urine Bacteria (Auto) Negative (Negative) 09/11/20 16:03 09/11/20 16:03 Urine Culture - Final Urine,Straight Cath Acinetobacter baumannii/haemol Laboratory Tests 09/11/20 13:35 SARS-CoV-2, RNA, NAAT NEGATIVE Electrocardiogram Date: 09/11/20 Sinus bradycardia, rate 56 bpm Nonspecific T wave abnormality Anterior leads Abnormal ECG When compared with ECG of 08-FEB-2020 10:53, Minimal criteria for Inferior infarct are no longer Present Minor T wave inversion now evident in Anterior leads Confirmed by Nitesh Becker ([id number]) on 09/11/2020 11:42:46 AM Echocardiogram Date: 02/08/20 Normal LV size and systolic function. EF 60-65%. No regional wall motion abnormalities. No LVH. Mildly dilated RV with normal systolic function. Moderate RA dilation. Bioprosthetic AV with acceptable transvalvular gradient/velocity. Mild MR. Normal estimated RV systolic pressure.
--- NOTE | 2020-09-16 17:19 | Surgery Progress Note ---
Date of Service September 16, 2020 Assessment & Plan (1) SBO (small bowel obstruction): Patient small bowel obstruction is not resolving spontaneously. He will require surgical intervention. I discussed the procedure with the patient and his in the room. I also called his daughter and spoke to her. She has power of ip technology transactions attorney. I explained the procedure and the possible complications to all parties. We discussed his expected postoperative recovery. I explained the possible need to remove a portion of the small bowel in the possibility that that anastomosis could leak. His has signed the consent form and we obtained phone consent from the daughter who again has power of ip technology transactions attorney. Admission and Anticipated Discharge Date Admission Date: September 11, 2020 Subjective Abdominal discomfort unchanged Was "coughing up" contrast after administration today NG placed with removal of at least 1200 cc No flatus or bowel movement as yet Physical Exam Constitutional: no acute distress Gastrointestinal (Abdomen): Inspection/Auscultation: + abdomen distended and + hypoactive bowel sounds Percussion/Palpation: + abdomen tender (Mild left-sided) and abdomen soft Results & Data ([facility]) Vital Signs (Past 12 Hours) Vital Signs Temp Pulse Resp BP BP Pulse Ox 09/16/20 16:50 188/76 H 09/16/20 14:36 36.5 C 64 16 174/79 H 94 09/16/20 07:42 36.7 C 57 L 16 163/84 H 96 Laboratory Results 09/16/20 09/16/20 Range/Units 06:00 06:00 WBC 7.60 (4.8-10.8) K/uL RBC 4.21 L (4.7-6.1) M/uL Hgb 14.0 (14.0-18.0) g/dL Hct 39.9 L (42-52) % MCV 94.8 (80-100) fL MCH 33.3 (25-34) pg MCHC 35.1 (32-36) g/dL RDW Std Deviation 45.7 (36.4-46.3) fL RDW Coeff of Edgardo 13.2 (11.5-14.5) % Plt Count 181 (130-400) K/uL MPV 9.7 (7.4-10.4) fL Sodium 143 (136-145) mmol/L Potassium 3.5 (3.5-5.1) mmol/L Chloride 109 H (98-107) mmol/L Carbon Dioxide 25 (21-32) mmol/L Anion Gap 9.0 (3-11) BUN 26 H (7-18) mg/dl Creatinine 1.03 (0.6-1.4) mg/dl Est Cr Clr Drug Dosing 50.8 ml/min Est GFR ( Amer) 77.0 Est GFR (Non-Af Amer) 66.4 BUN/Creatinine Ratio 24.8 H (10-20) Glucose 126 H (70-99) mg/dl Calcium 8.4 L (8.5-10.1) mg/dl Phosphorus 2.8 (2.5-4.9) mg/dl Magnesium 2.1 (1.8-2.4) mg/dl Triglycerides 90 (0-150) mg/dl Diagnostic Findings Small bowel follow-through so far shows no emptying of the contrast beyond the very proximal small bowel
[2020-09-16] MEDS ORDERED: fentaNYL citrate 100 MCG/2 ML VIAL ONE ×2 (17:20→18:46)
[2020-09-16] MEDS ORDERED: ROCURONIUM BROMIDE 10 MG/ML 5 ML VIAL IV ONE (17:20)
[2020-09-16] MEDS ORDERED: ONDANSETRON INJ 2 MG/ML 2 ML VIAL ONE (17:20)
[2020-09-16] MEDS ORDERED: LIDOCAINE 2% 2 ML VIAL/AMP(20MG/ML) INFIL ONE (17:20)
[2020-09-16] MEDS ORDERED: PROPOFOL IV EMULSION 10 MG/ML 20 ML VIAL IV ONE (17:20)
--- NOTE | 2020-09-16 17:23 | Hospitalist Progress Note ---
Date of Service September 16, 2020 Assessment & Plan (1) SBO (small bowel obstruction): Patient presenting with reports of abdominal pain and decreased bowel movements x [address] ABD/pelvis on admission showed signs of SBO Likely secondary to adhesions from prior abdominal surgeries Surgery on board Continue conservative management with bowel rest, pain control and IVF KUB performed today showed Persistent small bowel obstruction. Plan to get an Upper GI small bowel through in am Spoke to daughter in details about the study yesterday Daughter understand that there is a risk of vomiting and aspiration after the contrast if no NGT in place Daughter requested GI consult (She called the office and office told her to tell the hospitalist to place a consult) Upper GI small bowel through done - contrast does not seem to be moving past a certain point in SB Patient small bowel obstruction is not resolving spontaneously. Spoke to daughter Shaun that said pt will require surgical intervention. [facility] discussed the procedure to a nd daughter Keep NPO Will start on PPN (2) UTI (urinary tract infection): Urine cx positive for gram negative bacilli Urine cx grew Acinetobacter baumanni WBC trending back to normal IV Rocephin transition to cefepime (3) Status post transcatheter aortic valve replacement (TAVR) using bioprosthesis: (4) Mild CAD: -Appears stable -Continue aspirin and beta-nicole (5) Chronic indwelling Oliver catheter: -No issues -Continue finasteride (6) Alzheimer disease: -Continue home medications (7) DVT prophylaxis: -Will hold SQ heparin since pt plan to go to OR tonight Jenny Mccray requests update [phone] Admission and Anticipated Discharge Date Admission Date: September 11, 2020 Subjective Pt was seen and examined for follow up of SBO Lying in bed with discomfort with at bedside NGT placed this morning for the contrast to the the upper GI small bowel through Pt said that he felt worst compared to yesterday is concerned about surgery because she felt pt is too weak Spoke to Surgery that Dr. Dunn that recommended surgery Dr. Dunn spoke to and daughter and plan to take to OR tonight Physical Exam Physical Exam: General- No acute distress Head- atraumatic Eyes-decrease hearing function ENT- NGT in place Neck- supple, no JVD Lungs- clear to auscultation Heart- regular rhythm; no murmur Abdomen- Hypoactive BS, mild distended Extremities- no calf tenderness Neuro- alert, oriented x 3; PERRL, EOMI; no facial palsy; no dysarthria Skin- warm & dry Results & Data Results & Data ([facility]) Vital Signs (Past 12 Hours) Vital Signs Temp Pulse Resp BP BP Pulse Ox 09/16/20 16:50 188/76 H 09/16/20 14:36 36.5 C 64 16 174/79 H 94 09/16/20 07:42 36.7 C 57 L 16 163/84 H 96
[2020-09-16] MEDS ORDERED: SUCCINYLCHOLINE CHLORIDE 20 MG/ML 10 ML VIAL IV ONE (18:01)
--- NOTE | 2020-09-16 18:15 | Fluoroscopy Report ---
FL small bowel follow through CLINICAL HISTORY: Small bowel obstruction. COMPARISON STUDY: KUB 09/15/2020. FLUOROSCOPY TIME: None. FINDINGS: Initial images demonstrate a nasogastric tube within the stomach. Water-soluble contrast wa s injected into the stomach. The proximal to mid small bowel filled with contrast. The distal small b owel did not fill with contrast during the examination. The technologist returned for a 4 hour image. However, the patient was being taken to surgery. Theref ore, the study was terminated early. There are multiple dilated gas-filled loops of small bowel measu ring up to 5.8 cm in diameter consistent with a small bowel obstruction. IMPRESSION: Progressive high-grade small bowel obstruction. ACT 112: Negative or not required by law. Electronically signed by: Rodney Ramirez M.D. 09/16/2020 6:13 PM
--- NOTE | 2020-09-16 20:10 | Post Operative Brief Note ---
Immediate Post Op Note v1 Date of Surgery September 16, 2020 Pre & Post Diagnosis Operation Date: 09/16/20 12:45 Pre-Op Diagnosis: Small Bowel Obstruction Post-Op Diagnosis: Small Bowel Obstruction I identified the patient and participated in the time-out.: Yes Procedure Operation Date: 09/16/20 12:45 Actual Procedures p Exploratory Laparotomy Release of Small Bowel Obstruction(Not Applicable) - Sukhjinder Dunn MD Surgeon Sukhjinder Dunn MD Childcare [facility] Director None Estimated Blood Loss 10 Findings Consistent with Post-Op Diagnosis Drains Stanton Catheter (Patient had stanton catheter in place upon arrival to operating room. Draining clear yellow urine)
[2020-09-16] MEDS ORDERED: LABETALOL HCL IV 5 MG/ML 20ML IV ONE (20:16)
[2020-09-16] MEDS ORDERED: NEOSTIGMINE METHYLSULFATE 5 MG/5 ML SYR ONE (20:16)
[2020-09-16] MEDS ORDERED: GLYCOPYRROLATE 0.2 MG/ML VIAL ONE (20:16)
--- NOTE | 2020-09-16 20:48 | Operative Report (OR) ---
DATE OF OPERATION: 09/16/2020 PREOPERATIVE DIAGNOSIS: Small-bowel obstruction. POSTOPERATIVE DIAGNOSIS: Small-bowel obstruction. PROCEDURE: Exploratory laparotomy with lysis of adhesions and release of small-bowel obstruction with partial small bowel resection. SURGEON: Sukhjinder Dunn MD. FINDINGS: The small bowel up until about the distal 15 cm of terminal ileum was markedly dilated. There was adhesion with scar tissue of the spot that was about 15 cm from the terminal ileum to a site in the upper abdomen along the transverse colon mesentery. It also had adhesed an area of proximal jejunum as well. The distal small bowel beyond that was decompressed. The colon had air and fluid within it. The liver was of normal size and contour. The visible bowel appeared normal. After dividing all of the adhesions and running the bowel, there were a few serosal openings that were identified. One was in the most dilated area of bowel and then placing sutures to close the mesentery, there was some leakage of small bowel contents. At that point, I decided to open the bowel and remove the small bowel contents to decompress it. The area at the adhesion site at the terminal ileum had a significant amount of scar tissue associated with it and around it, and I was concerned that this might be strictured and so I decided to remove that section of bowel that measured only about 2-3 cm. TECHNIQUE: The patient was given a general anesthetic and the area was prepped and draped in the usual sterile fashion. A vertical midline incision was made from approximately fci between the umbilicus and the xiphoid down around the umbilicus and into the lower abdomen. I did have to extend that inferiorly at one point. The layers were opened along the length of the skin incision. The fascia was opened in the midline. The peritoneum was identified, incised and the abdomen was entered. All layers again were opened along the length of the incision. The abdomen was explored. The small bowel was eviscerated and I worked distally first and was able to identify the cecum. The appendix was normal. I followed the terminal ileum proximally and that is when I identified the area of scarring in the upper abdomen. There were multiple linear thick scar tissue areas. The mesentery was oriented correctly and of proper length of the small bowel, and the cecum was in the right lower quadrant, so there was no evidence of malrotation. I was able to separate some of these thick adhesions away from the bowel and I used a clamp-clamp, divide, and ligate technique in order to separate them. I was then eventually able to completely free the small bowel and follow it distally. I then worked proximally. It was then that I noted the serosal tear in about the mid small bowel. In trying to close that, it opened small holes in the bowel and therefore I decided to complete the enterotomy. I then placed a pool suction catheter first proximally. I then milked the intraluminal contents down to the suction in order to decompress it. I then performed that same function distally. I then closed the enterotomy transversely with an inner layer of 3-0 chromic in a running canal fashion. I then oversewed that with 3-0 silk Lembert sutures. There were 4 other very small serosal defects without mucosal opening that were identified and were closed with 3-0 silk. I then ran the bowel from the ligament of Treitz distally. There were no other areas of obstruction; however, in viewing and palpating the terminal ileum area that was adhesed, there was a lot of scar tissue and I was concerned that the lumen was compromised. I then decided to resect it. I divided the mesentery away from the small bowel wall proximal and distal to that and divided it using the LAYO stapler. I then divided the mesentery of that small section using a clamp-clamp, divide, and ligate technique using 2-0 silk. I then approximated the bowel wall to each other using 3-0 silk stay sutures. I removed the antimesenteric border and performed the anastomosis with the LAYO. The common opening was closed with a TA stapler. Additional stay sutures to reinforce the staple line were placed with a 3-0 silk. The mesentery was closed with running 2-0 Vicryl. The bowel was placed back in its anatomic position and the abdomen was irrigated with a copious amount of saline solution, which was then removed. The fascia was closed with a running #1 PDS. The subcutaneous tissue was irrigated and the skin was closed with asmita. The skin was cleansed, dried and a dressing placed. Estimated blood loss was 10 mL. Sponge, needle and instrument counts were correct prior to closure. The patient tolerated the surgical procedure without complication and was transferred to recovery. I attest to the content of the Intraoperative Record and any orders documented therein. Any exception s are noted below.
--- NOTE | 2020-09-16 21:19 | Anesthesiology Progress Note ---
Date of Service September 16, 2020 Anesthesia Post Procedure Vital Signs Vital Signs: Temp Pulse Pulse Resp BP BP Pulse Ox 09/16/20 20:59 65 20 142/91 H 99 09/16/20 20:50 65 20 154/90 H 99 09/16/20 20:40 67 18 158/98 H 99 09/16/20 20:33 97.3 F L 71 18 155/94 H 99 09/16/20 17:47 98.8 F 54 L 18 170/83 H 96 09/16/20 16:50 188/76 H 09/16/20 14:36 97.7 F 64 16 174/79 H 94 09/16/20 07:42 98.1 F 57 L 16 163/84 H 96 09/15/20 22:08 98.2 F 61 16 160/82 H 95 Transfer of Care Handoff Completed per policy Notes Mental Status: alert / awake / arousable and participated in evaluation Patient Amnestic to Procedure: Yes Nausea / Vomiting: adequately controlled Pain: adequately controlled Airway Patency, RR, SpO2: stable & adequate BP & HR: stable & adequate Hydration State: stable & adequate Anesthetic Complications: no major complications apparent and Pt Satisfied with anesthetic care
[2020-09-16] MEDS: METOCLOPRAMIDE HCL INJ 5 MG/ML 2 ML VIAL IV PRN (22:51)
[2020-09-16] MEDS: MoRPHine SULFATE 4 MG/ML 1 ML CARP\\VIAL IV PRN (22:51)
[2020-09-17] MEDS: MoRPHine SULFATE 4 MG/ML 1 ML CARP\\VIAL IV PRN ×3 (00:18→20:16)
[2020-09-17] MEDS: CEFEPIME 2,000 MG in SYRINGE 0 ML IV SCH ×2 (00:19→11:33)
[2020-09-17] MEDS ORDERED: LACTATED RINGER'S 1,000 ML IV ONE (00:48)
[2020-09-17 06:28] LABS: Hematocrit (blood only) 43.1 % (42-52); Mean Corpuscular Hemoglobin 32.8 pg (25-34); Mean Corpuscular Hgb Conc 34.8 g/dL (32-36); Mean Corpuscular Volume 94.1 fL (80-100); Mean Platelet Volume 10.1 fL (7.4-10.4); Platelet Count 162 K/uL (130-400); RDW Coefficient of Variation 13.5 % (11.5-14.5); RDW Standard Deviation 46.3 fL (36.4-46.3); Red Blood Count 4.58 M/uL (4.7-6.1)
[2020-09-17] MEDS ORDERED: GLUCAGON FOR INJ 1 MG VIAL SQ PRN (06:46)
[2020-09-17] MEDS ORDERED: CARBOHYDRATES FOR HYPOGLYCEMIA PO PRN (06:46)
[2020-09-17] MEDS ORDERED: GLUCOSE 40% GEL 15 GM TUBE PO PRN (06:46)
[2020-09-17] MEDS ORDERED: DEXTROSE 50% 50 ML SYRINGE IV PRN (06:46)
[2020-09-17] MEDS ORDERED: GLUCOSE 10 TABS/TUBE PO PRN (06:46)
[2020-09-17 07:00] LABS: BUN Creatinine Ratio 28.8 (10-20); Calcium 7.7 mg/dl (8.5-10.1); Creatinine Clr Calc Pharmacy 41.5 ml/min; Est GFR (African American) 60.3; Potassium 3.9 mmol/L (3.5-5.1)
[2020-09-17] MEDS: BETHANECHOL CHL 25 MG TAB PO SCH (07:02)
[2020-09-17] MEDS: ASPIRIN 81 MG ECTAB PO SCH (07:02)
[2020-09-17] MEDS: MEMANTINE HCL 10 MG TAB PO SCH (07:02)
[2020-09-17 07:30] LABS: Estimated Average Glucose 128 mg/dl; Hemoglobin A1C 6.1 % (4.5-5.6)
--- NOTE | 2020-09-17 08:08 | Hospitalist Progress Note ---
Date of Service September 17, 2020 Assessment & Plan (1) SBO (small bowel obstruction): Patient presented with reports of abdominal pain and decreased bowel movements x [address] ABD/pelvis on admission showed signs of SBO, Likely secondary to adhesions from prior abdominal surgeries Surgery consulted Continued conservative management with bowel rest, pain control and IVF KUB performed showed Persistent small bowel obstruction. Upper GI small bowel through Daughter requested GI consult (She called the office and office told her to tell the hospitalist to place a consult) Upper GI small bowel follow through done - contrast does not seem to be moving past a certain point in SB Patient's small bowel obstruction not resolving spontaneously and so required surgical intervention. Dr. Dunn discussed the procedure with and daughter Pt is now s/p ex lap w/ SBO release (09/16/20, w/ Dr. Dunn) Keep NPO, NGT placed Cont. PPN No BM yet, BS hypoactive (2) UTI (urinary tract infection): Urine cx positive for gram negative bacilli Urine cx grew Acinetobacter baumanni WBC trending back to normal IV Rocephin transitioned to cefepime (3) Status post transcatheter aortic valve replacement (TAVR) using biopr osthesis: (4) Mild CAD: -Appears stable -Continue aspirin and beta-nicole (5) Chronic indwelling Oliver catheter: -No issues -Continue finasteride (6) Alzheimer disease: -Continue home medications (7) DVT prophylaxis: -Will hold SQ heparin given surgery, cont. teds, scds Daughter Shazia requests update [phone] Admission and Anticipated Discharge Date Admission Date: September 11, 2020 Subjective Pt seen in follow up of SBO, now s/p exploratory laparotomy last evening (09/16) with release of SBO and partial small bowel resection. Resting comfortably in bed, reports some mild abdominal discomfort Denies nausea and vomiting. NGT placed No flatus or bowel movement as yet Review of Systems Review of Systems: All systems reviewed & are unremarkable except as noted in HPI & below Constitutional: no fever and no chills Respiratory: no cough and no dyspnea Cardiovascular: no chest pain and no palpitations Gastrointestinal: + abdominal pain (some postsurgical/ incisional pain); no vomiting Physical Exam Physical Exam: General- No acute distress Head- atraumatic Eyes-decrease hearing function ENT- NGT in place Neck- supple, no JVD Lungs- clear to auscultation Heart- regular rhythm; no murmur Abdomen- Hypoactive BS, non distended, surgical dressings dry and clean, some tenderness to palpation Extremities- no calf tenderness Neuro- alert, oriented x 3; PERRL, EOMI; no facial palsy; no dysarthria Skin- warm & dry Results & Data Results & Data ([facility]) Vital Signs (Past 12 Hours) Vital Signs Temp Pulse Pulse Pulse Resp BP BP 09/17/20 06:44 37.0 C 91 H 20 103/69 09/17/20 04:14 37.0 C 94 H 22 110/76 09/17/20 03:58 70 09/17/20 02:20 87 20 116/74 09/17/20 01:20 36.4 C L 85 18 106/54 L 09/17/20 00:20 85 20 120/76 09/16/20 23:20 81 20 118/77 09/16/20 22:50 36.6 C 73 18 134/83 09/16/20 22:20 71 16 118/78 09/16/20 22:05 73 14 115/76 09/16/20 21:50 36.1 C L 72 18 126/78 09/16/20 21:30 64 18 125/78 09/16/20 21:20 64 20 137/77 09/16/20 21:10 36 C L 65 18 137/84 09/16/20 21:00 65 20 142/91 H 09/16/20 20:50 65 20 154/90 H 09/16/20 20:40 67 18 158/98 H 09/16/20 20:33 36.3 C L 71 18 155/94 H Pulse Ox 09/17/20 06:44 94 09/17/20 04:14 94 09/17/20 03:58 09/17/20 02:20 94 09/17/20 01:20 94 09/17/20 00:20 94 09/16/20 23:20 93 09/16/20 22:50 98 09/16/20 22:20 98 09/16/20 22:05 98 09/16/20 21:50 95 09/16/20 21:30 96 09/16/20 21:20 95 09/16/20 21:10 93 09/16/20 21:00 99 09/16/20 20:50 99 09/16/20 20:40 99 09/16/20 20:33 99 Laboratory Results 09/17/20 09/17/20 09/17/20 Range/Units 06:25 06:02 06:02 WBC (4.8-10.8) K/uL RBC (4.7-6.1) M/uL Hgb (14.0-18.0) g/dL Hct (42-52) % MCV (80-100) fL MCH (25-34) pg MCHC (32-36) g/dL RDW Std Deviation (36.4-46.3) fL RDW Coeff of Edgardo (11.5-14.5) % Plt Count (130-400) K/uL MPV (7.4-10.4) fL Sodium 145 (136-145) mmol/L Potassium 3.9 (3.5-5.1) mmol/L Chloride 112 H (98-107) mmol/L Carbon Dioxide 24 (21-32) mmol/L Anion Gap 9.0 (3-11) BUN 36 H (7-18) mg/dl Creatinine 1.26 (0.6-1.4) mg/dl Est Cr Clr Drug Dosing 41.5 ml/min Est GFR ( Amer) 60.3 Est GFR (Non-Af Amer) 52.0 BUN/Creatinine Ratio 28.8 H (10-20) Glucose 207 H (70-99) mg/dl POC Glucose 195 H (70-99) mg/dl Estimat Average Glucose 128 mg/dl Hemoglobin A1c 6.1 H (4.5-5.6) % Calcium 7.7 L (8.5-10.1) mg/dl 09/17/20 09/17/20 09/16/20 Range/Units 06:02 00:19 21:07 WBC 9.50 (4.8-10.8) K/uL RBC 4.58 L (4.7-6.1) M/uL Hgb 15.0 (14.0-18.0) g/dL Hct 43.1 (42-52) % MCV 94.1 (80-100) fL MCH 32.8 (25-34) pg MCHC 34.8 (32-36) g/dL RDW Std Deviation 46.3 (36.4-46.3) fL RDW Coeff of Edgardo 13.5 (11.5-14.5) % Plt Count 162 (130-400) K/uL MPV 10.1 (7.4-10.4) fL Sodium (136-145) mmol/L Potassium (3.5-5.1) mmol/L Chloride (98-107) mmol/L Carbon Dioxide (21-32) mmol/L Anion Gap (3-11) BUN (7-18) mg/dl Creatinine (0.6-1.4) mg/dl Est Cr Clr Drug Dosing ml/min Est GFR ( Amer) Est GFR (Non-Af Amer) BUN/Creatinine Ratio (10-20) Glucose (70-99) mg/dl POC Glucose 156 H 117 H (70-99) mg/dl Estimat Average Glucose mg/dl Hemoglobin A1c (4.5-5.6) % Calcium (8.5-10.1) mg/dl 09/16/20 Range/Units 17:47 WBC (4.8-10.8) K/uL RBC (4.7-6.1) M/uL Hgb (14.0-18.0) g/dL Hct (42-52) % MCV (80-100) fL MCH (25-34) pg MCHC (32-36) g/dL RDW Std Deviation (36.4-46.3) fL RDW Coeff of Edgardo (11.5-14.5) % Plt Count (130-400) K/uL MPV (7.4-10.4) fL Sodium (136-145) mmol/L Potassium (3.5-5.1) mmol/L Chloride (98-107) mmol/L Carbon Dioxide (21-32) mmol/L Anion Gap (3-11) BUN (7-18) mg/dl Creatinine (0.6-1.4) mg/dl Est Cr Clr Drug Dosing ml/min Est GFR ( Amer) Est GFR (Non-Af Amer) BUN/Creatinine Ratio (10-20) Glucose (70-99) mg/dl POC Glucose 131 H (70-99) mg/dl Estimat Average Glucose mg/dl Hemoglobin A1c (4.5-5.6) % Calcium (8.5-10.1) mg/dl Medications Administered Current Inpatient Medications Dextrose (Dextrose 50% 50 Ml Syringe) 25 - 50 ml IV UD PRN; Protocol PRN Reason: Hypoglycemia Protocol Stop: 10/17/20 06:45 Glucagon (Glucagon For Inj 1 Mg Vial) 1 mg SQ UD PRN; Protocol PRN Reason: Hypoglycemia Protocol Stop: 10/17/20 06:45 Glucose (Glucose 10 Tabs/Tube) 4 - 8 tabs PO UD PRN; Protocol PRN Reason: Hypoglycemia Protocol Stop: 10/17/20 06:45 Glucose (Glucose 40% Gel 15 Gm Tube) 15 - 30 gm PO UD PRN; Protocol PRN Reason: Hypoglycemia Protocol Stop: 10/17/20 06:45 Heparin Sodium (Porcine) (Heparin Sod 5,000 Unit/0.5 Ml Vial) 5,000 units SQ Q8 ANDREW Stop: 10/11/20 21:59 Last Admin: 09/16/20 14:29 Dose: 5,000 units Documented by: Dextrose (D10w) 1,000 mls @ 0 mls/hr IV .Q0M PRN PRN Reason: protocol (see label comments) Stop: 10/16/20 15:59 Nutrition (Parenteral) 1,500 (ml/ TPN BAG) 1,500 mls @ 62 mls/hr IV .Q24H ANDREW; Protocol Stop: 09/17/20 15:59 Last Admin: 09/16/20 22:40 Dose: 62 mls/hr Documented by: Cefepime HCl 2,000 mg/ Syringe 20 mls @ 5 mls/min IV Q12H ANDREW; Protocol Stop: 09/26/20 11:59 Last Admin: 09/17/20 00:19 Dose: 5 mls/min Documented by: Lactated Ringer's (Lr) 1,000 mls @ 60 mls/hr IV .[id number] ONE Stop: 09/17/20 17:27 Last Admin: 09/17/20 01:05 Dose: 60 mls/hr Documented by: Insulin Aspart (Insulin Aspart 100 Units/Ml 3 Ml Pen) 0 units SC ACHS ANDREW Stop: 10/17/20 07:29 Metoclopramide HCl (Metoclopramide Hcl Inj 5 Mg/Ml 2 Ml Vial) 10 mg IV Q6H PRN PRN Reason: Nausea/hiccups Stop: 10/12/20 13:09 Last Admin: 09/16/20 22:51 Dose: 10 mg Documented by: Metoprolol Succinate (Metoprolol Succ 25mg Ext Rel Tab) 25 mg PO QAM ANDREW Stop: 10/12/20 08:59 Last Admin: 09/16/20 16:12 Dose: Not Given Documented by: Miscellaneous (Carbohydrates For Hypoglycemia ) 15 - 30 gm PO UD PRN PRN Reason: Hypoglycemia Protocol Stop: 10/17/20 06:45 Miscellaneous Information (Tpn/Ppn Consult Pharmacy) 1 ea N/A UD PRN PRN Reason: Consult Stop: 10/15/20 18:10 Morphine Sulfate (Morphine Sulfate 4 Mg/Ml 1 Ml Carp\Vial) 2 mg IV Q1H PRN PRN Reason: Pain Stop: 09/30/20 22:07 Last Admin: 09/17/20 04:26 Dose: 2 mg Documented by: Ondansetron HCl (Ondansetron Inj 2 Mg/Ml 2 Ml Vial) 4 mg IV Q6H PRN PRN Reason: Nausea Stop: 10/11/20 16:18 Last Admin: 09/12/20 03:26 Dose: 4 mg Documented by:
--- NOTE | 2020-09-17 08:13 | Surgery Progress Note ---
Date of Service September 17, 2020 Assessment & Plan (1) SBO (small bowel obstruction): Postoperative day #1 status post exploratory laparotomy with release of small bowel obstruction Hemodynamically stable No peristalsis audible as yet NG tube Out of bed to chair today Continue NG tube Continue PPN as remains n.p.o. Admission and Anticipated Discharge Date Admission Date: September 11, 2020 Subjective Postoperative day #1 status post exploratory laparotomy with release of small bowel obstruction and partial small bowel resection Awake and alert this morning Incisional pain No flatus or bowel movement as yet NG tube with 890 cc out since completion of the surgery Physical Exam Constitutional: no acute distress Gastrointestinal (Abdomen): Inspection/Auscultation: + abdominal surgical incision (Clean and dry); abdomen not distended Percussion/Palpation: + abdomen tender (Incisional) and abdomen soft Bowel sounds absent Results & Data ([facility]) Vital Signs (Past 12 Hours) Vital Signs Temp Pulse Pulse Pulse Resp BP BP 09/17/20 06:44 37.0 C 91 H 20 103/69 09/17/20 04:14 37.0 C 94 H 22 110/76 09/17/20 03:58 70 09/17/20 02:20 87 20 116/74 09/17/20 01:20 36.4 C L 85 18 106/54 L 09/17/20 00:20 85 20 120/76 09/16/20 23:20 81 20 118/77 09/16/20 22:50 36.6 C 73 18 134/83 09/16/20 22:20 71 16 118/78 09/16/20 22:05 73 14 115/76 09/16/20 21:50 36.1 C L 72 18 126/78 09/16/20 21:30 64 18 125/78 09/16/20 21:20 64 20 137/77 09/16/20 21:10 36 C L 65 18 137/84 09/16/20 21:00 65 20 142/91 H 09/16/20 20:50 65 20 154/90 H 09/16/20 20:40 67 18 158/98 H 09/16/20 20:33 36.3 C L 71 18 155/94 H Pulse Ox 09/17/20 06:44 94 09/17/20 04:14 94 09/17/20 03:58 09/17/20 02:20 94 09/17/20 01:20 94 09/17/20 00:20 94 09/16/20 23:20 93 09/16/20 22:50 98 09/16/20 22:20 98 09/16/20 22:05 98 09/16/20 21:50 95 09/16/20 21:30 96 09/16/20 21:20 95 09/16/20 21:10 93 09/16/20 21:00 99 09/16/20 20:50 99 09/16/20 20:40 99 09/16/20 20:33 99 Laboratory Results 09/17/20 09/17/20 09/17/20 Range/Units 06:25 06:02 06:02 WBC (4.8-10.8) K/uL RBC (4.7-6.1) M/uL Hgb (14.0-18.0) g/dL Hct (42-52) % MCV (80-100) fL MCH (25-34) pg MCHC (32-36) g/dL RDW Std Deviation (36.4-46.3) fL RDW Coeff of Edgardo (11.5-14.5) % Plt Count (130-400) K/uL MPV (7.4-10.4) fL Sodium 145 (136-145) mmol/L Potassium 3.9 (3.5-5.1) mmol/L Chloride 112 H (98-107) mmol/L Carbon Dioxide 24 (21-32) mmol/L Anion Gap 9.0 (3-11) BUN 36 H (7-18) mg/dl Creatinine 1.26 (0.6-1.4) mg/dl Est Cr Clr Drug Dosing 41.5 ml/min Est GFR ( Amer) 60.3 Est GFR (Non-Af Amer) 52.0 BUN/Creatinine Ratio 28.8 H (10-20) Glucose 207 H (70-99) mg/dl POC Glucose 195 H (70-99) mg/dl Estimat Average Glucose 128 mg/dl Hemoglobin A1c 6.1 H (4.5-5.6) % Calcium 7.7 L (8.5-10.1) mg/dl 09/17/20 09/17/20 09/16/20 Range/Units 06:02 00:19 21:07 WBC 9.50 (4.8-10.8) K/uL RBC 4.58 L (4.7-6.1) M/uL Hgb 15.0 (14.0-18.0) g/dL Hct 43.1 (42-52) % MCV 94.1 (80-100) fL MCH 32.8 (25-34) pg MCHC 34.8 (32-36) g/dL RDW Std Deviation 46.3 (36.4-46.3) fL RDW Coeff of Edgardo 13.5 (11.5-14.5) % Plt Count 162 (130-400) K/uL MPV 10.1 (7.4-10.4) fL Sodium (136-145) mmol/L Potassium (3.5-5.1) mmol/L Chloride (98-107) mmol/L Carbon Dioxide (21-32) mmol/L Anion Gap (3-11) BUN (7-18) mg/dl Creatinine (0.6-1.4) mg/dl Est Cr Clr Drug Dosing ml/min Est GFR ( Amer) Est GFR (Non-Af Amer) BUN/Creatinine Ratio (10-20) Glucose (70-99) mg/dl POC Glucose 156 H 117 H (70-99) mg/dl Estimat Average Glucose mg/dl Hemoglobin A1c (4.5-5.6) % Calcium (8.5-10.1) mg/dl 09/16/20 Range/Units 17:47 WBC (4.8-10.8) K/uL RBC (4.7-6.1) M/uL Hgb (14.0-18.0) g/dL Hct (42-52) % MCV (80-100) fL MCH (25-34) pg MCHC (32-36) g/dL RDW Std Deviation (36.4-46.3) fL RDW Coeff of Edgardo (11.5-14.5) % Plt Count (130-400) K/uL MPV (7.4-10.4) fL Sodium (136-145) mmol/L Potassium (3.5-5.1) mmol/L Chloride (98-107) mmol/L Carbon Dioxide (21-32) mmol/L Anion Gap (3-11) BUN (7-18) mg/dl Creatinine (0.6-1.4) mg/dl Est Cr Clr Drug Dosing ml/min Est GFR ( Amer) Est GFR (Non-Af Amer) BUN/Creatinine Ratio (10-20) Glucose (70-99) mg/dl POC Glucose 131 H (70-99) mg/dl Estimat Average Glucose mg/dl Hemoglobin A1c (4.5-5.6) % Calcium (8.5-10.1) mg/dl
[2020-09-17] MEDS: INSULIN ASPART 100 UNITS/ML 3 ML PEN SC SCH ×3 (08:17→17:34)
[2020-09-17] MEDS ORDERED: METOPROLOL TARTRATE 1 MG/ML VIAL IV PRN (08:26)
--- NOTE | 2020-09-17 08:28 | Gastroenterology Progress Note ---
Date of Service September 17, 2020 Assessment & Plan (1) SBO (small bowel obstruction): Postoperative day #1 status post exploratory laparotomy with release of small bowel obstruction and partial small bowel resection by Dr. Dunn. Patient is doing well so far this morning. Incisional pain, denies nausea/vomiting, no flatus or bowel movement yet, NG tube intact and draining. Patient requires surgical management at this time. Appreciate the consult. Please consult GI again if needed. Please refer to supervising physician addendum for further recommendations. Admission and Anticipated Discharge Date Admission Date: September 11, 2020 Supervising Physician Co-Signing Physician Notes I have seen and examined the patient. I agree with note above by HUYEN Chávez except as noted below. HPI Pt states he is having some abd pain but no specifice as to location or severity. He is resting comfortably during my history and exam. PE Abdomen no bs appreciated, abdomen soft, no guarding nor rebound. A/P SBO--s/p lysis of adhesions and SB resection--patient stable. Further care per surgery. Will sign off. Subjective Postoperative day #1 status post exploratory laparotomy with release of small bowel obstruction and partial small bowel resection. Awake and alert this morning. Reporting incisional pain. Denies nausea and vomiting. No flatus or bowel movement as yet. NG tube intact and draining. Review of Systems Review of Systems: difficult to obtain due to cognitive status, see HPI Physical Exam ENMT: NG tube intact to right nare and draining Cardiovascular: Rate/Rhythm: regular rate and regular rhythm Gastrointestinal (Abdomen): Percussion/Palpation: abdomen soft and + tympanic to percussion; no guarding and abdomen not rigid midline incision with dressing dry and intact Psychiatric: Orientation: alert, oriented to person and oriented to place Results & Data ([facility]) Vital Signs (Past 12 Hours) Vital Signs Temp Pulse Pulse Pulse Resp BP BP 09/17/20 06:44 37.0 C 91 H 20 103/69 09/17/20 04:14 37.0 C 94 H 22 110/76 09/17/20 03:58 70 09/17/20 02:20 87 20 116/74 09/17/20 01:20 36.4 C L 85 18 106/54 L 09/17/20 00:20 85 20 120/76 09/16/20 23:20 81 20 118/77 09/16/20 22:50 36.6 C 73 18 134/83 09/16/20 22:20 71 16 118/78 09/16/20 22:05 73 14 115/76 09/16/20 21:50 36.1 C L 72 18 126/78 09/16/20 21:30 64 18 125/78 09/16/20 21:20 64 20 137/77 09/16/20 21:10 36 C L 65 18 137/84 09/16/20 21:00 65 20 142/91 H 09/16/20 20:50 65 20 154/90 H 09/16/20 20:40 67 18 158/98 H 09/16/20 20:33 36.3 C L 71 18 155/94 H Pulse Ox 09/17/20 06:44 94 09/17/20 04:14 94 09/17/20 03:58 09/17/20 02:20 94 09/17/20 01:20 94 09/17/20 00:20 94 09/16/20 23:20 93 09/16/20 22:50 98 09/16/20 22:20 98 09/16/20 22:05 98 09/16/20 21:50 95 09/16/20 21:30 96 09/16/20 21:20 95 09/16/20 21:10 93 09/16/20 21:00 99 09/16/20 20:50 99 09/16/20 20:40 99 09/16/20 20:33 99 Laboratory Results - last 24 hr 09/16/20 09/16/20 09/17/20 17:47 21:07 00:19 WBC RBC Hgb Hct MCV MCH MCHC RDW Std Deviation RDW Coeff of Edgardo Plt Count MPV Sodium Potassium Chloride Carbon Dioxide Anion Gap BUN Creatinine Est Cr Clr Drug Dosing Est GFR ( Amer) Est GFR (Non-Af Amer) BUN/Creatinine Ratio Glucose POC Glucose 131 H 117 H 156 H Estimat Average Glucose Hemoglobin A1c Calcium 09/17/20 09/17/20 09/17/20 06:02 06:02 06:02 WBC 9.50 RBC 4.58 L Hgb 15.0 Hct 43.1 MCV 94.1 MCH 32.8 MCHC 34.8 RDW Std Deviation 46.3 RDW Coeff of Edgardo 13.5 Plt Count 162 MPV 10.1 Sodium 145 Potassium 3.9 Chloride 112 H Carbon Dioxide 24 Anion Gap 9.0 BUN 36 H Creatinine 1.26 Est Cr Clr Drug Dosing 41.5 Est GFR ( Amer) 60.3 Est GFR (Non-Af Amer) 52.0 BUN/Creatinine Ratio 28.8 H Glucose 207 H POC Glucose Estimat Average Glucose 128 Hemoglobin A1c 6.1 H Calcium 7.7 L 09/17/20 06:25 WBC RBC Hgb Hct MCV MCH MCHC RDW Std Deviation RDW Coeff of Edgardo Plt Count MPV Sodium Potassium Chloride Carbon Dioxide Anion Gap BUN Creatinine Est Cr Clr Drug Dosing Est GFR ( Amer) Est GFR (Non-Af Amer) BUN/Creatinine Ratio Glucose POC Glucose 195 H Estimat Average Glucose Hemoglobin A1c Calcium 09/16/2020: [place] small bowel follow through CLINICAL HISTORY: Small bowel obstruction. COMPARISON STUDY: KUB 09/15/2020. FLUOROSCOPY TIME: None. FINDINGS: Initial images demonstrate a nasogastric tube within the stomach. Water-soluble contrast was injected into the stomach. The proximal to mid small bowel filled with contrast. The distal small bowel did not fill with contrast during the examination. The technologist returned for a 4 hour image. However, the patient was being taken to surgery. Therefore, the study was terminated early. There are multiple dilated gas-filled loops of small bowel measuring up to 5.8 cm in diameter consistent with a small bowel obstruction. IMPRESSION: Progressive high-grade small bowel obstruction.
--- NOTE | 2020-09-17 08:36 | Anesthesiology Progress Note ---
Date of Service September 17, 2020 Sleeping, groggy with verbal stimuli. VSS. No c/o. Anesthesia Post Procedure Vital Signs Vital Signs: Temp Pulse Pulse Pulse Pulse Resp BP 09/17/20 06:44 37.0 C 91 H 20 103/69 09/17/20 04:14 37.0 C 94 H 22 09/17/20 03:58 70 09/17/20 02:20 87 20 116/74 09/17/20 01:20 36.4 C L 85 18 106/54 L 09/17/20 00:20 85 20 120/76 09/16/20 23:20 81 20 118/77 09/16/20 22:50 36.6 C 73 18 134/83 09/16/20 22:20 71 16 118/78 09/16/20 22:05 73 14 115/76 09/16/20 21:50 36.1 C L 72 18 126/78 09/16/20 21:30 64 18 09/16/20 21:20 64 20 09/16/20 21:10 36 C L 65 18 09/16/20 21:00 65 20 09/16/20 20:50 65 20 09/16/20 20:40 67 18 09/16/20 20:33 36.3 C L 71 18 09/16/20 17:47 37.1 C 54 L 18 09/16/20 16:50 188/76 H 09/16/20 14:36 36.5 C 64 16 174/79 H BP Pulse Ox 09/17/20 06:44 94 09/17/20 04:14 110/76 94 09/17/20 03:58 09/17/20 02:20 94 09/17/20 01:20 94 09/17/20 00:20 94 09/16/20 23:20 93 09/16/20 22:50 98 09/16/20 22:20 98 09/16/20 22:05 98 09/16/20 21:50 95 09/16/20 21:30 125/78 96 09/16/20 21:20 137/77 95 09/16/20 21:10 137/84 93 09/16/20 21:00 142/91 H 99 09/16/20 20:50 154/90 H 99 09/16/20 20:40 158/98 H 99 09/16/20 20:33 155/94 H 99 09/16/20 17:47 170/83 H 96 09/16/20 16:50 09/16/20 14:36 94
[2020-09-17] MEDS: METOPROLOL SUCC 25MG EXT REL TAB PO SCH (09:26)
[2020-09-17 09:28] LABS: Magnesium 1.8 mg/dl (1.8-2.4); Phosphorus 3.2 mg/dl (2.5-4.9)
[2020-09-17] MEDS ORDERED: MAGNESIUM SULFATE / D5W 1 GM/100 ML BAG IV ONE (11:00)
[2020-09-17] MEDS ORDERED: Custom Peripheral Pn 1,500 ML in TPN BAG 0 ML IV SCH (16:00)
[2020-09-17] MEDS ORDERED: LACTATED RINGER'S 1,000 ML IV SCH (18:15)
[2020-09-17] MEDS ORDERED: Nursing to Pharmacy Communication SCH (20:45)
[2020-09-18] MEDS: CEFEPIME 2,000 MG in SYRINGE 0 ML IV SCH ×2 (00:04→12:16)
[2020-09-18] MEDS: MoRPHine SULFATE 4 MG/ML 1 ML CARP\\VIAL IV PRN ×3 (00:09→20:17)
[2020-09-18] MEDS: INSULIN ASPART 100 UNITS/ML 3 ML PEN SC SCH ×4 (00:16→17:55)
--- NOTE | 2020-09-18 06:09 | Surgery Progress Note ---
Date of Service September 18, 2020 Assessment & Plan (1) SBO (small bowel obstruction): Postoperative day #2 status post exploratory laparotomy with release of small bowel obstruction Stable hemodynamically Urine output was improved overnight, BUN and creatinine are pending today Peristalsis is beginning to return but has not passed any flatus as yet Would continue NG tube Continue PPN Admission and Anticipated Discharge Date Admission Date: September 11, 2020 Subjective Postoperative day #2 status post exploratory laparotomy with release of small bowel obstruction Awake and alert this morning Less pain Has not had bowel movement or flatus as yet NG tube drainage has decreased Physical Exam Constitutional: no acute distress Gastrointestinal (Abdomen): Inspection/Auscultation: + abdomen distended (Mil d) and + abdominal surgical incision (Clean, dry and intact) Percussion/Palpation: + abdomen tender (Incisional) and abdomen soft Bowel sounds are present today although not normally active Results & Data ([facility]) Vital Signs (Past 12 Hours) Vital Signs Temp Pulse Pulse Resp BP BP Pulse Ox 09/18/20 03:10 36.6 C 88 18 117/67 92 09/17/20 23:43 36.7 C 88 18 117/67 92 09/17/20 23:00 83 09/17/20 19:37 36.8 C 106 H 18 117/70 93 Laboratory Results Pending
[2020-09-18 06:50] LABS: Hematocrit (blood only) 37.2 % (42-52); Hemoglobin 12.8 g/dL (14.0-18.0); Mean Corpuscular Hemoglobin 33.2 pg (25-34); Mean Corpuscular Hgb Conc 34.4 g/dL (32-36); Mean Corpuscular Volume 96.4 fL (80-100); Mean Platelet Volume 10.6 fL (7.4-10.4); Platelet Count 138 K/uL (130-400); RDW Standard Deviation 49.4 fL (36.4-46.3); Red Blood Count 3.86 M/uL (4.7-6.1); White Blood Count 10.79 K/uL (4.8-10.8)
[2020-09-18 07:24] LABS: BUN Creatinine Ratio 33.2 (10-20); Calcium 7.7 mg/dl (8.5-10.1); Est GFR (African American) 60.9; Est GFR (Non-African American) 52.5; Magnesium 2.4 mg/dl (1.8-2.4); Phosphorus 2.2 mg/dl (2.5-4.9); Potassium 3.8 mmol/L (3.5-5.1)
[2020-09-18] MEDS: METOPROLOL SUCC 25MG EXT REL TAB PO SCH (07:54)
[2020-09-18] MEDS ORDERED: POTASSIUM PHOS 3 MMOL/1 ML INFUSION IV STA (07:54)
--- NOTE | 2020-09-18 07:59 | Hospitalist Progress Note ---
Date of Service September 18, 2020 Assessment & Plan (1) SBO (small bowel obstruction): Patient presented with reports of abdominal pain and decreased bowel movements x [address] ABD/pelvis on admission showed signs of SBO, Likely secondary to adhesions from prior abdominal surgeries Surgery consulted Continued conservative management with bowel rest, pain control and IVF KUB performed showed Persistent small bowel obstruction. Upper GI small bowel through Daughter requested GI consult (She called the office and office told her to tell the hospitalist to place a consult) Upper GI small bowel follow through done - contrast does not seem to be moving past a certain point in SB Patient's small bowel obstruction not resolving spontaneously and so required surgical intervention. Dr. Dunn discussed the procedure with and daughter Pt is now s/p ex lap w/ SBO release (09/16/20, w/ Dr. Dunn) Keep NPO, NGT initially placed, now removed (pt pulled it out on 09/18), surgery aware Cont. PPN No BM yet, BS hypoactive (2) UTI (urinary tract infection): Urine cx positive for gram negative bacilli Urine cx grew Acinetobacter baumanni WBC trending back to normal IV Rocephin transitioned to cefepime (3) Status post transcatheter aortic valve replacement (TAVR) using bioprosthesis: (4) Mild CAD: -Appears stable -Continue aspirin and beta-nicole (5) Chronic indwelling Oliver catheter: -No issues -Continue finasteride (6) Alzheimer disease: -Continue home medications (7) DVT prophylaxis: -Will hold SQ heparin given surgery, cont. teds, scds Daughter Shazia requests update [phone] Admission and Anticipated Discharge Date Admission Date: September 11, 2020 Subjective Pt seen in follow up of SBO, now s/p exploratory laparotomy with release of small bowel obstruction, POD#2 Awake, sitting up in chair Has not had bowel movement or flatus as yet NG tube drainage has decreased, unfortunately pt pulled out NGT today (surgery aware) Pt does not have any complaints but when questioned reports some abd. discomfort he seems to be little confused, he knows that he is in the hospital but is answering questions slowly and carefully Per nursing staff, pt was able to walk in hallway Pt's calling for updates - previously was allowed to visit, visitation was granted again Pt's and daughter, Shazia, updated at the bedside by me. Shazia is supposed to be called about any updates. Review of Systems Review of Systems: All systems reviewed & are unremarkable except as noted in HPI & below Constitutional: no fever and no chills Respiratory: no cough and no dyspnea Cardiovascular: no chest pain and no palpitations Gastrointestinal: + abdominal pain (some postsurgical/ incisional pain); no vomiting Physical Exam Physical Exam: General- No acute distress, siting up in chair Head- atraumatic Eyes-decrease hearing function ENT- NGT in place Neck- supple, no JVD Lungs- clear to auscultation Heart- regular rhythm; no murmur Abdomen- Hypoactive BS, mildly distended, surgical dressings dry and clean, some tenderness to palpation Extremities- no calf tenderness Neuro- alert, oriented x 3; PERRL, EOMI; no facial palsy; no dysarthria Skin- warm & dry Results & Data Results & Data ([facility]) Vital Signs (Past 12 Hours) Vital Signs Temp Pulse Pulse Resp BP BP Pulse Ox 09/18/20 07:36 36.9 C 67 16 129/74 92 09/18/20 03:10 36.6 C 88 18 117/67 92 09/17/20 23:43 36.7 C 88 18 117/67 92 09/17/20 23:00 83 Laboratory Results 09/18/20 09/18/20 09/18/20 Range/Units 06:35 06:35 06:34 WBC 10.79 (4.8-10.8) K/uL RBC 3.86 L (4.7-6.1) M/uL Hgb 12.8 L (14.0-18.0) g/dL Hct 37.2 L (42-52) % MCV 96.4 (80-100) fL MCH 33.2 (25-34) pg MCHC 34.4 (32-36) g/dL RDW Std Deviation 49.4 H (36.4-46.3) fL RDW Coeff of Edgardo 14.0 (11.5-14.5) % Plt Count 138 (130-400) K/uL MPV 10.6 H (7.4-10.4) fL Sodium 144 (136-145) mmol/L Potassium 3.8 (3.5-5.1) mmol/L Chloride 111 H (98-107) mmol/L Carbon Dioxide 28 (21-32) mmol/L Anion Gap 5.0 (3-11) BUN 42 H (7-18) mg/dl Creatinine 1.25 (0.6-1.4) mg/dl Est Cr Clr Drug Dosing 44.0 ml/min Est GFR ( Amer) 60.9 Est GFR (Non-Af Amer) 52.5 BUN/Creatinine Ratio 33.2 H (10-20) Glucose 131 H (70-99) mg/dl POC Glucose 126 H (70-99) mg/dl Calcium 7.7 L (8.5-10.1) mg/dl Phosphorus 2.2 L D (2.5-4.9) mg/dl Magnesium 2.4 (1.8-2.4) mg/dl 09/18/20 09/17/20 09/17/20 Range/Units 00:00 17:34 12:11 WBC (4.8-10.8) K/uL RBC (4.7-6.1) M/uL Hgb (14.0-18.0) g/dL Hct (42-52) % MCV (80-100) fL MCH (25-34) pg MCHC (32-36) g/dL RDW Std Deviation (36.4-46.3) fL RDW Coeff of Edgardo (11.5-14.5) % Plt Count (130-400) K/uL MPV (7.4-10.4) fL Sodium (136-145) mmol/L Potassium (3.5-5.1) mmol/L Chloride (98-107) mmol/L Carbon Dioxide (21-32) mmol/L Anion Gap (3-11) BUN (7-18) mg/dl Creatinine (0.6-1.4) mg/dl Est Cr Clr Drug Dosing ml/min Est GFR ( Amer) Est GFR (Non-Af Amer) BUN/Creatinine Ratio (10-20) Glucose (70-99) mg/dl POC Glucose 142 H 178 H 181 H (70-99) mg/dl Calcium (8.5-10.1) mg/dl Phosphorus (2.5-4.9) mg/dl Magnesium (1.8-2.4) mg/dl 09/17/20 Range/Units 06:02 WBC (4.8-10.8) K/uL RBC (4.7-6.1) M/uL Hgb (14.0-18.0) g/dL Hct (42-52) % MCV (80-100) fL MCH (25-34) pg MCHC (32-36) g/dL RDW Std Deviation (36.4-46.3) fL RDW Coeff of Edgardo (11.5-14.5) % Plt Count (130-400) K/uL MPV (7.4-10.4) fL Sodium (136-145) mmol/L Potassium (3.5-5.1) mmol/L Chloride (98-107) mmol/L Carbon Dioxide (21-32) mmol/L Anion Gap (3-11) BUN (7-18) mg/dl Creatinine (0.6-1.4) mg/dl Est Cr Clr Drug Dosing ml/min Est GFR ( Amer) Est GFR (Non-Af Amer) BUN/Creatinine Ratio (10-20) Glucose (70-99) mg/dl POC Glucose (70-99) mg/dl Calcium (8.5-10.1) mg/dl Phosphorus 3.2 (2.5-4.9) mg/dl Magnesium 1.8 (1.8-2.4) mg/dl Medications Administered Current Inpatient Medications Dextrose (Dextrose 50% 50 Ml Syringe) 25 - 50 ml IV UD PRN; Protocol PRN Reason: Hypoglycemia Protocol Stop: 10/17/20 06:45 Glucagon (Glucagon For Inj 1 Mg Vial) 1 mg SQ UD PRN; Protocol PRN Reason: Hypoglycemia Protocol Stop: 10/17/20 06:45 Glucose (Glucose 10 Tabs/Tube) 4 - 8 tabs PO UD PRN; Protocol PRN Reason: Hypoglycemia Protocol Stop: 10/17/20 06:45 Glucose (Glucose 40% Gel 15 Gm Tube) 15 - 30 gm PO UD PRN; Protocol PRN Reason: Hypoglycemia Protocol Stop: 10/17/20 06:45 Heparin Sodium (Porcine) (Heparin Sod 5,000 Unit/0.5 Ml Vial) 5,000 units SQ Q8 [facility] Stop: 10/11/20 21:59 Last Admin: 09/16/20 14:29 Dose: 5,000 units Documented by: Dextrose (D10w) 1,000 mls @ 0 mls/hr IV .Q0M PRN PRN Reason: protocol (see label comments) Stop: 10/16/20 15:59 Cefepime HCl 2,000 mg/ Syringe 20 mls @ 5 mls/min IV Q12H [facility]; Protocol Stop: 09/26/20 11:59 Last Admin: 09/18/20 00:04 Dose: 5 mls/min Documented by: Nutrition (Parenteral) 1,500 (ml/ TPN BAG) 1,500 mls @ 62.5 mls/hr IV .Q24H [facility]; Protocol Stop: 09/18/20 15:59 Last Admin: 09/17/20 17:34 Dose: 62.5 mls/hr Documented by: Lactated Ringer's (Lr) 1,000 mls @ 60 mls/hr IV .[id number] [facility] Stop: 10/17/20 18:14 Last Admin: 09/18/20 03:05 Dose: 60 mls/hr Documented by: Potassium Phosphate 9 mmol/ (Sodium Chloride) 253 mls @ 150 mls/hr IV ONE ONE Stop: 09/18/20 10:11 Insulin Aspart (Insulin Aspart 100 Units/Ml 3 Ml Pen) 0 units SC Q6 [facility] Stop: 10/18/20 00:00 Last Admin: 09/18/20 06:40 Dose: Not Given Documented by: Metoclopramide HCl (Metoclopramide Hcl Inj 5 Mg/Ml 2 Ml Vial) 10 mg IV Q6H PRN PRN Reason: Nausea/hiccups Stop: 10/12/20 13:09 Last Admin: 09/16/20 22:51 Dose: 10 mg Documented by: Metoprolol Succinate (Metoprolol Succ 25mg Ext Rel Tab) 25 mg PO QAM [facility] Stop: 10/12/20 08:59 Last Admin: 09/18/20 07:54 Dose: Not Given Documented by: Metoprolol Tartrate (Metoprolol Tartrate 1 Mg/Ml Vial) 2.5 mg IV Q6H PRN PRN Reason: HR>110 Stop: 10/17/20 08:25 Miscellaneous (Carbohydrates For Hypoglycemia ) 15 - 30 gm PO UD PRN PRN Reason: Hypoglycemia Protocol Stop: 10/17/20 06:45 Miscellaneous Information (Tpn/Ppn Consult Pharmacy) 1 ea N/A UD PRN PRN Reason: Consult Stop: 10/15/20 18:10 Morphine Sulfate (Morphine Sulfate 4 Mg/Ml 1 Ml Carp\Vial) 2 mg IV Q1H PRN PRN Reason: Pain Stop: 09/30/20 22:07 Last Admin: 09/18/20 00:09 Dose: 2 mg Documented by: Ondansetron HCl (Ondansetron Inj 2 Mg/Ml 2 Ml Vial) 4 mg IV Q6H PRN PRN Reason: Nausea Stop: 10/11/20 16:18 Last Admin: 09/12/20 03:26 Dose: 4 mg Documented by:
[2020-09-18] MEDS ORDERED: POTASSIUM PHOSPHATE 9 MMOL in SODIUM CHLORIDE 0.9% 250 ML IV ONE (08:30)
[2020-09-18 09:11] LABS: Bilirubin,Total 0.5 mg/dl (0.2-1)
[2020-09-18] MEDS ORDERED: METOPROLOL TARTRATE 1 MG/ML VIAL IV STA (15:42)
[2020-09-18] MEDS ORDERED: Custom Peripheral Pn 2,000 ML in TPN BAG 0 ML IV SCH (16:00)
[2020-09-18] MEDS: METOCLOPRAMIDE HCL INJ 5 MG/ML 2 ML VIAL IV PRN (20:17)
[2020-09-18] MEDS: METOPROLOL TARTRATE 1 MG/ML VIAL IV SCH (21:43)
[2020-09-19] MEDS: CEFEPIME 2,000 MG in SYRINGE 0 ML IV SCH ×2 (00:29→11:14)
[2020-09-19] MEDS: INSULIN ASPART 100 UNITS/ML 3 ML PEN SC SCH ×4 (00:58→18:02)
[2020-09-19 06:12] LABS: Hematocrit (blood only) 36.8 % (42-52); Hemoglobin 12.3 g/dL (14.0-18.0); Mean Corpuscular Hemoglobin 32.6 pg (25-34); Mean Corpuscular Hgb Conc 33.4 g/dL (32-36); Mean Corpuscular Volume 97.6 fL (80-100); Mean Platelet Volume 10.9 fL (7.4-10.4); Platelet Count 133 K/uL (130-400); RDW Coefficient of Variation 13.9 % (11.5-14.5); RDW Standard Deviation 49.4 fL (36.4-46.3); Red Blood Count 3.77 M/uL (4.7-6.1); White Blood Count 10.35 K/uL (4.8-10.8)
[2020-09-19 06:39] LABS: BUN Creatinine Ratio 34.5 (10-20); Creatinine Clr Calc Pharmacy 51.9 ml/min; Est GFR (African American) 74.3; Est GFR (Non-African American) 64.1; Magnesium 2.3 mg/dl (1.8-2.4); Phosphorus 2.1 mg/dl (2.5-4.9); Potassium 3.6 mmol/L (3.5-5.1)
[2020-09-19] MEDS ORDERED: POTASSIUM PHOS 3 MMOL/1 ML INFUSION IV STA (07:26)
--- NOTE | 2020-09-19 07:29 | Hospitalist Progress Note ---
Date of Service September 19, 2020 Assessment & Plan (1) SBO (small bowel obstruction): Patient presented with reports of abdominal pain and decreased bowel movements x [address] ABD/pelvis on admission showed signs of SBO, Likely secondary to adhesions from prior abdominal surgeries Surgery consulted Continued conservative management with bowel rest, pain control and IVF KUB performed showed Persistent small bowel obstruction. Upper GI small bowel through Daughter requested GI consult (She called the office and office told her to tell the hospitalist to place a consult) Upper GI small bowel follow through done - contrast does not seem to be moving past a certain point in SB Patient's small bowel obstruction not resolving spontaneously and so required surgical intervention. Dr. Dunn discussed the procedure with and daughter Pt is now s/p ex lap w/ SBO release (09/16/20, w/ Dr. Dunn) Keep NPO, NGT initially placed, now removed (pt pulled it out on 09/18), surgery aware Cont. PPN No BM yet, BS hypoactive (2) UTI (urinary tract infection): Urine cx positive for gram negative bacilli Urine cx grew Acinetobacter baumanni WBC trending back to normal IV Rocephin transitioned to cefepime (3) Status post transcatheter aortic valve replacement (TAVR) using bioprosthesis: (4) Mild CAD: -Appears stable -Continue aspirin and beta-nicole (5) Chronic indwelling Oliver catheter: -No issues -Continue finasteride (6) Alzheimer disease: -Continue home medications (7) DVT prophylaxis: -Will hold SQ heparin given surgery, cont. teds, scds Daughter Shazia requests update [phone] Admission and Anticipated Discharge Date Admission Date: September 11, 2020 Subjective Pt seen in follow up of SBO, now s/p exploratory laparotomy with release of small bowel obstruction, POD#3 Awake, laying in bed Has not had bowel movement or flatus as yet Pt pulled out NGT yesterday (surgery aware) Pt does not have any complaints but when questioned reports some abd. discomfort Pt's was calling for updates - previously was allowed to visit, visitation was granted again Pt's and daughter, Shazia, updated at the bedside by me yesterday. Shazia is supposed to be called about any updates. Review of Systems Review of Systems: All systems reviewed & are unremarkable except as noted in HPI & below Constitutional: no fever and no chills Respiratory: + cough (occasional); no dyspnea Cardiovascular: no chest pain and no palpitations Gastrointestinal: + abdominal pain (some postsurgical/ incisional pain); no vomiting Physical Exam Physical Exam: General- No acute distress, siting up in chair Head- atraumatic Eyes-decrease hearing function ENT- NGT in place Neck- supple, no JVD Lungs- clear to auscultation Heart- regular rhythm; no murmur Abdomen- Hypoactive BS, mildly distended, incision clean, dry, some tenderness to palpation Extremities- no calf tenderness Neuro- alert, oriented x 3; PERRL, EOMI; no facial palsy; no dysarthria Skin- warm & dry Results & Data Results & Data ([facility]) Vital Signs (Past 12 Hours) Vital Signs Temp Pulse Pulse Resp BP BP Pulse Ox 09/19/20 07:02 36.6 C 67 19 148/76 H 93 09/19/20 03:44 37.2 C 77 19 131/68 91 09/19/20 00:00 81 09/18/20 23:17 36.9 C 74 18 123/70 93 09/18/20 20:01 37.5 C 67 18 124/75 94 Laboratory Results 09/19/20 09/19/20 09/19/20 Range/Units 06:07 06:00 06:00 WBC 10.35 (4.8-10.8) K/uL RBC 3.77 L (4.7-6.1) M/uL Hgb 12.3 L (14.0-18.0) g/dL Hct 36.8 L (42-52) % MCV 97.6 (80-100) fL MCH 32.6 (25-34) pg MCHC 33.4 (32-36) g/dL RDW Std Deviation 49.4 H (36.4-46.3) fL RDW Coeff of Edgardo 13.9 (11.5-14.5) % Plt Count 133 (130-400) K/uL MPV 10.9 H (7.4-10.4) fL Sodium 144 (136-145) mmol/L Potassium 3.6 (3.5-5.1) mmol/L Chloride 108 H (98-107) mmol/L Carbon Dioxide 32 (21-32) mmol/L Anion Gap 4.0 (3-11) BUN 37 H (7-18) mg/dl Creatinine 1.06 (0.6-1.4) mg/dl Est Cr Clr Drug Dosing 51.9 ml/min Est GFR ( Amer) 74.3 Est GFR (Non-Af Amer) 64.1 BUN/Creatinine Ratio 34.5 H (10-20) Glucose 121 H (70-99) mg/dl POC Glucose 127 H (70-99) mg/dl Calcium 8.0 L (8.5-10.1) mg/dl Phosphorus 2.1 L (2.5-4.9) mg/dl Magnesium 2.3 (1.8-2.4) mg/dl Total Bilirubin (0.2-1) mg/dl AST (15-37) U/L ALT (12-78) U/L Alkaline Phosphatase (45-117) U/L Albumin (3.4-5.0) gm/dl 09/19/20 09/18/20 09/18/20 Range/Units 00:33 17:50 11:35 WBC (4.8-10.8) K/uL RBC (4.7-6.1) M/uL Hgb (14.0-18.0) g/dL Hct (42-52) % MCV (80-100) fL MCH (25-34) pg MCHC (32-36) g/dL RDW Std Deviation (36.4-46.3) fL RDW Coeff of Edgardo (11.5-14.5) % Plt Count (130-400) K/uL MPV (7.4-10.4) fL Sodium (136-145) mmol/L Potassium (3.5-5.1) mmol/L Chloride (98-107) mmol/L Carbon Dioxide (21-32) mmol/L Anion Gap (3-11) BUN (7-18) mg/dl Creatinine (0.6-1.4) mg/dl Est Cr Clr Drug Dosing ml/min Est GFR ( Amer) Est GFR (Non-Af Amer) BUN/Creatinine Ratio (10-20) Glucose (70-99) mg/dl POC Glucose 152 H 125 H 111 H (70-99) mg/dl Calcium (8.5-10.1) mg/dl Phosphorus (2.5-4.9) mg/dl Magnesium (1.8-2.4) mg/dl Total Bilirubin (0.2-1) mg/dl AST (15-37) U/L ALT (12-78) U/L Alkaline Phosphatase (45-117) U/L Albumin (3.4-5.0) gm/dl 09/18/20 Range/Units 08:40 WBC (4.8-10.8) K/uL RBC (4.7-6.1) M/uL Hgb (14.0-18.0) g/dL Hct (42-52) % MCV (80-100) fL MCH (25-34) pg MCHC (32-36) g/dL RDW Std Deviation (36.4-46.3) fL RDW Coeff of Edgardo (11.5-14.5) % Plt Count (130-400) K/uL MPV (7.4-10.4) fL Sodium (136-145) mmol/L Potassium (3.5-5.1) mmol/L Chloride (98-107) mmol/L Carbon Dioxide (21-32) mmol/L Anion Gap (3-11) BUN (7-18) mg/dl Creatinine (0.6-1.4) mg/dl Est Cr Clr Drug Dosing ml/min Est GFR ( Amer) Est GFR (Non-Af Amer) BUN/Creatinine Ratio (10-20) Glucose (70-99) mg/dl POC Glucose (70-99) mg/dl Calcium (8.5-10.1) mg/dl Phosphorus (2.5-4.9) mg/dl Magnesium (1.8-2.4) mg/dl Total Bilirubin 0.5 (0.2-1) mg/dl AST 10 L (15-37) U/L ALT 21 (12-78) U/L Alkaline Phosphatase 65 (45-117) U/L Albumin 2.0 L (3.4-5.0) gm/dl Medications Administered Current Inpatient Medications Dextrose (Dextrose 50% 50 Ml Syringe) 25 - 50 ml IV UD PRN; Protocol PRN Reason: Hypoglycemia Protocol Stop: 10/17/20 06:45 Glucagon (Glucagon For Inj 1 Mg Vial) 1 mg SQ UD PRN; Protocol PRN Reason: Hypoglycemia Protocol Stop: 10/17/20 06:45 Glucose (Glucose 10 Tabs/Tube) 4 - 8 tabs PO UD PRN; Protocol PRN Reason: Hypoglycemia Protocol Stop: 10/17/20 06:45 Glucose (Glucose 40% Gel 15 Gm Tube) 15 - 30 gm PO UD PRN; Protocol PRN Reason: Hypoglycemia Protocol Stop: 10/17/20 06:45 Heparin Sodium (Porcine) (Heparin Sod 5,000 Unit/0.5 Ml Vial) 5,000 units SQ Q8 [facility] Stop: 10/11/20 21:59 Last Admin: 09/16/20 14:29 Dose: 5,000 units Documented by: Dextrose (D10w) 1,000 mls @ 0 mls/hr IV .Q0M PRN PRN Reason: protocol (see label comments) Stop: 10/16/20 15:59 Cefepime HCl 2,000 mg/ Syringe 20 mls @ 5 mls/min IV Q12H [facility]; Protocol Stop: 09/26/20 11:59 Last Admin: 09/19/20 00:29 Dose: 5 mls/min Documented by: Lactated Ringer's (Lr) 1,000 mls @ 60 mls/hr IV .[id number] [facility] Stop: 10/17/20 18:14 Last Infusion: 09/18/20 21:55 Dose: Infused Documented by: Nutrition (Parenteral) 2,000 (ml/ TPN BAG) 2,000 mls @ 83.33 mls/hr IV .Q24H [facility]; Protocol Stop: 09/19/20 15:59 Last Admin: 09/18/20 16:29 Dose: 83.3 mls/hr Documented by: Insulin Aspart (Insulin Aspart 100 Units/Ml 3 Ml Pen) 0 units SC Q6 [facility] Stop: 10/18/20 00:00 Last Admin: 09/19/20 06:10 Dose: Not Given Documented by: Metoclopramide HCl (Metoclopramide Hcl Inj 5 Mg/Ml 2 Ml Vial) 10 mg IV Q6H PRN PRN Reason: Nausea/hiccups Stop: 10/12/20 13:09 Last Admin: 09/18/20 20:17 Dose: 10 mg Documented by: Metoprolol Succinate (Metoprolol Succ 25mg Ext Rel Tab) 25 mg PO QAM [facility] Stop: 10/12/20 08:59 Last Admin: 09/18/20 07:54 Dose: Not Given Documented by: Metoprolol Tartrate (Metoprolol Tartrate 1 Mg/Ml Vial) 2.5 mg IV BID [facility] Stop: 10/18/20 20:59 Last Admin: 09/18/20 21:43 Dose: 2.5 mg Documented by: Miscellaneous (Carbohydrates For Hypoglycemia ) 15 - 30 gm PO UD PRN PRN Reason: Hypoglycemia Protocol Stop: 10/17/20 06:45 Miscellaneous Information (Tpn/Ppn Consult Pharmacy) 1 ea N/A UD PRN PRN Reason: Consult Stop: 10/15/20 18:10 Morphine Sulfate (Morphine Sulfate 4 Mg/Ml 1 Ml Carp\Vial) 2 mg IV Q1H PRN PRN Reason: Pain Stop: 09/30/20 22:07 Last Admin: 09/18/20 20:17 Dose: 2 mg Documented by: Ondansetron HCl (Ondansetron Inj 2 Mg/Ml 2 Ml Vial) 4 mg IV Q6H PRN PRN Reason: Nausea Stop: 10/11/20 16:18 Last Admin: 09/12/20 03:26 Dose: 4 mg Documented by: Potassium Phosphate (Potassium Phos 3 Mmol/1 Ml Infusion) 15 mmol IV NOW STA Stop: 09/19/20 07:27
[2020-09-19] MEDS ORDERED: POTASSIUM PHOSPHATE 15 MMOL in SODIUM CHLORIDE 0.9% 250 ML IV ONE (07:30)
[2020-09-19] MEDS: METOPROLOL TARTRATE 1 MG/ML VIAL IV SCH ×2 (08:19→21:39)
[2020-09-19] MEDS: POTASSIUM CHLORIDE / WTR 10 MEQ/100 ML PLCT IV SCH ×2 (08:44→09:44)
--- NOTE | 2020-09-19 10:38 | Pharmacy Report ---
PHA: Parenteral Nutrition Con - Date of Service September 19, 2020 - Scope Pharmacy was consulted on 09/16/20 to manage parenteral nutrition orders for this patient. - Subjective The patient is currently on day #4 of peripheral parenteral nutrition for small bowel obstruction/prolonged NPO status. - Objective Height: 5 ft 9 in Weight: 72.1 kg Diet: NPO Intake & Output (24hrs):: Intake & Output 09/17/20 09/18/20 09/19/20 09/20/20 06:59 06:59 06:59 06:59 Intake Total 2150 / 2150 1773.8 / 1773.8 1753 / 1753 100 / 100 Output Total 1362 / 1362 475 / 475 1050 / 1050 Balance 788 / 788 1298.8 / 1298.8 703 / 703 100 / 100 Weight 67.302 kg 71.8 kg 72.1 kg Laboratory Data (Last 24 Hr):: 09/19/20 06:00 Sodium 144 Potassium 3.6 Chloride 108 H Carbon Dioxide 32 BUN 37 H Creatinine 1.06 Glucose 121 H Calcium 8.0 L Phosphorus 2.1 L Magnesium 2.3 Nutrition Assessment:: Please refer to the Notes section of the EMR for the most recent manager power note. - Assessment 09/19: * Fluid was increased in PPN to 2000 mL/day yesterday to help with low blood pressure and decreasing urine output * This allowed macronutrients to be titrated upwards per RD's recommendations * All labs are within normal limites except for phosphorus. * Provider gave 15 mmol of potassium phosphate this morning. * Will increase potassium phosphate in the PPN bag today but limited by osmolarity * If patient to continue on PN for > 7 days, would recommend a central line to decrease infection risk with prolonged PPN. 09/16: * Patient admitted with SBO, NPO for minimum 4 days. Surgical intervention vs. GI assessment. Current plan for an upper GI study with small bowel follow- through to assess for complete versus partial obstruction. PPN initiated for prolonged NPO status. Awaiting study results. if prolonged parenteral therapy anticipated can consider getting central access, peripheral parenteral nutrition for now. - Plan For day #4 of PN administration, the following will be ordered: Macronutrients Amino acids 80 grams/day Dextrose 150 grams/day Lipids 50 grams/day Micronutrients Combined electrolytes 20 mL - contains 35 mEq Na, 20 meq K, 4.5 mEq Ca, 5 mEq Mg, 35 mEq Cl, 29.5 mEq acetate per 20 mL Sodium acetate 20 mEq Potassium phosphate 27 mMol Potassium chloride 20 mEq Magnesium sulfate 4.06 mEq Multivitamins 10 mL Trace Elements 1 mL Insulin 15 units Thiamine 100 mg Total volume 2000 mL to be infused over 24 hrs will provide 1330 kcal/day Final osmolarity 897 mOsm/L (maximum for PPN is 900 mOsm/L) Labs, as indicated, will be ordered per protocol Pharmacy will continue to follow and adjust parenteral nutrition orders on a daily basis. Thank you for allowing us to participate in the care of this patient.
--- NOTE | 2020-09-19 12:20 | Surgery Progress Note ---
Date of Service September 19, 2020 Assessment & Plan (1) SBO (small bowel obstruction): Postoperative day 3. Status post exploratory laparotomy with release of small-bowel obstruction removal of a small portion of small bowel Patient pulled his NG tube but has not had nausea or vomiting Has some peristalsis audible Would leave NG tube out for now and replace if he develops nausea Would await bowel function prior to feeding Continue physical therapy and occupational therapy Continue PPN Admission and Anticipated Discharge Date Admission Date: September 11, 2020 Subjective Postoperative day 3. Status post exploratory laparotomy with lysis of adhesions with resection of a small portion of small bowel Patient sitting in chair uncomfortable Patient has been ambulating Nursing reports that he may have passed some flatus but he did not remember that No nausea or vomiting The patient removed his NG tube yesterday but he has not had any nausea or vomiting even with it out Physical Exam Gastrointestinal (Abdomen): Inspection/Auscultation: + abdomen distended (mild) and + abdominal surgical incision (Clean, dry and intact) Percussion/Palpation: + abdomen tender (Inciscional only) and abdomen soft Results & Data ([facility]) Vital Signs (Past 12 Hours) Vital Signs Temp Pulse Pulse Resp BP Pulse Ox 09/19/20 11:13 37.0 C 87 19 123/75 94 09/19/20 08:19 82 09/19/20 07:02 36.6 C 67 19 148/76 H 93 09/19/20 03:44 37.2 C 77 19 131/68 91 Laboratory Results 09/19/20 09/19/20 09/19/20 Range/Units 11:56 06:07 06:00 WBC (4.8-10.8) K/uL RBC (4.7-6.1) M/uL Hgb (14.0-18.0) g/dL Hct (42-52) % MCV (80-100) fL MCH (25-34) pg MCHC (32-36) g/dL RDW Std Deviation (36.4-46.3) fL RDW Coeff of Edgardo (11.5-14.5) % Plt Count (130-400) K/uL MPV (7.4-10.4) fL Sodium 144 (136-145) mmol/L Potassium 3.6 (3.5-5.1) mmol/L Chloride 108 H (98-107) mmol/L Carbon Dioxide 32 (21-32) mmol/L Anion Gap 4.0 (3-11) BUN 37 H (7-18) mg/dl Creatinine 1.06 (0.6-1.4) mg/dl Est Cr Clr Drug Dosing 51.9 ml/min Est GFR ( Amer) 74.3 Est GFR (Non-Af Amer) 64.1 BUN/Creatinine Ratio 34.5 H (10-20) Glucose 121 H (70-99) mg/dl POC Glucose 149 H 127 H (70-99) mg/dl Calcium 8.0 L (8.5-10.1) mg/dl Phosphorus 2.1 L (2.5-4.9) mg/dl Magnesium 2.3 (1.8-2.4) mg/dl 09/19/20 09/19/20 09/18/20 Range/Units 06:00 00:33 17:50 WBC 10.35 (4.8-10.8) K/uL RBC 3.77 L (4.7-6.1) M/uL Hgb 12.3 L (14.0-18.0) g/dL Hct 36.8 L (42-52) % MCV 97.6 (80-100) fL MCH 32.6 (25-34) pg MCHC 33.4 (32-36) g/dL RDW Std Deviation 49.4 H (36.4-46.3) fL RDW Coeff of Edgardo 13.9 (11.5-14.5) % Plt Count 133 (130-400) K/uL MPV 10.9 H (7.4-10.4) fL Sodium (136-145) mmol/L Potassium (3.5-5.1) mmol/L Chloride (98-107) mmol/L Carbon Dioxide (21-32) mmol/L Anion Gap (3-11) BUN (7-18) mg/dl Creatinine (0.6-1.4) mg/dl Est Cr Clr Drug Dosing ml/min Est GFR ( Amer) Est GFR (Non-Af Amer) BUN/Creatinine Ratio (10-20) Glucose (70-99) mg/dl POC Glucose 152 H 125 H (70-99) mg/dl Calcium (8.5-10.1) mg/dl Phosphorus (2.5-4.9) mg/dl Magnesium (1.8-2.4) mg/dl
[2020-09-19] MEDS: MoRPHine SULFATE 4 MG/ML 1 ML CARP\\VIAL IV PRN (14:36)
[2020-09-19] MEDS ORDERED: Custom Peripheral Pn 2,000 ML in TPN BAG 0 ML IV SCH (16:00)
[2020-09-20] MEDS: INSULIN ASPART 100 UNITS/ML 3 ML PEN SC SCH ×4 (00:43→18:12)
[2020-09-20] MEDS: CEFEPIME 2,000 MG in SYRINGE 0 ML IV SCH ×2 (00:47→13:31)
[2020-09-20] MEDS: MoRPHine SULFATE 4 MG/ML 1 ML CARP\\VIAL IV PRN (04:29)
[2020-09-20] MEDS: ONDANSETRON INJ 2 MG/ML 2 ML VIAL IV PRN (04:30)
--- NOTE | 2020-09-20 07:57 | Hospitalist Progress Note ---
Date of Service September 20, 2020 Assessment & Plan (1) SBO (small bowel obstruction): Patient presented with reports of abdominal pain and decreased bowel movements x [address] ABD/pelvis on admission showed signs of SBO, Likely secondary to adhesions from prior abdominal surgeries Surgery consulted Initially conservative management with bowel rest, pain control and IVF KUB performed showed Persistent small bowel obstruction. Upper GI small bowel through Daughter requested GI consult (She called the office and office told her to tell the hospitalist to place a consult) Upper GI small bowel follow through done - contrast does not seem to be moving past a certain point in SB Patient's small bowel obstruction not resolving spontaneously and so required surgical intervention. Dr. Dunn discussed the procedure with the and daughter Pt is now s/p ex lap w/ SBO release (09/16/20, w/ Dr. Dunn), POD #4 Keep NPO/ ice chips ok, NGT initially placed, now removed (pt pulled it out on 18), surgery aware Cont. PPN No BM yet, Bowel sounds present/hypoactive (2) UTI (urinary tract infection): Urine cx positive for gram negative bacilli Urine cx grew Acinetobacter baumanni WBC trending back to normal IV Rocephin transitioned to cefepime (3) Status post transcatheter aortic valve replacement (TAVR) using bioprosthesis: (4) Mild CAD: -Appears stable -Continue aspirin and beta-nicole (5) Chronic indwelling Oliver catheter: -No issues -Continue finasteride (6) Alzheimer disease: -Continue home medications (7) DVT prophylaxis: - Held SQ heparin given surgery, cont. teds, scds, subq heparin now resumed Jenny Mccray requests update [phone] Admission and Anticipated Discharge Date Admission Date: September 11, 2020 Subjective Pt seen in follow up of SBO, now s/p exploratory laparotomy with release of small bowel obstruction, POD#4 Awake, laying in bed, pt's at the bedside Has not had bowel movement or flatus as yet Pt pulled out NGT 2 days ago (surgery aware) Pt does not have any complaints but when questioned reports some abd. discomfort DaughterShazia is supposed to be called about any updates. Review of Systems Review of Systems: All systems reviewed & are unremarkable except as noted in HPI & below Constitutional: no fever and no chills Respiratory: no cough and no dyspnea Cardiovascular: no chest pain and no palpitations Gastrointestinal: + abdominal pain (some postsurgical/ incisional pain); no nausea and no vomiting Physical Exam Physical Exam: General- No acute distress, siting up in chair Head- atraumatic Eyes-decrease hearing function ENT- NGT in place Neck- supple, no JVD Lungs- clear to auscultation Heart- regular rhythm; no murmur Abdomen- Hypoactive BS, mildly distended, incision clean, dry, some tenderness to palpation Extremities- no calf tenderness Neuro- alert, oriented x 3; PERRL, EOMI; no facial palsy; no dysarthria Skin- warm & dry Results & Data Results & Data ([facility]) Vital Signs (Past 12 Hours) Vital Signs Temp Pulse Pulse Resp BP BP BP 09/20/20 07:10 36.4 C L 59 L 16 132/71 09/20/20 07:00 71 09/20/20 04:18 36.7 C 65 18 158/86 H 09/19/20 23:17 36.8 C 62 17 155/70 H 09/19/20 21:39 91 H 145/83 H 09/19/20 21:32 91 H 145/83 H Pulse Ox 09/20/20 07:10 96 09/20/20 07:00 09/20/20 04:18 91 09/19/20 23:17 93 09/19/20 21:39 09/19/20 21:32 Laboratory Results 09/20/20 09/20/20 09/19/20 Range/Units 07:22 07:22 23:58 WBC 10.98 H (4.8-10.8) K/uL RBC 3.61 L (4.7-6.1) M/uL Hgb 12.1 L (14.0-18.0) g/dL Hct 35.1 L (42-52) % MCV 97.2 (80-100) fL MCH 33.5 (25-34) pg MCHC 34.5 (32-36) g/dL RDW Std Deviation 49.5 H (36.4-46.3) fL RDW Coeff of Edgardo 13.8 (11.5-14.5) % Plt Count 142 (130-400) K/uL MPV 10.7 H (7.4-10.4) fL Sodium 140 (136-145) mmol/L Potassium 4.1 (3.5-5.1) mmol/L Chloride 105 (98-107) mmol/L Carbon Dioxide 32 (21-32) mmol/L Anion Gap 3.0 (3-11) BUN 37 H (7-18) mg/dl Creatinine 1.07 (0.6-1.4) mg/dl Est Cr Clr Drug Dosing 51.4 ml/min Est GFR ( Amer) 73.5 Est GFR (Non-Af Amer) 63.4 BUN/Creatinine Ratio 34.4 H (10-20) Glucose 137 H (70-99) mg/dl POC Glucose 130 H (70-99) mg/dl Calcium 8.3 L (8.5-10.1) mg/dl Phosphorus 3.0 (2.5-4.9) mg/dl Magnesium 2.3 (1.8-2.4) mg/dl 09/19/20 09/19/20 Range/Units 18:00 11:56 WBC (4.8-10.8) K/uL RBC (4.7-6.1) M/uL Hgb (14.0-18.0) g/dL Hct (42-52) % MCV (80-100) fL MCH (25-34) pg MCHC (32-36) g/dL RDW Std Deviation (36.4-46.3) fL RDW Coeff of Edgardo (11.5-14.5) % Plt Count (130-400) K/uL MPV (7.4-10.4) fL Sodium (136-145) mmol/L Potassium (3.5-5.1) mmol/L Chloride (98-107) mmol/L Carbon Dioxide (21-32) mmol/L Anion Gap (3-11) BUN (7-18) mg/dl Creatinine (0.6-1.4) mg/dl Est Cr Clr Drug Dosing ml/min Est GFR ( Amer) Est GFR (Non-Af Amer) BUN/Creatinine Ratio (10-20) Glucose (70-99) mg/dl POC Glucose 122 H 149 H (70-99) mg/dl Calcium (8.5-10.1) mg/dl Phosphorus (2.5-4.9) mg/dl Magnesium (1.8-2.4) mg/dl Medications Administered Current Inpatient Medications Dextrose (Dextrose 50% 50 Ml Syringe) 25 - 50 ml IV UD PRN; Protocol PRN Reason: Hypoglycemia Protocol Stop: 10/17/20 06:45 Glucagon (Glucagon For Inj 1 Mg Vial) 1 mg SQ UD PRN; Protocol PRN Reason: Hypoglycemia Protocol Stop: 10/17/20 06:45 Glucose (Glucose 10 Tabs/Tube) 4 - 8 tabs PO UD PRN; Protocol PRN Reason: Hypoglycemia Protocol Stop: 10/17/20 06:45 Glucose (Glucose 40% Gel 15 Gm Tube) 15 - 30 gm PO UD PRN; Protocol PRN Reason: Hypoglycemia Protocol Stop: 10/17/20 06:45 Heparin Sodium (Porcine) (Heparin Sod 5,000 Unit/0.5 Ml Vial) 5,000 units SQ Q8 ANDREW Stop: 10/11/20 21:59 Last Admin: 09/16/20 14:29 Dose: 5,000 units Documented by: Dextrose (D10w) 1,000 mls @ 0 mls/hr IV .Q0M PRN PRN Reason: protocol (see label comments) Stop: 10/16/20 15:59 Cefepime HCl 2,000 mg/ Syringe 20 mls @ 5 mls/min IV Q12H ANDREW; Protocol Stop: 09/26/20 11:59 Last Admin: 09/20/20 00:47 Dose: 5 mls/min Documented by: Lactated Ringer's (Lr) 1,000 mls @ 60 mls/hr IV .[id number] ANDREW Stop: 10/17/20 18:14 Last Infusion: 09/18/20 21:55 Dose: Infused Documented by: Nutrition (Parenteral) 2,000 (ml/ TPN BAG) 2,000 mls @ 83.33 mls/hr IV .Q24H ANDREW; Protocol Stop: 09/20/20 15:59 Last Admin: 09/19/20 16:11 Dose: 83.3 mls/hr Documented by: Insulin Aspart (Insulin Aspart 100 Units/Ml 3 Ml Pen) 0 units SC Q6 ANDREW Stop: 10/18/20 00:00 Last Admin: 09/20/20 06:27 Dose: Not Given Documented by: Metoclopramide HCl (Metoclopramide Hcl Inj 5 Mg/Ml 2 Ml Vial) 10 mg IV Q6H PRN PRN Reason: Nausea/hiccups Stop: 10/12/20 13:09 Last Admin: 09/18/20 20:17 Dose: 10 mg Documented by: Metoprolol Succinate (Metoprolol Succ 25mg Ext Rel Tab) 25 mg PO QAM ANDREW Stop: 10/12/20 08:59 Last Admin: 09/18/20 07:54 Dose: Not Given Documented by: Metoprolol Tartrate (Metoprolol Tartrate 1 Mg/Ml Vial) 2.5 mg IV BID [facility] Stop: 10/18/20 20:59 Last Admin: 09/19/20 21:39 Dose: 2.5 mg Documented by: Miscellaneous (Carbohydrates For Hypoglycemia ) 15 - 30 gm PO UD PRN PRN Reason: Hypoglycemia Protocol Stop: 10/17/20 06:45 Miscellaneous Information (Tpn/Ppn Consult Pharmacy) 1 ea N/A UD PRN PRN Reason: Consult Stop: 10/15/20 18:10 Morphine Sulfate (Morphine Sulfate 4 Mg/Ml 1 Ml Carp\Vial) 2 mg IV Q1H PRN PRN Reason: Pain Stop: 09/30/20 22:07 Last Admin: 09/20/20 04:29 Dose: 2 mg Documented by: Ondansetron HCl (Ondansetron Inj 2 Mg/Ml 2 Ml Vial) 4 mg IV Q6H PRN PRN Reason: Nausea Stop: 10/11/20 16:18 Last Admin: 09/20/20 04:30 Dose: 4 mg Documented by:
[2020-09-20 08:14] LABS: Hematocrit (blood only) 35.1 % (42-52); Hemoglobin 12.1 g/dL (14.0-18.0); Mean Corpuscular Hemoglobin 33.5 pg (25-34); Mean Corpuscular Hgb Conc 34.5 g/dL (32-36); Mean Corpuscular Volume 97.2 fL (80-100); Mean Platelet Volume 10.7 fL (7.4-10.4); Platelet Count 142 K/uL (130-400); RDW Coefficient of Variation 13.8 % (11.5-14.5); RDW Standard Deviation 49.5 fL (36.4-46.3); Red Blood Count 3.61 M/uL (4.7-6.1); White Blood Count 10.98 K/uL (4.8-10.8)
[2020-09-20 08:30] LABS: BUN Creatinine Ratio 34.4 (10-20); Calcium 8.3 mg/dl (8.5-10.1); Creatinine Clr Calc Pharmacy 51.4 ml/min; Est GFR (African American) 73.5; Est GFR (Non-African American) 63.4; Magnesium 2.3 mg/dl (1.8-2.4); Potassium 4.1 mmol/L (3.5-5.1)
[2020-09-20] MEDS: METOPROLOL TARTRATE 1 MG/ML VIAL IV SCH ×2 (09:31→21:48)
--- NOTE | 2020-09-20 12:33 | Surgery Progress Note ---
Date of Service September 20, 2020 Assessment & Plan (1) Status post small bowel resection: 85-year-old male status post laparotomy with lysis of adhesions, and small bowel resection with anastomosis for small bowel obstruction, awaiting return of bowel function. Ambulate every shift, with assistance Out of bed to chair 3 times daily May have ice chips and sips of clears, would hold on advancing diet until more meaningful return of bowel function If recurrence of nausea and vomiting, may need NG tube Surgery will continue to follow, call with questions or concerns Admission and Anticipated Discharge Date Admission Date: September 11, 2020 Subjective 85-year-old male POD #4 laparotomy with lysis of adhesions and small bowel resection with anastomosis for small bowel obstruction. Denies any flatus, no bowel movement recorded. at bedside, concerned that he has not been ambulating or out of bed to chair. He pulled his NG tube out yesterday but is not had any nausea or vomiting. Physical Exam Constitutional: WD/WN, vitals as above Gastrointestinal (Abdomen): Inspection/Auscultation: + abdomen distended and + abdominal surgical incision (No evidence of infection) Percussion/Palpation: abdomen soft; abdomen nontender, no guarding and abdomen not rigid Results & Data ([facility]) Vital Signs (Past 12 Hours) Vital Signs Temp Pulse Pulse Resp BP BP BP 09/20/20 11:18 36.6 C 59 L 19 157/74 H 09/20/20 09:31 68 135/67 09/20/20 09:28 69 09/20/20 07:10 36.4 C L 59 L 16 132/71 09/20/20 07:00 71 09/20/20 04:18 36.7 C 65 18 158/86 H Pulse Ox 09/20/20 11:18 97 09/20/20 09:31 09/20/20 09:28 09/20/20 07:10 96 09/20/20 07:00 09/20/20 04:18 91 PG Care Time/CCT Total # of Minutes Spent Total Time Spent with Patient: Total time spent is greater than 50% in coordination of care (as documented) at patient's floor/unit and/or counseling patient: Coding Level of Care Code None Diagnoses Status post small bowel resection Z90.49
[2020-09-20] MEDS ORDERED: Custom Peripheral Pn 2,000 ML in TPN BAG 0 ML IV SCH (16:00)
[2020-09-20] MEDS: HEPARIN SOD 5,000 UNIT/0.5 ML VIAL SQ SCH ×2 (16:21→21:47)
[2020-09-21] MEDS: INSULIN ASPART 100 UNITS/ML 3 ML PEN SC SCH ×4 (00:33→17:28)
[2020-09-21] MEDS: CEFEPIME 2,000 MG in SYRINGE 0 ML IV SCH ×2 (00:49→11:54)
[2020-09-21] MEDS: MoRPHine SULFATE 4 MG/ML 1 ML CARP\\VIAL IV PRN ×3 (00:58→16:38)
[2020-09-21] MEDS: HEPARIN SOD 5,000 UNIT/0.5 ML VIAL SQ SCH ×3 (06:08→20:36)
[2020-09-21 06:23] LABS: Hematocrit (blood only) 34.7 % (42-52); Hemoglobin 12.1 g/dL (14.0-18.0); Mean Corpuscular Hemoglobin 33.7 pg (25-34); Mean Corpuscular Hgb Conc 34.9 g/dL (32-36); Mean Corpuscular Volume 96.7 fL (80-100); Mean Platelet Volume 10.6 fL (7.4-10.4); Platelet Count 158 K/uL (130-400); RDW Coefficient of Variation 13.4 % (11.5-14.5); RDW Standard Deviation 47.4 fL (36.4-46.3); Red Blood Count 3.59 M/uL (4.7-6.1); White Blood Count 9.31 K/uL (4.8-10.8)
[2020-09-21 06:54] LABS: BUN Creatinine Ratio 37.1 (10-20); Calcium 7.9 mg/dl (8.5-10.1); Creatinine Clr Calc Pharmacy 54.4 ml/min; Est GFR (African American) 78.8; Magnesium 2.5 mg/dl (1.8-2.4); Phosphorus 3.2 mg/dl (2.5-4.9); Potassium 4.2 mmol/L (3.5-5.1)
--- NOTE | 2020-09-21 07:29 | Hospitalist Progress Note ---
Date of Service September 21, 2020 Assessment & Plan (1) SBO (small bowel obstruction): Patient presented with reports of abdominal pain and decreased bowel movements x [address] ABD/pelvis on admission showed signs of SBO, Likely secondary to adhesions from prior abdominal surgeries Surgery consulted Initially conservative management with bowel rest, pain control and IVF KUB performed showed Persistent small bowel obstruction. Upper GI small bowel through Daughter requested GI consult (She called the office and office told her to tell the hospitalist to place a consult) Upper GI small bowel follow through done - contrast does not seem to be moving past a certain point in SB Patient's small bowel obstruction not resolving spontaneously and so required surgical intervention. Dr. Dunn discussed the procedure with the and daughter Pt is now s/p ex lap w/ SBO release (09/16/20, w/ Dr. Dunn), POD #5 Keep NPO/ ice chips ok, NGT initially placed, now removed (pt pulled it out on 09/18), surgery aware Cont. PPN No BM yet, Bowel sounds present/hypoactive (2) UTI (urinary tract infection): Urine cx positive for gram negative bacilli Urine cx grew Acinetobacter baumanni WBC trending back to normal IV Rocephin transitioned to cefepime (3) Status post transcatheter aortic valve replacement (TAVR) using bioprosthesis: (4) Mild CAD: -Appears stable -Continue aspirin and beta-nicole (5) Chronic indwelling Oliver catheter: -No issues -Continue finasteride (6) Alzheimer disease: -Continue home medications (7) DVT prophylaxis: - Held SQ heparin given surgery, cont. teds, scds, subq heparin resumed Daughter Shazia requests update [phone] Admission and Anticipated Discharge Date Admission Date: September 11, 2020 Subjective Pt seen in follow up of SBO, now s/p exploratory laparotomy with release of small bowel obstruction, POD#5 Awake, sitting up in chair Has not had bowel movement or flatus as yet Pt does not have any complaints but when questioned reports some abd. discomfort DaughterShazia is supposed to be called about any updates. Update: Patient seen later in the day again, with his at the bedside, updated Encouraging ambulation, sitting patient in chair Currently patient is back in bed, sleeping, would like him to get some rest Review of Systems Review of Systems: All systems reviewed & are unremarkable except as noted in HPI & below Constitutional: no fever and no chills Respiratory: no cough and no dyspnea Cardiovascular: no chest pain and no palpitations Gastrointestinal: + abdominal pain (some postsurgical/ incisional pain); no nausea and no vomiting Physical Exam Physical Exam: General- No acute distress, siting up in chair Head- atraumatic Eyes-decrease hearing function Neck- supple, no JVD Lungs- clear to auscultation Heart- regular rhythm; no murmur Abdomen- Hypoactive BS, mildly distended, incision clean, dry, some tenderness to palpation Extremities- no calf tenderness Neuro- alert, oriented x 3; PERRL, EOMI; no facial palsy; no dysarthria Skin- warm & dry Results & Data Results & Data ([facility]) Vital Signs (Past 12 Hours) Vital Signs Temp Pulse Resp BP Pulse Ox 09/21/20 04:41 36.6 C 64 18 151/78 H 94 09/20/20 21:58 36.4 C L 65 18 149/88 H 95 09/20/20 19:37 36.7 C 63 18 152/78 H 95 Laboratory Results 09/21/20 09/21/20 09/21/20 Range/Units 06:04 06:04 05:55 WBC 9.31 (4.8-10.8) K/uL RBC 3.59 L (4.7-6.1) M/uL Hgb 12.1 L (14.0-18.0) g/dL Hct 34.7 L (42-52) % MCV 96.7 (80-100) fL MCH 33.7 (25-34) pg MCHC 34.9 (32-36) g/dL RDW Std Deviation 47.4 H (36.4-46.3) fL RDW Coeff of Edgardo 13.4 (11.5-14.5) % Plt Count 158 (130-400) K/uL MPV 10.6 H (7.4-10.4) fL Sodium 139 (136-145) mmol/L Potassium 4.2 (3.5-5.1) mmol/L Chloride 105 (98-107) mmol/L Carbon Dioxide 29 (21-32) mmol/L Anion Gap 5.0 (3-11) BUN 37 H (7-18) mg/dl Creatinine 1.01 (0.6-1.4) mg/dl Est Cr Clr Drug Dosing 54.4 ml/min Est GFR ( Amer) 78.8 Est GFR (Non-Af Amer) 68.0 BUN/Creatinine Ratio 37.1 H (10-20) Glucose 142 H (70-99) mg/dl POC Glucose 139 H (70-99) mg/dl Calcium 7.9 L (8.5-10.1) mg/dl Phosphorus 3.2 (2.5-4.9) mg/dl Magnesium 2.5 H (1.8-2.4) mg/dl 09/21/20 09/20/20 09/20/20 Range/Units 00:15 18:10 11:59 WBC (4.8-10.8) K/uL RBC (4.7-6.1) M/uL Hgb (14.0-18.0) g/dL Hct (42-52) % MCV (80-100) fL MCH (25-34) pg MCHC (32-36) g/dL RDW Std Deviation (36.4-46.3) fL RDW Coeff of Edgardo (11.5-14.5) % Plt Count (130-400) K/uL MPV (7.4-10.4) fL Sodium (136-145) mmol/L Potassium (3.5-5.1) mmol/L Chloride (98-107) mmol/L Carbon Dioxide (21-32) mmol/L Anion Gap (3-11) BUN (7-18) mg/dl Creatinine (0.6-1.4) mg/dl Est Cr Clr Drug Dosing ml/min Est GFR ( Amer) Est GFR (Non-Af Amer) BUN/Creatinine Ratio (10-20) Glucose (70-99) mg/dl POC Glucose 126 H 128 H 112 H (70-99) mg/dl Calcium (8.5-10.1) mg/dl Phosphorus (2.5-4.9) mg/dl Magnesium (1.8-2.4) mg/dl 09/20/20 09/20/20 Range/Units 07:22 07:22 WBC 10.98 H (4.8-10.8) K/uL RBC 3.61 L (4.7-6.1) M/uL Hgb 12.1 L (14.0-18.0) g/dL Hct 35.1 L (42-52) % MCV 97.2 (80-100) fL MCH 33.5 (25-34) pg MCHC 34.5 (32-36) g/dL RDW Std Deviation 49.5 H (36.4-46.3) fL RDW Coeff of Edgardo 13.8 (11.5-14.5) % Plt Count 142 (130-400) K/uL MPV 10.7 H (7.4-10.4) fL Sodium 140 (136-145) mmol/L Potassium 4.1 (3.5-5.1) mmol/L Chloride 105 (98-107) mmol/L Carbon Dioxide 32 (21-32) mmol/L Anion Gap 3.0 (3-11) BUN 37 H (7-18) mg/dl Creatinine 1.07 (0.6-1.4) mg/dl Est Cr Clr Drug Dosing 51.4 ml/min Est GFR ( Amer) 73.5 Est GFR (Non-Af Amer) 63.4 BUN/Creatinine Ratio 34.4 H (10-20) Glucose 137 H (70-99) mg/dl POC Glucose (70-99) mg/dl Calcium 8.3 L (8.5-10.1) mg/dl Phosphorus 3.0 (2.5-4.9) mg/dl Magnesium 2.3 (1.8-2.4) mg/dl Medications Administered Current Inpatient Medications Dextrose (Dextrose 50% 50 Ml Syringe) 25 - 50 ml IV UD PRN; Protocol PRN Reason: Hypoglycemia Protocol Stop: 10/17/20 06:45 Glucagon (Glucagon For Inj 1 Mg Vial) 1 mg SQ UD PRN; Protocol PRN Reason: Hypoglycemia Protocol Stop: 10/17/20 06:45 Glucose (Glucose 10 Tabs/Tube) 4 - 8 tabs PO UD PRN; Protocol PRN Reason: Hypoglycemia Protocol Stop: 10/17/20 06:45 Glucose (Glucose 40% Gel 15 Gm Tube) 15 - 30 gm PO UD PRN; Protocol PRN Reason: Hypoglycemia Protocol Stop: 10/17/20 06:45 Heparin Sodium (Porcine) (Heparin Sod 5,000 Unit/0.5 Ml Vial) 5,000 units SQ Q8 [facility] Stop: 10/11/20 21:59 Last Admin: 09/21/20 06:08 Dose: 5,000 units Documented by: Dextrose (D10w) 1,000 mls @ 0 mls/hr IV .Q0M PRN PRN Reason: protocol (see label comments) Stop: 10/16/20 15:59 Cefepime HCl 2,000 mg/ Syringe 20 mls @ 5 mls/min IV Q12H [facility]; Protocol Stop: 09/26/20 11:59 Last Admin: 09/21/20 00:49 Dose: 5 mls/min Documented by: Lactated Ringer's (Lr) 1,000 mls @ 60 mls/hr IV .[id number] [facility] Stop: 10/17/20 18:14 Last Infusion: 09/18/20 21:55 Dose: Infused Documented by: Nutrition (Parenteral) 2,000 (ml/ TPN BAG) 2,000 mls @ 83.33 mls/hr IV .Q24H [facility]; Protocol Stop: 09/21/20 15:59 Last Admin: 09/20/20 16:20 Dose: 83.3 mls/hr Documented by: Insulin Aspart (Insulin Aspart 100 Units/Ml 3 Ml Pen) 0 units SC Q6 [facility] Stop: 10/18/20 00:00 Last Admin: 09/21/20 06:09 Dose: Not Given Documented by: Metoclopramide HCl (Metoclopramide Hcl Inj 5 Mg/Ml 2 Ml Vial) 10 mg IV Q6H PRN PRN Reason: Nausea/hiccups Stop: 10/12/20 13:09 Last Admin: 09/18/20 20:17 Dose: 10 mg Documented by: Metoprolol Succinate (Metoprolol Succ 25mg Ext Rel Tab) 25 mg PO QAM [facility] Stop: 10/12/20 08:59 Last Admin: 09/18/20 07:54 Dose: Not Given Documented by: Metoprolol Tartrate (Metoprolol Tartrate 1 Mg/Ml Vial) 2.5 mg IV BID [facility] Stop: 10/18/20 20:59 Last Admin: 09/20/20 21:48 Dose: 2.5 mg Documented by: Miscellaneous (Carbohydrates For Hypoglycemia ) 15 - 30 gm PO UD PRN PRN Reason: Hypoglycemia Protocol Stop: 10/17/20 06:45 Miscellaneous Information (Tpn/Ppn Consult Pharmacy) 1 ea N/A UD PRN PRN Reason: Consult Stop: 10/15/20 18:10 Morphine Sulfate (Morphine Sulfate 4 Mg/Ml 1 Ml Carp\Vial) 2 mg IV Q1H PRN PRN Reason: Pain Stop: 09/30/20 22:07 Last Admin: 09/21/20 00:58 Dose: 2 mg Documented by: Ondansetron HCl (Ondansetron Inj 2 Mg/Ml 2 Ml Vial) 4 mg IV Q6H PRN PRN Reason: Nausea Stop: 10/11/20 16:18 Last Admin: 09/20/20 04:30 Dose: 4 mg Documented by:
[2020-09-21] MEDS: METOPROLOL TARTRATE 1 MG/ML VIAL IV SCH ×2 (08:12→20:36)
--- NOTE | 2020-09-21 11:04 | Surgery Progress Note ---
Date of Service September 21, 2020 Assessment & Plan (1) Status post small bowel resection: 85-year-old male status post laparotomy with lysis of adhesions and small bowel resection, awaiting return of bowel function. Difficult to ascertain due to patient's underlying cognitive status, however slightly distended with no bowel movements. Continue ice chips and sips of clears If he begins to have bowel movements or noticeably passes flatus, may advance to clear liquids Continue ambulation multiple times per day Dr. Dunn returns tomorrow Call with questions or concerns (2) SBO (small bowel obstruction): Admission and Anticipated Discharge Date Admission Date: September 11, 2020 Subjective 85-year-old male status post laparotomy with lysis of adhesions and small bowel resection with primary anastomosis for small bowel obstruction, POD #5. Limited history available from the patient. No bowel movement per the nurses. They have walked him. Physical Exam Constitutional: WD/WN, vitals as above Gastrointestinal (Abdomen): Inspection/Auscultation: + abdomen distended (Moderate distention) and + abdominal surgical incision (Incision with asmita, no infection) Percussion/Palpation: + abdomen tender (Appropriately tender); no guarding and abdomen not rigid Results & Data ([facility]) Vital Signs (Past 12 Hours) Vital Signs Temp Pulse Pulse Resp BP BP Pulse Ox 09/21/20 08:12 62 154/74 H 09/21/20 07:52 36.4 C L 59 L 18 154/74 H 94 09/21/20 07:00 60 09/21/20 04:41 36.6 C 64 18 151/78 H 94 PG Care Time/CCT Total # of Minutes Spent Total Time Spent with Patient: Total time spent is greater than 50% in coordination of care (as documented) at patient's floor/unit and/or counseling patient: Coding Level of Care Code None Diagnoses Status post small bowel resection Z90.49 SBO (small bowel obstruction) K56.609
[2020-09-21] MEDS ORDERED: ACETAMINOPHEN 1,000 MG/100 ML VIAL IV STA (12:46)
[2020-09-21] MEDS ORDERED: Custom Peripheral Pn 2,000 ML in TPN BAG 0 ML IV SCH (16:00)
[2020-09-22] MEDS: MoRPHine SULFATE 4 MG/ML 1 ML CARP\\VIAL IV PRN ×2 (00:14→07:38)
[2020-09-22] MEDS: CEFEPIME 2,000 MG in SYRINGE 0 ML IV SCH ×3 (00:30→23:51)
[2020-09-22] MEDS: INSULIN ASPART 100 UNITS/ML 3 ML PEN SC SCH ×4 (01:41→18:15)
[2020-09-22] MEDS: HEPARIN SOD 5,000 UNIT/0.5 ML VIAL SQ SCH ×3 (06:25→21:01)
[2020-09-22 06:47] LABS: Hematocrit (blood only) 36.7 % (42-52); Hemoglobin 12.6 g/dL (14.0-18.0); Mean Corpuscular Hgb Conc 34.3 g/dL (32-36); Mean Corpuscular Volume 96.1 fL (80-100); Mean Platelet Volume 10.5 fL (7.4-10.4); Platelet Count 179 K/uL (130-400); RDW Coefficient of Variation 13.6 % (11.5-14.5); RDW Standard Deviation 47.6 fL (36.4-46.3); Red Blood Count 3.82 M/uL (4.7-6.1); White Blood Count 9.79 K/uL (4.8-10.8)
[2020-09-22 07:21] LABS: BUN Creatinine Ratio 37.6 (10-20); Calcium 8.3 mg/dl (8.5-10.1); Creatinine Clr Calc Pharmacy 53.6 ml/min; Est GFR (African American) 78.8; Magnesium 2.3 mg/dl (1.8-2.4); Phosphorus 3.4 mg/dl (2.5-4.9); Potassium 4.4 mmol/L (3.5-5.1)
[2020-09-22] MEDS: METOPROLOL TARTRATE 1 MG/ML VIAL IV SCH ×2 (07:35→21:00)
--- NOTE | 2020-09-22 07:56 | Hospitalist Progress Note ---
Date of Service September 22, 2020 Assessment & Plan (1) SBO (small bowel obstruction): Patient presented with reports of abdominal pain and decreased bowel movements x [address] ABD/pelvis on admission showed signs of SBO, Likely secondary to adhesions from prior abdominal surgeries Surgery consulted Initially conservative management with bowel rest, pain control and IVF KUB performed showed Persistent small bowel obstruction. Upper GI small bowel through Daughter requested GI consult (She called the office and office told her to tell the hospitalist to place a consult) Upper GI small bowel follow through done - contrast does not seem to be moving past a certain point in SB Patient's small bowel obstruction not resolving spontaneously and so required surgical intervention. Dr. Dunn discussed the procedure with the and daughter Pt is now s/p ex lap w/ SBO release (09/16/20, w/ Dr. Dunn), POD #6 Keep NPO/ ice chips ok, NGT initially placed, now removed (pt pulled it out on 09/18), surgery aware Cont. PPN No BM yet, Bowel sounds present/hypoactive (2) UTI (urinary tract infection): Urine cx positive for gram negative bacilli Urine cx grew Acinetobacter baumanni WBC trending back to normal IV Rocephin transitioned to cefepime Pt has a chronic Oliver - discussed w/ urology- will exchange Oliver while inpt (3) Status post transcatheter aortic valve replacement (TAVR) using bioprosthesis: (4) Mild CAD: -Appears stable -Continue aspirin and beta-nicole (5) Chronic indwelling Oliver catheter: -No issues -Continue finasteride (6) Alzheimer disease: -Continue home medications (7) DVT prophylaxis: - Held SQ heparin given surgery, cont. teds, scds, subq heparin resumed Jenny Mccray requests update [phone] Admission and Anticipated Discharge Date Admission Date: September 11, 2020 Subjective Pt seen in follow up of SBO, now s/p exploratory laparotomy with release of small bowel obstruction, POD#6 Has not had bowel movement or flatus as yet Encouraging ambulation, sitting patient in chair Currently sitting up in chair, his is present at the bedside. Pt does not have any complaints but when questioned, reports some abd. discomfort No nausea vomiting, encourage incentive spirometer DaughterShazia is supposed to be called about any updates. Review of Systems Review of Systems: All systems reviewed & are unremarkable except as noted in HPI & below Constitutional: no fever and no chills Respiratory: no cough and no dyspnea Cardiovascular: no chest pain and no palpitations Gastrointestinal: + abdominal pain (some postsurgical/ incisional pain); no nausea and no vomiting Physical Exam Physical Exam: General- No acute distress, siting up in chair Head- atraumatic Eyes-decreased hearing function Neck- supple, no JVD Lungs- clear to auscultation Heart- regular rhythm; no murmur Abdomen- Hypoactive BS, mildly distended, incision clean, dry, some tenderness to palpation Extremities- no calf tenderness Neuro- alert, oriented x 3; PERRL, EOMI; no facial palsy; no dysarthria Skin- warm & dry Results & Data Results & Data ([facility]) Vital Signs (Past 12 Hours) Vital Signs Temp Pulse Pulse Pulse Resp BP BP 09/22/20 07:35 62 173/87 H 09/22/20 07:00 58 L 09/22/20 06:44 36.4 C L 60 18 173/87 H 09/21/20 23:03 36.6 C 63 18 159/82 H 09/21/20 20:26 36.7 C 61 20 155/90 H Pulse Ox 09/22/20 07:35 09/22/20 07:00 09/22/20 06:44 95 09/21/20 23:03 96 09/21/20 20:26 95 Laboratory Results 09/22/20 09/22/20 09/22/20 Range/Units 06:16 06:03 06:03 WBC 9.79 (4.8-10.8) K/uL RBC 3.82 L (4.7-6.1) M/uL Hgb 12.6 L (14.0-18.0) g/dL Hct 36.7 L (42-52) % MCV 96.1 (80-100) fL MCH 33.0 (25-34) pg MCHC 34.3 (32-36) g/dL RDW Std Deviation 47.6 H (36.4-46.3) fL RDW Coeff of Edgardo 13.6 (11.5-14.5) % Plt Count 179 (130-400) K/uL MPV 10.5 H (7.4-10.4) fL Sodium 136 (136-145) mmol/L Potassium 4.4 (3.5-5.1) mmol/L Chloride 104 (98-107) mmol/L Carbon Dioxide 28 (21-32) mmol/L Anion Gap 4.0 (3-11) BUN 38 H (7-18) mg/dl Creatinine 1.01 (0.6-1.4) mg/dl Est Cr Clr Drug Dosing 53.6 ml/min Est GFR ( Amer) 78.8 Est GFR (Non-Af Amer) 68.0 BUN/Creatinine Ratio 37.6 H (10-20) Glucose 116 H (70-99) mg/dl POC Glucose 130 H (70-99) mg/dl Calcium 8.3 L (8.5-10.1) mg/dl Phosphorus 3.4 (2.5-4.9) mg/dl Magnesium 2.3 (1.8-2.4) mg/dl Triglycerides 102 (0-150) mg/dl 09/22/20 09/21/20 09/21/20 Range/Units 00:38 17:24 11:53 WBC (4.8-10.8) K/uL RBC (4.7-6.1) M/uL Hgb (14.0-18.0) g/dL Hct (42-52) % MCV (80-100) fL MCH (25-34) pg MCHC (32-36) g/dL RDW Std Deviation (36.4-46.3) fL RDW Coeff of Edgardo (11.5-14.5) % Plt Count (130-400) K/uL MPV (7.4-10.4) fL Sodium (136-145) mmol/L Potassium (3.5-5.1) mmol/L Chloride (98-107) mmol/L Carbon Dioxide (21-32) mmol/L Anion Gap (3-11) BUN (7-18) mg/dl Creatinine (0.6-1.4) mg/dl Est Cr Clr Drug Dosing ml/min Est GFR ( Amer) Est GFR (Non-Af Amer) BUN/Creatinine Ratio (10-20) Glucose (70-99) mg/dl POC Glucose 151 H 131 H 125 H (70-99) mg/dl Calcium (8.5-10.1) mg/dl Phosphorus (2.5-4.9) mg/dl Magnesium (1.8-2.4) mg/dl Triglycerides (0-150) mg/dl 09/20/20 Range/Units 06:23 WBC (4.8-10.8) K/uL RBC (4.7-6.1) M/uL Hgb (14.0-18.0) g/dL Hct (42-52) % MCV (80-100) fL MCH (25-34) pg MCHC (32-36) g/dL RDW Std Deviation (36.4-46.3) fL RDW Coeff of Edgardo (11.5-14.5) % Plt Count (130-400) K/uL MPV (7.4-10.4) fL Sodium (136-145) mmol/L Potassium (3.5-5.1) mmol/L Chloride (98-107) mmol/L Carbon Dioxide (21-32) mmol/L Anion Gap (3-11) BUN (7-18) mg/dl Creatinine (0.6-1.4) mg/dl Est Cr Clr Drug Dosing ml/min Est GFR ( Amer) Est GFR (Non-Af Amer) BUN/Creatinine Ratio (10-20) Glucose (70-99) mg/dl POC Glucose 153 H (70-99) mg/dl Calcium (8.5-10.1) mg/dl Phosphorus (2.5-4.9) mg/dl Magnesium (1.8-2.4) mg/dl Triglycerides (0-150) mg/dl Medications Administered Current Inpatient Medications Dextrose (Dextrose 50% 50 Ml Syringe) 25 - 50 ml IV UD PRN; Protocol PRN Reason: Hypoglycemia Protocol Stop: 10/17/20 06:45 Glucagon (Glucagon For Inj 1 Mg Vial) 1 mg SQ UD PRN; Protocol PRN Reason: Hypoglycemia Protocol Stop: 10/17/20 06:45 Glucose (Glucose 10 Tabs/Tube) 4 - 8 tabs PO UD PRN; Protocol PRN Reason: Hypoglycemia Protocol Stop: 10/17/20 06:45 Glucose (Glucose 40% Gel 15 Gm Tube) 15 - 30 gm PO UD PRN; Protocol PRN Reason: Hypoglycemia Protocol Stop: 10/17/20 06:45 Heparin Sodium (Porcine) (Heparin Sod 5,000 Unit/0.5 Ml Vial) 5,000 units SQ Q8 [facility] Stop: 10/11/20 21:59 Last Admin: 09/22/20 06:25 Dose: 5,000 units Documented by: Dextrose (D10w) 1,000 mls @ 0 mls/hr IV .Q0M PRN PRN Reason: protocol (see label comments) Stop: 10/16/20 15:59 Cefepime HCl 2,000 mg/ Syringe 20 mls @ 5 mls/min IV Q12H [facility]; Protocol Stop: 09/26/20 11:59 Last Admin: 09/22/20 00:30 Dose: 5 mls/min Documented by: Lactated Ringer's (Lr) 1,000 mls @ 60 mls/hr IV .[id number] [facility] Stop: 10/17/20 18:14 Last Infusion: 09/18/20 21:55 Dose: Infused Documented by: Nutrition (Parenteral) 2,000 (ml/ TPN BAG) 2,000 mls @ 83.33 mls/hr IV .Q24H [facility]; Protocol Stop: 09/22/20 15:59 Last Admin: 09/21/20 16:33 Dose: 83.3 mls/hr Documented by: Acetaminophen (Ofirmev) 1,000 mg in 100 mls @ 400 mls/hr IV Q8H PRN PRN Reason: pain/ discomfort Stop: 09/24/20 12:46 Insulin Aspart (Insulin Aspart 100 Units/Ml 3 Ml Pen) 0 units SC Q6 [facility] Stop: 10/18/20 00:00 Last Admin: 09/22/20 06:25 Dose: Not Given Documented by: Metoclopramide HCl (Metoclopramide Hcl Inj 5 Mg/Ml 2 Ml Vial) 10 mg IV Q6H PRN PRN Reason: Nausea/hiccups Stop: 10/12/20 13:09 Last Admin: 09/18/20 20:17 Dose: 10 mg Documented by: Metoprolol Succinate (Metoprolol Succ 25mg Ext Rel Tab) 25 mg PO QAM [facility] Stop: 10/12/20 08:59 Last Admin: 09/18/20 07:54 Dose: Not Given Documented by: Metoprolol Tartrate (Metoprolol Tartrate 1 Mg/Ml Vial) 2.5 mg IV BID [facility] Stop: 10/18/20 20:59 Last Admin: 09/22/20 07:35 Dose: 2.5 mg Documented by: Miscellaneous (Carbohydrates For Hypoglycemia ) 15 - 30 gm PO UD PRN PRN Reason: Hypoglycemia Protocol Stop: 10/17/20 06:45 Miscellaneous Information (Tpn/Ppn Consult Pharmacy) 1 ea N/A UD PRN PRN Reason: Consult Stop: 10/15/20 18:10 Morphine Sulfate (Morphine Sulfate 4 Mg/Ml 1 Ml Carp\Vial) 2 mg IV Q1H PRN PRN Reason: Pain Stop: 09/30/20 22:07 Last Admin: 09/22/20 07:38 Dose: 2 mg Documented by: Ondansetron HCl (Ondansetron Inj 2 Mg/Ml 2 Ml Vial) 4 mg IV Q6H PRN PRN Reason: Nausea Stop: 10/11/20 16:18 Last Admin: 09/20/20 04:30 Dose: 4 mg Documented by:
--- NOTE | 2020-09-22 08:22 | Surgery Progress Note ---
Date of Service September 22, 2020 Assessment & Plan (1) SBO (small bowel obstruction): Admission and Anticipated Discharge Date Admission Date: September 11, 2020 Subjective Postoperative day #1 status post exploratory laparotomy with release of small bowel obstruction partial small bowel resection No flatus identified as yet Has not had bowel movement Tolerating ice chips and sips of clear liquids Has not had vomiting Denies nausea Incisional discomfort only Physical Exam Gastrointestinal (Abdomen): Inspection/Auscultation: + abdomen distended (Less so) and + hypoactive bowel sounds Percussion/Palpation: + abdomen tender (Less) and abdomen soft Results & Data ([facility]) Vital Signs (Past 12 Hours) Vital Signs Temp Pulse Pulse Pulse Resp BP BP 09/22/20 07:35 62 173/87 H 09/22/20 07:00 58 L 09/22/20 06:44 36.4 C L 60 18 173/87 H 09/21/20 23:03 36.6 C 63 18 159/82 H 09/21/20 20:26 36.7 C 61 20 155/90 H Pulse Ox 09/22/20 07:35 09/22/20 07:00 09/22/20 06:44 95 09/21/20 23:03 96 09/21/20 20:26 95 Laboratory Results 09/22/20 09/22/20 09/22/20 Range/Units 06:16 06:03 06:03 WBC 9.79 (4.8-10.8) K/uL RBC 3.82 L (4.7-6.1) M/uL Hgb 12.6 L (14.0-18.0) g/dL Hct 36.7 L (42-52) % MCV 96.1 (80-100) fL MCH 33.0 (25-34) pg MCHC 34.3 (32-36) g/dL RDW Std Deviation 47.6 H (36.4-46.3) fL RDW Coeff of Edgardo 13.6 (11.5-14.5) % Plt Count 179 (130-400) K/uL MPV 10.5 H (7.4-10.4) fL Sodium 136 (136-145) mmol/L Potassium 4.4 (3.5-5.1) mmol/L Chloride 104 (98-107) mmol/L Carbon Dioxide 28 (21-32) mmol/L Anion Gap 4.0 (3-11) BUN 38 H (7-18) mg/dl Creatinine 1.01 (0.6-1.4) mg/dl Est Cr Clr Drug Dosing 53.6 ml/min Est GFR ( Amer) 78.8 Est GFR (Non-Af Amer) 68.0 BUN/Creatinine Ratio 37.6 H (10-20) Glucose 116 H (70-99) mg/dl POC Glucose 130 H (70-99) mg/dl Calcium 8.3 L (8.5-10.1) mg/dl Phosphorus 3.4 (2.5-4.9) mg/dl Magnesium 2.3 (1.8-2.4) mg/dl Triglycerides 102 (0-150) mg/dl 09/22/20 09/21/20 09/21/20 Range/Units 00:38 17:24 11:53 WBC (4.8-10.8) K/uL RBC (4.7-6.1) M/uL Hgb (14.0-18.0) g/dL Hct (42-52) % MCV (80-100) fL MCH (25-34) pg MCHC (32-36) g/dL RDW Std Deviation (36.4-46.3) fL RDW Coeff of Edgardo (11.5-14.5) % Plt Count (130-400) K/uL MPV (7.4-10.4) fL Sodium (136-145) mmol/L Potassium (3.5-5.1) mmol/L Chloride (98-107) mmol/L Carbon Dioxide (21-32) mmol/L Anion Gap (3-11) BUN (7-18) mg/dl Creatinine (0.6-1.4) mg/dl Est Cr Clr Drug Dosing ml/min Est GFR ( Amer) Est GFR (Non-Af Amer) BUN/Creatinine Ratio (10-20) Glucose (70-99) mg/dl POC Glucose 151 H 131 H 125 H (70-99) mg/dl Calcium (8.5-10.1) mg/dl Phosphorus (2.5-4.9) mg/dl Magnesium (1.8-2.4) mg/dl Triglycerides (0-150) mg/dl 09/20/20 Range/Units 06:23 WBC (4.8-10.8) K/uL RBC (4.7-6.1) M/uL Hgb (14.0-18.0) g/dL Hct (42-52) % MCV (80-100) fL MCH (25-34) pg MCHC (32-36) g/dL RDW Std Deviation (36.4-46.3) fL RDW Coeff of Edgardo (11.5-14.5) % Plt Count (130-400) K/uL MPV (7.4-10.4) fL Sodium (136-145) mmol/L Potassium (3.5-5.1) mmol/L Chloride (98-107) mmol/L Carbon Dioxide (21-32) mmol/L Anion Gap (3-11) BUN (7-18) mg/dl Creatinine (0.6-1.4) mg/dl Est Cr Clr Drug Dosing ml/min Est GFR ( Amer) Est GFR (Non-Af Amer) BUN/Creatinine Ratio (10-20) Glucose (70-99) mg/dl POC Glucose 153 H (70-99) mg/dl Calcium (8.5-10.1) mg/dl Phosphorus (2.5-4.9) mg/dl Magnesium (1.8-2.4) mg/dl Triglycerides (0-150) mg/dl
[2020-09-22] MEDS: ACETAMINOPHEN 1,000 MG/100 ML VIAL IV PRN (15:53)
[2020-09-22] MEDS ORDERED: Custom Peripheral Pn 2,000 ML in TPN BAG 0 ML IV SCH (16:00)
[2020-09-23] MEDS: INSULIN ASPART 100 UNITS/ML 3 ML PEN SC SCH ×4 (01:00→17:56)
[2020-09-23] MEDS: METOCLOPRAMIDE HCL INJ 5 MG/ML 2 ML VIAL IV PRN (02:40)
[2020-09-23] MEDS: HEPARIN SOD 5,000 UNIT/0.5 ML VIAL SQ SCH ×3 (06:10→20:56)
[2020-09-23 07:08] LABS: Hematocrit (blood only) 36.8 % (42-52); Hemoglobin 12.6 g/dL (14.0-18.0); Mean Corpuscular Hemoglobin 32.8 pg (25-34); Mean Corpuscular Hgb Conc 34.2 g/dL (32-36); Mean Corpuscular Volume 95.8 fL (80-100); Mean Platelet Volume 10.3 fL (7.4-10.4); Platelet Count 185 K/uL (130-400); RDW Coefficient of Variation 13.5 % (11.5-14.5); RDW Standard Deviation 47.1 fL (36.4-46.3); Red Blood Count 3.84 M/uL (4.7-6.1); White Blood Count 10.67 K/uL (4.8-10.8)
--- NOTE | 2020-09-23 07:23 | Hospitalist Progress Note ---
Date of Service September 23, 2020 Assessment & Plan (1) SBO (small bowel obstruction): Patient presented with reports of abdominal pain and decreased bowel movements x [address] ABD/pelvis on admission showed signs of SBO, Likely secondary to adhesions from prior abdominal surgeries Surgery consulted Initially conservative management with bowel rest, pain control and IVF KUB performed showed Persistent small bowel obstruction. Upper GI small bowel through Daughter requested GI consult (She called the office and office told her to tell the hospitalist to place a consult) Upper GI small bowel follow through done - contrast does not seem to be moving past a certain point in SB Patient's small bowel obstruction not resolving spontaneously and so required surgical intervention. Dr. Dunn discussed the procedure with the and daughter Pt is now s/p ex lap w/ SBO release (09/16/20, w/ Dr. Dunn), POD #7 Keep NPO/ ice chips ok, NGT initially placed, now removed (pt pulled it out on 09/18), surgery aware Cont. PPN No BM yet, Bowel sounds present/hypoactive + now emesis (2) UTI (urinary tract infection): Urine cx positive for gram negative bacilli Urine cx grew Acinetobacter baumanni WBC trending back to normal IV Rocephin transitioned to Cefepime - finish the Abx course Pt has a chronic Oliver - discussed w/ urology- exchanged Oliver while inpt (09/22) Follow-up for other Oliver exchanges at the urology office (3) Status post transcatheter aortic valve replacement (TAVR) using bioprosthesis: (4) Mild CAD: -Appears stable -Continue aspirin and beta-nicole VT - noted on telemetry around midnight - cardiology contacted, Dr. Bethea aware (09/23)- transition to p.o. metoprolol (if pt can tolerate PO) - repeat EKG, echo recently obtained as outpt (5) Chronic indwelling Oliver catheter: -No issues -Continue finasteride (6) Alzheimer disease: -Continue home medications (7) DVT prophylaxis: - Held SQ heparin given surgery, cont. teds, scds, subq heparin resumed Jenny Mccray requests update [phone] Admission and Anticipated Discharge Date Admission Date: September 11, 2020 Subjective Pt seen in follow up of SBO, now s/p exploratory laparotomy with release of small bowel obstruction, POD#7 + Emesis, now feeling better, resting in the chair Has not had bowel movement or flatus as yet Encouraging ambulation, sitting patient in chair Pt does not have any complaints but when questioned, reports some abd. discomfor t encourage incentive spirometer No chest pain or shortness of breath, however VT noted on telemetry around midnight -cardiology contacted, Dr. Bethea aware Daughter,Shazia is supposed to be called about any updates. Review of Systems Review of Systems: All systems reviewed & are unremarkable except as noted in HPI & below Constitutional: no fever and no chills Respiratory: no cough and no dyspnea Cardiovascular: no chest pain and no palpitations Gastrointestinal: + abdominal pain (some postsurgical/ incisional pain); no nausea and no vomiting Physical Exam Physical Exam: General- No acute distress, siting up in chair Head- atraumatic Eyes-decreased hearing function Neck- supple, no JVD Lungs- clear to auscultation Heart- regular rhythm; no murmur Abdomen- Hypoactive BS,+ distended, incision clean, dry, some tenderness to palpation Extremities- no calf tenderness Neuro- alert, oriented x 3; PERRL, EOMI; no facial palsy; no dysarthria Skin- warm & dry Results & Data Results & Data ([facility]) Vital Signs (Past 12 Hours) Vital Signs Temp Pulse Pulse Resp BP BP Pulse Ox 09/23/20 07:22 58 L 09/23/20 04:15 36.8 C 71 18 159/79 H 95 09/23/20 00:15 62 09/23/20 00:05 36.6 C 76 20 128/75 95 09/22/20 21:00 64 158/82 H 09/22/20 19:44 36.6 C 65 18 137/73 95 Laboratory Results 09/23/20 09/23/20 09/23/20 Range/Units 06:36 06:36 06:08 WBC 10.67 (4.8-10.8) K/uL RBC 3.84 L (4.7-6.1) M/uL Hgb 12.6 L (14.0-18.0) g/dL Hct 36.8 L (42-52) % MCV 95.8 (80-100) fL MCH 32.8 (25-34) pg MCHC 34.2 (32-36) g/dL RDW Std Deviation 47.1 H (36.4-46.3) fL RDW Coeff of Edgardo 13.5 (11.5-14.5) % Plt Count 185 (130-400) K/uL MPV 10.3 (7.4-10.4) fL Sodium 136 (136-145) mmol/L Potassium 4.5 (3.5-5.1) mmol/L Chloride 103 (98-107) mmol/L Carbon Dioxide 28 (21-32) mmol/L Anion Gap 5.0 (3-11) BUN 36 H (7-18) mg/dl Creatinine 1.14 (0.6-1.4) mg/dl Est Cr Clr Drug Dosing 48.2 ml/min Est GFR ( Amer) 68.1 Est GFR (Non-Af Amer) 58.7 BUN/Creatinine Ratio 31.5 H (10-20) Glucose 146 H (70-99) mg/dl POC Glucose 136 H (70-99) mg/dl Calcium 7.7 L (8.5-10.1) mg/dl Phosphorus 3.2 (2.5-4.9) mg/dl Magnesium 2.2 (1.8-2.4) mg/dl 09/23/20 09/22/20 09/22/20 Range/Units 01:01 18:00 11:51 WBC (4.8-10.8) K/uL RBC (4.7-6.1) M/uL Hgb (14.0-18.0) g/dL Hct (42-52) % MCV (80-100) fL MCH (25-34) pg MCHC (32-36) g/dL RDW Std Deviation (36.4-46.3) fL RDW Coeff of Edgardo (11.5-14.5) % Plt Count (130-400) K/uL MPV (7.4-10.4) fL Sodium (136-145) mmol/L Potassium (3.5-5.1) mmol/L Chloride (98-107) mmol/L Carbon Dioxide (21-32) mmol/L Anion Gap (3-11) BUN (7-18) mg/dl Creatinine (0.6-1.4) mg/dl Est Cr Clr Drug Dosing ml/min Est GFR ( Amer) Est GFR (Non-Af Amer) BUN/Creatinine Ratio (10-20) Glucose (70-99) mg/dl POC Glucose 150 H 125 H 113 H (70-99) mg/dl Calcium (8.5-10.1) mg/dl Phosphorus (2.5-4.9) mg/dl Magnesium (1.8-2.4) mg/dl Medications Administered Current Inpatient Medications Dextrose (Dextrose 50% 50 Ml Syringe) 25 - 50 ml IV UD PRN; Protocol PRN Reason: Hypoglycemia Protocol Stop: 10/17/20 06:45 Glucagon (Glucagon For Inj 1 Mg Vial) 1 mg SQ UD PRN; Protocol PRN Reason: Hypoglycemia Protocol Stop: 10/17/20 06:45 Glucose (Glucose 10 Tabs/Tube) 4 - 8 tabs PO UD PRN; Protocol PRN Reason: Hypoglycemia Protocol Stop: 10/17/20 06:45 Glucose (Glucose 40% Gel 15 Gm Tube) 15 - 30 gm PO UD PRN; Protocol PRN Reason: Hypoglycemia Protocol Stop: 10/17/20 06:45 Heparin Sodium (Porcine) (Heparin Sod 5,000 Unit/0.5 Ml Vial) 5,000 units SQ Q8 [facility] Stop: 10/11/20 21:59 Last Admin: 09/23/20 06:10 Dose: 5,000 units Documented by: Dextrose (D10w) 1,000 mls @ 0 mls/hr IV .Q0M PRN PRN Reason: protocol (see label comments) Stop: 10/16/20 15:59 Cefepime HCl 2,000 mg/ Syringe 20 mls @ 5 mls/min IV Q12H [facility]; Protocol Stop: 09/26/20 11:59 Last Admin: 09/22/20 23:51 Dose: 5 mls/min Documented by: Lactated Ringer's (Lr) 1,000 mls @ 60 mls/hr IV .[id number] [facility] Stop: 10/17/20 18:14 Last Infusion: 09/18/20 21:55 Dose: Infused Documented by: Acetaminophen (Ofirmev) 1,000 mg in 100 mls @ 400 mls/hr IV Q8H PRN PRN Reason: pain/ discomfort Stop: 09/24/20 12:46 Last Infusion: 09/22/20 16:10 Dose: Infused Documented by: Nutrition (Parenteral) 2,000 (ml/ TPN BAG) 2,000 mls @ 83.33 mls/hr IV .Q24H [facility]; Protocol Stop: 09/23/20 15:59 Last Admin: 09/22/20 16:52 Dose: 83.3 mls/hr Documented by: Insulin Aspart (Insulin Aspart 100 Units/Ml 3 Ml Pen) 0 units SC Q6 [facility] Stop: 10/18/20 00:00 Last Admin: 09/23/20 06:12 Dose: Not Given Documented by: Metoclopramide HCl (Metoclopramide Hcl Inj 5 Mg/Ml 2 Ml Vial) 10 mg IV Q6H PRN PRN Reason: Nausea/hiccups Stop: 10/12/20 13:09 Last Admin: 09/23/20 02:40 Dose: 10 mg Documented by: Metoprolol Succinate (Metoprolol Succ 25mg Ext Rel Tab) 25 mg PO QAM [facility] Stop: 10/12/20 08:59 Last Admin: 09/18/20 07:54 Dose: Not Given Documented by: Metoprolol Tartrate (Metoprolol Tartrate 1 Mg/Ml Vial) 2.5 mg IV BID [facility] Stop: 10/18/20 20:59 Last Admin: 09/22/20 21:00 Dose: 2.5 mg Documented by: Miscellaneous (Carbohydrates For Hypoglycemia ) 15 - 30 gm PO UD PRN PRN Reason: Hypoglycemia Protocol Stop: 10/17/20 06:45 Miscellaneous Information (Tpn/Ppn Consult Pharmacy) 1 ea N/A UD PRN PRN Reason: Consult Stop: 10/15/20 18:10 Morphine Sulfate (Morphine Sulfate 4 Mg/Ml 1 Ml Carp\Vial) 2 mg IV Q1H PRN PRN Reason: Pain Stop: 09/30/20 22:07 Last Admin: 09/22/20 07:38 Dose: 2 mg Documented by: Ondansetron HCl (Ondansetron Inj 2 Mg/Ml 2 Ml Vial) 4 mg IV Q6H PRN PRN Reason: Nausea Stop: 10/11/20 16:18 Last Admin: 09/20/20 04:30 Dose: 4 mg Documented by:
[2020-09-23 07:42] LABS: BUN Creatinine Ratio 31.5 (10-20); Calcium 7.7 mg/dl (8.5-10.1); Creatinine Clr Calc Pharmacy 48.2 ml/min; Est GFR (African American) 68.1; Est GFR (Non-African American) 58.7; Magnesium 2.2 mg/dl (1.8-2.4); Potassium 4.5 mmol/L (3.5-5.1)
[2020-09-23 07:45] LABS: Phosphorus 3.2 mg/dl (2.5-4.9)
--- NOTE | 2020-09-23 09:06 | Pharmacy Report ---
PHA: Parenteral Nutrition Con - Date of Service September 23, 2020 - Scope Pharmacy was consulted on 09/16 to manage parenteral nutrition orders for this patient. - Subjective The patient is currently on day [#8] of [peripheral] parenteral nutrition for SBO/prolonged NPO status. - Objective Height: 5 ft 9 in Weight: 71 kg Diet: NPO Intake & Output (24hrs):: Intake & Output 09/21/20 09/22/20 09/23/20 09/24/20 06:59 06:59 06:59 06:59 Intake Total 1999 / 2100 2300 / 2300 Output Total 2450 / 2450 1999 1775 / 1775 Balance -450 / -450 100 / 100 525 / 525 Weight 71.9 kg 69.6 kg 71 kg Laboratory Data (Last 24 Hr):: 09/23/20 06:36 Sodium 136 Potassium 4.5 Chloride 103 Carbon Dioxide 28 BUN 36 H Creatinine 1.14 Glucose 146 H Calcium 7.7 L Phosphorus 3.2 Magnesium 2.2 Nutrition Assessment:: Please refer to the Notes section of the EMR for the most recent vocational nursing instructor note. - Plan Patient continues on PPN today. Spoke with surgery and hopeful patient's status to improve. Anticipating PPN only needed for a few more days. They are aware that patient not meeting full nutrition goals due to peripheral access and osmolarity. Currently, patient receiving ~75% of goal nutrition. Recommended to surgery if patient's status does not improve to consider a central line. For day #8 of PN administration, the following will be ordered: Macronutrients Amino acids 80 grams/day Dextrose 150 grams/day Lipids 50 grams/day Micronutrients Sodium chloride 70 mEq Sodium acetate 20 mEq Potassium phosphate 27 mMol Calcium gluconate 4.06 mEq Multivitamins 10 mL Trace Elements 1 mL Additional additives: 10 units insulin, 100 mg thiamine Total volume 2000 mL to be infused over 24 hrs will provide 1330 kcal/day Final osmolarity 886 mOsm/L (maximum for PPN is 900 mOsm/L) Labs, as indicated, will be ordered per protocol Pharmacy will continue to follow and adjust parenteral nutrition orders on a daily basis. Thank you for allowing us to participate in the care of this patient.
[2020-09-23] MEDS: METOPROLOL TARTRATE 1 MG/ML VIAL IV SCH (09:10)
--- NOTE | 2020-09-23 10:17 | Cardiology Consultation ---
Date of Consultation September 23, 2020 Assessment & Plan (1) NSVT (nonsustained ventricular tachycardia): I discussed the patient's n.p.o. status with Dr. Dunn of general surgery. At this time, I am going to discontinue his IV metoprolol 2.5 mg IV every 12 hours, and place him back on oral metoprolol. He typically takes metoprolol succinate 25 mg daily, will instead transition him to 12.5 mg twice daily pending determining if he will tolerate this. His electrolytes are within normal limits. No subjective symptoms noted. He does have a history of syncope and SVT, this could be an SVT with aberrant conduction. I do see however unifocal PVCs occasionally elsewhere on telemetry, and the morphology of these QRS complexes correlate well with the brief 9 beat run of wide-complex tachycardia observed at 12:39 AM on 09/23/2020. His subjective history is somewhat unreliable due to his cognitive impairment from dementia. His mental status however is similar to what I recall from when I had seen him on 08/21/2020. Recent echocardiogram performed 08/21/2020 revealed normal biventricular function and normal transcatheter aortic valve prosthesis function. (2) Status post transcatheter aortic valve replacement (TAVR) using bioprosthesis: Stable findings on recent echocardiogram. I do not think this needs to be repeated at present. Case discussed with Dr Khan. I called patient's Shazia Ramirez and reviewed things with her. History of Present Illness Attending Physician: Nelson Khan MD History of Present Illness Bart Gilbert is an 85 year old male seen in cardiology consultation per the request of Dr Khan for the evaluation of an episode of nonsustained ventricular tachycardia that occured overnight. The patient is well-known to the undersigned aside recently seen him present outpatient 3 weeks ago. 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 Recently he has been found to have progressive cognitive impairment related to dementia. He presented to the emergency department on 09/11/2020 for the evaluation of abdominal discomfort and on 09/16/2020 underwent operative intervention for small bowel infection. He is currently still on bowel rest, and receiving TPN. Last night at 12:39 AM and 9 beat run of nonsustained ventricular tachycardia was observed on telemetry with ventricular rate of 150 bpm. Otherwise, sinus rhythm with occasional isolated unifocal premature ventricular contractions have been observed on telemetry with rates in the 70s. Per review of the nursing notes, it appears the patient was sleeping at the time of the event at 12:39 AM this morning, although he did have an episode of emesis at 2:30 AM per nursing notes. The patient denies any subjective cardiac symptoms at present. He has a previous history severe symptomatic aortic valve stenosis for which he underwent transcatheter aortic valve replacement at [facility] in May, with placement of a 26 millimeter [place]ar Rios 3 prosthesis. A preprocedure diagnostic cardiac catheterization performed 12/09/2015 at the [facility] revealed 30 to 40% mid LAD stenosis after diagonal 1, otherwise no significant coronary heart disease. He has a history of a syncopal episode occurred while visiting his spouse who was hospitalized at [facility] in September 2017 and was found to have supraventricular tachycardia. He underwent electrophysiology study at that time with findings of 2 different pathways both of which were successfully ablated. A transthoracic echocardiogram had recently been performed the day of the patient's recent outpatient visit with me at [facility] on 08/21/2020 with findings of mild concentric left ventricular hypertrophy, normal left ventricular wall motion, LVEF 60 to 64%, transcatheter aortic valve prosthesis noted without obstruction or significant regurgitation. Allergies Allergy/AdvReac Type Severity Reaction Status Date / Time No Known Allergies Allergy Verified 09/11/20 12:16 Home Medications Medication Instructions Recorded Confirmed Type PreserVision AREDS 1 tab PO BID 02/08/20 09/11/20 History aspirin [Aspirin Low Dose] 81 mg PO QPM 05/08/20 09/11/20 History finasteride 5 mg tablet 5 mg PO DAILY #90 tab 07/01/20 09/11/20 Rx lutein 20 mg capsule 20 mg PO BID #90 cap 07/01/20 09/11/20 Rx memantine 10 mg tablet 10 mg PO BID #180 tab 07/01/20 09/11/20 Rx nitroglycerin 0.4 mg sublingual 0.4 mg SL DIRECTED PRN #25 tab 07/01/20 09/11/20 Rx tablet bethanechol chloride 25 mg PO BID 09/11/20 09/11/20 History metoprolol succinate 25 mg PO QAM 09/11/20 09/11/20 History Patient History Medical History Alzheimer disease Aortic stenosis HX AORTIC VALVE REPLACEMENT Asthma 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 CAD (coronary artery disease) Chronic indwelling Oliver catheter Diabetes mellitus, type 2 Gastric ulcer GERD (gastroesophageal reflux disease) Hearing loss HTN (hypertension) Lyme disease Macular degeneration Memory loss or impairment Mild CAD 30% mid LAD stenosis Orthostatic hypotension Paroxysmal A-fib Peripheral neuropathy Personal history of malignant melanoma of skin Restless legs (09/21/11) Shoulder problem RIGHT, TORN LIGAMENTS/TENDONS Sleep disorder Thyroid nodule Urinary retention with incomplete bladder emptying Surgical History H/O ankle fusion History of aortic valve replacement TAVR History of nephrectomy, left S/P ablation of atrial fibrillation S/P cholecystectomy S/P inguinal herniorrhaphy Status post small bowel resection Status post transcatheter aortic valve replacement (TAVR) using bioprosthesis Family History Other Family history of diabetes mellitus in mother Social History Smoking Status: Never smoker Hx Alcohol Use: No Hx Substance Use: No Preferred Language: Slovenian Communication Ability: Effective Visual Impairment: No Limitations 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 Beliefs That Will Affect Care: None Current Living Situation: Spouse Current Living Situation Comment: daughter lives next door Other Information That Helps Us Care for You: No Feels Safe at Home: Yes Safety Concerns: Feels Safe At This Time Assistive Devices: Glasses and Walker Physical Exam Physical Exam: Temp Pulse Resp BP Pulse Ox 36.3 C L 77 20 138/84 97 09/23/20 07:45 09/23/20 09:10 09/23/20 07:45 09/23/20 09:10 09/23/20 07:45 Constitutional: WD/WN, vitals as above Respiratory: normal respiratory effort, lungs clear to auscultation Cardiovascular: RRR, no murmur, no edema Neurologic: follows commands, no focal deficit , cognitive impairment noted, unchanged compared to outpt visit Genitourinary: chronic Oliver catheter in place draining clear yellow urine Results & Data ([facility]) Vital Signs (Past 12 Hours) Vital Signs Temp Pulse Pulse Resp BP BP Pulse Ox 09/23/20 09:10 77 138/84 09/23/20 07:45 36.3 C L 62 20 138/84 97 09/23/20 07:22 58 L 09/23/20 04:15 36.8 C 71 18 159/79 H 95 09/23/20 00:15 62 09/23/20 00:05 36.6 C 76 20 128/75 95 Laboratory Results CBC 09/23/20 Range/Units 06:36 WBC 10.67 (4.8-10.8) K/uL RBC 3.84 L (4.7-6.1) M/uL Hgb 12.6 L (14.0-18.0) g/dL Hct 36.8 L (42-52) % Plt Count 185 (130-400) K/uL Comprehensive Metabolic Panel 09/23/20 Range/Units 06:36 Sodium 136 (136-145) mmol/L Potassium 4.5 (3.5-5.1) mmol/L Chloride 103 (98-107) mmol/L Carbon Dioxide 28 (21-32) mmol/L BUN 36 H (7-18) mg/dl Creatinine 1.14 (0.6-1.4) mg/dl Glucose 146 H (70-99) mg/dl Calcium 7.7 L (8.5-10.1) mg/dl Intake and Output 09/22/20 09/23/20 09/23/20 22:59 06:59 14:59 Intake Total 2100 / 2300 200 / 2300 Output Total 600 / 1775 600 / 1775 Balance 1500 / 525 -400 / 525 Intake: IV 2100 / 2100 OFIRMEV 1,000 mg In 100 ml @ 100 / 100 400 mls/hr IV Q8H PRN Rx#: [id number] Custom Peripheral Pn 2,000 ML 2000 / 2000 In TPN Bag 0 ml @ 83.33 mls/hr IV .Q24H ANDREW Rx#:[id number] Oral 0 / 200 200 / 200 Output: Urine Amount (Catheter) 600 / 1775 600 / 1775 Oliver/Indwelling 600 / 1775 600 / 1775 Other: Other Intake Source NPO Weight 71 kg Weight Measurement Method Built in [facility] Diagnostic Findings Telemetry findings as outlined above EKG performed 09/11/2020 revealed sinus rhythm with diffuse nonspecific repolarization changes, unchanged compared to recent outpatient tracing performed 08/21/2020.
[2020-09-23] MEDS: METOPROLOL TARTRATE 25 MG TAB PO SCH ×2 (11:18→20:56)
[2020-09-23] MEDS: CEFEPIME 2,000 MG in SYRINGE 0 ML IV SCH (12:05)
[2020-09-23] MEDS: ACETAMINOPHEN 1,000 MG/100 ML VIAL IV PRN (13:18)
[2020-09-23] MEDS ORDERED: bisacodyL 10 MG SUPP PR STA (14:49)
--- NOTE | 2020-09-23 14:59 | Surgery Progress Note ---
Date of Service September 23, 2020 Assessment & Plan (1) SBO (small bowel obstruction): Postoperative day #7 status post exploratory laparotomy with release of small bowel obstruction and resection of portion of small bowel Pathology pending Awaiting active bowel function Will administer suppository to try to encourage that as audible peristalsis has improved Continue PPN for now Admission and Anticipated Discharge Date Admission Date: September 11, 2020 Subjective Postoperative day #7 status post release of small bowel obstruction, exploratory laparotomy and partial small bowel resection Patient has not had any nausea or vomiting Tolerated sips and ice chips Has not had flatus or bowel movement yet Abdominal discomfort is unchanged Discomfort is mostly incisional Physical Exam Gastrointestinal (Abdomen): Inspection/Auscultation: + abdomen distended (M ild) and normal bowel sounds Percussion/Palpation: + abdomen tender (Incisional mostly) and abdomen soft Results & Data ([facility]) Vital Signs (Past 12 Hours) Vital Signs Temp Pulse Pulse Resp BP BP Pulse Ox 09/23/20 11:28 36.9 C 89 20 147/78 H 95 09/23/20 09:10 77 138/84 09/23/20 07:45 36.3 C L 62 20 138/84 97 09/23/20 07:22 58 L 09/23/20 04:15 36.8 C 71 18 159/79 H 95 Laboratory Results 09/23/20 09/23/20 09/23/20 Range/Units 11:48 06:36 06:36 WBC 10.67 (4.8-10.8) K/uL RBC 3.84 L (4.7-6.1) M/uL Hgb 12.6 L (14.0-18.0) g/dL Hct 36.8 L (42-52) % MCV 95.8 (80-100) fL MCH 32.8 (25-34) pg MCHC 34.2 (32-36) g/dL RDW Std Deviation 47.1 H (36.4-46.3) fL RDW Coeff of Edgardo 13.5 (11.5-14.5) % Plt Count 185 (130-400) K/uL MPV 10.3 (7.4-10.4) fL Sodium 136 (136-145) mmol/L Potassium 4.5 (3.5-5.1) mmol/L Chloride 103 (98-107) mmol/L Carbon Dioxide 28 (21-32) mmol/L Anion Gap 5.0 (3-11) BUN 36 H (7-18) mg/dl Creatinine 1.14 (0.6-1.4) mg/dl Est Cr Clr Drug Dosing 48.2 ml/min Est GFR ( Amer) 68.1 Est GFR (Non-Af Amer) 58.7 BUN/Creatinine Ratio 31.5 H (10-20) Glucose 146 H (70-99) mg/dl POC Glucose 136 H (70-99) mg/dl Calcium 7.7 L (8.5-10.1) mg/dl Phosphorus 3.2 (2.5-4.9) mg/dl Magnesium 2.2 (1.8-2.4) mg/dl 09/23/20 09/23/20 09/22/20 Range/Units 06:08 01:01 18:00 WBC (4.8-10.8) K/uL RBC (4.7-6.1) M/uL Hgb (14.0-18.0) g/dL Hct (42-52) % MCV (80-100) fL MCH (25-34) pg MCHC (32-36) g/dL RDW Std Deviation (36.4-46.3) fL RDW Coeff of Edgardo (11.5-14.5) % Plt Count (130-400) K/uL MPV (7.4-10.4) fL Sodium (136-145) mmol/L Potassium (3.5-5.1) mmol/L Chloride (98-107) mmol/L Carbon Dioxide (21-32) mmol/L Anion Gap (3-11) BUN (7-18) mg/dl Creatinine (0.6-1.4) mg/dl Est Cr Clr Drug Dosing ml/min Est GFR ( Amer) Est GFR (Non-Af Amer) BUN/Creatinine Ratio (10-20) Glucose (70-99) mg/dl POC Glucose 136 H 150 H 125 H (70-99) mg/dl Calcium (8.5-10.1) mg/dl Phosphorus (2.5-4.9) mg/dl Magnesium (1.8-2.4) mg/dl
[2020-09-23] MEDS ORDERED: Custom Peripheral Pn 2,000 ML in TPN BAG 0 ML IV SCH (16:00)
[2020-09-24] MEDS: MoRPHine SULFATE 4 MG/ML 1 ML CARP\\VIAL IV PRN (04:49)
[2020-09-24] MEDS: HEPARIN SOD 5,000 UNIT/0.5 ML VIAL SQ SCH ×3 (05:51→20:49)
[2020-09-24] MEDS: INSULIN ASPART 100 UNITS/ML 3 ML PEN SC SCH ×5 (05:53→21:50)
[2020-09-24 06:28] LABS: Hemoglobin 12.7 g/dL (14.0-18.0); Mean Corpuscular Hemoglobin 33.5 pg (25-34); Mean Corpuscular Hgb Conc 35.3 g/dL (32-36); Mean Platelet Volume 10.3 fL (7.4-10.4); Platelet Count 216 K/uL (130-400); RDW Coefficient of Variation 13.6 % (11.5-14.5); RDW Standard Deviation 46.9 fL (36.4-46.3); Red Blood Count 3.79 M/uL (4.7-6.1); White Blood Count 9.44 K/uL (4.8-10.8)
[2020-09-24 06:58] LABS: BUN Creatinine Ratio 32.6 (10-20); Creatinine Clr Calc Pharmacy 54.8 ml/min; Est GFR (African American) 80.7; Est GFR (Non-African American) 69.6; Phosphorus 2.8 mg/dl (2.5-4.9); Potassium 4.2 mmol/L (3.5-5.1)
[2020-09-24] MEDS: METOPROLOL TARTRATE 25 MG TAB PO SCH ×2 (07:54→20:49)
--- NOTE | 2020-09-24 09:22 | Pharmacy Report ---
PHA: Parenteral Nutrition Con - Date of Service September 24, 2020 - Scope Pharmacy was consulted on 09/16/20 to manage parenteral nutrition orders for this patient. - Subjective The patient is currently on day # 9of PPN parenteral nutrition for SBO. - Objective Height: 5 ft 9 in Weight: 69.7 kg Diet: Clear Liquid (day 1 of clear liquids) Vascular Access:: peripheral Intake & Output (24hrs):: Intake & Output 09/22/20 09/23/20 09/24/20 09/25/20 06:59 06:59 06:59 06:59 Intake Total 2099 / 2099 2300 / 2300 2320 / 2320 Output Total 1999 / 1999 1775 / 1775 1675 / 1675 Balance 100 / 100 525 / 525 645 / 645 Weight 69.6 kg 71 kg 69.7 kg Laboratory Data (Last 24 Hr):: 09/24/20 05:58 Sodium 135 L Potassium 4.2 Chloride 104 Carbon Dioxide 26 BUN 32 H Creatinine 0.99 Glucose 126 H Calcium 8.0 L Phosphorus 2.8 Magnesium 2.0 Nutrition Assessment:: Please refer to the Notes section of the EMR for the most recent electromechanisms design drafter note. - Assessment Day #9 of PPN Diet advanced to clear liquids but this is day #1 - likely will overlap for 24- 28hrs until diet is tolerated NA+ slightly low - will increase in PPN BSGs elevated - will increase insulin in PPN - Plan For day # 9 of PN administration, the following will be ordered: Macronutrients Amino acids 80 grams/day Dextrose 150 grams/day Lipids 50 grams/day Micronutrients Sodium chloride 80 mEq Sodium acetate 20 mEq Potassium phosphate 27 mMol Calcium gluconate 4.06 mEq Multivitamins 10 mL Trace Elements 1 mL Additional additives: Regular insulin 15 units and thiamine 100mg Total volume 2000 mL to be infused over 24 hrs will provide 1330 kcal/day Final osmolarity 896 mOsm/L (maximum for PPN is 900 mOsm/L) Labs, as indicated, will be ordered per protocol Pharmacy will continue to follow and adjust parenteral nutrition orders on a daily basis. Thank you for allowing us to participate in the care of this patient.
--- NOTE | 2020-09-24 09:42 | Cardiology Progress Note ---
Date of Service September 24, 2020 Assessment & Plan (1) NSVT (nonsustained ventricular tachycardia): No additional episodes of nonsustained ventricular tachycardia noted on telemetry. Predominant rhythm is sinus rhythm with occasional atrial contractions and premature ventricular contractions. A 10 beat run of supraventricular tachycardia was noted at 5:41 AM. Patient has a history of this, with past ablation therapy. EKG this morning reveals sinus rhythm with occasional PACs, nonspecific diffuse T wave flattening, no significant changes to suggest. Continue metoprolol as tolerated from an abdominal standpoint. (2) Status post small bowel resection: General surgery input noted and appreciated. DVT prophylaxis: Continue subcutaneous heparin 5000 units every 8 hours. Admission and Anticipated Discharge Date Admission Date: September 11, 2020 Subjective Mr Gilbert is seen in follow-up of recent episode of nonsustained ventricular tachycardia, history of transcatheter aortic valve implantation. He is comfortable. There is no dementia noted. Portable. TPN infusing. Review of Systems Review of Systems: Unobtainable due to cognitive status Physical Exam Physical Exam: Temp Pulse Resp BP Pulse Ox 36.5 C 67 18 161/78 H 96 09/24/20 07:10 09/24/20 07:10 09/24/20 07:10 09/24/20 07:10 09/24/20 07:10 Constitutional: no distress Respiratory: normal respiratory effort, lungs clear to auscultation Cardiovascular: RRR, no murmur, no edema Gastrointestinal (Abdomen): Midline abdominal incision clean dry and intact, no drainage. No pain on palpation. Neurologic: Moves all 4 extremities, follows commands. Results & Data ([facility]) Vital Signs (Past 12 Hours) Vital Signs Temp Pulse Pulse Pulse Resp BP BP 09/24/20 07:10 36.5 C 67 18 161/78 H 09/24/20 06:00 36.8 C 67 20 142/73 H 09/24/20 03:51 36.5 C 56 L 20 167/77 H 09/23/20 23:37 36.7 C 64 18 142/79 H 09/23/20 23:00 61 Pulse Ox 09/24/20 07:10 96 09/24/20 06:00 94 09/24/20 03:51 95 09/23/20 23:37 95 09/23/20 23:00
--- NOTE | 2020-09-24 10:16 | Surgery Progress Note ---
Date of Service September 24, 2020 Assessment & Plan (1) SBO (small bowel obstruction): Postoperative day #8 status post exploratory laparotomy with release of small bowel obstruction Bowels began to move Despite that I would advance diet very slowly so would continue clear liquids for now Continue to try to ambulate We will repeat suppository today Continue PPN for now Admission and Anticipated Discharge Date Admission Date: September 11, 2020 Subjective Postoperative day #8 status post exploratory laparotomy with release of small bowel obstruction Patient had bowel movement last night. Nursing reports that was large Very little abdominal pain today No vomiting Has tolerated clear liquid diet Physical Exam 2 Gastrointestinal (Abdomen): Inspection/Auscultation: + abdomen distended (less), normal bowel sounds and + abdominal surgical incision (Clean, dry and intact) Percussion/Palpation: + abdomen tender (Last) and abdomen soft Results & Data ([facility]) Vital Signs (Past 12 Hours) Vital Signs Temp Pulse Pulse Pulse Resp BP BP 09/24/20 07:10 36.5 C 67 18 161/78 H 09/24/20 06:00 36.8 C 67 20 142/73 H 09/24/20 03:51 36.5 C 56 L 20 167/77 H 09/23/20 23:37 36.7 C 64 18 142/79 H 09/23/20 23:00 61 Pulse Ox 09/24/20 07:10 96 09/24/20 06:00 94 09/24/20 03:51 95 09/23/20 23:37 95 09/23/20 23:00 Laboratory Results 09/24/20 09/24/20 09/24/20 Range/Units 05:58 05:58 05:50 WBC 9.44 (4.8-10.8) K/uL RBC 3.79 L (4.7-6.1) M/uL Hgb 12.7 L (14.0-18.0) g/dL Hct 36.0 L (42-52) % MCV 95.0 (80-100) fL MCH 33.5 (25-34) pg MCHC 35.3 (32-36) g/dL RDW Std Deviation 46.9 H (36.4-46.3) fL RDW Coeff of Edgardo 13.6 (11.5-14.5) % Plt Count 216 (130-400) K/uL MPV 10.3 (7.4-10.4) fL Sodium 135 L (136-145) mmol/L Potassium 4.2 (3.5-5.1) mmol/L Chloride 104 (98-107) mmol/L Carbon Dioxide 26 (21-32) mmol/L Anion Gap 5.0 (3-11) BUN 32 H (7-18) mg/dl Creatinine 0.99 (0.6-1.4) mg/dl Est Cr Clr Drug Dosing 54.8 ml/min Est GFR ( Amer) 80.7 Est GFR (Non-Af Amer) 69.6 BUN/Creatinine Ratio 32.6 H (10-20) Glucose 126 H (70-99) mg/dl POC Glucose 131 H (70-99) mg/dl Calcium 8.0 L (8.5-10.1) mg/dl Phosphorus 2.8 (2.5-4.9) mg/dl Magnesium 2.0 (1.8-2.4) mg/dl 09/23/20 09/23/20 09/23/20 Range/Units 23:54 17:41 11:48 WBC (4.8-10.8) K/uL RBC (4.7-6.1) M/uL Hgb (14.0-18.0) g/dL Hct (42-52) % MCV (80-100) fL MCH (25-34) pg MCHC (32-36) g/dL RDW Std Deviation (36.4-46.3) fL RDW Coeff of Edgardo (11.5-14.5) % Plt Count (130-400) K/uL MPV (7.4-10.4) fL Sodium (136-145) mmol/L Potassium (3.5-5.1) mmol/L Chloride (98-107) mmol/L Carbon Dioxide (21-32) mmol/L Anion Gap (3-11) BUN (7-18) mg/dl Creatinine (0.6-1.4) mg/dl Est Cr Clr Drug Dosing ml/min Est GFR ( Amer) Est GFR (Non-Af Amer) BUN/Creatinine Ratio (10-20) Glucose (70-99) mg/dl POC Glucose 255 H 129 H 136 H (70-99) mg/dl Calcium (8.5-10.1) mg/dl Phosphorus (2.5-4.9) mg/dl Magnesium (1.8-2.4) mg/dl
[2020-09-24] MEDS ORDERED: bisacodyL 10 MG SUPP PR ONE (10:17)
--- NOTE | 2020-09-24 12:23 | Electrocardiogram Report ---
Test Reason : Blood Pressure : / mmHG Vent. Rate : 063 BPM Atrial Rate : 063 BPM P-R Int : 148 ms QRS Dur : 080 ms QT Int : 414 ms P-R-T Axes : 054 051 049 degrees QTc Int : 423 ms Sinus rhythm with Premature atrial complexes Nonspecific T wave abnormality Abnormal ECG When compared with ECG of 11-SEP-2020 11:27, Premature atrial complexes are now Present Nonspecific T wave abnormality no longer evident in Inferior leads Nonspecific T wave abnormality has replaced inverted T waves in Anterior leads Confirmed by Andrzej Candelaria ([id number]) on 09/24/2020 12:22:40 PM Referred By: Melvin Cooper Confirmed By:Bert Candelaria
--- NOTE | 2020-09-24 15:15 | Hospitalist Progress Note ---
Date of Service September 24, 2020 Assessment & Plan (1) SBO (small bowel obstruction): Patient presented with reports of abdominal pain and decreased bowel movements x 3 days SBO Severe protein-calorie malnutrition in setting of SBO treated with TPN CT ABD/pelvis on admission showed signs of SBO S/P Exploratory laparotomy with lysis of adhesions and release of small-bowel obstruction with partial small bowel resection. by on 09/16/20 Appreciate GI/Surgery help Slowly advance diet as tolerated Continue PPN until increased PO Intake Pain control Encourage ambulation (2) UTI (urinary tract infection): Complicated UTI Urine cx grew Acinetobacter baumanni Completed IV Antibiotic course Chronic Oliver--changed on 09/22/20 Follow-up with urology as outpatient (3) Status post transcatheter aortic valve replacement (TAVR) using bioprosthesis: (4) Mild CAD: Continue aspirin and beta-nicole NSVT Continue metoprolol Appreciate cardiology input (5) Chronic indwelling Oliver catheter: Continue finasteride (6) Alzheimer disease: Continue home medications (7) DVT prophylaxis: Heparin SQ Code Status Full Code Disposition Patient/Family not interested in Rehab Placement Family :Daughter Shazia--[phone] Admission and Anticipated Discharge Date Admission Date: September 11, 2020 Subjective Patient is seen and examined at bedside Had bowel movement yesterday Denies nausea, vomiting today Tolerating liquid diet States having mild pain at surgical site Family at bedside Denies chest pain, dyspnea, dizziness Offers no other complaints Review of Systems Review of Systems: All systems reviewed & are unremarkable except as noted in HPI & below Physical Exam Physical Exam: Physical Exam: Vitals signs as noted above General Appearance:Thin, no apparent distress Head: normocephalic, Atraumatic Eyes: normal inspection, EOMI Neck: supple, Trachea midline Respiratory/Chest: Normal breath sounds, CTA, No accessory muscle use Cardiovascular: S1, S2, No murmur Abdomen/GI:Soft, Non tender, + Vertical surgical scar, asmita, Bowel sounds present Extremities/Musculoskelatal:normal inspection, no edema Neurologic/Psych:Alert, awake, grossly no focal neurological deficits Skin: normal color, warm Results & Data Results & Data ([facility]) Vital Signs (Past 12 Hours) Vital Signs Temp Pulse Pulse Resp BP Pulse Ox 09/24/20 10:57 36.5 C 64 18 147/82 H 95 02/24/21 09:00 66 09/24/20 07:10 36.5 C 67 18 161/78 H 96 09/24/20 06:00 36.8 C 67 20 142/73 H 94 09/24/20 03:51 36.5 C 56 L 20 167/77 H 95 Laboratory Results Short CBC 09/24/20 Range/Units 05:58 WBC 9.44 (4.8-10.8) K/uL Hgb 12.7 L (14.0-18.0) g/dL Hct 36.0 L (42-52) % Plt Count 216 (130-400) K/uL BMP 09/24/20 05:58 Sodium 135 L Potassium 4.2 Chloride 104 Carbon Dioxide 26 BUN 32 H Creatinine 0.99 Glucose 126 H Calcium 8.0 L
[2020-09-24] MEDS ORDERED: Custom Peripheral Pn 2,000 ML in TPN BAG 0 ML IV SCH (16:00)
[2020-09-24] MEDS ORDERED: Nursing to Pharmacy Communication SCH (21:00)
[2020-09-25] MEDS: HEPARIN SOD 5,000 UNIT/0.5 ML VIAL SQ SCH ×3 (06:39→20:58)
--- NOTE | 2020-09-25 07:47 | Surgery Progress Note ---
Date of Service September 25, 2020 Assessment & Plan (1) Status post small bowel resection: Postoperative day #9 status post exploratory laparotomy with release of small bowel obstruction and partial small bowel resection Peristalsis is returning Would advance to a full liquid diet Continue PPN for now Continue ambulation Admission and Anticipated Discharge Date Admission Date: September 11, 2020 Subjective Postoperative day #9 status post exploratory laparotomy with partial small bowel resection and release of small bowel obstruction Patient had 2 bowel movements this morning There has been no nausea or vomiting Has been tolerating clear liquid diet Denies abdominal pain Physical Exam Gastrointestinal (Abdomen): Inspection/Auscultation: + abdomen distended (Mild), normal bowel sounds and + abdominal surgical incision (Clean, dry and intact) Percussion/Palpation: + abdomen tender (Minimal incisional) and abdomen soft Results & Data ([facility]) Vital Signs (Past 12 Hours) Vital Signs Temp Pulse Pulse Pulse Resp BP Pulse Ox 09/25/20 07:18 36.4 C L 50 L 16 145/81 H 97 09/25/20 03:31 36.4 C L 79 18 148/76 H 97 09/25/20 01:08 64 09/24/20 22:53 36.4 C L 59 L 18 138/77 97 09/24/20 20:48 81 147/80 H Laboratory Results 09/24/20 09/24/20 09/24/20 Range/Units 20:57 16:45 11:44 POC Glucose 129 H 118 H 117 H (70-99) mg/dl
[2020-09-25] MEDS: INSULIN ASPART 100 UNITS/ML 3 ML PEN SC SCH ×4 (09:04→20:50)
[2020-09-25] MEDS: METOPROLOL TARTRATE 25 MG TAB PO SCH ×2 (09:05→20:57)
[2020-09-25] MEDS: ONDANSETRON INJ 2 MG/ML 2 ML VIAL IV PRN (09:16)
--- NOTE | 2020-09-25 09:30 | Pharmacy Report ---
PHA: Parenteral Nutrition Con - Date of Service September 25, 2020 - Scope Pharmacy was consulted on 09/16/20 to manage parenteral nutrition orders for this patient. - Subjective The patient is currently on day # 10 of PPN parenteral nutrition for SBO. - Objective Height: 5 ft 9 in Weight: 69.7 kg Diet: Full Liquid (diet advanced from clears to full liquids) Intake & Output (24hrs):: Intake & Output 09/23/20 09/24/20 09/25/20 09/26/20 06:59 06:59 06:59 06:59 Intake Total 2300 / 2300 2320 / 2320 1999 / 1999 Output Total 1775 / 1775 1675 / 1675 1502 / 1502 Balance 525 / 525 645 / 645 498 / 498 Weight 71 kg 69.7 kg 69.7 kg Nutrition Assessment:: Please refer to the Notes section of the EMR for the most recent telephone messenger note. - Plan Day #10 of PPN Diet advanced to clear liquids yesterday and again advanced to full liquids today. * Pt tolerated 50% of clear liquids breakfast and lunch and 25% of clear liquids dinner 2/24 * Diet advanced to full liquids today - however, patient did not eat any breakfast secondary to nausea. Will continue to overlap PPN + diet. * Will start to taper PPN slowly since PO intake is still variable. Start with 20% reduction in dextrose and lipids only. Continue max protein No updated labs today- ordered for tomorrow. Will continue same micronutrients as 2/24 PPN, however, will dec insulin in PPN as dextrose is decreasing - Plan For day # 10 of PN administration, the following will be ordered: Macronutrients Amino acids 80 grams/day Dextrose 120 grams/day Lipids 40 grams/day Micronutrients Sodium chloride 80 mEq Sodium acetate 20 mEq Potassium phosphate 27 mMol Calcium gluconate 4.06 mEq Multivitamins 10 mL Trace Elements 1 mL Additional additives: Regular insulin 10 units and thiamine 100mg Total volume 1850 mL to be infused over 24 hrs will provide 1128 kcal/day Final osmolarity 879 mOsm/L (maximum for PPN is 900 mOsm/L) Labs, as indicated, will be ordered per protocol Pharmacy will continue to follow and adjust parenteral nutrition orders on a daily basis. Thank you for allowing us to participate in the care of this patient.
--- NOTE | 2020-09-25 10:08 | Cardiology Progress Note ---
Date of Service September 25, 2020 Assessment & Plan (1) NSVT (nonsustained ventricular tachycardia): Continue oral metoprolol. DVT prophylaxis: Continue subcutaneous heparin. 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 He is on one-to-one supervision related to his cognitive impairment. Nursing reports that he had a large bowel movement overnight last night. He remains on TPN. He is tolerating oral metoprolol. Telemetry reveals sinus rhythm in the 60s with occasional PACs, no recurrence of nonsustained VT. Review of Systems Review of Systems: Unobtainable due to cognitive status Physical Exam Physical Exam: Temp Pulse Resp BP Pulse Ox 36.4 C L 50 L 16 145/81 H 97 09/25/20 07:18 09/25/20 07:18 09/25/20 07:18 09/25/20 07:18 09/25/20 07:18 Constitutional: Cognitive impairment, no acute distress Respiratory: normal respiratory effort, lungs clear to auscultation Cardiovascular: RRR, no murmur, no edema Gastrointestinal (Abdomen): Soft, nontender, well-healing midline incision without drainage Neurologic: Moves all 4 extremities on command Results & Data ([facility]) Vital Signs (Past 12 Hours) Vital Signs Temp Pulse Pulse Resp BP Pulse Ox 09/25/20 07:18 36.4 C L 50 L 16 145/81 H 97 09/25/20 03:31 36.4 C L 79 18 148/76 H 97 09/25/20 01:08 64 09/24/20 22:53 36.4 C L 59 L 18 138/77 97
[2020-09-25] MEDS: ACETAMINOPHEN 325 MG TAB PO PRN (15:02)
[2020-09-25] MEDS ORDERED: TPN IV SCH (16:00)
[2020-09-25] MEDS ORDERED: PERIPHERAL PN IV SCH (16:00)
--- NOTE | 2020-09-25 16:55 | Hospitalist Progress Note ---
Date of Service September 25, 2020 Assessment & Plan (1) SBO (small bowel obstruction): Patient presented with reports of abdominal pain and decreased bowel movements x 3 days SBO Severe protein-calorie malnutrition in setting of SBO treated with TPN CT ABD/pelvis on admission showed signs of SBO S/P Exploratory laparotomy with lysis of adhesions and release of small-bowel obstruction with partial small bowel resection. by on 09/16/20 Appreciate GI/Surgery help Advance to full liquid diet today Continue PPN until increased PO Intake Pain control Encourage to ambulate Surgery following (2) UTI (urinary tract infection): Complicated UTI Urine cx grew Acinetobacter baumanni Completed IV Antibiotic course Chronic Oliver--changed on 09/22/20 Follow-up with urology as outpatient (3) Status post transcatheter aortic valve replacement (TAVR) using bioprosthesis: (4) Mild CAD: Continue aspirin and beta-nicole NSVT Continue metoprolol Appreciate cardiology input (5) Chronic indwelling Oliver catheter: Continue finasteride (6) Alzheimer disease: Continue home medications (7) DVT prophylaxis: Heparin SQ Code Status Full Code Disposition Patient/Family not interested in Rehab Placement Family :Daughter Shazia--[phone] Admission and Anticipated Discharge Date Admission Date: September 11, 2020 Subjective Patient is seen and examined at bedside States having abdominal discomfort at surgical site Had bowel movement overnight and this morning Family at bedside Oral intake poor Denies chest pain, dyspnea, dizziness on PPN Review of Systems Review of Systems: All systems reviewed & are unremarkable except as noted in HPI & below Physical Exam Physical Exam: Physical Exam: Vitals signs as noted above General Appearance:Thin, no apparent distress Head: normocephalic, Atraumatic Eyes: normal inspection, EOMI Neck: supple, Trachea midline Respiratory/Chest: Normal breath sounds, CTA, No accessory muscle use Cardiovascular: S1, S2, No murmur Abdomen/GI:Soft, Non tender, + Vertical surgical scar, asmita, Bowel sounds present Extremities/Musculoskelatal:normal inspection, no edema Neurologic/Psych:Alert, awake, grossly no focal neurological deficits Skin: normal color, warm Results & Data Results & Data ([facility]) Vital Signs (Past 12 Hours) Vital Signs Temp Pulse Pulse Resp BP Pulse Ox 09/25/20 15:17 36.3 C L 98 H 16 105/70 94 09/25/20 14:51 70 09/25/20 13:40 59 L 09/25/20 11:21 36.3 C L 55 L 16 130/66 97 09/25/20 07:18 36.4 C L 50 L 16 145/81 H 97
[2020-09-25] MEDS: MoRPHine SULFATE 4 MG/ML 1 ML CARP\\VIAL IV PRN (20:51)
[2020-09-26] MEDS: HEPARIN SOD 5,000 UNIT/0.5 ML VIAL SQ SCH ×3 (06:17→21:24)
[2020-09-26 07:33] LABS: Hematocrit (blood only) 38.8 % (42-52); Hemoglobin 13.5 g/dL (14.0-18.0); Mean Corpuscular Hemoglobin 33.1 pg (25-34); Mean Corpuscular Hgb Conc 34.8 g/dL (32-36); Mean Corpuscular Volume 95.1 fL (80-100); Mean Platelet Volume 10.5 fL (7.4-10.4); Platelet Count 251 K/uL (130-400); RDW Coefficient of Variation 13.9 % (11.5-14.5); Red Blood Count 4.08 M/uL (4.7-6.1)
--- NOTE | 2020-09-26 07:34 | Surgery Progress Note ---
Date of Service September 26, 2020 Assessment & Plan (1) SBO (small bowel obstruction): Postoperative day #1 status post release of small bowel obstruction Pathology revealed no evidence of malignancy Tolerated full liquid diet but would go slow his abdomen still remains mildly distended Would continue with full liquid diet today If continues to tolerate no bowel movements could advance tomorrow Admission and Anticipated Discharge Date Admission Date: September 11, 2020 Subjective Postoperative day number 10 status post partial small bowel resection with for release of small bowel obstruction Had bowel movements yesterday Tolerated full liquid diet Had no nausea or vomiting according to nursing Physical Exam 2 Gastrointestinal (Abdomen): Inspection/Auscultation: + abdomen distended (Mild and unchanged), normal bowel sounds and + abdominal surgical incision (Clean, dry and intact) Percussion/Palpation: abdomen soft Results & Data ([facility]) Vital Signs (Past 12 Hours) Vital Signs Temp Pulse Resp BP Pulse Ox 09/26/20 07:30 36.6 C 83 16 136/70 96 09/26/20 03:22 36.5 C 80 18 141/93 H 96 09/25/20 22:49 36.5 C 74 117/72 95
[2020-09-26] MEDS: METOPROLOL TARTRATE 25 MG TAB PO SCH ×2 (07:40→21:24)
[2020-09-26 07:59] LABS: BUN Creatinine Ratio 34.6 (10-20); Calcium 8.1 mg/dl (8.5-10.1); Creatinine Clr Calc Pharmacy 52.6 ml/min; Est GFR (Non-African American) 66.4; Magnesium 1.8 mg/dl (1.8-2.4); Potassium 3.8 mmol/L (3.5-5.1)
[2020-09-26] MEDS: INSULIN ASPART 100 UNITS/ML 3 ML PEN SC SCH ×4 (08:25→20:24)
--- NOTE | 2020-09-26 10:15 | Cardiology Progress Note ---
Date of Service September 26, 2020 Assessment & Plan (1) NSVT (nonsustained ventricular tachycardia): Telemetry reveals sinus rhythm in the 70s with rare brief episodes of SVT, occasional PACs, PVCs. Continue metoprolol. Admission and Anticipated Discharge Date Admission Date: September 11, 2020 Subjective Mr Gilbert is seen in follow up of a previous asymptomatic brief episode of NSVT an history of PERI. Baseline cognitive impairment noted. Review of Systems Review of Systems: All systems reviewed & are unremarkable except as noted in HPI & below Physical Exam Physical Exam: Temp Pulse Resp BP Pulse Ox 36.6 C 77 16 136/70 96 09/26/20 07:30 09/26/20 08:49 09/26/20 07:30 09/26/20 07:30 09/26/20 07:30 Constitutional: no acute distress Respiratory: normal respiratory effort, lungs clear to auscultation Cardiovascular: RRR, no murmur, no edema Gastrointestinal (Abdomen): Midline sternotomy incision, without drainage Neurologic: cognitive impairment unchanged, not focal deficits Results & Data ([facility]) Vital Signs (Past 12 Hours) Vital Signs Temp Pulse Pulse Resp BP Pulse Ox 09/26/20 08:49 77 09/26/20 07:30 36.6 C 83 16 136/70 96 09/26/20 03:22 36.5 C 80 18 141/93 H 96 09/25/20 22:49 36.5 C 74 117/72 95
[2020-09-26] MEDS: ACETAMINOPHEN 325 MG TAB PO PRN (10:25)
--- NOTE | 2020-09-26 11:43 | Pharmacy Report ---
PHA: Parenteral Nutrition Con - Date of Service September 26, 2020 - Scope Pharmacy was consulted on 09/15/20 to manage parenteral nutrition orders for this patient. - Subjective The patient is currently on day 11 of peripheral parenteral nutrition for prolonged NPO status secondary to SBO. - Objective Height: 5 ft 9 in Weight: 69.7 kg Diet: Full Liquid (diet advanced from clears to full liquids) Intake & Output (24hrs):: Intake & Output 09/24/20 09/25/20 09/26/20 09/27/20 06:59 06:59 06:59 06:59 Intake Total 2320 / 2320 1999 / 1999 2119 / 2119 Output Total 1675 / 1675 1502 / 1502 1300 / 1300 Balance 645 / 645 498 / 498 820 / 820 - / -1 Weight 69.7 kg 69.7 kg 69.7 kg 69.7 kg Laboratory Data (Last 24 Hr):: 09/26/20 06:44 Sodium 135 L Potassium 3.8 Chloride 104 Carbon Dioxide 25 BUN 36 H Creatinine 1.03 Glucose 134 H Calcium 8.1 L Magnesium 1.8 Nutrition Assessment:: Please refer to the Notes section of the EMR for the most recent oracle ebs consultant note. - Assessment * Diet advanced to full liquid diet yesterday - ~61 g of carbohydrates documented yesterday * Minimal PO intake with breakfast today * Continue to overlap PPN with diet * Further reduce dextrose and lipids today * Continue full protein at this time * POC BSG of 80 mg/dL this morning -> will remove insulin from PPN today given reasonable BSGs and further decrease in dextrose content in PPN * Electrolytes all stable - magnesium/potassium trending down so will increase today * Will reorder phosphorus level for tomorrow - Plan For day 11 of PN administration, the following will be ordered: Macronutrients Amino acids 80 grams/day Dextrose 100 grams/day Lipids 25 grams/day Micronutrients Sodium chloride 80 mEq Sodium acetate 30 mEq Potassium phosphate 30 mMol Potassium chloride 20 mEq Magnesium sulfate 4.06 mEq Calcium gluconate 4.65 mEq Multivitamins 10 mL Trace Elements 1 mL Additional additives: thiamine 100 mg Total volume 1800 mL to be infused over 24 hrs will provide 910 kcal/day Final osmolarity 877 mOsm/L (maximum for PPN is 900 mOsm/L) Labs, as indicated, will be ordered per protocol Pharmacy will continue to follow and adjust parenteral nutrition orders on a daily basis. Thank you for allowing us to participate in the care of this patient.
[2020-09-26] MEDS: ONDANSETRON INJ 2 MG/ML 2 ML VIAL IV PRN (12:40)
--- NOTE | 2020-09-26 15:13 | XRay Report ---
XR KUB/Abdomen 1 view CLINICAL HISTORY: Nausea, R/O Obstruction COMPARISON STUDY: 09/16/2020 FINDINGS: There are postsurgical changes with anterior skin asmita. There are right upper quadrant s urgical clips consistent with a prior cholecystectomy. There are dilated small bowel loops measuring up to 5 cm in diameter. This is less distended on the preceding study. IMPRESSION: 1. Persistent but slightly decreased pathologic small bowel dilatation. ACT 112: Negative or not required by law. Electronically signed by: Garry Eastman M.D. 09/26/2020 3:12 PM
--- NOTE | 2020-09-26 15:50 | Hospitalist Progress Note ---
Date of Service September 26, 2020 Assessment & Plan (1) SBO (small bowel obstruction): Patient presented with reports of abdominal pain and decreased bowel movements x 3 days SBO Severe protein-calorie malnutrition in setting of SBO treated with TPN CT ABD/pelvis on admission showed signs of SBO S/P Exploratory laparotomy with lysis of adhesions and release of small-bowel obstruction with partial small bowel resection. by on 09/16/20 Appreciate GI/Surgery help Continue full liquid diet for now Continue PPN until increased PO Intake Pain control Encourage to ambulate Surgery following Poor oral intake KUB today showed Persistent but slightly decreased pathologic small bowel dilatation (2) UTI (urinary tract infection): Complicated UTI Urine cx grew Acinetobacter baumanni Completed IV Antibiotic course Chronic Oliver--changed on 09/22/20 Follow-up with urology as outpatient (3) Status post transcatheter aortic valve replacement (TAVR) using bioprosthesis: (4) Mild CAD: Continue aspirin and beta-nicole NSVT Continue metoprolol Appreciate cardiology input (5) Chronic indwelling Oliver catheter: Continue finasteride (6) Alzheimer disease: Continue home medications (7) DVT prophylaxis: Heparin SQ Code Status Full Code Disposition Patient/Family not interested in Rehab Placement Family :Daughter Shazia--[phone] Admission and Anticipated Discharge Date Admission Date: September 11, 2020 Subjective Patient is seen and examined at bedside Sitting in chair comfortably this morning Continues to have poor appetite States feeling tired No significant abdominal pain during my encounter Updated patient's at bedside Had PT earlier today Denies chest pain, dyspnea, dizziness on PPN KUB today showed Persistent but slightly decreased pathologic small bowel dilatation Review of Systems Review of Systems: All systems reviewed & are unremarkable except as noted in HPI & below Physical Exam Physical Exam: Physical Exam: Vitals signs as noted above General Appearance:Thin, no apparent distress Head: normocephalic, Atraumatic Eyes: normal inspection, EOMI Neck: supple, Trachea midline Respiratory/Chest: Normal breath sounds, CTA, No accessory muscle use Cardiovascular: S1, S2, No murmur Abdomen/GI:Soft, Non tender, + Vertical surgical scar, asmita, Bowel sounds present Extremities/Musculoskelatal:normal inspection, no edema Neurologic/Psych:Alert, awake, grossly no focal neurological deficits Skin: normal color, warm Results & Data Results & Data ([facility]) Vital Signs (Past 12 Hours) Vital Signs Temp Pulse Pulse Resp BP Pulse Ox 09/26/20 15:27 75 09/26/20 14:07 36.3 C L 89 18 121/67 95 09/26/20 08:49 77 09/26/20 07:30 36.6 C 83 16 136/70 96 Laboratory Results Short CBC 09/26/20 Range/Units 06:44 WBC 9.80 (4.8-10.8) K/uL Hgb 13.5 L (14.0-18.0) g/dL Hct 38.8 L (42-52) % Plt Count 251 (130-400) K/uL BMP 09/26/20 06:44 Sodium 135 L Potassium 3.8 Chloride 104 Carbon Dioxide 25 BUN 36 H Creatinine 1.03 Glucose 134 H Calcium 8.1 L
[2020-09-26] MEDS ORDERED: Custom Peripheral Pn 1,800 ML in TPN BAG 0 ML IV SCH (16:00)
[2020-09-27] MEDS ORDERED: FAMOTIDINE 20 MG in SYRINGE 3 ML IV STA (01:54)
[2020-09-27] MEDS ORDERED: ACETAMINOPHEN 325 MG TAB PO STA (01:55)
[2020-09-27] MEDS: HEPARIN SOD 5,000 UNIT/0.5 ML VIAL SQ SCH ×3 (05:44→21:19)
[2020-09-27 06:26] LABS: BUN Creatinine Ratio 34.2 (10-20); Calcium 7.2 mg/dl (8.5-10.1); Creatinine Clr Calc Pharmacy 53.1 ml/min; Est GFR (African American) 77.9; Est GFR (Non-African American) 67.2; Phosphorus 2.8 mg/dl (2.5-4.9); Potassium 3.9 mmol/L (3.5-5.1)
[2020-09-27] MEDS: INSULIN ASPART 100 UNITS/ML 3 ML PEN SC SCH ×4 (08:32→21:33)
[2020-09-27] MEDS: METOPROLOL TARTRATE 25 MG TAB PO SCH ×2 (08:33→21:19)
--- NOTE | 2020-09-27 11:47 | Surgery Progress Note ---
Date of Service September 27, 2020 Assessment & Plan (1) SBO (small bowel obstruction): Postoperative day #11 status post release of small bowel obstruction Pathology revealed no evidence of malignancy Tolerated full liquid diet. Now having bowel movements. Will advance to regular diet today. Admission and Anticipated Discharge Date Admission Date: September 11, 2020 Subjective Patient is seen and examined at bedside is at bedside Continues to have poor appetite No complaints of pain Able to eat 5 bowel movements recorded Review of Systems Review of Systems: Unobtainable due to cognitive status Physical Exam Constitutional: WD/WN, vitals as above Respiratory: normal respiratory effort, lungs clear to auscultation Cardiovascular: Rate/Rhythm: regular rhythm Gastrointestinal (Abdomen): Inspection/Auscultation: abdomen normal to inspection, normal bowel sounds and + abdominal surgical incision (clean and intact); abdomen not distended Percussion/Palpation: abdomen soft; abdomen nontender and no guarding Results & Data ([facility]) Vital Signs (Past 12 Hours) Vital Signs Temp Pulse Pulse Pulse Resp BP Pulse Ox 09/27/20 11:00 36.3 C L 83 18 130/74 94 09/27/20 09:08 67 09/27/20 06:46 36.5 C 94 H 18 131/57 L 95 09/27/20 03:45 36.5 C 78 18 120/68 96 09/27/20 00:52 59 L Laboratory Results Abnormal lab results 09/26/20 09/26/20 09/27/20 Range/Units 16:17 20:22 05:34 BUN 35 H (7-18) mg/dl BUN/Creatinine Ratio 34.2 H (10-20) Glucose 141 H (70-99) mg/dl POC Glucose 132 H 119 H (70-99) mg/dl Calcium 7.2 L (8.5-10.1) mg/dl 09/27/20 09/27/20 Range/Units 07:24 11:19 BUN (7-18) mg/dl BUN/Creatinine Ratio (10-20) Glucose (70-99) mg/dl POC Glucose 129 H 133 H (70-99) mg/dl Calcium (8.5-10.1) mg/dl
[2020-09-27] MEDS: ACETAMINOPHEN 325 MG TAB PO PRN (13:58)
--- NOTE | 2020-09-27 14:24 | Hospitalist Progress Note ---
Date of Service September 27, 2020 Assessment & Plan (1) SBO (small bowel obstruction): Patient presented with reports of abdominal pain and decreased bowel movements x 3 days SBO Severe protein-calorie malnutrition in setting of SBO treated with TPN CT ABD/pelvis on admission showed signs of SBO S/P Exploratory laparotomy with lysis of adhesions and release of small-bowel obstruction with partial small bowel resection. by on 09/16/20 Appreciate GI/Surgery help Continue PPN until PO Intake improves Pain control Encourage to ambulate Surgery following Advanced to regular diet today (2) UTI (urinary tract infection): Complicated UTI Urine cx grew Acinetobacter baumanni Completed IV Antibiotic course Chronic Oliver--changed on 09/22/20 Follow-up with urology as outpatient (3) Status post transcatheter aortic valve replacement (TAVR) using bioprosthesis: (4) Mild CAD: Continue aspirin and beta-nicole NSVT Continue metoprolol Appreciate cardiology input (5) Chronic indwelling Oliver catheter: Continue finasteride (6) Alzheimer disease: Continue home medications (7) DVT prophylaxis: Heparin SQ Code Status Full Code Disposition Patient/Family not interested in Rehab Placement Family :Daughter Shazia--[phone] Admission and Anticipated Discharge Date Admission Date: September 11, 2020 Subjective Patient is seen and examined at bedside No new complaints Poor oral intake Abdominal pain is controlled Had bowel movements Family at bedside Denies chest pain, dyspnea, dizziness Advanced to a regular diet today Review of Systems Review of Systems: All systems reviewed & are unremarkable except as noted in HPI & below Physical Exam Physical Exam: Physical Exam: Vitals signs as noted above General Appearance:Thin, no apparent distress Head: normocephalic, Atraumatic Eyes: normal inspection, EOMI Neck: supple, Trachea midline Respiratory/Chest: Normal breath sounds, CTA, No accessory muscle use Cardiovascular: S1, S2, No murmur Abdomen/GI:Soft, Non tender, + Vertical surgical scar, asmita, Bowel sounds present Extremities/Musculoskelatal:normal inspection, no edema Neurologic/Psych:Alert, awake, grossly no focal neurological deficits Skin: normal color, warm Results & Data Results & Data ([facility]) Vital Signs (Past 12 Hours) Vital Signs Temp Pulse Pulse Pulse Resp BP Pulse Ox 09/27/20 11:00 36.3 C L 83 18 130/74 94 09/27/20 09:08 67 09/27/20 06:46 36.5 C 94 H 18 131/57 L 95 09/27/20 03:45 36.5 C 78 18 120/68 96 Laboratory Results [facility] 09/27/20 05:34 Sodium 137 Potassium 3.9 Chloride 107 Carbon Dioxide 23 BUN 35 H Creatinine 1.02 Glucose 141 H Calcium 7.2 L
[2020-09-27] MEDS ORDERED: Custom Peripheral Pn 1,800 ML in TPN BAG 0 ML IV SCH (16:00)
[2020-09-28] MEDS: HEPARIN SOD 5,000 UNIT/0.5 ML VIAL SQ SCH ×3 (05:30→21:01)
[2020-09-28 06:34] LABS: Hematocrit (blood only) 35.6 % (42-52); Hemoglobin 12.3 g/dL (14.0-18.0); Mean Corpuscular Hgb Conc 34.6 g/dL (32-36); Mean Corpuscular Volume 95.4 fL (80-100); Mean Platelet Volume 9.5 fL (7.4-10.4); Platelet Count 246 K/uL (130-400); RDW Coefficient of Variation 14.4 % (11.5-14.5); RDW Standard Deviation 49.6 fL (36.4-46.3); Red Blood Count 3.73 M/uL (4.7-6.1); White Blood Count 8.18 K/uL (4.8-10.8)
[2020-09-28 07:12] LABS: BUN Creatinine Ratio 36.9 (10-20); Bilirubin,Total 0.4 mg/dl (0.2-1); Calcium 7.4 mg/dl (8.5-10.1); Creatinine Clr Calc Pharmacy 58.9 ml/min; Est GFR (African American) 88.2; Est GFR (Non-African American) 76.1; Magnesium 1.8 mg/dl (1.8-2.4); Potassium 3.5 mmol/L (3.5-5.1)
[2020-09-28] MEDS: METOPROLOL TARTRATE 25 MG TAB PO SCH ×2 (07:24→21:01)
[2020-09-28] MEDS: INSULIN ASPART 100 UNITS/ML 3 ML PEN SC SCH ×4 (08:19→21:08)
--- NOTE | 2020-09-28 12:29 | Hospitalist Progress Note ---
Date of Service September 28, 2020 Assessment & Plan (1) SBO (small bowel obstruction): Patient presented with reports of abdominal pain and decreased bowel movements x 3 days SBO Severe protein-calorie malnutrition in setting of SBO treated with TPN CT ABD/pelvis on admission showed signs of SBO S/P Exploratory laparotomy with lysis of adhesions and release of small-bowel obstruction with partial small bowel resection. by on 09/16/20 Appreciate GI/Surgery help Received PPN Pain control Encourage to ambulate Surgery following Tolerating regular diet Transaminitis Likely due to PPN Hold PPN today Tolerating regular diet Check Liver USD Monitor LFTs (2) UTI (urinary tract infection): Complicated UTI Urine cx grew Acinetobacter baumanni Completed IV Antibiotic course Chronic Oliver--changed on 09/22/20 Follow-up with urology as outpatient (3) Status post transcatheter aortic valve replacement (TAVR) using bioprosthesis: (4) Mild CAD: Continue aspirin and beta-nicole NSVT Continue metoprolol Appreciate cardiology input (5) Chronic indwelling Oliver catheter: Continue finasteride (6) Alzheimer disease: Continue home medications (7) DVT prophylaxis: Heparin SQ Code Status Full Code Disposition Patient/Family not interested in Rehab Placement Family :Daughter Shazia--[phone] Admission and Anticipated Discharge Date Admission Date: September 11, 2020 Subjective Patient is seen and examined at bedside Tolerated breakfast well Appetite better No significant Abdominal pain Had bowel movements Denies chest pain, dyspnea, dizziness Noted Transaminitis on labs Review of Systems Review of Systems: All systems reviewed & are unremarkable except as noted in HPI & below Physical Exam Physical Exam: Physical Exam: Vitals signs as noted above General Appearance:Thin, no apparent distress Head: normocephalic, Atraumatic Eyes: normal inspection, EOMI Neck: supple, Trachea midline Respiratory/Chest: Normal breath sounds, CTA, No accessory muscle use Cardiovascular: S1, S2, No murmur Abdomen/GI:Soft, Non tender, + Vertical surgical scar, asmita, Bowel sounds present Extremities/Musculoskelatal:normal inspection, no edema Neurologic/Psych:Alert, awake, grossly no focal neurological deficits Skin: normal color, warm Results & Data Results & Data [facility]) Vital Signs (Past 12 Hours) Vital Signs Temp Pulse Resp BP Pulse Ox 09/28/20 11:26 36.9 C 68 16 123/74 95 09/28/20 07:20 36.6 C 85 16 113/67 94 09/28/20 04:07 36.5 C 82 18 116/80 94 Laboratory Results Short CBC 09/28/20 Range/Units 06:21 WBC 8.18 (4.8-10.8) K/uL Hgb 12.3 L (14.0-18.0) g/dL Hct 35.6 L (42-52) % Plt Count 246 (130-400) K/uL BMP 09/28/20 06:21 Sodium 138 Potassium 3.5 Chloride 109 H Carbon Dioxide 24 BUN 34 H Creatinine 0.92 Glucose 126 H Calcium 7.4 L Liver Function 09/28/20 Range/Units 06:21 Total Bilirubin 0.4 (0.2-1) mg/dl AST 232 H (15-37) U/L ALT 301 H (12-78) U/L Alkaline Phosphatase 256 H (45-117) U/L Albumin 2.0 L (3.4-5.0) gm/dl
[2020-09-28] MEDS ORDERED: BISMUTH SUBSALICYLATE 262 MG CHEW PO PRN (12:59)
--- NOTE | 2020-09-28 13:02 | Surgery Progress Note ---
Date of Service September 28, 2020 Assessment & Plan (1) Elevated LFTs: Believed to be secondary to PPN which is being held. Continue to monitor. (2) SBO (small bowel obstruction): POD#12 expl lap and ADDISON for SBO Bowels functioning. On regular diet. Low appetite - holding of PPN may help stimulate appetite. Concerns re diarrhea/ incontinence - will try pepto bismol today. Admission and Anticipated Discharge Date Admission Date: September 11, 2020 Subjective at bedside. His appetite is still low. States he worries that when he eats, he is incontinent of stool. No pain. Physical Exam Constitutional: WD/WN, vitals as above Respiratory: normal respiratory effort, lungs clear to auscultation Cardiovascular: Rate/Rhythm: regular rhythm Gastrointestinal (Abdomen): Inspection/Auscultation: abdomen normal to inspection, normal bowel sounds and + abdominal surgical incision (clean and intact); abdomen not distended Percussion/Palpation: abdomen soft; abdomen nontender and no guarding Results & Data ([facility]) Vital Signs (Past 12 Hours) Vital Signs Temp Pulse Resp BP Pulse Ox 09/28/20 11:26 36.9 C 68 16 123/74 95 09/28/20 07:20 36.6 C 85 16 113/67 94 09/28/20 04:07 36.5 C 82 18 116/80 94 Laboratory Results Abnormal lab results 09/27/20 09/27/20 09/28/20 Range/Units 16:40 20:11 06:21 RBC 3.73 L (4.7-6.1) M/uL Hgb 12.3 L (14.0-18.0) g/dL Hct 35.6 L (42-52) % RDW Std Deviation 49.6 H (36.4-46.3) fL Chloride (98-107) mmol/L BUN (7-18) mg/dl BUN/Creatinine Ratio (10-20) Glucose (70-99) mg/dl POC Glucose 121 H 135 H (70-99) mg/dl Calcium (8.5-10.1) mg/dl AST (15-37) U/L ALT (12-78) U/L Alkaline Phosphatase (45-117) U/L Albumin (3.4-5.0) gm/dl 09/28/20 09/28/2009/28/21 Range/Units 06:21 07:31 11:08 RBC (4.7-6.1) M/uL Hgb (14.0-18.0) g/dL Hct (42-52) % RDW Std Deviation (36.4-46.3) fL Chloride 109 H (98-107) mmol/L BUN 34 H (7-18) mg/dl BUN/Creatinine Ratio 36.9 H (10-20) Glucose 126 H (70-99) mg/dl POC Glucose 129 H 124 H (70-99) mg/dl Calcium 7.4 L (8.5-10.1) mg/dl AST 232 H (15-37) U/L ALT 301 H (12-78) U/L Alkaline Phosphatase 256 H (45-117) U/L Albumin 2.0 L (3.4-5.0) gm/dl
--- NOTE | 2020-09-28 13:08 | Ultrasound Report ---
US liver CLINICAL HISTORY: Transaminitis COMPARISON STUDY: CT of the abdomen and pelvis September 11, 2020. FINDINGS: This exam is compromised by suboptimal penetration. Pneumobilia is suspected. This is vidhi r shown on prior abdominal CT. There is no significant biliary ductal dilatation status post cholecys tectomy. The common bile duct measures 5 mm in caliber. The pancreas is obscured by overlying bowel g as. There is no right hydronephrosis. Right renal cortical and parapelvic cysts are noted. Trace righ t perinephric fluid is present. A right pleural effusion is incidentally noted. IMPRESSION: 1. No significant biliary ductal dilatation status post cholecystectomy. Redemonstration of pneumobil ia. 2. Obscured pancreas due to overlying bowel gas. 3. Right pleural effusion. ACT 112: Negative or not required by law. Electronically signed by: Leon Sheldon M.D. 09/28/2020 1:07 PM
[2020-09-28] MEDS ORDERED: MICONAZOLE NITRATE POWDER 43 GM EXT PRN (15:11)
[2020-09-29] MEDS: HEPARIN SOD 5,000 UNIT/0.5 ML VIAL SQ SCH ×3 (05:55→21:05)
[2020-09-29 07:03] LABS: Albumin Level 2.1 gm/dl (3.4-5.0); BUN Creatinine Ratio 26.4 (10-20); Bilirubin Direct 0.1 mg/dl (0-0.2); Calcium 7.9 mg/dl (8.5-10.1); Creatinine Clr Calc Pharmacy 56.6 ml/min; Est GFR (African American) 88.2; Est GFR (Non-African American) 76.1; Magnesium 1.8 mg/dl (1.8-2.4); Potassium 3.4 mmol/L (3.5-5.1)
[2020-09-29 07:06] LABS: Bilirubin,Total 0.6 mg/dl (0.2-1); Total Protein 4.8 gm/dl (6.4-8.2)
[2020-09-29] MEDS: METOPROLOL TARTRATE 25 MG TAB PO SCH ×2 (07:43→21:05)
[2020-09-29] MEDS: INSULIN ASPART 100 UNITS/ML 3 ML PEN SC SCH ×4 (08:55→20:59)
[2020-09-29] MEDS ORDERED: POTASSIUM CHLORIDE PWD 20 MEQ PACK PO ONE (09:30)
--- NOTE | 2020-09-29 09:40 | Surgery Progress Note ---
Date of Service September 29, 2020 Assessment & Plan (1) SBO (small bowel obstruction): POD#13 expl lap and ADDISON for SBO Bowels functioning. On regular diet. abdomen soft, no pain Plan: doing well from surgical standpoint for discharge, will discuss with Dr. Capone will need staple removal prior to discharge Continue regular diet encouraged OOB to chair and ambulation continue medical management 1 week follow-up with Dr. Dunn (2) Elevated LFTs: Believed to be secondary to PPN which is being held. Continue to monitor. Dr. Dunn has seen and examined pt, agrees with above. Admission and Anticipated Discharge Date Admission Date: September 11, 2020 Subjective feeling better tolerated breakfast but appetite is still low no abdominal pain, n/v passing gas and liquid bowel movements Physical Exam Constitutional: WD/WN, vitals as above Respiratory: normal respiratory effort; no respiratory distress and no labored breathing Gastrointestinal (Abdomen): Inspection/Auscultation: abdomen normal to inspection; abdomen not distended Percussion/Palpation: abdomen soft; abdomen nontender, no guarding and abdomen not rigid Skin: no rashes, warm and dry + incision (asmita intact, c/d/i) Psychiatric: Orientation: alert and cooperative Results & Data ([facility]) Vital Signs (Past 12 Hours) Vital Signs Temp Pulse Pulse Resp BP Pulse Ox 09/29/20 07:16 36.4 C L 70 16 122/70 95 09/28/20 23:59 67 Laboratory Results 09/29/20 09/29/20 09/28/20 Range/Units 07:28 06:28 20:41 Sodium 140 (136-145) mmol/L Potassium 3.4 L (3.5-5.1) mmol/L Chloride 107 (98-107) mmol/L Carbon Dioxide 25 (21-32) mmol/L Anion Gap 7.0 (3-11) BUN 24 H (7-18) mg/dl Creatinine 0.92 (0.6-1.4) mg/dl Est Cr Clr Drug Dosing 56.6 ml/min Est GFR ( Amer) 88.2 Est GFR (Non-Af Amer) 76.1 BUN/Creatinine Ratio 26.4 H (10-20) Glucose 117 H (70-99) mg/dl POC Glucose 107 H 136 H (70-99) mg/dl Calcium 7.9 L (8.5-10.1) mg/dl Magnesium 1.8 (1.8-2.4) mg/dl Total Bilirubin 0.6 (0.2-1) mg/dl Direct Bilirubin 0.1 (0-0.2) mg/dl AST 198 H (15-37) U/L ALT 361 H (12-78) U/L Alkaline Phosphatase 261 H (45-117) U/L Total Protein 4.8 L (6.4-8.2) gm/dl Albumin 2.1 L (3.4-5.0) gm/dl 09/28/20 09/28/20 Range/Units 16:18 11:08 Sodium (136-145) mmol/L Potassium (3.5-5.1) mmol/L Chloride (98-107) mmol/L Carbon Dioxide (21-32) mmol/L Anion Gap (3-11) BUN (7-18) mg/dl Creatinine (0.6-1.4) mg/dl Est Cr Clr Drug Dosing ml/min Est GFR ( Amer) Est GFR (Non-Af Amer) BUN/Creatinine Ratio (10-20) Glucose (70-99) mg/dl POC Glucose 139 H 124 H (70-99) mg/dl Calcium (8.5-10.1) mg/dl Magnesium (1.8-2.4) mg/dl Total Bilirubin (0.2-1) mg/dl Direct Bilirubin (0-0.2) mg/dl AST (15-37) U/L ALT (12-78) U/L Alkaline Phosphatase (45-117) U/L Total Protein (6.4-8.2) gm/dl Albumin (3.4-5.0) gm/dl
--- NOTE | 2020-09-29 19:23 | Hospitalist Progress Note ---
Date of Service September 29, 2020 Assessment & Plan (1) SBO (small bowel obstruction): Patient presented with reports of abdominal pain and decreased bowel movements x 3 days SBO Severe protein-calorie malnutrition in setting of SBO treated with TPN CT ABD/pelvis on admission showed signs of SBO S/P Exploratory laparotomy with lysis of adhesions and release of small-bowel obstruction with partial small bowel resection. by on 09/16/20 Appreciate GI/Surgery help Received PPN Pain control Encourage to ambulate Surgery following Tolerating regular diet Plan for staple removal tomorrow Needs follow-up with surgery upon discharge Diarrhea Likely secondary to above Stool studies to rule out C. difficile if recurrent Plan to start on Imodium as needed if C. difficile negative Transaminitis Likely due to PPN PPN discontinued Liver USD:No significant biliary ductal dilatation status post cholecystectomy. Redemonstration of pneumobilia. Obscured pancreas due to overlying bowel gas. Monitor LFTs (2) UTI (urinary tract infection): Complicated UTI Urine cx grew Acinetobacter baumanni Completed IV Antibiotic course Chronic Oliver--changed on 09/22/20 Follow-up with urology as outpatient (3) Status post transcatheter aortic valve replacement (TAVR) using bioprosthesis: (4) Mild CAD: Continue aspirin and beta-nicole NSVT Continue metoprolol Appreciate cardiology input (5) Chronic indwelling Oliver catheter: Continue finasteride (6) Alzheimer disease: Continue home medications (7) DVT prophylaxis: Heparin SQ Code Status Full Code Disposition Patient/Family not interested in Rehab Placement Family :Daughter Shazia--[phone] Admission and Anticipated Discharge Date Admission Date: September 11, 2020 Subjective Patient is seen and examined at bedside States feeling better Appetite slowly improving Has Loose BMs Denies nausea, vomiting, abd pain, chest pain, dyspnea, dizziness Review of Systems Review of Systems: All systems reviewed & are unremarkable except as noted in HPI & below Physical Exam Physical Exam: Physical Exam: Vitals signs as noted above General Appearance:Thin, no apparent distress Head: normocephalic, Atraumatic Eyes: normal inspection, EOMI Neck: supple, Trachea midline Respiratory/Chest: Normal breath sounds, CTA, No accessory muscle use Cardiovascular: S1, S2, No murmur Abdomen/GI:Soft, Non tender, + Vertical surgical scar, asmita, Bowel sounds present Extremities/Musculoskelatal:normal inspection, no edema Neurologic/Psych:Alert, awake, grossly no focal neurological deficits Skin: normal color, warm Results & Data Results & Data ([facility]) Vital Signs (Past 12 Hours) Vital Signs Temp Pulse Pulse Resp BP Pulse Ox 09/29/20 16:00 76 09/29/20 15:06 36.7 C 75 18 138/73 96 09/29/20 11:38 36.5 C 69 16 127/75 95 Laboratory Results [facility] 09/29/20 06:28 Sodium 140 Potassium 3.4 L Chloride 107 Carbon Dioxide 25 BUN 24 H Creatinine 0.92 Glucose 117 H Calcium 7.9 L Liver Function 09/29/20 Range/Units 06:28 Total Bilirubin 0.6 (0.2-1) mg/dl Direct Bilirubin 0.1 (0-0.2) mg/dl AST 198 H (15-37) U/L ALT 361 H (12-78) U/L Alkaline Phosphatase 261 H (45-117) U/L Albumin 2.1 L (3.4-5.0) gm/dl
[2020-09-30] MEDS: HEPARIN SOD 5,000 UNIT/0.5 ML VIAL SQ SCH ×3 (05:35→20:36)
[2020-09-30 06:53] LABS: Alanine Aminotransferase 262 U/L (12-78); Albumin Level 2.1 gm/dl (3.4-5.0); Aspartate Aminotransferase 104 U/L (15-37); BUN Creatinine Ratio 19.9 (10-20); Bilirubin Direct < 0.1 mg/dl (0-0.2); Blood Urea Nitrogen 18 mg/dl (7-18); Calcium 7.6 mg/dl (8.5-10.1); Carbon Dioxide 25 mmol/L (21-32); Chloride 107 mmol/L (98-107); Creatinine Clr Calc Pharmacy 58.9 ml/min; Est GFR (Non-African American) 78.5; Glucose 114 mg/dl (70-99); Magnesium 1.7 mg/dl (1.8-2.4); Potassium 3.4 mmol/L (3.5-5.1); Sodium 139 mmol/L (136-145)
[2020-09-30 06:56] LABS: Alkaline Phosphatase 240 U/L (45-117); Bilirubin,Total 0.5 mg/dl (0.2-1); Total Protein 4.9 gm/dl (6.4-8.2)
[2020-09-30] MEDS: METOPROLOL TARTRATE 25 MG TAB PO SCH ×2 (08:08→20:36)
[2020-09-30] MEDS: INSULIN ASPART 100 UNITS/ML 3 ML PEN SC SCH ×4 (09:06→20:33)
[2020-09-30] MEDS ORDERED: POTASSIUM CHLORIDE PWD 20 MEQ PACK PO ONE ×2 (09:52→09:53)
[2020-09-30] MEDS ORDERED: MAGNESIUM SULFATE / D5W 1 GM/100 ML BAG IV ONE (10:00)
--- NOTE | 2020-09-30 15:10 | Surgery Progress Note ---
Date of Service September 30, 2020 Assessment & Plan (1) SBO (small bowel obstruction): POD#14 expl lap and ADDISON for SBO Bowels functioning. On regular diet. abdomen soft Plan: doing well from surgical standpoint for discharge asmita removed steri strips placed Continue regular diet BOOST BID in between meals encouraged OOB to chair and ambulation continue medical management PT/OT 1 week follow-up with Dr. Dunn (2) Elevated LFTs: Believed to be secondary to PPN which is being held. Continue to monitor. Admission and Anticipated Discharge Date Admission Date: September 11, 2020 Subjective states he is not doing as well today appetite low mentally not quite with it today had episode of delirium last night no nausea or vomiting little amount of gas today Physical Exam Constitutional: no acute distress and not ill appearing Gastrointestinal (Abdomen): Inspection/Auscultation: abdomen normal to inspection; abdomen not distended Percussion/Palpation: + abdomen tender (mild at incision) and abdomen soft; no guarding and abdomen not rigid Skin: no rashes, warm and dry + incision (asmita present and intact some scabbing present) Psychiatric: Orientation: alert and cooperative; + not oriented x 3 Results & Data ([facility]) Vital Signs (Past 12 Hours) Vital Signs Temp Pulse Pulse Resp BP Pulse Ox 09/30/20 11:36 74 09/30/20 11:19 36.7 C 64 16 118/70 98 09/30/20 07:10 36.4 C L 68 20 128/68 96 09/30/20 05:25 36.8 C 64 16 137/58 L 96 Laboratory Results 09/30/20 09/30/20 09/30/20 Range/Units 11:36 07:20 05:42 Sodium 139 (136-145) mmol/L Potassium 3.4 L (3.5-5.1) mmol/L Chloride 107 (98-107) mmol/L Carbon Dioxide 25 (21-32) mmol/L Anion Gap 7.0 (3-11) BUN 18 (7-18) mg/dl Creatinine 0.89 (0.6-1.4) mg/dl Est Cr Clr Drug Dosing 58.9 ml/min Est GFR ( Amer) 91.0 Est GFR (Non-Af Amer) 78.5 BUN/Creatinine Ratio 19.9 (10-20) Glucose 114 H (70-99) mg/dl POC Glucose 119 H 110 H (70-99) mg/dl Calcium 7.6 L (8.5-10.1) mg/dl Magnesium 1.7 L (1.8-2.4) mg/dl Total Bilirubin 0.5 (0.2-1) mg/dl Direct Bilirubin < 0.1 (0-0.2) mg/dl AST 104 H (15-37) U/L ALT 262 H (12-78) U/L Alkaline Phosphatase 240 H (45-117) U/L Total Protein 4.9 L (6.4-8.2) gm/dl Albumin 2.1 L (3.4-5.0) gm/dl 09/29/20 09/29/20 Range/Units 20:13 16:30 Sodium (136-145) mmol/L Potassium (3.5-5.1) mmol/L Chloride (98-107) mmol/L Carbon Dioxide (21-32) mmol/L Anion Gap (3-11) BUN (7-18) mg/dl Creatinine (0.6-1.4) mg/dl Est Cr Clr Drug Dosing ml/min Est GFR ( Amer) Est GFR (Non-Af Amer) BUN/Creatinine Ratio (10-20) Glucose (70-99) mg/dl POC Glucose 157 H 155 H (70-99) mg/dl Calcium (8.5-10.1) mg/dl Magnesium (1.8-2.4) mg/dl Total Bilirubin (0.2-1) mg/dl Direct Bilirubin (0-0.2) mg/dl AST (15-37) U/L ALT (12-78) U/L Alkaline Phosphatase (45-117) U/L Total Protein (6.4-8.2) gm/dl Albumin (3.4-5.0) gm/dl
--- NOTE | 2020-09-30 16:38 | Hospitalist Progress Note ---
Date of Service September 30, 2020 Assessment & Plan (1) SBO (small bowel obstruction): Patient presented with reports of abdominal pain and decreased bowel movements x 3 days SBO Severe protein-calorie malnutrition in setting of SBO treated with TPN CT ABD/pelvis on admission showed signs of SBO S/P Exploratory laparotomy with lysis of adhesions and release of small-bowel obstruction with partial small bowel resection. by on 09/16/20 Appreciate GI/Surgery help Received PPN Pain control Encourage to ambulate Surgery following Tolerating regular diet Had staple removed today Needs follow-up with surgery upon discharge in 1 week Hypokalemia Hypomagnesemia Replete electrolytes as needed Diarrhea Likely secondary to above Stool studies to rule out C. difficile if recurrent Plan to start on Imodium as needed if C. difficile negative No diarrhea today Transaminitis Likely due to PPN PPN discontinued Liver USD:No significant biliary ductal dilatation status post cholecystectomy. Redemonstration of pneumobilia. Obscured pancreas due to overlying bowel gas. Monitor LFTs LFTs trending down (2) UTI (urinary tract infection): Complicated UTI Urine cx grew Acinetobacter baumanni Completed IV Antibiotic course Chronic Oliver--changed on 09/22/20 Follow-up with urology as outpatient (3) Status post transcatheter aortic valve replacement (TAVR) using bioprosthesis: (4) Mild CAD: Continue aspirin and beta-nicole NSVT Continue metoprolol Appreciate cardiology input (5) Chronic indwelling Oliver catheter: Continue finasteride (6) Alzheimer disease: Continue home medications (7) DVT prophylaxis: Heparin SQ Code Status Full Code Disposition Patient/Family not interested in Rehab Placement Family :Jenny Mccray--[phone] Admission and Anticipated Discharge Date Admission Date: September 11, 2020 Subjective Patient is seen and examined at bedside Having breakfast during my encounter Had asmita removed by surgery today Family at bedside Patient denies any significant abdominal pain Denies having diarrhea today Also denies nausea, vomiting, abd pain, chest pain, dyspnea, dizziness Patient's family not interested in rehab placement Review of Systems Review of Systems: All systems reviewed & are unremarkable except as noted in HPI & below Physical Exam Physical Exam: Physical Exam: Vitals signs as noted above General Appearance:Thin, no apparent distress Head: normocephalic, Atraumatic Eyes: normal inspection, EOMI Neck: supple, Trachea midline Respiratory/Chest: Normal breath sounds, CTA, No accessory muscle use Cardiovascular: S1, S2, No murmur Abdomen/GI:Soft, Non tender, + Vertical surgical scar, asmita, Bowel sounds present Extremities/Musculoskelatal:normal inspection, no edema Neurologic/Psych:Alert, awake, grossly no focal neurological deficits Skin: normal color, warm Results & Data Results & Data ([facility]) Vital Signs (Past 12 Hours) Vital Signs Temp Pulse Pulse Resp BP Pulse Ox 09/30/20 15:26 36.5 C 60 18 148/75 H 97 09/30/20 11:36 74 09/30/20 11:19 36.7 C 64 16 118/70 98 09/30/20 07:10 36.4 C L 68 20 128/68 96 09/30/20 05:25 36.8 C 64 16 137/58 L 96 Laboratory Results [facility] 09/30/20 05:42 Sodium 139 Potassium 3.4 L Chloride 107 Carbon Dioxide 25 BUN 18 Creatinine 0.89 Glucose 114 H Calcium 7.6 L Liver Function 09/30/20 Range/Units 05:42 Total Bilirubin 0.5 (0.2-1) mg/dl Direct Bilirubin < 0.1 (0-0.2) mg/dl AST 104 H (15-37) U/L ALT 262 H (12-78) U/L Alkaline Phosphatase 240 H (45-117) U/L Albumin 2.1 L (3.4-5.0) gm/dl
[2020-10-01] MEDS: HEPARIN SOD 5,000 UNIT/0.5 ML VIAL SQ SCH ×2 (05:18→13:07)
[2020-10-01 06:24] LABS: Hematocrit (blood only) 35.4 % (42-52); Hemoglobin 12.4 g/dL (14.0-18.0); Mean Corpuscular Hemoglobin 33.7 pg (25-34); Mean Corpuscular Volume 96.2 fL (80-100); Mean Platelet Volume 9.8 fL (7.4-10.4); Platelet Count 229 K/uL (130-400); RDW Coefficient of Variation 14.3 % (11.5-14.5); Red Blood Count 3.68 M/uL (4.7-6.1); White Blood Count 6.24 K/uL (4.8-10.8)
[2020-10-01 06:52] LABS: Alanine Aminotransferase 199 U/L (12-78); Albumin Level 2.3 gm/dl (3.4-5.0); Aspartate Aminotransferase 57 U/L (15-37); Bilirubin Direct < 0.1 mg/dl (0-0.2); Blood Urea Nitrogen 16 mg/dl (7-18); Calcium 7.7 mg/dl (8.5-10.1); Carbon Dioxide 25 mmol/L (21-32); Chloride 107 mmol/L (98-107); Creatinine Clr Calc Pharmacy 54.6 ml/min; Est GFR (African American) 83.8; Est GFR (Non-African American) 72.3; Glucose 113 mg/dl (70-99); Potassium 3.3 mmol/L (3.5-5.1); Sodium 139 mmol/L (136-145)
[2020-10-01 06:55] LABS: Alkaline Phosphatase 220 U/L (45-117); Bilirubin,Total 0.6 mg/dl (0.2-1)
[2020-10-01] MEDS ORDERED: POTASSIUM CHLORIDE CRTAB 20 MEQ TABCR PO STA (07:54)
[2020-10-01] MEDS: METOPROLOL TARTRATE 25 MG TAB PO SCH (08:14)
[2020-10-01] MEDS: INSULIN ASPART 100 UNITS/ML 3 ML PEN SC SCH ×2 (09:30→13:07)
[2020-10-01] MEDS ORDERED: bisacodyL 10 MG SUPP PR STA (12:24)
[2020-10-01] MEDS ORDERED: bisacodyL 5 MG TABEC PO STA (12:35)
--- NOTE | 2020-10-01 12:53 | Hospitalist Progress Note ---
Date of Service October 01, 2020 Assessment & Plan (1) SBO (small bowel obstruction): Patient presented with reports of abdominal pain and decreased bowel movements x 3 days SBO due to adhesion ( hx of gall bladder surgery years back ) CT ABD/pelvis on admission showed signs of SBO S/P Exploratory laparotomy with lysis of adhesions and release of small-bowel obstruction with partial small bowel resection. by on 09/16/20 Appreciate GI/Surgery help Had staple removed 09/30/20 pt tolerating diet , no abdominal pain , no nausea , vomiting , had bowel movement per surgery -stable to be discharged home today post surgery follow up arranged with Dr Dunn in a week Severe protein-calorie malnutrition in setting of SBO treated with PPN Received PPN post laparotomy Tolerating regular diet PPN d/merry pt is being discharged home to day encourage supplement Boost twice daily Transaminitis Likely due to PPN PPN discontinued Liver USD:No significant biliary ductal dilatation status post cholecystectomy. Redemonstration of pneumobilia. Obscured pancreas due to overlying bowel gas. LFT's continues to improve no GI symtpoms stable to be discharged home today repeat CMP in a week (2) UTI (urinary tract infection): Complicated UTI Urine cx grew Acinetobacter baumanni Completed IV Antibiotic course Chronic Oliver--changed on 09/22/20 Follow-up with urology as outpatient (3) Status post transcatheter aortic valve replacement (TAVR) using bioprosthesis: (4) Mild CAD: Continue aspirin and beta-nicole Non sustained Vtach Continue metoprolol resolved Appreciate cardiology input (5) Chronic indwelling Oliver catheter: Continue finasteride (6) Alzheimer disease: Continue home medications mental status at baseline (7) DVT prophylaxis: Heparin SQ Code Status Full Code Disposition Discharge Planning: Discharge Date: today 10/01/20 Disposition: Home with home health( [facility] ) lives with family ( ) Caregiver(s): and Daughter Shazia--[phone] Home Health Services: [facility] Home Labs scheduled: CMP in a week MD/DO visit is scheduled for Hospital follow up Specialty Follow-up:Surgical follow up scheduled plan of care discussed in detail with and Daughter present at bedside , comfortable with discharge plan all questions answered Admission and Anticipated Discharge Date Admission Date: September 11, 2020 Subjective Follow up visit for small bowel obstruction : doing well , sitting up on bed , Daughter and visiting offers no complain of abdominal pain ,no nausea or vomiting normal appetitive , finished breakfast and dinner with no issues no report of bowel movement yesterday , none today ( as per nursing ) pt can not recall ordered for Dulcolax PO , pt will be discharged on Miralax as needed vitals been stable , no fever or chills has been having cough with phlegm since surgery coughing up in tissue no coughing episode during my exam Review of Systems Review of Systems: All systems reviewed & are unremarkable except as noted in HPI & below Respiratory: + cough and + sputum production Gastrointestinal: + belching; no abdominal pain and no vomiting Physical Exam Constitutional: WD/WN, vitals as above no acute distress Eyes: PERRL, conjunctivae normal, anicteric sclerae ENMT: external ear and nose normal, oropharynx normal Neck: trachea midline, no thyromegaly Respiratory: no respiratory distress and no cough Auscultation: + crackles (on midlung on left ); no wheezes Cardiovascular: RRR, no murmur, no edema Gastrointestinal (Abdomen): Inspection/Auscultation: + abdominal surgical incision (mid abdomen surgical incision appears well healed , stri strips present , ) Percussion/Palpation: abdomen soft; abdomen nontender Musculoskeletal: no cyanosis or clubbing, extremities motor strength 5/5 Skin: no rashes, warm and dry Neurologic: PERRL, EOMI, accommodation nl, no face palsy, no dysarthria Psychiatric: Orientation: alert, oriented to person (baseline dementia ) and oriented to place Results & Data Results & Data ([facility]) Vital Signs (Past 12 Hours) Vital Signs Temp Pulse Pulse Resp BP Pulse Ox 10/01/20 07:59 36.5 C 62 18 154/88 H 96 10/01/20 07:29 72 10/01/20 03:12 36.5 C 61 18 150/76 H 97
[2020-10-01 13:08] LABS: Albumin Level 2.5 gm/dl (3.4-5.0); BUN Creatinine Ratio 17.5 (10-20); Calcium 8.1 mg/dl (8.5-10.1); Est GFR (African American) 80.7; Est GFR (Non-African American) 69.6; Potassium 3.6 mmol/L (3.5-5.1)
--- NOTE | 2020-10-01 13:10 | XRay Report ---
XR chest 1V portable HISTORY: 85 years-old Male cough acute cough COMPARISON: KUB of same day, chest radiograph 09/11/2020 TECHNIQUE: Portable AP view of the chest FINDINGS: Cardiomediastinal and hilar silhouettes are within normal limits. Aortic valvular endograft. Emphysem a without pneumothorax or overt pulmonary edema. Interval development of ill-defined medial right keisha g base opacities with trace right pleural effusion. Degenerative changes of the shoulders and spine. IMPRESSION: 1. Interval development of medial right lung base ill-defined opacities suspicious for pneumonia vers us aspiration pneumonitis 2. Trace right pleural effusion. ACT 112: Negative or not required by law. The above report was generated using voice recognition software. It may contain grammatical, syntax o r spelling errors. Electronically signed by: Luís Heredia M.D. 10/01/2020 1:09 PM
[2020-10-01 13:11] LABS: Albumin Globulin Ratio 0.9 (0.9-2); Bilirubin,Total 0.5 mg/dl (0.2-1); Globulin 2.7 gm/dl (2.5-4.0); Total Protein 5.2 gm/dl (6.4-8.2)
--- NOTE | 2020-10-01 13:27 | XRay Report ---
KUB CLINICAL HISTORY: bowel obstruction , post surgery COMPARISON STUDY: CT of the abdomen and pelvis September 11, 2020. KUB September 26, 2020 . FINDINGS: Cholecystectomy clips are incidentally noted. Pneumobilia is again noted. Sensitivity for d etection of free air is diminished on this supine exam but there is no evidence for free air. There i s gas throughout small and large bowel. Small bowel dilatation has improved since exam of September. IMPRESSION: Interval improvement in small bowel dilatation. ACT 112: Negative or not required by law. Electronically signed by: Leon Sheldon M.D. 10/01/2020 1:25 PM
--- NOTE | 2020-10-01 13:36 | Communication Note ---
Date of Service: October 01, 2020 pt has been having productive cough with yellowish sputum Chest Xray : today 10/01/20 IMPRESSION: 1. Interval development of medial right lung base ill-defined opacities suspicious for pneumonia versus aspiration pneumonitis 2. Trace right pleural effusion. Pt started on Augmentin , will be discharged home with 5 days course of tx Xray of KUB : 10/01/20 IMPRESSION: Interval improvement in small bowel dilatation. LFT's improved today stable to be discharged home with PO Augmentin for rt lower lobe aspiration pneumonia ( SBO /post surgery ) repeat chest xray in a week repeat Labs : CMP in a week Hospital follow up with Family physician Dr Cooper scheduled already . Family updated Maria Isabel Turcios MD
[2020-10-01] MEDS ORDERED: AMOXICILLIN/CLAVULANATE 875 MG TAB PO ONE (13:45)
--- NOTE | 2020-10-01 14:09 | Discharge Summary ---
Date of Service October 01, 2020 Admission HPI Per Admitting Provider 85-year-old male with PMH paroxysmal atrial fibrillation s/p ablation (not anticoagulated secondary to fall risk), aortic stenosis s/p TAVR, Alzheimer's, chronic Oliver catheter, and other problems listed below who presents the ED for evaluation of abdominal pain. History is limited from the patient due to underlying cognitive impairment. Patient reports he has had abdominal pain for the past 3 days. Pain is located in the lower abdomen. Pain was somewhat severe overnight and patient did not get much sleep. He reports associated nausea however no vomiting. Denies worsening abdominal distention. Last bowel movement was yesterday however was small and hard. Patient reports passing flatus. Has chronic Oliver catheter in place, no problems reported. In the ED, CT ABD/pelvis shows small bowel obstruction. Patient is hemodynamically stable, labs are unremarkable. Principal Diagnosis Small Bowel Obstruction -resolved Right lower lobe Pneumonia Non sustained Vtach Discharge Exam Constitutional WD/WN, vitals as above no acute distress Eyes PERRL, conjunctivae normal, anicteric sclerae ENMT external ear and nose normal, oropharynx normal Neck trachea midline, no thyromegaly Respiratory no respiratory distress and no cough Auscultation: + crackles (on midlung on left ); no wheezes Cardiovascular RRR, no murmur, no edema Gastrointestinal (Abdomen) Inspection/Auscultation: + abdominal surgical incision (mid abdomen surgical incision appears well healed , stri strips present , ) Percussion/Palpation: abdomen soft; abdomen nontender Musculoskeletal no cyanosis or clubbing, extremities motor strength 5/5 Skin no rashes, warm and dry Neurologic PERRL, EOMI, accommodation nl, no face palsy, no dysarthria Psychiatric Orientation: alert, oriented to person (baseline dementia ) and oriented to place Discharge Data Allergies Allergy/AdvReac Type Severity Reaction Status Date / Time No Known Allergies Allergy Verified 09/11/20 12:16 Consultations 09/11/20 16:19 Consult Case Management - Discharge Planning Routine Consult General Surgery Routine 09/15/20 17:46 Consult Gastroenterology Routine 09/23/20 09:22 Consult Cardiology Routine Procedures Performed Operation Date: 09/16/20 12:45 Actual Procedures p Exploratory Laparotomy Release of Small Bowel Obstruction(Not Applicable) - Sukhjinder Dunn MD Ordered Studies 09/11/20 12:06 CT abd pelvis IV con only Stat 09/16/20 08:30 FL small bowel follow through Routine 09/28/20 11:25 US liver Routine Hospital Course (1) SBO (small bowel obstruction): Patient presented with reports of abdominal pain and decreased bowel movements x 3 days SBO due to adhesion ( hx of gall bladder surgery years back ) CT ABD/pelvis on admission showed signs of SBO S/P Exploratory laparotomy with lysis of adhesions and release of small-bowel obstruction with partial small bowel resection. by on 09/16/20 Appreciate GI/Surgery help Had staple removed 09/30/20 pt tolerating diet , no abdominal pain , no nausea , vomiting , had bowel movement per surgery -stable to be discharged home today post surgery follow up arranged with Dr Dunn in a week Severe protein-calorie malnutrition in setting of SBO treated with PPN Received PPN post laparotomy Tolerating regular diet PPN d/merry pt is being discharged home to day encourage supplement Boost twice daily Transaminitis Likely due to PPN PPN discontinued Liver USD:No significant biliary ductal dilatation status post cholecystectomy. Redemonstration of pneumobilia. Obscured pancreas due to overlying bowel gas. LFT's continues to improve no GI symtpoms stable to be discharged home today repeat CMP in a week (2) UTI (urinary tract infection): Complicated UTI Urine cx grew Acinetobacter baumanni Completed IV Antibiotic course Chronic Oliver--changed on 09/22/20 Follow-up with urology as outpatient (3) Status post transcatheter aortic valve replacement (TAVR) using bioprosthesis: (4) Mild CAD: Continue aspirin and beta-nicole Non sustained Vtach Continue metoprolol resolved Appreciate cardiology input (5) Chronic indwelling Oliver catheter: Continue finasteride (6) Alzheimer disease: Continue home medications mental status at baseline (7) DVT prophylaxis: Heparin SQ Code Status Full Code Disposition Discharge Planning: Discharge Date: today 10/01/20 Disposition: Home with home health( [facility] ) lives with family ( ) Caregiver(s): and Daughter Shazia--[phone] Home [facility] Services: [facility] Home Labs scheduled: CMP in a week MD/DO visit is scheduled for Hospital follow up Specialty Follow-up:Surgical follow up scheduled plan of care discussed in detail with and Daughter present at bedside , comfortable with discharge plan all questions answered Total Time Total Time Spent Total Time Spent (In Minutes): 40 mins Total Time Includes: Examination of the Patient, Discharge Planning, Medication Reconciliation and Communication With Other Providers Discharge Plan Discharge Items Patient Disposition: Home - Home Health Services Reason For Visit: SBO Discharge Diagnosis: Small Bowel Obstruction -resolved Right lower lobe Pneumonia Non sustained Vtach Activity: As commented below Activity Comment: as tolerated Non-emergency contact: Primary Care Provider Call non-emergency contact if: you have any medication questions Follow-up/Referrals: Sukhjinder Dunn MD [Physician] - 10/06/20 9:00 am (Date & Time 10/06/2020 9:00 AM Provider Haley Elizabeth MD Department General Surgery, [facility] ) Melvin Cooper MD [Primary Care Provider] - 10/07/20 11:00 am (Date & Time 10/07/2020 11:00 AM Provider Melvin Cooper MD Department General Internal Medicine [facility] ) Diet: Low Fiber Diet Comment: low fiber diet for 2 weeks, then advance to regular diet as tolerated Addtl Attending Provider Instructions: Can Take Tylenol as needed for abdominal pain , Do not take more than 2 gm Tylenol ( 4 tablets of 500 mg ) in 24 hrs Please take all medications as instructed on discharge list below. Please return to ER with any recurrence of abdominal pain , nausea /vomiting Please take Miralx 1 table spoonful in 8 Oz of beverage ( water, coffee, juice ) daily as needed for constipation can add Colace or any other over the counter stool softener if taking Miralax only not helpful Antibiotic : Augmentin 1 tablet twice daily for 5 days -for pneumonia Please add Probiotics -either as capsule or yogurt every day Please Use the Spirometry every day ( instructions given ) till follow up visit with surgery Repeat Chest Xray in a week to assess resolution of Pneumonia follow-up with your primary care physician Dr Cooper and Surgery Dr Dunn as scheduled Lab work : Comprehensive metabolic panel in 1 week ( for elevated liver function test) Please call if you have any questions or problems. You can reach a [facility] hospitalist on duty at 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 You may shower. Let water run over incision and pat dry. - Leave steri strips on incision for 7 days and then remove. They may fall off on their own that is okay. - Pain management as above - Recommend low fiber diet for 2 weeks and then increase as tolerated - Follow-up with Dr. Dunn in surgical office as schedule Pending Studies at Discharge: No Stand-Alone Forms: My [facility] [employer], Smoking Cessation Medications and DC Order Prescriptions: New polyethylene glycol 3350 [Miralax] 17 gram/dose powder 17 g PO DAILY PRN (Reason: constipation) Qty: 119 RF: 0 simethicone [Gas Relief (simethicone)] 125 mg tablet,chewable 125 mg PO TID PRN (Reason: heartburn/gas) Qty: 90 RF: 0 amoxicillin-pot clavulanate [Augmentin] 875-125 mg tablet 1 tab PO BID 5 Days Qty: 10 RF: 0 Continued finasteride 5 mg tablet 5 mg PO DAILY Qty: 90 RF: 3 lutein 20 mg capsule 20 mg PO BID Qty: 90 RF: 3 memantine 10 mg tablet 10 mg PO BID Qty: 180 RF: 3 nitroglycerin 0.4 mg tablet, sublingual 0.4 mg SL DIRECTED PRN (Reason: Chest Pain) Qty: 25 RF: 1 PreserVision AREDS [id number] Tablet 1 tab PO BID RF: 0 aspirin [Aspirin Low Dose] 81 mg Tablet,Delayed Release (Dr/Ec) 81 mg PO QPM RF: 0 bethanechol chloride 25 mg tablet 25 mg PO BID RF: 0 metoprolol succinate 25 mg tablet extended release 24 hr 25 mg PO QAM RF: 0 Discharge Orders: Discharge Order (Routine); Ordered 10/01/20 Ordered By: Maria Isabel Pittman/Other Patient Handouts: Small Bowel Obstruction, Low-Fiber Diet, Using an Incentive Spirometer, A1C Admission Data Admit Date/Time: 09/11/20 14:33 Attending Provider: Maria Isabel Turcios Admit Provider: Pallavi Denis Primary Care Provider: Melvin Cooper Other Providers: Pallavi Denis ; Doris Campuzano ; Sukhjinder Dunn ; Earnest Stoner ; Ye Egan ; Bebeto Capone Other Interventions: Discharge Summary Assessment (RN) Last Done: 10/01/20 14:02
[2020-10-02] MEDS ORDERED: METOPROLOL SUCC 25MG EXT REL TAB PO SCH (09:00)
== END 2020-10-01 16:30 | disposition home health service (06) ==
LOC: ED 10:06 → 3N 14:33 → SUATTDRO 14:33 → 3N 15:55 → 2S 09-16 21:51 → 2N 09-19 14:45 → 2W 09-19 18:57

== ENCOUNTER 2022-03-12 19:42 | Inpatient (IN) ==
[2022-03-12] MEDS ORDERED: SODIUM CHLORIDE 0.9% 1000ML 1,000 ML IV ONE ×3 (19:45→23:46)
--- NOTE | 2022-03-12 19:50 | Emergency Department Note ---
Impression & Plan Pneumonia, Hypoxia, Altered mental status, Acute confusion ED Provider Note Name: RAHEL MORRISON Age: 86 Sex: M Arrives Via: Ambulance Informant: Patient (poor historian), EMS, Family ED Provider: Denny Smith MD Chief Complaint: Altered mental status Impression: As per impressions above Medical Decision Makin-year-old male with a history of Alzheimer's, CAD, multiple other comorbidities arrives for evaluation of rapidly worsening confusion and altered mental status and reported slurred slurred beach. EMS noted they felt his right arm seemed weak in route. On evaluation patient is confused mildly encephalopathic without any focal neurologic deficits. However given reported weakness in the right arm prior to arrival confusion rapid onset he was sent for immediate CT of head. He does have a history of paroxysmal A. fib though is not on any anticoagulation but is on aspirin. Given his current examination he would not be a tPA candidate. Labs started returning he does have an elevated lactate. In the setting of his lung exam elevated lactate and some developing hypoxia suspect he has an infectious etiology going on. He was given cefepime IV for coverage ( concern PNC allergy per family). In addition chest x-ray is somewhat congested I think more likely infectious rather than fluid overload as he does appear somewhat dry. That said he is not hypotensive & lacate is not greater than 4 and giving him 30/kg fluid would be unwise at this time. Patient does seem somewhat improved with IV fluids and some nasal cannula oxygen. In the setting of acute confusion possible stroke and other findings with hypoxia clearly he will need hospitalization for further work-up and evaluation. Prior Medical Record and Triage/Nursing Notes reviewed by Me Additional history obtained from chart Differentials:Infection, dehydration, metabolic abnormality, hypo/hyperglycemia, electrolyte disturbance, anemia, hypoxia, cardiac sources, intracerebral event, toxicologic, neurologic, as well as other pathologies. Vital Signs: reviewed and remarkable for hypoxia Interventions: Normal saline bolus 1 L IV x2, cefepime 2 g IV Labs:Reviewed and remarkable for elevated lactic acid Imagin view chest x-ray bilateral congestion no focal infiltrate EKG:Per My Interpretation: Indication weakness: NSR 77 bpm, qtc 414. No Ectopy. No Ischemia. Compared to EKG 09/02/20, no significant changes. Consults:Dr French Guerrero hospitalist Plan: Disposition:Hospitalization. Condition: fair History of Present Illness:86 yr old male arrives for evaluation of confusion. Patient lives at home with family and had last been seen around 1:00 this afternoon. When he got home around 5 they noticed he was somewhat confused with some slurred speech. 911 was eventually called due to worsening symptoms. They report patient seemed more weak on the right side and had trouble finding words. He had no facial droop, syncope, seizure and or other symptoms. Patient is confused and unable to give a review of systems. No medications prior to arrival. blood sugar and vitals were unremarkable for EMS. ROS: Unable to obtain due to confusion Past Medical History:See Below Past Surgical History:See Below Family History:See Below Social History:See Below Home Medications:See Below Allergies:No known drug allergies per chart Vitals:Blood Pressure: 130/60, Pulse 60, RR 24, T C, O2 92% on RA Physical Exam: GENERAL: Patient is confused/elderly appearing and in mild distress. Warm to touch, tremulous EYES: No scleral icterus, unremarkable pupils. ENT: Mucous membranes dry, no nasal congestion. NECK: No masses appreciated, nomeningismus, trachea is midline. RESPIRATORY: Mild dyspnea with mild junky cough some crackles throughout CARDIOVASCULAR: Regular rate and rhythm.No murmurs, rubs, gallops appreciated. GASTROINTESTINAL: Abdomen soft, non-tender, no peritonitis.Bowel sounds positive.No masses appreciated. BACK: No midline tenderness, no CVA tenderness EXTREMITIES: Normal motion all extremities, no cyanosis, no edema. NEUROLOGIC: Confused, diffuse generalized weakness with no appreciated focal deficit at this time, confabulating some, no CN deficits on exam SKIN: No rash, no jaundice, no diaphoresis. GCS: 15 ED Course: Times/Reassessments: Does appear improved with IV fluids. His neuro exam does not show any focal deficits on repeat examinations. 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 CAD (coronary artery disease) Chronic indwelling Oliver catheter Diabetes mellitus, type 2 Gastric ulcer GERD (gastroesophageal reflux disease) Hearing loss HTN (hypertension) Lyme disease Macular degeneration Memory loss or impairment Mild CAD 30% mid LAD stenosis Orthostatic hypotension Paroxysmal A-fib Peripheral neuropathy Personal history of malignant melanoma of skin Restless legs (09/21/11) Shoulder problem RIGHT, TORN LIGAMENTS/TENDONS Sleep disorder Thyroid nodule Urinary retention with incomplete bladder emptying Surgical History H/O ankle fusion History of aortic valve replacement TAVR History of nephrectomy, left S/P ablation of atrial fibrillation S/P cholecystectomy S/P inguinal herniorrhaphy Status post small bowel resection Status post transcatheter aortic valve replacement (TAVR) using bioprosthesis Family History Other Family history of diabetes mellitus in mother Social History Smoking Status: Never smoker Hx Alcohol Use: No Hx Substance Use: No Preferred Language: Indonesian Communication Ability: aphasia Visual Impairment: No Limitations Drug Purchaser Required: No Beliefs That Will Affect Care: None Current Living Situation: Spouse Current Living Situation Comment: with Feels Safe at Home: Yes Safety Concerns: Feels Safe At This Time Assistive Devices: Glasses and Walker Allergies Allergies Allergy/AdvReac Type Severity Reaction Status Date / Time No Known Allergies Allergy Verified 03/12/22 23:17 Home Meds Home Medications Medication Instructions Recorded Confirmed metoprolol succinate 25 mg 25 mg PO QAM 09/11/20 03/12/22 tablet,extended release 24 hr aspirin 81 mg tablet,delayed 81 mg PO DAILY 01/08/22 03/12/22 release bethanechol chloride 25 mg tablet 25 mg PO BID 01/08/22 03/12/22 docusate sodium 100 mg tablet 100 mg PO BID PRN Constipation 03/12/22 03/12/22 lutein 20 mg capsule 20 mg PO BID 03/12/22 03/12/22 nitroglycerin 0.4 mg sublingual 0.4 mg sublingual DIRECTED PRN 03/12/22 03/12/22 tablet (Nitrostat) Chest Pain pantoprazole 40 mg tablet,delayed 40 mg PO DAILY 03/12/22 03/12/22 release polyethylene glycol 3350 17 gram 17 g PO DAILY PRN Constipation 03/12/22 03/12/22 oral powder packet (Miralax) simethicone 125 mg chewable tablet 125 mg PO TID PRN .Gas or heartburn 03/12/22 03/12/22 vitamins A,C,X-acmd-jazbbu 14,320 1 cap PO DAILY 03/12/22 03/12/22 unit-226 mg-200 unit capsule (PreserVision AREDS) Previous Rx's Medication Instructions Recorded finasteride 5 mg tablet 5 mg PO DAILY #90 tabs 09/07/21 memantine 10 mg tablet 10 mg PO BID #180 tabs 12/29/21 Results & Data (ED) Vital Signs Vital Signs - 24 hr 03/12/22 19:45 03/12/22 20:01 03/12/22 20:30 Temperature 37.2 C Temperature Source Temporal Artery Scan Pulse Rate 80 71 Pulse Rate from SpO2 Sensor 72 71 Respiratory Rate 18 28 H Blood Pressure 119/73 Blood Pressure Mean 88 Pulse Oximetry 95 94 96 Oxygen Delivery Method Room Air Sepsis Recent Fever Within 48 Hours No Sepsis New/Unexplained Change in Mental Status Yes Sepsis Action Taken by Nursing Physician Notified 03/12/22 20:41 03/12/22 21:00 03/12/22 21:30 Temperature Temperature Source Pulse Rate 67 65 68 Pulse Rate from SpO2 Sensor 67 65 76 Respiratory Rate 20 22 21 Blood Pressure 117/91 118/61 116/68 Blood Pressure Mean 99 80 84 Pulse Oximetry 95 95 89 L Oxygen Delivery Method Sepsis Recent Fever Within 48 Hours Sepsis New/Unexplained Change in Mental Status Sepsis Action Taken by Nursing 03/12/22 22:00 03/12/22 22:30 03/12/22 23:00 Temperature Temperature Source Pulse Rate 66 60 59 L Pulse Rate from SpO2 Sensor 58 L Respiratory Rate 22 17 13 Blood Pressure 117/64 117/68 119/66 Blood Pressure Mean 81 84 83 Pulse Oximetry 92 Oxygen Delivery Method Sepsis Recent Fever Within 48 Hours Sepsis New/Unexplained Change in Mental Status Sepsis Action Taken by Nursing 03/12/22 23:30 Temperature Temperature Source Pulse Rate 54 L Pulse Rate from SpO2 Sensor 54 L Respiratory Rate 12 Blood Pressure 118/68 Blood Pressure Mean 84 Pulse Oximetry 97 Oxygen Delivery Method Sepsis Recent Fever Within 48 Hours Sepsis New/Unexplained Change in Mental Status Sepsis Action Taken by Nursing Laboratory Data Result diagrams: 03/13/22 06:36 03/13/22 06:36 Lab Results 03/12/22 03/12/22 03/12/22 Range/Units 19:54 19:54 19:54 WBC 10.37 (4.8-10.8) K/ul RBC 4.44 L (4.63-6.08) M/uL Hgb 14.4 (14.0-18.0) g/dl Hct 42.1 (40.1-51.0) % MCV 94.8 (80.0-100.0) fL MCH 32.4 (25.0-34.0) pg MCHC 34.2 (32.0-36.0) g/dL RDW Std Deviation 43.9 (36.4-46.3) fL RDW Coeff of Edgardo 12.6 (11.5-14.5) % Plt Count 125 L (130-400) K/uL MPV 10.2 (9.4-12.4) fL Immature Gran % (Auto) 0.4 % Neut % (Auto) 88.2 % Lymph % (Auto) 4.3 % Dickson % (Auto) 5.7 % Eos % (Auto) 1.1 % Baso % (Auto) 0.3 % Neut # (Auto) 9.15 H (1.4-6.5) K/uL Lymph # (Auto) 0.45 L (1.2-3.4) K/uL Dickson # (Auto) 0.59 (0.24-0.82) K/uL Eos # (Auto) 0.11 (0-0.50) K/uL Baso # (Auto) 0.03 (0-0.2) K/uL Immature Gran # (Auto) 0.04 H (0.00-0.02) K/uL PT INR ABG pH (7.35-7.45) ABG pCO2 (35-46) mmHg ABG pO2 (80-95) mmHg ABG HCO3 (19-24) mmol/L ABG O2 Saturation (90-95) % ABG Base Excess (-9-1.8) mEq/L Jose Test (Pos) VBG pH (7.36-7.41) VBG pCO2 (38-50) mmHg VBG pO2 mmHg VBG HCO3 mmol/L VBG O2 Saturation % VBG Base Excess mEq/L Oxygen Given Sodium 135 L (136-145) mmol/L Potassium 4.1 (3.5-5.1) mmol/L Chloride 102 (98-107) mmol/L Carbon Dioxide 25 (21-32) mmol/L Anion Gap 8 (3-11) BUN 21 (6-23) mg/dl Creatinine 1.35 (0.6-1.4) mg/dl Est Cr Clr Drug Dosing Not Reportable Est GFR ( Amer) 55.1 ml/min Est GFR (Non-Af Amer) 47.5 ml/min BUN/Creatinine Ratio 15.6 (10-20) Glucose 193 H (70-99(Fasting)) mg/dl Lactate 2.1 H* (0.4-2.0) mmol/L Calcium 8.5 (8.5-10.1) mg/dl Magnesium 1.8 (1.7-2.4) mg/dl Total Bilirubin 0.7 (0.2-1.0) mg/dl Direct Bilirubin 0.1 (0-0.2) mg/dl AST 15 (13-39) U/L ALT 12 (7-52) U/L Alkaline Phosphatase 91 (34-104) U/L Ammonia (18-72) umol/L Troponin I High Sens 5.3 (0-20) pg/ml Total Protein 6.2 (6.0-8.3) gm/dl Albumin 3.7 (3.4-5.0) gm/dl Lipase 22 (11-82) U/L Procalcitonin (0-0.5) ng/ml TSH (0.300-4.500) uIu/ml Urine Color Urine Appearance (Clear) Urine pH (4.5-7.5) Ur Specific Bulan (1.000-1.030) Urine Protein (Negative) Urine Glucose (UA) (Negative) Urine Ketones (Negative) Urine Blood (Negative) Urine Nitrite (Negative) Urine Bilirubin (Negative) Urine Urobilinogen (Negative) Ur Leukocyte Esterase (Negative) Urine WBC (Auto) (0-5) /hpf Urine RBC (Auto) (0-4) /hpf U Hyaline Cast (Auto) (0-5) /lpf U Epithel Cells (Auto) (0-5) /lpf Urine Bacteria (Auto) (Negative) SARS-CoV-2 (PCR) (Negative) 03/12/22 03/12/22 03/12/22 Range/Units 19:54 19:54 19:54 WBC (4.8-10.8) K/ul RBC (4.63-6.08) M/uL Hgb (14.0-18.0) g/dl Hct (40.1-51.0) % MCV (80.0-100.0) fL MCH (25.0-34.0) pg MCHC (32.0-36.0) g/dL RDW Std Deviation (36.4-46.3) fL RDW Coeff of Edgardo (11.5-14.5) % Plt Count (130-400) K/uL MPV (9.4-12.4) fL Immature Gran % (Auto) % Neut % (Auto) % Lymph % (Auto) % Dickson % (Auto) % Eos % (Auto) % Baso % (Auto) % Neut # (Auto) (1.4-6.5) K/uL Lymph # (Auto) (1.2-3.4) K/uL Dickson # (Auto) (0.24-0.82) K/uL Eos # (Auto) (0-0.50) K/uL Baso # (Auto) (0-0.2) K/uL Immature Gran # (Auto) (0.00-0.02) K/uL PT Cancelled INR Cancelled ABG pH (7.35-7.45) ABG pCO2 (35-46) mmHg ABG pO2 (80-95) mmHg ABG HCO3 (19-24) mmol/L ABG O2 Saturation (90-95) % ABG Base Excess (-9-1.8) mEq/L Jose Test (Pos) VBG pH 7.44 H (7.36-7.41) VBG pCO2 44 (38-50) mmHg VBG pO2 70 mmHg VBG HCO3 30 mmol/L VBG O2 Saturation 95.4 % VBG Base Excess 5.0 mEq/L Oxygen Given Sodium (136-145) mmol/L Potassium (3.5-5.1) mmol/L Chloride (98-107) mmol/L Carbon Dioxide (21-32) mmol/L Anion Gap (3-11) BUN (6-23) mg/dl Creatinine (0.6-1.4) mg/dl Est Cr Clr Drug Dosing Est GFR ( Amer) ml/min Est GFR (Non-Af Amer) ml/min BUN/Creatinine Ratio (10-20) Glucose (70-99(Fasting)) mg/dl Lactate (0.4-2.0) mmol/L Calcium (8.5-10.1) mg/dl Magnesium (1.7-2.4) mg/dl Total Bilirubin (0.2-1.0) mg/dl Direct Bilirubin (0-0.2) mg/dl AST (13-39) U/L ALT (7-52) U/L Alkaline Phosphatase (34-104) U/L Ammonia (18-72) umol/L Troponin I High Sens (0-20) pg/ml Total Protein (6.0-8.3) gm/dl Albumin (3.4-5.0) gm/dl Lipase (11-82) U/L Procalcitonin 0.05 (0-0.5) ng/ml TSH (0.300-4.500) uIu/ml Urine Color Urine Appearance (Clear) Urine pH (4.5-7.5) Ur Specific Bulan (1.000-1.030) Urine Protein (Negative) Urine Glucose (UA) (Negative) Urine Ketones (Negative) Urine Blood (Negative) Urine Nitrite (Negative) Urine Bilirubin (Negative) Urine Urobilinogen (Negative) Ur Leukocyte Esterase (Negative) Urine WBC (Auto) (0-5) /hpf Urine RBC (Auto) (0-4) /hpf U Hyaline Cast (Auto) (0-5) /lpf U Epithel Cells (Auto) (0-5) /lpf Urine Bacteria (Auto) (Negative) SARS-CoV-2 (PCR) (Negative) 03/12/22 03/12/22 03/12/22 Range/Units 19:54 20:12 21:54 WBC (4.8-10.8) K/ul RBC (4.63-6.08) M/uL Hgb (14.0-18.0) g/dl Hct (40.1-51.0) % MCV (80.0-100.0) fL MCH (25.0-34.0) pg MCHC (32.0-36.0) g/dL RDW Std Deviation (36.4-46.3) fL RDW Coeff of Edgardo (11.5-14.5) % Plt Count (130-400) K/uL MPV (9.4-12.4) fL Immature Gran % (Auto) % Neut % (Auto) % Lymph % (Auto) % Dickson % (Auto) % Eos % (Auto) % Baso % (Auto) % Neut # (Auto) (1.4-6.5) K/uL Lymph # (Auto) (1.2-3.4) K/uL Dickson # (Auto) (0.24-0.82) K/uL Eos # (Auto) (0-0.50) K/uL Baso # (Auto) (0-0.2) K/uL Immature Gran # (Auto) (0.00-0.02) K/uL PT INR ABG pH (7.35-7.45) ABG pCO2 (35-46) mmHg ABG pO2 (80-95) mmHg ABG HCO3 (19-24) mmol/L ABG O2 Saturation (90-95) % ABG Base Excess (-9-1.8) mEq/L Jose Test (Pos) VBG pH (7.36-7.41) VBG pCO2 (38-50) mmHg VBG pO2 mmHg VBG HCO3 mmol/L VBG O2 Saturation % VBG Base Excess mEq/L Oxygen Given Sodium (136-145) mmol/L Potassium (3.5-5.1) mmol/L Chloride (98-107) mmol/L Carbon Dioxide (21-32) mmol/L Anion Gap (3-11) BUN (6-23) mg/dl Creatinine (0.6-1.4) mg/dl Est Cr Clr Drug Dosing Est GFR ( Amer) ml/min Est GFR (Non-Af Amer) ml/min BUN/Creatinine Ratio (10-20) Glucose (70-99(Fasting)) mg/dl Lactate 1.2 (0.4-2.0) mmol/L Calcium (8.5-10.1) mg/dl Magnesium (1.7-2.4) mg/dl Total Bilirubin (0.2-1.0) mg/dl Direct Bilirubin (0-0.2) mg/dl AST (13-39) U/L ALT (7-52) U/L Alkaline Phosphatase (34-104) U/L Ammonia (18-72) umol/L Troponin I High Sens (0-20) pg/ml Total Protein (6.0-8.3) gm/dl Albumin (3.4-5.0) gm/dl Lipase (11-82) U/L Procalcitonin (0-0.5) ng/ml TSH (0.300-4.500) uIu/ml Urine Color Yellow Urine Appearance Clear (Clear) Urine pH 6.0 (4.5-7.5) Ur Specific Bulan 1.019 (1.000-1.030) Urine Protein Trace H (Negative) Urine Glucose (UA) Negative (Negative) Urine Ketones Negative (Negative) Urine Blood 2+ H (Negative) Urine Nitrite Negative (Negative) Urine Bilirubin Negative (Negative) Urine Urobilinogen Negative (Negative) Ur Leukocyte Esterase 1+ H (Negative) Urine WBC (Auto) >30 H (0-5) /hpf Urine RBC (Auto) 5-10 H (0-4) /hpf U Hyaline Cast (Auto) 1-5 (0-5) /lpf U Epithel Cells (Auto) 0-5 (0-5) /lpf Urine Bacteria (Auto) Negative (Negative) SARS-CoV-2 (PCR) NEGATIVE (Negative) 03/12/22 03/12/22 03/12/22 Range/Units 23:19 23:19 23:19 WBC (4.8-10.8) K/ul RBC (4.63-6.08) M/uL Hgb (14.0-18.0) g/dl Hct (40.1-51.0) % MCV (80.0-100.0) fL MCH (25.0-34.0) pg MCHC (32.0-36.0) g/dL RDW Std Deviation (36.4-46.3) fL RDW Coeff of Edgardo (11.5-14.5) % Plt Count (130-400) K/uL MPV (9.4-12.4) fL Immature Gran % (Auto) % Neut % (Auto) % Lymph % (Auto) % Dickson % (Auto) % Eos % (Auto) % Baso % (Auto) % Neut # (Auto) (1.4-6.5) K/uL Lymph # (Auto) (1.2-3.4) K/uL Dickson # (Auto) (0.24-0.82) K/uL Eos # (Auto) (0-0.50) K/uL Baso # (Auto) (0-0.2) K/uL Immature Gran # (Auto) (0.00-0.02) K/uL PT 11.3 INR 1.1 ABG pH 7.47 H (7.35-7.45) ABG pCO2 36 (35-46) mmHg ABG pO2 85 (80-95) mmHg ABG HCO3 26 H (19-24) mmol/L ABG O2 Saturation 99.5 H (90-95) % ABG Base Excess 2.7 H (-9-1.8) mEq/L Jose Test Pos (Pos) VBG pH (7.36-7.41) VBG pCO2 (38-50) mmHg VBG pO2 mmHg VBG HCO3 mmol/L VBG O2 Saturation % VBG Base Excess mEq/L Oxygen Given RA Sodium (136-145) mmol/L Potassium (3.5-5.1) mmol/L Chloride (98-107) mmol/L Carbon Dioxide (21-32) mmol/L Anion Gap (3-11) BUN (6-23) mg/dl Creatinine (0.6-1.4) mg/dl Est Cr Clr Drug Dosing Est GFR ( Amer) ml/min Est GFR (Non-Af Amer) ml/min BUN/Creatinine Ratio (10-20) Glucose (70-99(Fasting)) mg/dl Lactate (0.4-2.0) mmol/L Calcium (8.5-10.1) mg/dl Magnesium (1.7-2.4) mg/dl Total Bilirubin (0.2-1.0) mg/dl Direct Bilirubin (0-0.2) mg/dl AST (13-39) U/L ALT (7-52) U/L Alkaline Phosphatase (34-104) U/L Ammonia (18-72) umol/L Troponin I High Sens (0-20) pg/ml Total Protein (6.0-8.3) gm/dl Albumin (3.4-5.0) gm/dl Lipase (11-82) U/L Procalcitonin (0-0.5) ng/ml TSH 0.546 (0.300-4.500) uIu/ml Urine Color Urine Appearance (Clear) Urine pH (4.5-7.5) Ur Specific Bulan (1.000-1.030) Urine Protein (Negative) Urine Glucose (UA) (Negative) Urine Ketones (Negative) Urine Blood (Negative) Urine Nitrite (Negative) Urine Bilirubin (Negative) Urine Urobilinogen (Negative) Ur Leukocyte Esterase (Negative) Urine WBC (Auto) (0-5) /hpf Urine RBC (Auto) (0-4) /hpf U Hyaline Cast (Auto) (0-5) /lpf U Epithel Cells (Auto) (0-5) /lpf Urine Bacteria (Auto) (Negative) SARS-CoV-2 (PCR) (Negative) 03/12/22 Range/Units 23:19 WBC (4.8-10.8) K/ul RBC (4.63-6.08) M/uL Hgb (14.0-18.0) g/dl Hct (40.1-51.0) % MCV (80.0-100.0) fL MCH (25.0-34.0) pg MCHC (32.0-36.0) g/dL RDW Std Deviation (36.4-46.3) fL RDW Coeff of Edgardo (11.5-14.5) % Plt Count (130-400) K/uL MPV (9.4-12.4) fL Immature Gran % (Auto) % Neut % (Auto) % Lymph % (Auto) % Dickson % (Auto) % Eos % (Auto) % Baso % (Auto) % Neut # (Auto) (1.4-6.5) K/uL Lymph # (Auto) (1.2-3.4) K/uL Dickson # (Auto) (0.24-0.82) K/uL Eos # (Auto) (0-0.50) K/uL Baso # (Auto) (0-0.2) K/uL Immature Gran # (Auto) (0.00-0.02) K/uL PT INR ABG pH (7.35-7.45) ABG pCO2 (35-46) mmHg ABG pO2 (80-95) mmHg ABG HCO3 (19-24) mmol/L ABG O2 Saturation (90-95) % ABG Base Excess (-9-1.8) mEq/L Jose Test (Pos) VBG pH (7.36-7.41) VBG pCO2 (38-50) mmHg VBG pO2 mmHg VBG HCO3 mmol/L VBG O2 Saturation % VBG Base Excess mEq/L Oxygen Given Sodium (136-145) mmol/L Potassium (3.5-5.1) mmol/L Chloride (98-107) mmol/L Carbon Dioxide (21-32) mmol/L Anion Gap (3-11) BUN (6-23) mg/dl Creatinine (0.6-1.4) mg/dl Est Cr Clr Drug Dosing Est GFR ( Amer) ml/min Est GFR (Non-Af Amer) ml/min BUN/Creatinine Ratio (10-20) Glucose (70-99(Fasting)) mg/dl Lactate (0.4-2.0) mmol/L Calcium (8.5-10.1) mg/dl Magnesium (1.7-2.4) mg/dl Total Bilirubin (0.2-1.0) mg/dl Direct Bilirubin (0-0.2) mg/dl AST (13-39) U/L ALT (7-52) U/L Alkaline Phosphatase (34-104) U/L Ammonia 27.0 (18-72) umol/L Troponin I High Sens (0-20) pg/ml Total Protein (6.0-8.3) gm/dl Albumin (3.4-5.0) gm/dl Lipase (11-82) U/L Procalcitonin (0-0.5) ng/ml TSH (0.300-4.500) uIu/ml Urine Color Urine Appearance (Clear) Urine pH (4.5-7.5) Ur Specific Bulan (1.000-1.030) Urine Protein (Negative) Urine Glucose (UA) (Negative) Urine Ketones (Negative) Urine Blood (Negative) Urine Nitrite (Negative) Urine Bilirubin (Negative) Urine Urobilinogen (Negative) Ur Leukocyte Esterase (Negative) Urine WBC (Auto) (0-5) /hpf Urine RBC (Auto) (0-4) /hpf U Hyaline Cast (Auto) (0-5) /lpf U Epithel Cells (Auto) (0-5) /lpf Urine Bacteria (Auto) (Negative) SARS-CoV-2 (PCR) (Negative) Administered Medications Aspirin (Aspirin 81 Mg Ectab) 81 mg PO DAILY [facility] Stop: 04/12/22 08:59 Last Admin: 03/13/22 09:09 Dose: 81 mg Documented By: ROCÍO Clopidogrel Bisulfate (Clopidogrel Bisulfate 75 Mg Tab) 75 mg PO QAM [facility] Stop: 04/12/22 01:29 Last Admin: 03/13/22 02:23 Dose: 75 mg Documented By: [id number] Enoxaparin Sodium (Enoxaparin Inj 40 Mg/0.4 Ml Syr) 40 mg SQ QAM [facility] Stop: 04/12/22 08:59 Last Admin: 03/13/22 09:09 Dose: 40 mg Documented By: ROCÍO Finasteride (Finasteride 5 Mg Tab) 5 mg PO DAILY [facility] Stop: 04/12/22 08:59 Last Admin: 03/13/22 09:09 Dose: 5 mg Documented By: ROCÍO Ampicillin Sodium/Sulbactam Sodium 3,000 mg/ Sodium Chloride 108 mls @ 200 mls/hr IV Q6H [facility] Stop: 03/20/22 07:59 Last Infusion: 03/13/22 15:43 Dose: 0 mls/hr Documented By: Admin: 03/13/22 15:09 Dose: 200 mls/hr Documented By: Infusion: 03/13/22 10:08 Dose: 0 mls/hr Documented By: Admin: 03/13/22 09:22 Dose: 200 mls/hr Documented By: ROCÍO Insulin Aspart (Insulin Aspart Per Unit) 0 units SC ACHS [facility] Stop: 04/12/22 01:25 Last Admin: 03/13/22 16:55 Dose: 3 units Documented By: ROCÍO Co-signed By: ASHLIE Admin: 03/13/22 12:11 Dose: 2 units Documented By: ROCÍO Co-signed By: ASHLIE Admin: 03/13/22 09:06 Dose: Not Given Documented By: Admin: 03/13/22 02:11 Dose: Not Given Documented By: [id number] Co-signed By: Memantine (Memantine Hcl 10 Mg Tab) 10 mg PO BID [facility] Stop: 04/12/22 08:59 Last Admin: 03/13/22 09:08 Dose: 10 mg Documented By: ROCÍO Metoprolol Succinate (Metoprolol Succ 25mg Ext Rel Tab) 25 mg PO QAM [facility] Stop: 04/12/22 08:59 Last Admin: 03/13/22 09:09 Dose: Not Given Documented By: ROCÍO Pantoprazole Sodium (Pantoprazole 40 Mg Tab) 40 mg PO DAILY [facility] Stop: 04/12/22 08:59 Last Admin: 03/13/22 09:09 Dose: 40 mg Documented By: ROCÍO Discontinued Medications Sodium Chloride (Nss 1000ml) 1,000 mls @ 999 mls/hr IV .Q1H1M ONE Stop: 03/12/22 20:45 Last Infusion: 03/12/22 22:22 Dose: 0 mls/hr Documented By: Admin: 03/12/22 20:00 Dose: 999 mls/hr Documented By: JANUSZ Sodium Chloride (Nss 1000ml) 1,000 mls @ 999 mls/hr IV .Q1H1M ONE Stop: 03/12/22 21:38 Last Infusion: 03/12/22 22:59 Dose: 0 mls/hr Documented By: Admin: 03/12/22 21:36 Dose: 999 mls/hr Documented By: CAITLIN Cefepime HCl (Maxipime) 2,000 mg in 20 mls @ 5 mls/min IV NOW STA; Protocol Stop: 03/12/22 20:41 Last Admin: 03/12/22 21:36 Dose: 5 mls/min Documented By: CAITLIN Ampicillin Sodium/Sulbactam Sodium 3,000 mg/ Sodium Chloride 108 mls @ 200 mls/hr IV NOW STA Stop: 03/13/22 00:19 Last Infusion: 03/13/22 03:16 Dose: 0 mls/hr Documented By: [id number] Admin: 03/13/22 01:28 Dose: 200 mls/hr Documented By: [id number] Sodium Chloride (Nss 1000ml) 1,000 mls @ 60 mls/hr IV .[id number] ONE Stop: 03/13/22 16:25 Last Infusion: 03/13/22 16:59 Dose: 0 mls/hr Documented By: Admin: 03/13/22 00:22 Dose: 60 mls/hr Documented By: CAITLIN Magnesium Sulfate/Dextrose (Magnesium Sulfate / D5w) 1 gm in 100 mls @ 50 mls/hr IV ONE ONE Stop: 03/13/22 01:45 Last Infusion: 03/13/22 03:16 Dose: 0 mls/hr Documented By: [id number] Admin: 03/13/22 00:22 Dose: 50 mls/hr Documented By: BS Discharge Plan Visit Data Chief Complaint: Altered Mental Status ED Provider: Denny Smith Discharge Problem: Pneumonia, Hypoxia, Altered mental status, Acute confusion Patient Disposition: Admitted As Inpatient Discharge Instructions Interventions: ED Discharge Assessment Last Done: 03/13/22 00:28 : Pneumonia Qualifiers: Pneumonia type: due to unspecified organism Laterality: unspecified laterality Lung location: unspecified part of lung Qualified Code(s): J18.9 - Pneumonia, unspecified organism Altered mental status Qualifiers: Altered mental status type: disorientation Qualified Code(s): R41.0 - Disorientation, unspecified
[2022-03-12 20:17] LABS: HCO3 VBG 30 mmol/L; Oxygen Saturation VBG 95.4 %; PCO2 VBG 44 mmHg (38-50); PO2 VBG 70 mmHg; pH VBG 7.44 (7.36-7.41)
[2022-03-12 20:23] LABS: Basophils # (auto) 0.03 K/uL (0-0.2); Basophils % (auto) 0.3 %; Eosinophils # (auto) 0.11 K/uL (0-0.50); Eosinophils % (auto) 1.1 %; Hematocrit (blood only) 42.1 % (40.1-51.0); Hemoglobin 14.4 g/dl (14.0-18.0); Immature Granulocytes # (auto) 0.04 K/uL (0.00-0.02); Immature Granulocytes % (auto) 0.4 %; Lymphocytes # (auto) 0.45 K/uL (1.2-3.4); Lymphocytes % (auto) 4.3 %; Mean Corpuscular Hemoglobin 32.4 pg (25.0-34.0); Mean Corpuscular Hgb Conc 34.2 g/dL (32.0-36.0); Mean Corpuscular Volume 94.8 fL (80.0-100.0); Mean Platelet Volume 10.2 fL (9.4-12.4); Monocytes # (auto) 0.59 K/uL (0.24-0.82); Monocytes % (auto) 5.7 %; Neutrophils # (auto) 9.15 K/uL (1.4-6.5); Neutrophils % (auto) 88.2 %; Platelet Count 125 K/uL (130-400); RDW Coefficient of Variation 12.6 % (11.5-14.5); RDW Standard Deviation 43.9 fL (36.4-46.3); Red Blood Count 4.44 M/uL (4.63-6.08); White Blood Count 10.37 K/ul (4.8-10.8)
--- NOTE | 2022-03-12 20:23 | CT Scan Report ---
CT head/brain wo con CLINICAL HISTORY: confusion COMPARISON STUDY: 02/17/2021 CT DOSE: 614.27 mGy.cm TECHNIQUE: Standard CT of the Brain was performed without IV contrast. A dose lowering technique was utilized adhering to the principles of ALARA. FINDINGS: Extraaxial space: There is no evidence for subdural hematoma. There are no extra-axial fluid collecti ons. Ventricles and cisterns: The ventricles are again mildly to moderately dilated bilaterally. There is no evidence for midline shift or mass effect. Parenchyma: There is no subarachnoid or intraparenchymal hemorrhage. There is no evidence for an acut e infarct or cerebral edema. Old small bilateral lacunar infarcts are present. There is mild cerebral cortical atrophy and decreased attenuation in the periventricular white matter representing remote small vessel disease. There are no gross mass lesions. Osseous structures: There is no evidence for an acute fracture. The visualized paranasal sinuses are clear. The mastoid air cells are clear bilaterally. Soft tissues: There is no evidence for focal soft tissue swelling. IMPRESSION: 1. No acute intracerebral pathology. 2. Old lacunar infarcts are again seen within the basal ganglia bilaterally. 3. Cerebral cortical atrophy and remote small vessel disease are again seen. ACT 112: Negative or not required by law. Electronically signed by: Joon Stevenson M.D. 03/12/2022 8:22 PM
[2022-03-12] MEDS ORDERED: CEFEPIME 2,000 MG/20 ML VIAL IV STA (20:38)
[2022-03-12 20:45] LABS: Alanine Aminotransferase 12 U/L (7-52); Albumin Level 3.7 gm/dl (3.4-5.0); Alkaline Phosphatase 91 U/L (34-104); Anion Gap 8 (3-11); Aspartate Aminotransferase 15 U/L (13-39); BUN Creatinine Ratio 15.6 (10-20); Bilirubin Direct 0.1 mg/dl (0-0.2); Bilirubin,Total 0.7 mg/dl (0.2-1.0); Blood Urea Nitrogen 21 mg/dl (6-23); Calcium 8.5 mg/dl (8.5-10.1); Carbon Dioxide 25 mmol/L (21-32); Chloride 102 mmol/L (98-107); Est GFR (African American) 55.1 ml/min; Est GFR (Non-African American) 47.5 ml/min; Glucose 193 mg/dl (70-99(Fasting)); Lipase 22 U/L (11-82); Magnesium 1.8 mg/dl (1.7-2.4); Potassium 4.1 mmol/L (3.5-5.1); Sodium 135 mmol/L (136-145); Total Protein 6.2 gm/dl (6.0-8.3)
--- NOTE | 2022-03-12 20:45 | XRay Report ---
XR chest 1V portable CLINICAL HISTORY: weakness. Evaluate cardiopulmonary status COMPARISON STUDY: 10/01/2020 TECHNIQUE: 1 view of the chest FINDINGS: Single frontal view of the chest demonstrates the cardiomediastinal silhouette to be within normal li mits. There is a decreased inspiratory effort with elevation of the hemidiaphragms and crowding of th e bronchovascular markings at the lung bases and centrally. The lungs are clear of alveolar opacities . There is no evidence for pleural effusion. There is no evidence for vascular congestion. There is n o acute osseous pathology. IMPRESSION: 1. . There is a decreased inspiratory effort with otherwise no acute chest disease. ACT 112: Negative or not required by law. Electronically signed by: Joon Stevenson M.D. 03/12/2022 8:44 PM
[2022-03-12 20:48] LABS: Troponin I High Sensitivity 5.3 pg/ml (0-20)
[2022-03-12 22:53] LABS: Appearance Urine Clear (Clear); Bacteria Urine Automated Negative (Negative); Bilirubin Urine Negative (Negative); Blood Urine 2+ (Negative); Color Urine Yellow; Epithelial Cell Urine Auto 0-5 /lpf (0-5); Glucose Urine UA Negative (Negative); Ketones Urine Negative (Negative); Leukocyte Esterase Urine 1+ (Negative); Nitrite Urine Negative (Negative); Protein Urine Trace (Negative); Specific Gravity Urine 1.019 (1.000-1.030); Urobilinogen Urine Negative (Negative); WBC Urine Automated >30 /hpf (0-5)
[2022-03-12 23:29] LABS: Base Excess ABG 2.7 mEq/L (-9-1.8); HCO3 ABG 26 mmol/L (19-24); Oxygen Saturation ABG 99.5 % (90-95); PCO2 ABG 36 mmHg (35-46); PO2 ABG 85 mmHg (80-95); pH ABG 7.47 (7.35-7.45)
--- NOTE | 2022-03-12 23:35 | History & Physical Report ---
Date of Service March 12, 2022 Assessment & Plan (1) Encephalopathy: Plan: hx dementia multifactorial : Possible new CVA with dysarthria and R sided weakness perceived by daughter ? Aspirin failure [Lacunar infarcts on CT read (not previously known as per family), history PAF not on anti-coagulation secondary to fall risk as per documentation] Rule out seizures given involuntary jerks witnessed at the ER Hypoxemic respiratory failure, possible aspiration pneumonitis Complicated UTI, hx BPH/urinary retention/atonic bladder sp indwelling Oliver catheter, No overt sepsis for now hx CAD status post TAVR hypertension, stable DM2 diet-controlled, outpatient hemoglobin A1c of 6.07 January 2022 renal oncocytoma status post left nephrectomy Medical telemetry Neurochecks MRI/MRA brain, TTE, carotid Dopplers for stroke work-up Plavix for possible aspirin failure until new stroke ruled out on MRI EEG Re: Involuntary jerks ro seizures Neurology consult Re: Slurred speech, involuntary right side jerking movements (Patient known to Dr. Nunez). Baseline ABG Swallow eval, aspiration precautions Follow CS Unasyn for possible aspiration pneumonitis and possible complicated UTI. (Prior UTI pathogens have been sensitive to Unasyn on review of microbiologic hi story.) Basal bolus insulin, ISS BG goal 1 10-1 40, carb count coverage PT OT eval Further management pending work-up results DVT prophylaxis per Lovenox subcu Full code as per family. Patient family requesting update from providers. Ms. Pilar Gilbert (), contact #[phone] Ms. Shazia Dawson (daughter), contact #[phone]. Text document was generated using [employer] voice recognition software. It may contain grammatical or spelling errors. Kindly contact undersigned for clarification of any documentation item in question. History of Present Illness Chief Complaint: Confusion, slurred speech, right-sided weakness as per family Primary Care Provider: Melvin Cooper MD History obtained from patient, family, and records. Limited history from patient secondary to dementia. Medical history significant for dementia, CAD, A. fib/PSVT status post ablation/hx NSVT as per records, status post TAVR, hypertension, DM2 diet- controlled, BPH/urinary retention/atonic bladder sp indwelling Oliver catheter, renal oncocytoma status post left nephrectomy Last confinement September 2020 for small bowel obstruction status post surgery. Patient with progressive junky cough symptoms the last 3 weeks as per family. No fever, no chills, no chest pain, no SOB. Family not sure about aspiration. No known recent COVID-19 contacts. Patient completed COVID-19 vaccination Outpatient evaluation at weekend clinic scheduled for tomorrow. Around 5:30 PM today, patient noted by daughter to have slurred speech and possible right-sided weakness. Patient noted to be sleepy, confused. Episodic jerking of the right side noted. No incontinence, no tongue biting. No prior episodes. No new medications except for a mucolytic. Patient without headache, chest pain, SOB, abdominal pain, dysuria symptoms. O2 sats noted to be 89 on room air at some point during ER stay. IV cefepime administered at the ER. 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 [employer] Allergies Allergy/AdvReac Type Severity Reaction Status Date / Time No Known Allergies Allergy Verified 03/12/22 23:17 Home Medications Medication Instructions Recorded Confirmed Type metoprolol succinate 25 mg 25 mg PO QAM 09/11/20 03/12/22 History tablet,extended release 24 hr finasteride 5 mg tablet 5 mg PO DAILY #90 tabs 09/07/21 03/12/22 Rx memantine 10 mg tablet 10 mg PO BID #180 tabs 12/29/21 03/12/22 Rx aspirin 81 mg tablet,delayed 81 mg PO DAILY 01/08/22 03/12/22 History release bethanechol chloride 25 mg tablet 25 mg PO BID 01/08/22 03/12/22 History docusate sodium 100 mg tablet 100 mg PO BID PRN Constipation 03/12/22 03/12/22 History lutein 20 mg capsule 20 mg PO BID 03/12/22 03/12/22 History nitroglycerin 0.4 mg sublingual 0.4 mg sublingual DIRECTED PRN 03/12/22 03/12/22 History tablet (Nitrostat) Chest Pain pantoprazole 40 mg tablet,delayed 40 mg PO DAILY 03/12/22 03/12/22 History release polyethylene glycol 3350 17 gram 17 g PO DAILY PRN Constipation 03/12/22 03/12/22 History oral powder packet (Miralax) simethicone 125 mg chewable tablet 125 mg PO TID PRN .Gas or heartburn 03/12/22 03/12/22 History vitamins A,C,X-xrmi-lyvjog 14,320 1 cap PO DAILY 03/12/22 03/12/22 History unit-226 mg-200 unit capsule (PreserVision AREDS) Past Med/Surg History Medical History Alzheimer disease Aortic stenosis HX AORTIC VALVE REPLACEMENT Arthritis of right foot Asthma 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 CAD (coronary artery disease) Chronic indwelling Oliver catheter Diabetes mellitus, type 2 Gastric ulcer GERD (gastroesophageal reflux disease) Hearing loss HTN (hypertension) Lyme disease Macular degeneration Memory loss or impairment Mild CAD 30% mid LAD stenosis Orthostatic hypotension Paroxysmal A-fib Peripheral neuropathy Personal history of malignant melanoma of skin Restless legs (09/21/11) Shoulder problem RIGHT, TORN LIGAMENTS/TENDONS Sleep disorder Thyroid nodule Urinary retention with incomplete bladder emptying Surgical History H/O ankle fusion History of aortic valve replacement TAVR History of nephrectomy, left S/P ablation of atrial fibrillation S/P cholecystectomy S/P inguinal herniorrhaphy Status post small bowel resection Status post transcatheter aortic valve replacement (TAVR) using bioprosthesis Family History Other Family history of diabetes mellitus in mother Social History Smoking Status: Never smoker Hx Alcohol Use: No Hx Substance Use: No Preferred Language: [place] Communication Ability: aphasia Visual Impairment: No Limitations Manual Qa Tester Required: No Beliefs That Will Affect Care: None Current Living Situation: Spouse Current Living Situation Comment: with Feels Safe at Home: Yes Safety Concerns: Feels Safe At This Time Assistive Devices: Glasses and Walker Review of Systems Review of Systems: Could not be reliably obtained secondary to dementia Physical Exam Physical Exam: GENERAL: Comfortable, lethargic, demented, episodic jerking of right side of the body, occasional stuttering with mild dysarthria, no respiratory distress SKIN: Normal color, warm HEENT: [place] palpebral conjunctivae, no ptosis, dry buccal mucosa NECK : Supple, no tenderness CHEST : Decreased breath sounds , no tenderness HEART : Bradycardic , no obvious murmurs ABDOMEN: Some distention, nontender EXTREMITIES : No LE swelling/tenderness, no other conspicuous deformities noted NEUROLOGIC : Demented, lethargic, no facial asymmetry, mild dysarthria, MMTs BUE/BLE 4/5, intention tremors, gait and stance not assessed Results & Data Results & Data ([facility]) Vital Signs (Past 12 Hours) Vital Signs Temp Pulse Resp BP Pulse Ox O2 Del Method 03/12/22 22:30 60 17 117/68 03/12/22 22:00 66 22 117/64 03/12/22 21:30 68 21 116/68 89 L 03/12/22 21:00 65 22 118/61 95 03/12/22 20:41 67 20 117/91 95 03/12/22 20:30 71 28 H 96 03/12/22 20:01 94 03/12/22 19:45 37.2 C 80 18 119/73 95 Room Air Laboratory Results Laboratory Results WBC 10.37 K/ul (4.8-10.8) 03/12/22 19:54 RBC 4.44 M/uL (4.63-6.08) L 03/12/22 19:54 Hgb 14.4 g/dl (14.0-18.0) 03/12/22 19:54 Hct 42.1 % (40.1-51.0) 03/12/22 19:54 MCV 94.8 fL (80.0-100.0) 03/12/22 19:54 MCH 32.4 pg (25.0-34.0) 03/12/22 19:54 MCHC 34.2 g/dL (32.0-36.0) 03/12/22 19:54 RDW Std Deviation 43.9 fL (36.4-46.3) 03/12/22 19:54 RDW Coeff of Edgardo 12.6 % (11.5-14.5) 03/12/22 19:54 Plt Count 125 K/uL (130-400) L 03/12/22 19:54 MPV 10.2 fL (9.4-12.4) 03/12/22 19:54 Immature Gran % (Auto) 0.4 % 03/12/22 19:54 Neut % (Auto) 88.2 % 03/12/22 19:54 Lymph % (Auto) 4.3 % 03/12/22 19:54 [place] % (Auto) 5.7 % 03/12/22 19:54 Eos % (Auto) 1.1 % 03/12/22 19:54 Baso % (Auto) 0.3 % 03/12/22 19:54 Neut # (Auto) 9.15 K/uL (1.4-6.5) H 03/12/22 19:54 Lymph # (Auto) 0.45 K/uL (1.2-3.4) L 03/12/22 19:54 [place] # (Auto) 0.59 K/uL (0.24-0.82) 03/12/22 19:54 Eos # (Auto) 0.11 K/uL (0-0.50) 03/12/22 19:54 Baso # (Auto) 0.03 K/uL (0-0.2) 03/12/22 19:54 Immature Gran # (Auto) 0.04 K/uL (0.00-0.02) H 03/12/22 19:54 PT Cancelled 03/12/22 19:54 INR Cancelled 03/12/22 19:54 VBG pH 7.44 (7.36-7.41) H 03/12/22 19:54 VBG pCO2 44 mmHg (38-50) 03/12/22 19:54 VBG pO2 70 mmHg 03/12/22 19:54 VBG HCO3 30 mmol/L 03/12/22 19:54 VBG O2 Saturation 95.4 % 03/12/22 19:54 VBG Base Excess 5.0 mEq/L 03/12/22 19:54 Sodium 135 mmol/L (136-145) L 03/12/22 19:54 Potassium 4.1 mmol/L (3.5-5.1) 03/12/22 19:54 Chloride 102 mmol/L (98-107) 03/12/22 19:54 Carbon Dioxide 25 mmol/L (21-32) 03/12/22 19:54 Anion Gap 8 (3-11) 03/12/22 19:54 BUN 21 mg/dl (6-23) 03/12/22 19:54 Creatinine 1.35 mg/dl (0.6-1.4) 03/12/22 19:54 Est Cr Clr Drug Dosing Not Reportable 03/12/22 19:54 Est GFR ( Amer) 55.1 ml/min 03/12/22 19:54 Est GFR (Non-Af Amer) 47.5 ml/min 03/12/22 19:54 BUN/Creatinine Ratio 15.6 (10-20) 03/12/22 19:54 Glucose 193 mg/dl (70-99(Fasting)) H 03/12/22 19:54 Lactate 1.2 mmol/L (0.4-2.0) 03/12/22 21:54 Calcium 8.5 mg/dl (8.5-10.1) 03/12/22 19:54 Magnesium 1.8 mg/dl (1.7-2.4) 03/12/22 19:54 Total Bilirubin 0.7 mg/dl (0.2-1.0) 03/12/22 19:54 Direct Bilirubin 0.1 mg/dl (0-0.2) 03/12/22 19:54 AST 15 U/L (13-39) 03/12/22 19:54 ALT 12 U/L (7-52) 03/12/22 19:54 Alkaline Phosphatase 91 U/L (34-104) 03/12/22 19:54 Troponin I High Sens 5.3 pg/ml (0-20) 03/12/22 19:54 Total Protein 6.2 gm/dl (6.0-8.3) 03/12/22 19:54 Albumin 3.7 gm/dl (3.4-5.0) 03/12/22 19:54 Lipase 22 U/L (11-82) 03/12/22 19:54 Procalcitonin 0.05 ng/ml (0-0.5) 03/12/22 19:54 Urine Color Yellow 03/12/22 20:12 Urine Appearance Clear (Clear) 03/12/22 20:12 Urine pH 6.0 (4.5-7.5) 03/12/22 20:12 Ur Specific [place] 1.019 (1.000-1.030) 03/12/22 20:12 Urine Protein Trace (Negative) H 03/12/22 20:12 Urine Glucose (UA) Negative (Negative) 03/12/22 20:12 Urine Ketones Negative (Negative) 03/12/22 20:12 Urine Blood 2+ (Negative) H 03/12/22 20:12 Urine Nitrite Negative (Negative) 03/12/22 20:12 Urine Bilirubin Negative (Negative) 03/12/22 20:12 Urine Urobilinogen Negative (Negative) 03/12/22 20:12 Ur Leukocyte Esterase 1+ (Negative) H 03/12/22 20:12 Urine WBC (Auto) >30 /hpf (0-5) H 03/12/22 20:12 Urine RBC (Auto) 5-10 /hpf (0-4) H 03/12/22 20:12 U Hyaline Cast (Auto) 1-5 /lpf (0-5) 03/12/22 20:12 U Epithel Cells (Auto) 0-5 /lpf (0-5) 03/12/22 20:12 Urine Bacteria (Auto) Negative (Negative) 03/12/22 20:12 SARS-CoV-2 (PCR) NEGATIVE (Negative) 03/12/22 19:[address] 03/12/22 19:45 CT head/brain wo con CLINICAL HISTORY: confusion COMPARISON STUDY: 02/17/2021 CT DOSE: 614.27 mGy.cm TECHNIQUE: Standard CT of the Brain was performed without IV contrast. A dose lowering technique was utilized adhering to the principles of ALARA. FINDINGS: Extraaxial space: There is no evidence for subdural hematoma. There are no extra-axial fluid collections. Ventricles and cisterns: The ventricles are again mildly to moderately dilated bilaterally. There is no evidence for midline shift or mass effect. Parenchyma: There is no subarachnoid or intraparenchymal hemorrhage. There is no evidence for an acute infarct or cerebral edema. Old small bilateral lacunar infarcts are present. There is mild cerebral cortical atrophy and decreased attenuation in the periventricular white matter representing remote small vessel disease. There are no gross mass lesions. Osseous structures: There is no evidence for an acute fracture. The visualized paranasal sinuses are clear. The mastoid air cells are clear bilaterally. Soft tissues: There is no evidence for focal soft tissue swelling. IMPRESSION: 1. No acute intracerebral pathology. 2. Old lacunar infarcts are again seen within the basal ganglia bilaterally. 3. Cerebral cortical atrophy and remote small vessel disease are again seen. ACT 112: Negative or not required by law. Electronically signed by: Joon Stevenson M.D. 03/12/2022 8:22 PM Chest X-Ray 03/12/22 19:46 XR chest 1V portable CLINICAL HISTORY: weakness. Evaluate cardiopulmonary status COMPARISON STUDY: 10/01/2020 TECHNIQUE: 1 view of the chest FINDINGS: Single frontal view of the chest demonstrates the cardiomediastinal silhouette to be within normal limits. There is a decreased inspiratory effort with elevation of the hemidiaphragms and crowding of the bronchovascular markings at the lung bases and centrally. The lungs are clear of alveolar opacities. There is no evidence for pleural effusion. There is no evidence for vascular congestion. There is no acute osseous pathology. IMPRESSION: 1. . There is a decreased inspiratory effort with otherwise no acute chest disease. ACT 112: Negative or not required by law. Electronically signed by: Joon Stevenson M.D. 03/12/2022 8:44 PM Diagnostic Findings EKG as per my interpretation : Rate 75, NSR, normal axis, T wave flattening inferior leads
[2022-03-12 23:44] LABS: Allen Test Pos (Pos)
[2022-03-12 23:46] LABS: INR 1.1 (0.9-1.1); Prothrombin Time 11.3 Seconds (9.0-12.0)
[2022-03-12] MEDS ORDERED: MAGNESIUM SULFATE / D5W 1 GM/100 ML BAG IV ONE (23:46)
[2022-03-12] MEDS ORDERED: AMPICILLIN/SULBACTAM SOD 3,000 MG in 0.9 % SODIUM CHLORIDE 100 ML IV STA (23:47)
[2022-03-13] MEDS ORDERED: SIMETHICONE 80 MG CHEW PO PRN (01:26)
[2022-03-13] MEDS ORDERED: GLUCOSE 40% GEL 15 GM TUBE PO PRN (01:26)
[2022-03-13] MEDS ORDERED: CARBOHYDRATES FOR HYPOGLYCEMIA PO PRN (01:26)
[2022-03-13] MEDS ORDERED: DEXTROSE 50% 50 ML SYRINGE IV PRN (01:26)
[2022-03-13] MEDS ORDERED: ACETAMINOPHEN 325 MG TAB PO PRN (01:26)
[2022-03-13] MEDS ORDERED: GLUCOSE 10 TAB/TUBE PO PRN (01:26)
[2022-03-13] MEDS ORDERED: GLUCAGON FOR INJ 1 MG VIAL SQ PRN (01:26)
[2022-03-13] MEDS: INSULIN ASPART PER UNIT SC SCH ×5 (02:11→20:58)
[2022-03-13] MEDS: CLOPIDOGREL BISULFATE 75 MG TAB PO SCH ×2 (02:18→02:23)
[2022-03-13 07:20] LABS: Hematocrit (blood only) 38.3 % (40.1-51.0); Mean Corpuscular Hgb Conc 33.9 g/dL (32.0-36.0); Mean Corpuscular Volume 94.3 fL (80.0-100.0); Mean Platelet Volume 10.4 fL (9.4-12.4); Platelet Count 112 K/uL (130-400); RDW Coefficient of Variation 12.5 % (11.5-14.5); RDW Standard Deviation 43.6 fL (36.4-46.3); Red Blood Count 4.06 M/uL (4.63-6.08); White Blood Count 6.86 K/ul (4.8-10.8)
[2022-03-13 07:27] LABS: Basophils # (auto) 0.04 K/uL (0-0.2); Basophils % (auto) 0.6 %; Eosinophils # (auto) 0.31 K/uL (0-0.50); Eosinophils % (auto) 4.5 %; Immature Granulocytes # (auto) 0.03 K/uL (0.00-0.02); Immature Granulocytes % (auto) 0.4 %; Lymphocytes # (auto) 0.98 K/uL (1.2-3.4); Lymphocytes % (auto) 14.3 %; Monocytes # (auto) 0.62 K/uL (0.24-0.82); Neutrophils # (auto) 4.88 K/uL (1.4-6.5); Neutrophils % (auto) 71.2 %
[2022-03-13 07:34] LABS: BUN Creatinine Ratio 15.3 (10-20); Chol HDL Ratio 4.2 (0-5); Creatinine Clr Calc Pharmacy 47.3 ml/min; Est GFR (African American) 64.8 ml/min; Est GFR (Non-African American) 55.9 ml/min; Potassium 4.3 mmol/L (3.5-5.1)
--- NOTE | 2022-03-13 09:04 | Neurology Consultation ---
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 It is at least moderate and he is on 2 medications to try and help this but he continues to progress. The patient was admitted March 12, with increased confusion, right-sided weakness, slurred speech, and word-finding difficulties This morning he seems to be calm and not encephalopathic. He does not have right-sided weakness or slurred speech. He does have considerable word-finding difficulties but I am uncertain this is new versus is a possible acute stroke. I see no abnormal involuntary movements and he may have had some myoclonic jerks in the emergency room last night. He has no history of seizure disorder. 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 All of his symptoms started despite being on aspirin. Recommendations: 1. Awaiting MRI of the brain without contrast. 2. awaiting carotid ultrasound. 3. consider echocardiogram if not ordered already. 4. continue 81 milligram aspirin +70 5 milligrams clopidogrel for now and I will make additional recommendations after the MRI. 5. I see no reason for an EEG, and this can be canceled. I will make additional recommendations as he has other abnormal involuntary movements. Overall, I spent a total of 75 minutes with this case including review of records, review of CT scans , direct evaluation the patient at bedside, and discussion of the case with the patient and RN at bedside, and Dr. Campuzano, including differential diagnosis and treatment options. History of Present Illness Reason for Consultation: Patient is an 86-year-old, was asked to see the request of Dr. Braswell , for neurologic consultation regarding acute confusion, slurred speech and word- finding problems and right-sided weakness. Requesting Physician: Dr. Braswell Attending Physician: Doris Campuzano MD History of Present Illness This patient is followed by Dr. Nunez for years regarding dementia. 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 He is on memantine 10 milligrams twice a day and rivastigmine 9.5 milligram 24 patch. He has a history of hypertension, diabetes, coronary artery disease and aortic valve replacement. He has history of paroxysmal atrial fibrillation in the past. He has polyneuropathy and restless legs syndrome. He lives at home with his who has mild dementia. The daughter lives next door, checks on frequently, and there is home health Patient was brought to the emergency room on March 12 at 194. Family felt that he was more confused had slurred speech and right-sided weakness and had de creased ability to find words. When he arrived to the emergency room pressure was 119/73, pulse 80 and regular, respiratory rate 18, temperature 37.2, and O2 saturation 95 percent. He was described as being confused with no focal deficits. He was "confabulating". Sometime in the emergency room some involuntary jerks were noted but no specific seizures. This was not seen overnight her this morning. CT scan of the head showed no acute changes but there were old basal ganglia lacune nodes generalized atrophy. Chem profile and CBC were unremarkable except for glucose of 193. There were increased cells on urinalysis and culture is pending. He has remained afebrile. There was a concern about some aspiration pneumonia and family had reported 3 weeks of a "junky cough" This morning blood pressure is 154/82 and he remains afebrile. He has remained in normal sinus rhythm in the 50s and 60s. Labs this morning were unremarkable triglycerides were 60 and total cholesterol 130. He has no complaint of pain, headaches, dizziness, weakness or numbness. He finished eating some breakfast. Allergies Allergy/AdvReac Type Severity Reaction Status Date / Time No Known Allergies Allergy Verified 03/12/22 23:17 Home Medications Medication Instructions Recorded Confirmed Type metoprolol succinate 25 mg 25 mg PO QAM 09/11/20 03/12/22 History tablet,extended release 24 hr finasteride 5 mg tablet 5 mg PO DAILY #90 tabs 09/07/21 03/12/22 Rx memantine 10 mg tablet 10 mg PO BID #180 tabs 12/29/21 03/12/22 Rx aspirin 81 mg tablet,delayed 81 mg PO DAILY 01/08/22 03/12/22 History release bethanechol chloride 25 mg tablet 25 mg PO BID 01/08/22 03/12/22 History docusate sodium 100 mg tablet 100 mg PO BID PRN Constipation 03/12/22 03/12/22 History lutein 20 mg capsule 20 mg PO BID 03/12/22 03/12/22 History nitroglycerin 0.4 mg sublingual 0.4 mg sublingual DIRECTED PRN 03/12/22 03/12/22 History tablet (Nitrostat) Chest Pain pantoprazole 40 mg tablet,delayed 40 mg PO DAILY 03/12/22 03/12/22 History release polyethylene glycol 3350 17 gram 17 g PO DAILY PRN Constipation 03/12/22 03/12/22 History oral powder packet (Miralax) simethicone 125 mg chewable tablet 125 mg PO TID PRN .Gas or heartburn 03/12/22 03/12/22 History vitamins A,C,N-qiig-efdflf 14,320 1 cap PO DAILY 03/12/22 03/12/22 History unit-226 mg-200 unit capsule (PreserVision AREDS) Patient History Medical History Alzheimer disease Aortic stenosis HX AORTIC VALVE REPLACEMENT Arthritis of right foot Asthma 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 CAD (coronary artery disease) Chronic indwelling Oliver catheter Diabetes mellitus, type 2 Gastric ulcer GERD (gastroesophageal reflux disease) Hearing loss HTN (hypertension) Lyme disease Macular degeneration Memory loss or impairment Mild CAD 30% mid LAD stenosis Orthostatic hypotension Paroxysmal A-fib Peripheral neuropathy Personal history of malignant melanoma of skin Restless legs (09/21/11) Shoulder problem RIGHT, TORN LIGAMENTS/TENDONS Sleep disorder Thyroid nodule Urinary retention with incomplete bladder emptying Surgical History H/O ankle fusion History of aortic valve replacement TAVR History of nephrectomy, left S/P ablation of atrial fibrillation S/P cholecystectomy S/P inguinal herniorrhaphy Status post small bowel resection Status post transcatheter aortic valve replacement (TAVR) using bioprosthesis Family History Other Family history of diabetes mellitus in mother Social History Smoking Status: Never smoker Hx Alcohol Use: No Hx Substance Use: No Preferred Language: Amharic Communication Ability: aphasia Visual Impairment: No Limitations Congressional Aide Required: No Beliefs That Will Affect Care: None Current Living Situation: Spouse Current Living Situation Comment: with Feels Safe at Home: Yes Safety Concerns: Feels Safe At This Time Assistive Devices: Glasses and Walker Review of Systems Constitutional: no fever, no fatigue and no weakness Eyes: no diplopia, no eye pain and no worsening vision Ear, Nose, Mouth, Throat: no ear pain, no tinnitus, no hearing loss, no dizziness, no snoring, no hoarseness and no dysphagia Respiratory: no cough and no dyspnea Cardiovascular: no chest pain, no palpitations and no lightheadedness Gastrointestinal: no abdominal pain, no nausea and no vomiting Musculoskeletal: no back pain, no neck pain, no radicular pain, no joint pain and no myalgia Integumentary: no rash and no lesions Neurologic: + memory loss; no gait abnormality, no localized weakness, no generalized weakness, no tingling, no numbness, no tremor(s), no abnormal movements, no headache(s), no abnormal speech and no confusion Psychiatric: no depression, no irritability, no anxiety, no difficulty concentrating, no confusion and no hallucinations Endocrine: no fatigue and no flushing Hematologic / Lymphatic: no easy bleeding and no easy bruising Allergy / Immunological: no urticaria and no problem reported Exam (Neuro) Physical Exam: The patient is right-handed. The patient is awake, alert, and attentive. Speech is fluent but he rarely gets out good sentences (he had 1 or 2 perfectly normal sentences only). he has great trouble with word-finding, thinking of the word he wants to say. If I point to an object and tell him to identify it, he cannot get out the word, although he did know to say the color blue for my pen. When I gave him a series of objects in said "point to the chair" or another specific object, he readily pointed to that object without hesitation. His mood is good and he is very pleasant and cooperative. He does get a little frustrated as he tries to get out the words that he wants to say. He is not oriented to his age, where he is, the month, the day, or the year. Pupils are 2 mm bilaterally and reactive to light. Extraocular eye muscles are intact without nystagmus. Visual acuity and visual cr seem normal grossly to confrontation. There are no deficits to sensation in the face in all 3 distributions of the fifth cranial nerve bilaterally. Corneal reflexes are positive bilaterally. Facial strength and symmetry was normal bilaterally. Hearing seems normal bilaterally. Palate moves well without asymmetry. There is normal sternocleidomastoid and trapezius (shoulder shrug) strength bilaterally. Tongue is midline with good strength bilaterally. Neck has a full range of motion without discomfort. There are no cervical bruits bilaterally. There are no cranial or ocular bruits. Heart is without murmur. There is a regular rhythm and rate. Cervical, thoracic, and lumbar spine are nontender to palpation. Gait was not tested but stance sitting up in bed is normal. With outstretched arms there is no drift. There are no resting, postural, or action tremors. There is no ataxia with finger to nose testing. There is good facility in the hands. No other abnormal involuntary movements are noted. Motor strength is 5/5 diffusely in the arms bilaterally including deltoids, biceps, triceps, brachioradialis, wrist flexors and extensors, tubing oiler, and intrinsic hand muscles. Motor strength is 5/5 diffusely in the legs bilaterally including hip flexors, quadriceps, hamstrings, gastrocnemius, tibialis anterior, tibialis posterior, and Peroneii muscles. Toe extensors are normal and there is good bulk in the extensor digitorum brevis muscles bilaterally. The limbs have good tone without rigidity or spasticity. There is no atrophy noted in the muscles. Muscle bulk is normal, there is no tenderness to palpation, no myotonia to percussion, and no fasciculations seen. Sensory examination seems reasonable to touch and pin throughout. Reflexes are 1/4 in the biceps, triceps, brachioradialis, and quadriceps tendons bilaterally. Achilles tendon reflexes are absent bilaterally. There is no clonus bilaterally. Toes are neutral to downgoing with plantar stimulation bilaterally. Peripheral pulses are present and of normal quality distally in all 4 limbs. There is no peripheral edema noted in the limbs. Results & Data ([facility]) Vital Signs (Past 12 Hours) Vital Signs Temp Pulse Pulse Resp BP BP BP 03/13/22 08:09 36.4 C L 56 L 18 154/82 H 03/13/22 07:24 53 L 03/13/22 04:00 36.8 C 54 L 18 131/74 03/13/22 01:11 57 L 03/13/22 00:45 36.5 C 57 L 18 138/74 03/13/22 00:30 11 L 08/13/22 00:00 57 L 13 03/13/22 00:00 115/66 03/12/22 23:30 54 L 12 118/68 03/12/22 23:00 59 L 13 119/66 03/12/22 22:30 60 17 117/68 03/12/22 22:00 66 22 117/64 03/12/22 21:30 68 21 116/68 03/12/22 21:00 65 22 118/61 Pulse Ox O2 Del Method 03/13/22 08:09 97 Room Air 03/13/22 07:24 03/13/22 04:00 98 Room Air 03/13/22 01:11 03/13/22 00:45 96 Room Air 03/13/22 00:30 95 03/13/22 00:00 96 03/13/22 00:00 03/12/22 23:30 97 03/12/22 23:00 92 03/12/22 22:30 03/12/22 22:00 03/12/22 21:30 89 L 03/12/22 21:00 95 PG Care Time/CCT Total # of Minutes Spent Total Time Spent with Patient: Total time spent is greater than 50% in coordination of care (as documented) at patient's floor/unit and/or counseling patient: Coding Level of Care Code 19683 Initial Inpt Care Lvl 3 Diagnoses Alzheimer disease G30.9; F02.80 Encephalopathy G93.40 Word finding difficulty R47.89 Abnormal involuntary movements R25.9 Time Spent (min) 75
[2022-03-13] MEDS: MEMANTINE HCL 10 MG TAB PO SCH ×2 (09:08→21:06)
[2022-03-13] MEDS: FINASTERIDE 5 MG TAB PO SCH (09:09)
[2022-03-13] MEDS: PANTOprazole 40 MG TAB PO SCH (09:09)
[2022-03-13] MEDS: ENOXAPARIN INJ 40 MG/0.4 ML SYR SQ SCH (09:09)
[2022-03-13] MEDS: ASPIRIN 81 MG ECTAB PO SCH (09:09)
[2022-03-13] MEDS: METOPROLOL SUCC 25MG EXT REL TAB PO SCH (09:09)
[2022-03-13] MEDS: AMPICILLIN/SULBACTAM SOD 3,000 MG in 0.9 % SODIUM CHLORIDE 100 ML IV SCH ×3 (09:22→21:02)
--- NOTE | 2022-03-13 11:25 | Magnetic Resonance Report ---
MR angio head wo con CLINICAL HISTORY: slurred speech TECHNIQUE: 3D time of flight MRA of the head was performed without intravenous contrast. 3-D reconstr uctions were obtained in multiple planes. Comparison: Comparison is made to MRI brain 07/15/2017 FINDINGS: Flow signal is shown in the intracranial segments of the internal carotid arteries, the anterior, mid dle and posterior cerebral arteries, the anterior and posterior communicating arteries, cerebellar ar teries, the intracranial segments of the vertebral arteries, and the basilar artery. No aneurysm, ar teriovenous malformation, dissection, nor hemodynamically significant flow stenosis is shown. Assessment of stenosis of the internal carotid arteries is based on NASCET criteria. IMPRESSION: No evidence of acute intracranial abnormality. In particular, no occlusion, hemorrhage, or aneurysmal disease is seen. ACT 112: Negative or not required by law. Electronically signed by: Chet Mayen M.D. 03/13/2022 11:23 AM
--- NOTE | 2022-03-13 11:40 | Magnetic Resonance Report ---
MR brain wo con CLINICAL HISTORY: slurred speech TECHNIQUE: Multiplanar and multisequence MR images of the brain were obtained without intravenous con trast. Comparison: Comparison is made to MRI head 03/13/2022 FINDINGS: No abnormal restricted diffusion is identified. Foci of T2 and FLAIR hyperintensity are noted in the paraventricular areas consistent with chronic small vessel ischemic disease. Ex vacuo ventriculomegal y and sulcal enlargement is noted compatible with diffuse encephalomalacia. No mass is seen. There is no mass effect or midline shift. There is no evidence of acute intraparenchymal hemorrhage. No extra axial fluid collections are seen. The corpus callosum, pituitary gland, and cerebellar tonsils appea r grossly unremarkable. Flow voids of the major intracranial arterial vessels are identified. The imaged portions of the para nasal sinuses, mastoid air cells, and orbits are unremarkable. IMPRESSION: No acute abnormality is seen in particular there is no evidence of acute infarct. ACT 112: Negative or not required by law. Electronically signed by: Chet Mayen M.D. 03/13/2022 11:37 AM
--- NOTE | 2022-03-13 11:48 | Ultrasound Report ---
ULTRASOUND OF THE CAROTID ARTERIES CLINICAL HISTORY: cva COMPARISON: None available at the time of this dictation. TECHNIQUE: Real-time, grayscale, and color Doppler sonography of the carotid arteries is performed. I mages are reviewed in the transverse and longitudinal planes. FINDINGS: The carotid arteries are patent bilaterally and demonstrate antegrade flow. There is mild atheroscler otic plaque on the right and mild atherosclerotic plaque on the left. Normal doppler arterial wavefor ms are seen throughout. Velocity measurements are listed below. Common carotid peak systolic velocity (cm/sec): RIGHT: 51 LEFT: 69 ICA peak systolic velocity (cm/sec): RIGHT: 79 LEFT: 73 ICA/CC peak systolic ratio: RIGHT: 1.5 LEFT: 1.1 Antegrade flow was shown in the vertebral arteries. The external carotid arteries are patent. IMPRESSION: 1. There is no sonographic evidence of hemodynamically significant stenosis in the right or left car otid arterial system. 2. Antegrade flow is shown in the vertebral arteries. Society of Radiologists in Ultrasound consensus guidelines: Normal: ICA PSV is <125 cm/sec and no plaque or intimal thickening is visible sonographically additional criteria include ICA/CCA PSV ratio <2.0 and ICA EDV <40 cm/sec <50% ICA stenosis: ICA PSV is <125 cm/sec and plaque or intimal thickening is visible sonographically additional criteria include ICA/CCA PSV ratio <2.0 and ICA EDV <40 cm/sec 50-69% ICA stenosis: ICA PSV is 125-230 cm/sec and plaque is visible sonographically additional criteria include ICA/CCA PSV ratio of 2.0-4.0 and ICA EDV of 40-100 cm/sec ?70% ICA stenosis but less than near occlusion: ICA PSV is >230 cm/sec and visible plaque and luminal narrowing are seen at tate-scale and color Dopp ler ultrasound (the higher the Doppler parameters lie above the threshold of 230 cm/sec, the greater the likelihood of severe disease) additional criteria include ICA/CCA PSV ratio >4 and ICA EDV >100 cm/sec ACT 112: Negative or not required by law. Electronically signed by: Chet Mayen M.D. 03/13/2022 11:46 AM
--- NOTE | 2022-03-13 11:59 | Electrocardiogram Report ---
Test Reason : Blood Pressure : / mmHG Vent. Rate : 077 BPM Atrial Rate : 077 BPM P-R Int : 186 ms QRS Dur : 070 ms QT Int : 366 ms P-R-T Axes : 067 019 009 degrees QTc Int : 414 ms Poor data quality, interpretation may be adversely affected Normal sinus rhythm Normal ECG When compared with ECG of 24-SEP-2020 07:46, Premature atrial complexes are no longer Present Nonspecific T wave abnormality now evident in Inferior leads Confirmed by Vinod Dhillon ([id number]) on 03/13/2022 11:59:22 AM Referred By: REFERRED SELF Confirmed By:Vinod Dhillon
--- NOTE | 2022-03-13 23:39 | Hospitalist Progress Note ---
Date of Service March 13, 2022 Assessment & Plan (1) Stroke-like symptom: Plan: Present on admission with slurred speech speech, right sided weakness and confusion possible related to TIA, but need to r/o acute CVA CT head negative for any intracranial finding MRI head showed no acute abnormality is seen in particular there is no evidence of acute infarct. MRA head showed No evidence of acute intracranial abnormality. ECHO showed no changes compare to previous echo Carotid u/s showed no sonographic evidence of hemodynamically significant stenosis in the right or left carotid arterial system. Neuro on board recommended to continue dual antiplatelet therapy with aspirin and plavix for now Continue PT/OT/Speech eval continue monitor closely Questionable Hypoxia respiratory failure Not sure if we can call it hypoxia since pt had a transient episode. currently saturated well on RA CXR showeddecreased inspiratory effort with otherwise no acute chest disease. Pt was started on Unasyn for possible aspiration pneumonia Follow up blood cx Abnormal UA hx BPH/urinary retention/atonic bladder sp indwelling Oliver catheter UA positive for Leukocytes Pt is on Unasyn for now Will follow urine sensitivity Status post transcatheter aortic valve replacement (TAVR) using bioprosthesis: CAD Continue aspirin and beta-nicole Chronic indwelling Oliver catheter: Continue finasteride Alzheimer disease: Continue home medications DVT prophylaxis: on Lovenox Code Status Full Code Admission and Anticipated Discharge Date Admission Date: March 12, 2022 Subjective Pt was seen and examined for stroke like symptoms Lying in bed with no acute distress I came back later to check on patient at that time and daughter were at bedside Daughter said that his speech is much better She said that patient has underling of confusion Pt kept removing the heart monitor and daughter requested if we can remove it Denies any chest pain, palpitation, dizziness and SOB Review of Systems Review of Systems: All systems reviewed & are unremarkable except as noted in Subjective Physical Exam Physical Exam: General- No acute distress Head- atraumatic Eyes- PERRL, EOMI, ENT- oropharynx clear Neck- supple, no JVD Lungs- clear to auscultation Heart- regular rhythm; no murmur Abdomen- normal bowel sounds, soft, nontender Extremities- no calf tenderness Neuro- alert, awake ; PERRL, EOMI; no facial palsy; +difficulty to find words, move all extremities Skin- warm & dry Results & Data Results & Data ([facility]) Vital Signs (Past 12 Hours) Vital Signs Temp Pulse Pulse Resp BP BP Pulse Ox 03/13/22 22:53 36.7 C 56 L 16 164/90 H 96 03/13/22 20:04 36.7 C 71 16 167/84 H 95 03/13/22 15:51 61 03/13/22 15:14 36.4 C L 59 L 20 152/92 H 97 O2 Del Method 03/13/22 22:53 Room Air 03/13/22 20:04 Room Air 03/13/22 15:51 03/13/22 15:14 Room Air
[2022-03-14] MEDS: AMPICILLIN/SULBACTAM SOD 3,000 MG in 0.9 % SODIUM CHLORIDE 100 ML IV SCH ×4 (02:51→19:44)
[2022-03-14] MEDS: OLANZapine 10 MG/2.1 ML SDV IM PRN ×2 (05:16→09:33)
[2022-03-14] MEDS: ENOXAPARIN INJ 40 MG/0.4 ML SYR SQ SCH (08:02)
[2022-03-14] MEDS: MEMANTINE HCL 10 MG TAB PO SCH ×2 (08:03→21:26)
[2022-03-14] MEDS: METOPROLOL SUCC 25MG EXT REL TAB PO SCH (08:03)
[2022-03-14] MEDS: FINASTERIDE 5 MG TAB PO SCH (08:03)
[2022-03-14] MEDS: CLOPIDOGREL BISULFATE 75 MG TAB PO SCH (08:03)
[2022-03-14] MEDS: PANTOprazole 40 MG TAB PO SCH (08:03)
[2022-03-14] MEDS: ASPIRIN 81 MG ECTAB PO SCH (08:03)
[2022-03-14] MEDS: INSULIN ASPART PER UNIT SC SCH ×4 (08:19→21:25)
[2022-03-14 08:56] LABS: Hematocrit (blood only) 39.7 % (40.1-51.0); Hemoglobin 13.7 g/dl (14.0-18.0); Mean Corpuscular Hemoglobin 32.2 pg (25.0-34.0); Mean Corpuscular Hgb Conc 34.5 g/dL (32.0-36.0); Mean Corpuscular Volume 93.2 fL (80.0-100.0); Mean Platelet Volume 10.4 fL (9.4-12.4); Platelet Count 134 K/uL (130-400); RDW Coefficient of Variation 12.5 % (11.5-14.5); RDW Standard Deviation 42.6 fL (36.4-46.3); Red Blood Count 4.26 M/uL (4.63-6.08); White Blood Count 6.51 K/ul (4.8-10.8)
--- NOTE | 2022-03-14 16:46 | Hospitalist Progress Note ---
Date of Service March 14, 2022 Assessment & Plan (1) Stroke-like symptom: Plan: Present on admission with slurred speech speech, right sided weakness and confusion possible related to TIA, but need to r/o acute CVA CT head negative for any intracranial finding MRI head showed no acute abnormality is seen in particular there is no evidence of acute infarct. MRA head showed No evidence of acute intracranial abnormality. ECHO showed no changes compare to previous echo Carotid u/s showed no sonographic evidence of hemodynamically significant stenosis in the right or left carotid arterial system. Neuro on board recommended to continue dual antiplatelet therapy with aspirin and plavix for now Continue PT/OT/Speech eval PT recommended short term rehab placement to ensure safety and independence before returning home to continue monitor closely Questionable Hypoxia respiratory failure Not sure if we can call it hypoxia since pt had a transient episode. currently saturated well on RA CXR showeddecreased inspiratory effort with otherwise no acute chest disease. Pt was started on Unasyn for possible aspiration pneumonia Blood cx no growth Abnormal UA hx BPH/urinary retention/atonic bladder sp indwelling Oliver catheter UA positive for Leukocytes Urine cx grew pinpoint growth, reincubating Pt is on Unasyn for now Will follow urine sensitivity Status post transcatheter aortic valve replacement (TAVR) using bioprosthesis: CAD Continue aspirin and beta-nicole Elevated BS Hba1c pending continue monitor BS Chronic indwelling Oliver catheter: Continue finasteride Alzheimer disease: Continue home medications DVT prophylaxis: on Lovenox Code Status Full Code Admission and Anticipated Discharge Date Admission Date: March 12, 2022 Subjective Pt was seen and examined for follow up stroke like symptoms Lying in bed with no acute distress with at bedside Pt is looking much better, near to his baseline Pt had therapy that recommended short Denies any chest pain, palpitation, dizziness and SOB Review of Systems Review of Systems: All systems reviewed & are unremarkable except as noted in Subjective Physical Exam Physical Exam: General- No acute distress Head- atraumatic Eyes- PERRL, EOMI, ENT- oropharynx clear Neck- supple, no JVD Lungs- clear to auscultation Heart- regular rhythm; no murmur Abdomen- normal bowel sounds, soft, nontender Extremities- no calf tenderness Neuro- alert, awake ; PERRL, EOMI; no facial palsy; +difficulty to find words, move all extremities Skin- warm & dry Results & Data Results & Data ([facility]) Vital Signs (Past 12 Hours) Vital Signs Temp Pulse Resp BP Pulse Ox O2 Del Method 03/14/22 07:41 36.3 C L 61 16 141/79 H 96 Room Air 03/14/22 07:19 Room Air
[2022-03-15] MEDS: AMPICILLIN/SULBACTAM SOD 3,000 MG in 0.9 % SODIUM CHLORIDE 100 ML IV SCH ×4 (01:53→19:58)
[2022-03-15 06:48] LABS: Estimated Average Glucose 140 mg/dl; Hemoglobin A1C 6.5 % (4.5-5.6)
[2022-03-15] MEDS: MEMANTINE HCL 10 MG TAB PO SCH ×2 (07:27→20:49)
[2022-03-15] MEDS: ENOXAPARIN INJ 40 MG/0.4 ML SYR SQ SCH (07:28)
[2022-03-15] MEDS: METOPROLOL SUCC 25MG EXT REL TAB PO SCH (07:28)
[2022-03-15] MEDS: FINASTERIDE 5 MG TAB PO SCH (07:28)
[2022-03-15] MEDS: CLOPIDOGREL BISULFATE 75 MG TAB PO SCH (07:28)
[2022-03-15] MEDS: PANTOprazole 40 MG TAB PO SCH (07:28)
[2022-03-15] MEDS: ASPIRIN 81 MG ECTAB PO SCH (07:28)
[2022-03-15] MEDS: INSULIN ASPART PER UNIT SC SCH ×4 (08:11→20:45)
[2022-03-15] MEDS: POLYETHYLENE (MIRALAX) 17 GM PACK PO PRN (08:36)
--- NOTE | 2022-03-15 11:21 | Neurology Progress Note ---
Date of Service March 15, 2022 Assessment & Plan (1) Alzheimer disease: (2) Encephalopathy: (3) Word finding difficulty: (4) Abnormal involuntary movements: Plan Patient has a history of progressive dementia, consistent with a senile dementia of the Alzheimer's type. It is at least moderate and he is on 2 medications to try and help this, but he continues to progress. The patient was admitted March 12, with increased confusion, right-sided weakness, slurred speech, and word-finding difficulties Since admission, he has displayed significant dementia but no obvious encephalopathy. He does not have right-sided weakness or slurred speech. He does have considerable word-finding difficulties but I am uncertain this is new. He did not have a stroke on MRI. MR angiography and carotid ultrasound were unremarkable. I have seen no abnormal involuntary movements Since admission. he may have had some myoclonic jerks in the emergency room. He has no history of seizure disorder. 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 All of his symptoms started despite being on aspirin. Recommendations: 1. Awaiting MRI of the brain without contrast. 2. awaiting carotid ultrasound. 3. consider echocardiogram if not ordered already. 4. continue 81 milligram aspirin +75 milligrams clopidogrel for a total of 3 weeks, then go to 75 mg clopidogrel Alone. 5. I see no reason for additional neurologic testing at this time. Overall, I spent a total of 35 minutes with this case including review of records, Review of MRI films, direct evaluation the patient at bedside, and discussion of the case with the patient and RN at bedside, and Dr. Campuzano, including differential diagnosis and treatment options. Admission and Anticipated Discharge Date Admission Date: March 12, 2022 Subjective the patient has no complaint of pain or headache. MRI of the brain showed moderate generalized atrophy and mild small vessel ischemia van all nature. There was no acute changes. I reviewed these films. Carotid ultrasound showed no significant stenosis of the carotid or vertebral arteries. MR angiography of the head showed no significant vessel stenoses or anomalies also. Blood pressure is 143/82 and he is afebrile. CBC shows mild anemia and hemoglobin A1c is 6.5 Results & Data ([facility]) Vital Signs (Past 12 Hours) Vital Signs Temp Pulse Resp BP Pulse Ox O2 Del Method 03/15/22 07:20 36.3 C L 59 L 16 143/82 H 95 Room Air Exam (Neuro) Physical Exam: He is awake and alert. He has the noun/word-finding difficulty as before. He recognizes now was and can point to objects when asked but he cannot say the. He perseverates and struggles with little words trying get out a sentence. He is trying to get out of bed and he is not sure why. Strength is symmetrical in all 4 limbs without weakness. Coordination is normal without tremor or ataxia. PG Care Time/CCT Total # of Minutes Spent Total Time Spent with Patient: Total time spent is greater than 50% in coordination of care (as documented) at patient's floor/unit and/or counseling patient: Coding Level of Care Code 22735 Subseq Hosp Care Lvl 3 Diagnoses Alzheimer disease G30.9; F02.80 Encephalopathy G93.40 Word finding difficulty R47.89 Abnormal involuntary movements R25.9 Time Spent (min) 35
--- NOTE | 2022-03-15 22:30 | Hospitalist Progress Note ---
Date of Service March 15, 2022 Assessment & Plan (1) Stroke-like symptom: Plan: Present on admission with slurred speech speech, right sided weakness and confusion possible related to TIA, but need to r/o acute CVA CT head negative for any intracranial finding MRI head showed no acute abnormality is seen in particular there is no evidence of acute infarct. MRA head showed No evidence of acute intracranial abnormality. ECHO showed no changes compare to previous echo Carotid u/s showed no sonographic evidence of hemodynamically significant stenosis in the right or left carotid arterial system. Neuro on board recommended to continue dual antiplatelet therapy with aspirin and plavix for 21 days, then plavix alone Continue PT/OT/Speech eval PT recommended short term rehab placement to ensure safety and independence before returning home to continue monitor closely Questionable Hypoxia respiratory failure Not sure if we can call it hypoxia since pt had a transient episode. currently saturated well on RA CXR showeddecreased inspiratory effort with otherwise no acute chest disease. Pt was started on Unasyn for possible aspiration pneumonia Blood cx no growth Abnormal UA hx BPH/urinary retention/atonic bladder sp indwelling Oliver catheter UA positive for Leukocytes urine cx grew gram positive cocci Status post transcatheter aortic valve replacement (TAVR) using bioprosthesis: CAD Continue aspirin and beta-nicole Elevated BS Hba1c pending continue monitor BS Chronic indwelling Oliver catheter: Continue finasteride Alzheimer disease: Continue home medications DVT prophylaxis: on Lovenox Code Status Full Code Admission and Anticipated Discharge Date Admission Date: March 12, 2022 Subjective Pt was seen and examined for follow up stroke like symptoms Lying in bed with no acute distress with at bedside Denies any chest pain, palpitation, dizziness and SOB Review of Systems Review of Systems: All systems reviewed & are unremarkable except as noted in Subjective Physical Exam Physical Exam: General- No acute distress Head- atraumatic Eyes- PERRL, EOMI, ENT- oropharynx clear Neck- supple, no JVD Lungs- clear to auscultation Heart- regular rhythm; no murmur Abdomen- normal bowel sounds, soft, nontender Extremities- no calf tenderness Neuro- alert, awake ; PERRL, EOMI; no facial palsy; +difficulty to find words, move all extremities Skin- warm & dry Results & Data Results & Data ([facility]) Vital Signs (Past 12 Hours) Vital Signs Temp Pulse Resp BP Pulse Ox O2 Del Method 03/15/22 19:05 36.7 C 62 20 153/77 H 94 Room Air 03/15/22 14:43 36.2 C L 67 16 144/83 H 94 Room Air 03/15/22 12:24 36.6 C 64 18 152/80 H 98 Room Air
[2022-03-16] MEDS: AMPICILLIN/SULBACTAM SOD 3,000 MG in 0.9 % SODIUM CHLORIDE 100 ML IV SCH ×4 (02:19→21:22)
[2022-03-16] MEDS: PANTOprazole 40 MG TAB PO SCH (08:04)
[2022-03-16] MEDS: MEMANTINE HCL 10 MG TAB PO SCH ×2 (08:04→21:24)
[2022-03-16] MEDS: FINASTERIDE 5 MG TAB PO SCH (08:04)
[2022-03-16] MEDS: ENOXAPARIN INJ 40 MG/0.4 ML SYR SQ SCH (08:05)
[2022-03-16] MEDS: METOPROLOL SUCC 25MG EXT REL TAB PO SCH (08:05)
[2022-03-16] MEDS: ASPIRIN 81 MG ECTAB PO SCH (08:05)
[2022-03-16] MEDS: CLOPIDOGREL BISULFATE 75 MG TAB PO SCH (08:05)
[2022-03-16] MEDS: INSULIN ASPART PER UNIT SC SCH ×4 (08:10→21:22)
[2022-03-16 09:05] LABS: Creatinine Clr Calc Pharmacy 39.1 ml/min; Est GFR (African American) 52.4 ml/min; Est GFR (Non-African American) 45.2 ml/min
--- NOTE | 2022-03-16 10:52 | XRay Report ---
XR chest 1V portable HISTORY: congestion COMPARISON: Chest 03/12/2022. FINDINGS: No pneumothorax. Possible trace left pleural effusions. The cardiac silhouette is mildly en larged. A cardiac valve stent is noted. There is mild central pulmonary vascular congestion without o vert edema. Left basilar densities persist and favor subsegmental atelectasis. Prior cholecystectomy. IMPRESSION: 1. Cardiomegaly with mild central pulmonary vascular congestion without overt edema. 2. Trace left pleural effusion. 3. Stable left basilar densities likely representing subsegmental atelectasis. ACT 112: Negative or not required by law. Electronically signed by: Rodney Ramirez M.D. 03/16/2022 10:50 AM
[2022-03-16] MEDS ORDERED: SODIUM CHLOR 7% 4 ML NEB NEB ONE (11:00)
--- NOTE | 2022-03-16 23:45 | Hospitalist Progress Note ---
Date of Service March 16, 2022 Assessment & Plan (1) Stroke-like symptom: Plan: Present on admission with slurred speech speech, right sided weakness and confusion possible related to TIA, but need to r/o acute CVA CT head negative for any intracranial finding MRI head showed no acute abnormality is seen in particular there is no evidence of acute infarct. MRA head showed No evidence of acute intracranial abnormality. ECHO showed no changes compare to previous echo Carotid u/s showed no sonographic evidence of hemodynamically significant stenosis in the right or left carotid arterial system. Neuro on board recommended to continue dual antiplatelet therapy with aspirin and plavix for 21 days, then plavix alone Continue PT/OT/Speech eval PT recommended short term rehab placement to ensure safety and independence before returning home to continue monitor closely Questionable Hypoxia respiratory failure Not sure if we can call it hypoxia since pt had a transient episode. currently saturated well on RA Repeat CXR showed Cardiomegaly with mild central pulmonary vascular congestion without overt edema. currently on Unasyn for possible aspiration pneumonia Blood cx no growth Abnormal UA hx BPH/urinary retention/atonic bladder sp indwelling Oliver catheter UA positive for Leukocytes urine cx grew gram positive cocci Status post transcatheter aortic valve replacement (TAVR) using bioprosthesis: CAD Continue aspirin and beta-nicole Elevated BS Hba1c 6.5 on 03/14/22 continue monitor BS Chronic indwelling Oliver catheter: Continue finasteride Alzheimer disease: Continue home medications DVT prophylaxis: on Lovenox Code Status Full Code disposition Waiting for placement once medically stable Admission and Anticipated Discharge Date Admission Date: March 12, 2022 Subjective Pt was seen and examined for follow up stroke like symptoms Lying in bed with no acute distress with 1 to 1 sitter Pt is congested today you can hear the phlegm Spoke to daughter at bedside and provided with updates and answered all the questions Denies any chest pain, palpitation, dizziness and SOB Review of Systems Review of Systems: All systems reviewed & are unremarkable except as noted in Subjective Physical Exam Physical Exam: General- No acute distress Head- atraumatic Eyes- PERRL, EOMI, ENT- oropharynx clear Neck- supple, no JVD Lungs- clear to auscultation Heart- regular rhythm; no murmur Abdomen- normal bowel sounds, soft, nontender Extremities- no calf tenderness Neuro- alert, awake ; PERRL, EOMI; no facial palsy; +difficulty to find words, move all extremities Skin- warm & dry Results & Data Results & Data ([facility]) Vital Signs (Past 12 Hours) Vital Signs Temp Pulse Resp BP Pulse Ox O2 Del Method 03/16/22 22:33 37.0 C 76 20 148/68 H 96 Room Air 03/16/22 21:47 Room Air 03/16/22 15:50 36.8 C 68 18 153/91 H 90 Room Air 03/16/22 12:49 74 16 94 Room Air
[2022-03-17] MEDS: AMPICILLIN/SULBACTAM SOD 3,000 MG in 0.9 % SODIUM CHLORIDE 100 ML IV SCH ×4 (02:18→20:17)
[2022-03-17] MEDS: PANTOprazole 40 MG TAB PO SCH (08:43)
[2022-03-17] MEDS: ASPIRIN 81 MG ECTAB PO SCH (08:43)
[2022-03-17] MEDS: METOPROLOL SUCC 25MG EXT REL TAB PO SCH (08:43)
[2022-03-17] MEDS: MEMANTINE HCL 10 MG TAB PO SCH ×2 (08:44→20:21)
[2022-03-17] MEDS: CLOPIDOGREL BISULFATE 75 MG TAB PO SCH (08:44)
[2022-03-17] MEDS: FINASTERIDE 5 MG TAB PO SCH (08:44)
[2022-03-17] MEDS: ENOXAPARIN INJ 40 MG/0.4 ML SYR SQ SCH (08:44)
[2022-03-17] MEDS: INSULIN ASPART PER UNIT SC SCH ×4 (08:45→20:26)
[2022-03-17 08:52] LABS: Hematocrit (blood only) 40.3 % (40.1-51.0); Hemoglobin 13.9 g/dl (14.0-18.0); Mean Corpuscular Hemoglobin 32.4 pg (25.0-34.0); Mean Corpuscular Hgb Conc 34.5 g/dL (32.0-36.0); Mean Corpuscular Volume 93.9 fL (80.0-100.0); Mean Platelet Volume 9.8 fL (9.4-12.4); Platelet Count 170 K/uL (130-400); RDW Coefficient of Variation 12.6 % (11.5-14.5); RDW Standard Deviation 43.6 fL (36.4-46.3); Red Blood Count 4.29 M/uL (4.63-6.08); White Blood Count 7.27 K/ul (4.8-10.8)
[2022-03-17 09:18] LABS: BUN Creatinine Ratio 15.3 (10-20); Calcium 8.6 mg/dl (8.5-10.1); Creatinine Clr Calc Pharmacy 39.7 ml/min; Est GFR (African American) 56.7 ml/min; Potassium 3.7 mmol/L (3.5-5.1)
--- NOTE | 2022-03-17 16:59 | Hospitalist Progress Note ---
Date of Service March 17, 2022 Assessment & Plan (1) Stroke-like symptom: Plan: Present on admission with slurred speech speech, right sided weakness and confusion possible related to TIA, but need to r/o acute CVA CT head negative for any intracranial finding MRI head showed no acute abnormality is seen in particular there is no evidence of acute infarct. MRA head showed No evidence of acute intracranial abnormality. ECHO showed no changes compare to previous echo Carotid u/s showed no sonographic evidence of hemodynamically significant stenosis in the right or left carotid arterial system. Neuro on board recommended to continue dual antiplatelet therapy with aspirin and plavix for 21 days, then plavix alone Continue PT/OT/Speech eval PT recommended short term rehab placement to ensure safety and independence before returning home to Remains medically stable as of 03/17/2022 Pleasantly confused otherwise no behavioral abnormality Acute metabolic encephalopathy Multifactorial -catheter associated UTI, hypoxemia and TIA-like symptoms Seems to be at his baseline with mild confusion Questionable Hypoxia respiratory failure Not sure if we can call it hypoxia since pt had a transient episode. currently saturated well on RA Repeat CXR showed Cardiomegaly with mild central pulmonary vascular congestion without overt edema. currently on Unasyn for possible aspiration pneumonia Blood cx no growth Catheter associated UTI Abnormal UA hx BPH/urinary retention/atonic bladder sp indwelling Oliver catheter UA positive for Leukocytes urine cx grew gram positive cocci Has been getting intravenous Unasyn Status post transcatheter aortic valve replacement (TAVR) using bioprosthesis: CAD Continue aspirin and beta-nicole Elevated BS Hba1c 6.5 on 03/14/22 continue monitor BS Chronic indwelling Oliver catheter: Continue finasteride Alzheimer disease: Continue home medications DVT prophylaxis: on Lovenox Code Status Full Code disposition Waiting for placement once medically stable Admission and Anticipated Discharge Date Admission Date: March 12, 2022 Subjective 03/17/2022 The patient was seen and examined in medical floor He has been feeling much better, remains pleasantly confused and denies any significant symptoms He has been with one-to-one observation Does not have any issues with aggressiveness and/or uncooperativeness Awaiting placement Review of Systems Review of Systems: All systems reviewed and are unremarkable except as noted below Neurologic: Remains weak and lethargic Physical Exam Physical Exam: Lying in bed comfortably Constitutional: well developed, well nourished, + ill appearing and average body habitus Eyes: PERRL, conjunctivae normal, anicteric sclerae ENMT: external ear and nose normal, oropharynx normal Neck: trachea midline, no thyromegaly Respiratory: no respiratory distress Auscultation: + crackles (Minimal crackles at the bases otherwise clear) Cardiovascular: Rate/Rhythm: regular rate and regular rhythm; not tachycardic Heart Sounds: normal S1, normal S2 and + murmur Extremities: + edema (Trace edema bilaterally ) Gastrointestinal (Abdomen): Inspection/Auscultation: normal bowel sounds; abdomen not distended Percussion/Palpation: abdomen soft; abdomen nontender Musculoskeletal: No acute arthritis in any joint Neurologic: Alert, awake. Pleasantly confused. Generally weak but no focal neurodeficit Lymphatic: no cervical or axillary lymphadenopathy Results & Data Results & Data ([facility]) Vital Signs (Past 12 Hours) Vital Signs Temp Pulse Pulse Resp BP BP Pulse Ox 03/17/22 15:48 64 03/17/22 14:53 36.5 C 70 18 143/81 H 95 03/17/22 07:30 59 L 03/17/22 10:42 36.5 C 70 16 152/83 H 97 03/17/22 07:30 36.6 C 61 16 147/93 H 93 03/17/22 07:09 O2 Del Method 03/17/22 15:48 03/17/22 14:53 Room Air 03/17/22 07:30 03/17/22 10:42 Room Air 03/17/22 07:30 Room Air 03/17/22 07:09 Room Air Laboratory Results Short CBC 03/17/22 Range/Units 08:02 WBC 7.27 (4.8-10.8) K/ul Hgb 13.9 L (14.0-18.0) g/dl Hct 40.3 (40.1-51.0) % Plt Count 170 (130-400) K/uL BMP 03/17/22 08:02 Sodium 138 Potassium 3.7 Chloride 104 Carbon Dioxide 28 BUN 20 Creatinine 1.31 Glucose 123 H Calcium 8.6 Medications Administered Current Inpatient Medications Acetaminophen (Acetaminophen 325 Mg Tab) 650 mg PO Q4H PRN PRN Reason: Pain or Fever Stop: 04/12/22 01:25 Aspirin (Aspirin 81 Mg Ectab) 81 mg PO DAILY ANDREW Stop: 04/12/22 08:59 Last Admin: 03/17/22 08:43 Dose: 81 mg Clopidogrel Bisulfate (Clopidogrel Bisulfate 75 Mg Tab) 75 mg PO QAM ANDREW Stop: 04/12/22 01:29 Last Admin: 03/17/22 08:44 Dose: 75 mg Dextrose (Dextrose 50% 50 Ml Syringe) 25 - 50 ml IV UD PRN; Protocol PRN Reason: Hypoglycemia Protocol Stop: 04/12/22 01:25 Enoxaparin Sodium (Enoxaparin Inj 40 Mg/0.4 Ml Syr) 40 mg SQ QAM ANDREW Stop: 04/12/22 08:59 Last Admin: 03/17/22 08:44 Dose: 40 mg Finasteride (Finasteride 5 Mg Tab) 5 mg PO DAILY ANDREW Stop: 04/12/22 08:59 Last Admin: 03/17/22 08:44 Dose: 5 mg Glucagon (Glucagon For Inj 1 Mg Vial) 1 mg SQ UD PRN; Protocol PRN Reason: Hypoglycemia Protocol Stop: 04/12/22 01:25 Glucose (Glucose 40% Gel 15 Gm Tube) 15 - 30 gm PO UD PRN; Protocol PRN Reason: Hypoglycemia Protocol Stop: 04/12/22 01:25 Glucose (Glucose 10 Tab/Tube) 4 - 8 tab PO UD PRN; Protocol PRN Reason: Hypoglycemia Treatment Stop: 04/12/22 01:25 Ampicillin Sodium/Sulbactam Sodium 3,000 mg/ Sodium Chloride 108 mls @ 200 mls/hr IV Q6H ANDREW Stop: 03/20/22 07:59 Last Infusion: 03/17/22 14:08 Dose: Infused Insulin Aspart (Insulin Aspart Per Unit) 0 units SC ACHS ANDREW Stop: 04/12/22 01:25 Last Admin: 03/17/22 12:19 Dose: 2 units Memantine (Memantine Hcl 10 Mg Tab) 10 mg PO BID ANDREW Stop: 04/12/22 08:59 Last Admin: 03/17/22 08:44 Dose: 10 mg Metoprolol Succinate (Metoprolol Succ 25mg Ext Rel Tab) 25 mg PO QAM ANDREW Stop: 04/12/22 08:59 Last Admin: 03/17/22 08:43 Dose: 25 mg Miscellaneous (Carbohydrates For Hypoglycemia ) 15 - 30 gm PO UD PRN PRN Reason: Hypoglycemia Protocol Stop: 04/12/22 01:25 Olanzapine (Olanzapine 10 Mg/2.1 Ml Sdv) 2.5 mg IM Q4H PRN PRN Reason: Anxiety/Agitation Stop: 04/13/22 02:57 Last Admin: 03/14/22 09:33 Dose: 2.5 mg Pantoprazole Sodium (Pantoprazole 40 Mg Tab) 40 mg PO DAILY ANDREW Stop: 04/12/22 08:59 Last Admin: 03/17/22 08:43 Dose: 40 mg Polyethylene Glycol (Polyethylene (Miralax) 17 Gm Pack) 17 gm PO DAILY PRN PRN Reason: Constipation Stop: 04/12/22 01:25 Last Admin: 03/15/22 08:36 Dose: 17 gm Simethicone (Simethicone 80 Mg Chew) 120 mg PO TID PRN PRN Reason: .Gas or heartburn
[2022-03-18] MEDS: AMPICILLIN/SULBACTAM SOD 3,000 MG in 0.9 % SODIUM CHLORIDE 100 ML IV SCH ×4 (01:07→21:55)
[2022-03-18] MEDS: MEMANTINE HCL 10 MG TAB PO SCH ×2 (08:16→21:54)
[2022-03-18] MEDS: PANTOprazole 40 MG TAB PO SCH (08:16)
[2022-03-18] MEDS: ASPIRIN 81 MG ECTAB PO SCH (08:16)
[2022-03-18] MEDS: METOPROLOL SUCC 25MG EXT REL TAB PO SCH (08:17)
[2022-03-18] MEDS: FINASTERIDE 5 MG TAB PO SCH (08:17)
[2022-03-18] MEDS: CLOPIDOGREL BISULFATE 75 MG TAB PO SCH (08:17)
[2022-03-18] MEDS: ENOXAPARIN INJ 40 MG/0.4 ML SYR SQ SCH (08:18)
[2022-03-18] MEDS: INSULIN ASPART PER UNIT SC SCH ×4 (08:47→21:54)
--- NOTE | 2022-03-18 15:31 | Hospitalist Progress Note ---
Date of Service March 18, 2022 Assessment & Plan (1) Stroke-like symptom: Plan: Present on admission with slurred speech speech, right sided weakness and confusion possible related to TIA, but need to r/o acute CVA CT head negative for any intracranial finding MRI head showed no acute abnormality is seen in particular there is no evidence of acute infarct. MRA head showed No evidence of acute intracranial abnormality. ECHO showed no changes compare to previous echo Carotid u/s showed no sonographic evidence of hemodynamically significant stenosis in the right or left carotid arterial system. Neuro on board recommended to continue dual antiplatelet therapy with aspirin and plavix for 21 days, then plavix alone Continue PT/OT/Speech eval PT recommended short term rehab placement to ensure safety and independence before returning home to Remains medically stable as of 03/17/2022 Pleasantly confused otherwise no behavioral abnormality Remains stable without any more focal neurological deficit or symptoms Acute metabolic encephalopathy Multifactorial -catheter associated UTI, hypoxemia and TIA-like symptoms Seems to be at his baseline with mild confusion Medically stable Questionable Hypoxia respiratory failure Not sure if we can call it hypoxia since pt had a transient episode. currently saturated well on RA Repeat CXR showed Cardiomegaly with mild central pulmonary vascular congestion without overt edema. currently on Unasyn for possible aspiration pneumonia Blood cx no growth Catheter associated UTI Abnormal UA hx BPH/urinary retention/atonic bladder sp indwelling Oliver catheter UA positive for Leukocytes urine cx grew gram positive cocci Has been getting intravenous Unasyn Status post transcatheter aortic valve replacement (TAVR) using bioprosthesis: CAD Continue aspirin and beta-nicole Elevated BS Hba1c 6.5 on 03/14/22 continue monitor BS Chronic indwelling Oliver catheter: Continue finasteride Alzheimer disease: Continue home medications DVT prophylaxis: on Lovenox Code Status Full Code disposition Waiting for placement once medically stable Admission and Anticipated Discharge Date Admission Date: March 12, 2022 Subjective 03/17/2022 The patient was seen and examined in medical floor He has been feeling much better, remains pleasantly confused and denies any significant symptoms He has been with one-to-one observation Does not have any issues with aggressiveness and/or uncooperativeness Awaiting placement 03/18/2022 The patient was seen and examined in the medical telemetry unit He remains stable and pleasantly confused Denies any symptoms He has not been requiring any one-to-one sitter since yesterday Review of Systems Review of Systems: All systems reviewed and are unremarkable except as noted below Neurologic: Remains weak and lethargic Physical Exam Physical Exam: Lying in bed comfortably Constitutional: well developed, well nourished, + ill appearing and average body habitus Eyes: PERRL, conjunctivae normal, anicteric sclerae ENMT: external ear and nose normal, oropharynx normal Neck: trachea midline, no thyromegaly Respiratory: no respiratory distress Auscultation: + crackles (Minimal crackles at the bases otherwise clear) Cardiovascular: Rate/Rhythm: regular rate and regular rhythm; not tachycardic Heart Sounds: normal S1, normal S2 and + murmur Extremities: + edema (Trace edema bilaterally ) Gastrointestinal (Abdomen): Inspection/Auscultation: normal bowel sounds; abdomen not distended Percussion/Palpation: abdomen soft; abdomen nontender Musculoskeletal: No acute arthritis involving any joint Neurologic: moves all extremities and + confused Lymphatic: no cervical or axillary lymphadenopathy Results & Data Results & Data ([facility]) Vital Signs (Past 12 Hours) Vital Signs Temp Pulse Pulse Resp BP Pulse Ox O2 Del Method 03/18/22 15:17 36.7 C 61 16 153/82 H 95 Room Air 03/18/22 08:00 53 L 03/18/22 11:13 36.8 C 69 16 135/84 97 Room Air 03/18/22 08:00 Room Air 03/18/22 08:15 65 03/18/22 08:05 36.8 C 58 L 16 173/73 H 95 Room Air Medications Administered Current Inpatient Medications Acetaminophen (Acetaminophen 325 Mg Tab) 650 mg PO Q4H PRN PRN Reason: Pain or Fever Stop: 04/12/22 01:25 Aspirin (Aspirin 81 Mg Ectab) 81 mg PO DAILY [facility] Stop: 04/12/22 08:59 Last Admin: 03/18/22 08:16 Dose: 81 mg Clopidogrel Bisulfate (Clopidogrel Bisulfate 75 Mg Tab) 75 mg PO QAM [facility] Stop: 04/12/22 01:29 Last Admin: 03/18/22 08:17 Dose: 75 mg Dextrose (Dextrose 50% 50 Ml Syringe) 25 - 50 ml IV UD PRN; Protocol PRN Reason: Hypoglycemia Protocol Stop: 04/12/22 01:25 Enoxaparin Sodium (Enoxaparin Inj 40 Mg/0.4 Ml Syr) 40 mg SQ QAM [facility] Stop: 04/12/22 08:59 Last Admin: 03/18/22 08:18 Dose: 40 mg Finasteride (Finasteride 5 Mg Tab) 5 mg PO DAILY ANDREW Stop: 04/12/22 08:59 Last Admin: 03/18/22 08:17 Dose: 5 mg Glucagon (Glucagon For Inj 1 Mg Vial) 1 mg SQ UD PRN; Protocol PRN Reason: Hypoglycemia Protocol Stop: 04/12/22 01:25 Glucose (Glucose 40% Gel 15 Gm Tube) 15 - 30 gm PO UD PRN; Protocol PRN Reason: Hypoglycemia Protocol Stop: 04/12/22 01:25 Glucose (Glucose 10 Tab/Tube) 4 - 8 tab PO UD PRN; Protocol PRN Reason: Hypoglycemia Treatment Stop: 04/12/22 01:25 Ampicillin Sodium/Sulbactam Sodium 3,000 mg/ Sodium Chloride 108 mls @ 200 mls/hr IV Q6H ANDREW Stop: 03/20/22 07:59 Last Admin: 03/18/22 14:35 Dose: 200 mls/hr Insulin Aspart (Insulin Aspart Per Unit) 0 units SC ACHS ANDREW Stop: 04/12/22 01:25 Last Admin: 03/18/22 13:23 Dose: Not Given Memantine (Memantine Hcl 10 Mg Tab) 10 mg PO BID [facility] Stop: 04/12/22 08:59 Last Admin: 03/18/22 08:16 Dose: 10 mg Metoprolol Succinate (Metoprolol Succ 25mg Ext Rel Tab) 25 mg PO QAM ANDREW Stop: 04/12/22 08:59 Last Admin: 03/18/22 08:17 Dose: 25 mg Miscellaneous (Carbohydrates For Hypoglycemia ) 15 - 30 gm PO UD PRN PRN Reason: Hypoglycemia Protocol Stop: 04/12/22 01:25 Olanzapine (Olanzapine 10 Mg/2.1 Ml Sdv) 2.5 mg IM Q4H PRN PRN Reason: Anxiety/Agitation Stop: 04/13/22 02:57 Last Admin: 03/14/22 09:33 Dose: 2.5 mg Pantoprazole Sodium (Pantoprazole 40 Mg Tab) 40 mg PO DAILY ANDREW Stop: 04/12/22 08:59 Last Admin: 03/18/22 08:16 Dose: 40 mg Polyethylene Glycol (Polyethylene (Miralax) 17 Gm Pack) 17 gm PO DAILY PRN PRN Reason: Constipation Stop: 04/12/22 01:25 Last Admin: 03/15/22 08:36 Dose: 17 gm Simethicone (Simethicone 80 Mg Chew) 120 mg PO TID PRN PRN Reason: .Gas or heartburn
[2022-03-19] MEDS: AMPICILLIN/SULBACTAM SOD 3,000 MG in 0.9 % SODIUM CHLORIDE 100 ML IV SCH ×4 (02:02→21:04)
[2022-03-19] MEDS: FINASTERIDE 5 MG TAB PO SCH (08:26)
[2022-03-19] MEDS: MEMANTINE HCL 10 MG TAB PO SCH ×2 (08:26→21:37)
[2022-03-19] MEDS: ENOXAPARIN INJ 40 MG/0.4 ML SYR SQ SCH (08:26)
[2022-03-19] MEDS: ASPIRIN 81 MG ECTAB PO SCH (08:26)
[2022-03-19] MEDS: CLOPIDOGREL BISULFATE 75 MG TAB PO SCH (08:26)
[2022-03-19] MEDS: PANTOprazole 40 MG TAB PO SCH (08:26)
[2022-03-19] MEDS: METOPROLOL SUCC 25MG EXT REL TAB PO SCH (08:26)
[2022-03-19] MEDS: INSULIN ASPART PER UNIT SC SCH ×4 (08:29→22:00)
[2022-03-19 10:10] LABS: Creatinine Clr Calc Pharmacy 41.5 ml/min; Est GFR (African American) 56.2 ml/min; Est GFR (Non-African American) 48.5 ml/min
--- NOTE | 2022-03-19 16:07 | Hospitalist Progress Note ---
Date of Service March 19, 2022 Assessment & Plan (1) Stroke-like symptom: Plan: Present on admission with slurred speech speech, right sided weakness and confusion possible related to TIA, but need to r/o acute CVA CT head negative for any intracranial finding MRI head showed no acute abnormality is seen in particular there is no evidence of acute infarct. MRA head showed No evidence of acute intracranial abnormality. ECHO showed no changes compare to previous echo Carotid u/s showed no sonographic evidence of hemodynamically significant stenosis in the right or left carotid arterial system. Neuro on board recommended to continue dual antiplatelet therapy with aspirin and plavix for 21 days, then plavix alone Continue PT/OT/Speech eval PT recommended short term rehab placement to ensure safety and independence before returning home to Remains medically stable as of 03/17/2022 Pleasantly confused otherwise no behavioral abnormality Will need 24-hour care with high fall risk He is going to be discharged home but he will need a semierect take hospital bed for his care at home He has strokelike symptoms and other significant comorbid conditions including CAD status post TAVR, chronic catheter associated infection, diabetes and 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 Acute metabolic encephalopathy Multifactorial -catheter associated UTI, hypoxemia and TIA-like symptoms Seems to be at his baseline with mild confusion Medically stable Questionable Hypoxia respiratory failure Not sure if we can call it hypoxia since pt had a transient episode. currently saturated well on RA Repeat CXR showed Cardiomegaly with mild central pulmonary vascular congestion without overt edema. currently on Unasyn for possible aspiration pneumonia Blood cx no growth Catheter associated UTI Abnormal UA hx BPH/urinary retention/atonic bladder sp indwelling Oliver catheter UA positive for Leukocytes urine cx grew gram positive cocci Has been getting intravenous Unasyn Status post transcatheter aortic valve replacement (TAVR) using bioprosthesis: CAD Continue aspirin and beta-nicole Elevated BS Hba1c 6.5 on 03/14/22 continue monitor BS Chronic indwelling Oliver catheter: Continue finasteride Alzheimer disease: Continue home medications DVT prophylaxis: on Lovenox Code Status Full Code disposition Waiting for placement once medically stable Admission and Anticipated Discharge Date Admission Date: March 12, 2022 Subjective 03/17/2022 The patient was seen and examined in medical floor He has been feeling much better, remains pleasantly confused and denies any significant symptoms He has been with one-to-one observation Does not have any issues with aggressiveness and/or uncooperativeness Awaiting placement 03/18/2022 The patient was seen and examined in the medical telemetry unit He remains stable and pleasantly confused Denies any symptoms He has not been requiring any one-to-one sitter since yesterday 03/19/2022 The patient was seen and examined in presence of the son-in-law He remained stable with ongoing confusion No agitation and or behavioral abnormality He will need 24 hours care Review of Systems Review of Systems: All systems reviewed and are unremarkable except as noted below Neurologic: Remains weak and lethargic Physical Exam Physical Exam: Lying in bed comfortably Constitutional: well developed, well nourished, + ill appearing and average body habitus Eyes: PERRL, conjunctivae normal, anicteric sclerae ENMT: external ear and nose normal, oropharynx normal Neck: trachea midline, no thyromegaly Respiratory: no respiratory distress Auscultation: + crackles (Minimal crackles at the bases otherwise clear) Cardiovascular: Rate/Rhythm: regular rate and regular rhythm; not tachycardic Heart Sounds: normal S1, normal S2 and + murmur Extremities: + edema (Trace edema bilaterally ) Gastrointestinal (Abdomen): Inspection/Auscultation: normal bowel sounds; abdomen not distended Percussion/Palpation: abdomen soft; abdomen nontender Neurologic: moves all extremities and + confused Lymphatic: no cervical or axillary lymphadenopathy Results & Data Results & Data ([facility]) Vital Signs (Past 12 Hours) Vital Signs Temp Pulse Pulse Resp BP Pulse Ox O2 Del Method 03/19/22 15:47 58 L 03/19/22 11:15 36.6 C 59 L 18 150/93 H 98 Room Air 03/19/22 08:00 49 L 03/19/22 08:16 36.7 C 61 18 163/84 H 97 Room Air Laboratory Results [facility] 03/19/22 09:21 Creatinine 1.32 Medications Administered Current Inpatient Medications Acetaminophen (Acetaminophen 325 Mg Tab) 650 mg PO Q4H PRN PRN Reason: Pain or Fever Stop: 04/12/22 01:25 Aspirin (Aspirin 81 Mg Ectab) 81 mg PO DAILY ANDREW Stop: 04/12/22 08:59 Last Admin: 03/19/22 08:26 Dose: 81 mg Clopidogrel Bisulfate (Clopidogrel Bisulfate 75 Mg Tab) 75 mg PO QAM ANDREW Stop: 04/12/22 01:29 Last Admin: 03/19/22 08:26 Dose: 75 mg Dextrose (Dextrose 50% 50 Ml Syringe) 25 - 50 ml IV UD PRN; Protocol PRN Reason: Hypoglycemia Protocol Stop: 04/12/22 01:25 Enoxaparin Sodium (Enoxaparin Inj 40 Mg/0.4 Ml Syr) 40 mg SQ QAM ANDREW Stop: 04/12/22 08:59 Last Admin: 03/19/22 08:26 Dose: 40 mg Finasteride (Finasteride 5 Mg Tab) 5 mg PO DAILY ANDREW Stop: 04/12/22 08:59 Last Admin: 03/19/22 08:26 Dose: 5 mg Glucagon (Glucagon For Inj 1 Mg Vial) 1 mg SQ UD PRN; Protocol PRN Reason: Hypoglycemia Protocol Stop: 04/12/22 01:25 Glucose (Glucose 40% Gel 15 Gm Tube) 15 - 30 gm PO UD PRN; Protocol PRN Reason: Hypoglycemia Protocol Stop: 04/12/22 01:25 Glucose (Glucose 10 Tab/Tube) 4 - 8 tab PO UD PRN; Protocol PRN Reason: Hypoglycemia Treatment Stop: 04/12/22 01:25 Ampicillin Sodium/Sulbactam Sodium 3,000 mg/ Sodium Chloride 108 mls @ 200 mls/hr IV Q6H ANDREW Stop: 03/20/22 07:59 Last Infusion: 03/19/22 15:09 Dose: Infused Insulin Aspart (Insulin Aspart Per Unit) 0 units SC ACHS ANDREW Stop: 04/12/22 01:25 Last Admin: 03/19/22 12:33 Dose: Not Given Memantine (Memantine Hcl 10 Mg Tab) 10 mg PO BID ANDREW Stop: 04/12/22 08:59 Last Admin: 03/19/22 08:26 Dose: 10 mg Metoprolol Succinate (Metoprolol Succ 25mg Ext Rel Tab) 25 mg PO QAM [facility] Stop: 04/12/22 08:59 Last Admin: 03/19/22 08:26 Dose: 25 mg Miscellaneous (Carbohydrates For Hypoglycemia ) 15 - 30 gm PO UD PRN PRN Reason: Hypoglycemia Protocol Stop: 04/12/22 01:25 Olanzapine (Olanzapine 10 Mg/2.1 Ml Sdv) 2.5 mg IM Q4H PRN PRN Reason: Anxiety/Agitation Stop: 04/13/22 02:57 Last Admin: 03/14/22 09:33 Dose: 2.5 mg Pantoprazole Sodium (Pantoprazole 40 Mg Tab) 40 mg PO DAILY ANDREW Stop: 04/12/22 08:59 Last Admin: 03/19/22 08:26 Dose: 40 mg Polyethylene Glycol (Polyethylene (Miralax) 17 Gm Pack) 17 gm PO DAILY PRN PRN Reason: Constipation Stop: 04/12/22 01:25 Last Admin: 03/15/22 08:36 Dose: 17 gm Simethicone (Simethicone 80 Mg Chew) 120 mg PO TID PRN PRN Reason: .Gas or heartburn
[2022-03-20] MEDS: AMPICILLIN/SULBACTAM SOD 3,000 MG in 0.9 % SODIUM CHLORIDE 100 ML IV SCH (01:48)
[2022-03-20] MEDS: METOPROLOL SUCC 25MG EXT REL TAB PO SCH (07:59)
[2022-03-20] MEDS: FINASTERIDE 5 MG TAB PO SCH (07:59)
[2022-03-20] MEDS: MEMANTINE HCL 10 MG TAB PO SCH ×2 (07:59→21:11)
[2022-03-20] MEDS: PANTOprazole 40 MG TAB PO SCH (07:59)
[2022-03-20] MEDS: ASPIRIN 81 MG ECTAB PO SCH (07:59)
[2022-03-20] MEDS: ENOXAPARIN INJ 40 MG/0.4 ML SYR SQ SCH (07:59)
[2022-03-20] MEDS: CLOPIDOGREL BISULFATE 75 MG TAB PO SCH (07:59)
[2022-03-20 08:06] LABS: Basophils # (auto) 0.04 K/uL (0-0.2); Basophils % (auto) 0.7 %; Eosinophils % (auto) 9.2 %; Hematocrit (blood only) 40.8 % (40.1-51.0); Hemoglobin 14.1 g/dl (14.0-18.0); Immature Granulocytes # (auto) 0.02 K/uL (0.00-0.02); Immature Granulocytes % (auto) 0.4 %; Lymphocytes # (auto) 0.94 K/uL (1.2-3.4); Lymphocytes % (auto) 17.3 %; Mean Corpuscular Hemoglobin 32.8 pg (25.0-34.0); Mean Corpuscular Hgb Conc 34.6 g/dL (32.0-36.0); Mean Corpuscular Volume 94.9 fL (80.0-100.0); Mean Platelet Volume 10.1 fL (9.4-12.4); Monocytes # (auto) 0.58 K/uL (0.24-0.82); Monocytes % (auto) 10.7 %; Neutrophils # (auto) 3.36 K/uL (1.4-6.5); Neutrophils % (auto) 61.7 %; Platelet Count 185 K/uL (130-400); RDW Standard Deviation 45.2 fL (36.4-46.3); White Blood Count 5.44 K/ul (4.8-10.8)
[2022-03-20] MEDS: INSULIN ASPART PER UNIT SC SCH ×4 (08:27→21:18)
[2022-03-20 08:57] LABS: BUN Creatinine Ratio 19.1 (10-20); Calcium 8.6 mg/dl (8.5-10.1); Creatinine Clr Calc Pharmacy 47.6 ml/min; Est GFR (African American) 66.4 ml/min; Est GFR (Non-African American) 57.3 ml/min; Potassium 4.1 mmol/L (3.5-5.1)
--- NOTE | 2022-03-20 15:21 | Hospitalist Progress Note ---
Date of Service March 20, 2022 Assessment & Plan (1) Stroke-like symptom: Plan: Present on admission with slurred speech speech, right sided weakness and confusion possible related to TIA, but need to r/o acute CVA CT head negative for any intracranial finding MRI head showed no acute abnormality is seen in particular there is no evidence of acute infarct. MRA head showed No evidence of acute intracranial abnormality. ECHO showed no changes compare to previous echo Carotid u/s showed no sonographic evidence of hemodynamically significant stenosis in the right or left carotid arterial system. Neuro on board recommended to continue dual antiplatelet therapy with aspirin and plavix for 21 days, then plavix alone Continue PT/OT/Speech eval PT recommended short term rehab placement to ensure safety and independence before returning home to Remains medically stable as of 03/17/2022 Pleasantly confused otherwise no behavioral abnormality Will need 24-hour care with high fall risk He is going to be discharged home but he will need a semierect take hospital bed for his care at home He has strokelike symptoms and other significant comorbid conditions including CAD status post TAVR, chronic catheter associated infection, diabetes and 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 Remains stable Acute metabolic encephalopathy Multifactorial -catheter associated UTI, hypoxemia and TIA-like symptoms Seems to be at his baseline with mild confusion Medically stable-but pleasantly confused Questionable Hypoxia respiratory failure Not sure if we can call it hypoxia since pt had a transient episode. currently saturated well on RA Repeat CXR showed Cardiomegaly with mild central pulmonary vascular congestion without overt edema. currently on Unasyn for possible aspiration pneumonia Blood cx no growth Catheter associated UTI Abnormal UA hx BPH/urinary retention/atonic bladder sp indwelling Oliver catheter UA positive for Leukocytes urine cx grew gram positive cocci Has been getting intravenous Unasyn Catheter will be continued but may needs to be changed on discharge Status post transcatheter aortic valve replacement (TAVR) using bioprosthesis: CAD Continue aspirin and beta-nicole Elevated BS Hba1c 6.5 on 03/14/22 continue monitor BS Chronic indwelling Oliver catheter: Continue finasteride Alzheimer disease: Continue home medications DVT prophylaxis: on Lovenox Code Status Full Code disposition Waiting for placement once medically stable Likely to be discharged home on Tuesday or Tuesday Admission and Anticipated Discharge Date Admission Date: March 12, 2022 Subjective Patient was03/17/2022 The patient was seen and examined in medical floor He has been feeling much better, remains pleasantly confused and denies any significant symptoms He has been with one-to-one observation Does not have any issues with aggressiveness and/or uncooperativeness Awaiting placement 03/18/2022 The patient was seen and examined in the medical telemetry unit He remains stable and pleasantly confused Denies any symptoms He has not been requiring any one-to-one sitter since yesterday 03/19/2022 The patient was seen and examined in presence of the son-in-law He remained stable with ongoing confusion No agitation and or behavioral abnormality He will need 24 hours care 03/20/2022 Seen and examined in medical floor He remains confused but not any acute distress Review of Systems Review of Systems: All systems reviewed and are unremarkable except as noted below Neurologic: Remains weak and lethargic Physical Exam Physical Exam: Lying in bed comfortably Constitutional: well developed, well nourished, + ill appearing and average body habitus Eyes: PERRL, conjunctivae normal, anicteric sclerae ENMT: external ear and nose normal, oropharynx normal Neck: trachea midline, no thyromegaly Respiratory: no respiratory distress Auscultation: + crackles (Minimal crackles at the bases otherwise clear) Cardiovascular: Rate/Rhythm: regular rate and regular rhythm; not tachycardic Heart Sounds: normal S1, normal S2 and + murmur Extremities: + edema (Trace edema bilaterally ) Gastrointestinal (Abdomen): Inspection/Auscultation: normal bowel sounds; abdomen not distended Percussion/Palpation: abdomen soft; abdomen nontender Neurologic: moves all extremities and + confused Lymphatic: no cervical or axillary lymphadenopathy Results & Data Results & Data ([facility]) Vital Signs (Past 12 Hours) Vital Signs Temp Pulse Pulse Resp BP BP Pulse Ox 03/20/22 15:17 36.3 C L 68 20 177/91 H 95 03/20/22 15:05 66 03/20/22 12:11 36.6 C 80 18 164/86 H 97 03/20/22 08:46 49 L 03/20/22 07:00 36.4 C L 51 L 18 179/80 H 98 O2 Del Method 03/20/22 15:17 Room Air 03/20/22 15:05 03/20/22 12:11 Room Air 03/20/22 08:46 03/20/22 07:00 Room Air Laboratory Results Short CBC 03/20/22 Range/Units 06:52 WBC 5.44 (4.8-10.8) K/ul Hgb 14.1 (14.0-18.0) g/dl Hct 40.8 (40.1-51.0) % Plt Count 185 (130-400) K/uL BMP 03/20/22 06:52 Sodium 141 Potassium 4.1 Chloride 108 H Carbon Dioxide 27 BUN 22 Creatinine 1.15 Glucose 116 H Calcium 8.6 Medications Administered Current Inpatient Medications Acetaminophen (Acetaminophen 325 Mg Tab) 650 mg PO Q4H PRN PRN Reason: Pain or Fever Stop: 04/12/22 01:25 Aspirin (Aspirin 81 Mg Ectab) 81 mg PO DAILY ANDREW Stop: 04/12/22 08:59 Last Admin: 03/20/22 07:59 Dose: 81 mg Clopidogrel Bisulfate (Clopidogrel Bisulfate 75 Mg Tab) 75 mg PO QAM ANDREW Stop: 04/12/22 01:29 Last Admin: 03/20/22 07:59 Dose: 75 mg Dextrose (Dextrose 50% 50 Ml Syringe) 25 - 50 ml IV UD PRN; Protocol PRN Reason: Hypoglycemia Protocol Stop: 04/12/22 01:25 Enoxaparin Sodium (Enoxaparin Inj 40 Mg/0.4 Ml Syr) 40 mg SQ QAM ANDREW Stop: 04/12/22 08:59 Last Admin: 03/20/22 07:59 Dose: 40 mg Finasteride (Finasteride 5 Mg Tab) 5 mg PO DAILY ANDREW Stop: 04/12/22 08:59 Last Admin: 03/20/22 07:59 Dose: 5 mg Glucagon (Glucagon For Inj 1 Mg Vial) 1 mg SQ UD PRN; Protocol PRN Reason: Hypoglycemia Protocol Stop: 04/12/22 01:25 Glucose (Glucose 40% Gel 15 Gm Tube) 15 - 30 gm PO UD PRN; Protocol PRN Reason: Hypoglycemia Protocol Stop: 04/12/22 01:25 Glucose (Glucose 10 Tab/Tube) 4 - 8 tab PO UD PRN; Protocol PRN Reason: Hypoglycemia Treatment Stop: 04/12/22 01:25 Insulin Aspart (Insulin Aspart Per Unit) 0 units SC ACHS ANDREW Stop: 04/12/22 01:25 Last Admin: 03/20/22 12:25 Dose: 5 units Memantine (Memantine Hcl 10 Mg Tab) 10 mg PO BID ANDREW Stop: 04/12/22 08:59 Last Admin: 03/20/22 07:59 Dose: 10 mg Metoprolol Succinate (Metoprolol Succ 25mg Ext Rel Tab) 25 mg PO QAM ANDREW Stop: 04/12/22 08:59 Last Admin: 03/20/22 07:59 Dose: 25 mg Miscellaneous (Carbohydrates For Hypoglycemia ) 15 - 30 gm PO UD PRN PRN Reason: Hypoglycemia Protocol Stop: 04/12/22 01:25 Olanzapine (Olanzapine 10 Mg/2.1 Ml Sdv) 2.5 mg IM Q4H PRN PRN Reason: Anxiety/Agitation Stop: 04/13/22 02:57 Last Admin: 03/14/22 09:33 Dose: 2.5 mg Pantoprazole Sodium (Pantoprazole 40 Mg Tab) 40 mg PO DAILY ANDREW Stop: 04/12/22 08:59 Last Admin: 03/20/22 07:59 Dose: 40 mg Polyethylene Glycol (Polyethylene (Miralax) 17 Gm Pack) 17 gm PO DAILY PRN PRN Reason: Constipation Stop: 04/12/22 01:25 Last Admin: 03/15/22 08:36 Dose: 17 gm Simethicone (Simethicone 80 Mg Chew) 120 mg PO TID PRN PRN Reason: .Gas or heartburn
[2022-03-21] MEDS: MEMANTINE HCL 10 MG TAB PO SCH ×2 (07:11→21:26)
[2022-03-21] MEDS: ENOXAPARIN INJ 40 MG/0.4 ML SYR SQ SCH (07:11)
[2022-03-21] MEDS: METOPROLOL SUCC 25MG EXT REL TAB PO SCH (07:12)
[2022-03-21] MEDS: ASPIRIN 81 MG ECTAB PO SCH (07:12)
[2022-03-21] MEDS: FINASTERIDE 5 MG TAB PO SCH (07:12)
[2022-03-21] MEDS: CLOPIDOGREL BISULFATE 75 MG TAB PO SCH (07:12)
[2022-03-21] MEDS: PANTOprazole 40 MG TAB PO SCH (07:12)
[2022-03-21] MEDS: INSULIN ASPART PER UNIT SC SCH ×4 (08:09→21:38)
--- NOTE | 2022-03-21 13:28 | Hospitalist Progress Note ---
Date of Service March 21, 2022 Assessment & Plan (1) Stroke-like symptom: Plan: Present on admission with slurred speech speech, right sided weakness and confusion possible related to TIA, but need to r/o acute CVA CT head negative for any intracranial finding MRI head showed no acute abnormality is seen in particular there is no evidence of acute infarct. MRA head showed No evidence of acute intracranial abnormality. ECHO showed no changes compare to previous echo Carotid u/s showed no sonographic evidence of hemodynamically significant stenosis in the right or left carotid arterial system. Neuro on board recommended to continue dual antiplatelet therapy with aspirin and plavix for 21 days, then plavix alone Continue PT/OT/Speech eval PT recommended short term rehab placement to ensure safety and independence before returning home to Remains medically stable as of 03/17/2022 Pleasantly confused otherwise no behavioral abnormality Will need 24-hour care with high fall risk He is going to be discharged home but he will need a semierect 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 Remains stable and denies any symptoms Acute metabolic encephalopathy Multifactorial -catheter associated UTI, hypoxemia and TIA-like symptoms Seems to be at his baseline with mild confusion Medically stable-but pleasantly confused Questionable Hypoxia respiratory failure Not sure if we can call it hypoxia since pt had a transient episode. currently saturated well on RA Repeat CXR showed Cardiomegaly with mild central pulmonary vascular congestion without overt edema. currently on Unasyn for possible aspiration pneumonia Blood cx no growth Catheter associated UTI Abnormal UA hx BPH/urinary retention/atonic bladder sp indwelling Oliver catheter UA positive for Leukocytes urine cx grew gram positive cocci Has been getting intravenous Unasyn Catheter will be continued but may needs to be changed on discharge Status post transcatheter aortic valve replacement (TAVR) using bioprosthesis: CAD Continue aspirin and beta-nicole Denies any chest pain and/or palpitation Elevated BS Hba1c 6.5 on 03/14/22 continue monitor BS Chronic indwelling Oliver catheter: Continue finasteride Oliver catheter will be changed prior to discharge Alzheimer disease: Continue home medications DVT prophylaxis: on Lovenox Code Status Full Code disposition Waiting for placement once medically stable Likely to be discharged home on Tuesday or Tuesday Admission and Anticipated Discharge Date Admission Date: March 12, 2022 Subjective Patient was03/17/2022 The patient was seen and examined in medical floor He has been feeling much better, remains pleasantly confused and denies any significant symptoms He has been with one-to-one observation Does not have any issues with aggressiveness and/or uncooperativeness Awaiting placement 03/18/2022 The patient was seen and examined in the medical telemetry unit He remains stable and pleasantly confused Denies any symptoms He has not been requiring any one-to-one sitter since yesterday 03/19/2022 The patient was seen and examined in presence of the son-in-law He remained stable with ongoing confusion No agitation and or behavioral abnormality He will need 24 hours care 03/20/2022 Seen and examined in medical floor He remains confused but not any acute distress 03/21/2022 The patient was seen and examined in medical floor He remains pleasantly confused but otherwise asymptomatic Review of Systems Review of Systems: All systems reviewed and are unremarkable except as noted below Neurologic: Remains weak and lethargic Physical Exam Physical Exam: Lying in bed comfortably Constitutional: well developed, well nourished, + ill appearing and average b matty habitus Eyes: PERRL, conjunctivae normal, anicteric sclerae ENMT: external ear and nose normal, oropharynx normal Neck: trachea midline, no thyromegaly Respiratory: no respiratory distress Auscultation: + crackles (Minimal crackles at the bases otherwise clear) Cardiovascular: Rate/Rhythm: regular rate and regular rhythm; not tachycardic Heart Sounds: normal S1, normal S2 and + murmur Extremities: + edema (Trace edema bilaterally ) Gastrointestinal (Abdomen): Inspection/Auscultation: normal bowel sounds; abdomen not distended Percussion/Palpation: abdomen soft; abdomen nontender Musculoskeletal: No acute arthritis in any joint Neurologic: moves all extremities and + confused Lymphatic: no cervical or axillary lymphadenopathy Results & Data Results & Data ([facility]) Vital Signs (Past 12 Hours) Vital Signs Temp Pulse Pulse Pulse Resp BP Pulse Ox 03/21/22 11:51 37.0 C 62 16 146/80 H 95 03/21/22 08:00 37.0 C 68 16 158/86 H 95 03/21/22 07:04 52 L 03/21/22 03:00 36.6 C 65 20 149/85 H 98 O2 Del Method 03/21/22 11:51 Room Air 03/21/22 08:00 Room Air 03/21/22 07:04 03/21/22 03:00 Room Air Medications Administered Current Inpatient Medications Acetaminophen (Acetaminophen 325 Mg Tab) 650 mg PO Q4H PRN PRN Reason: Pain or Fever Stop: 04/12/22 01:25 Aspirin (Aspirin 81 Mg Ectab) 81 mg PO DAILY ANDREW Stop: 04/12/22 08:59 Last Admin: 03/21/22 07:12 Dose: 81 mg Clopidogrel Bisulfate (Clopidogrel Bisulfate 75 Mg Tab) 75 mg PO QAM [facility] Stop: 04/12/22 01:29 Last Admin: 03/21/22 07:12 Dose: 75 mg Dextrose (Dextrose 50% 50 Ml Syringe) 25 - 50 ml IV UD PRN; Protocol PRN Reason: Hypoglycemia Protocol Stop: 04/12/22 01:25 Enoxaparin Sodium (Enoxaparin Inj 40 Mg/0.4 Ml Syr) 40 mg SQ QAM ANDREW Stop: 04/12/22 08:59 Last Admin: 03/21/22 07:11 Dose: 40 mg Finasteride (Finasteride 5 Mg Tab) 5 mg PO DAILY [facility] Stop: 04/12/22 08:59 Last Admin: 03/21/22 07:12 Dose: 5 mg Glucagon (Glucagon For Inj 1 Mg Vial) 1 mg SQ UD PRN; Protocol PRN Reason: Hypoglycemia Protocol Stop: 04/12/22 01:25 Glucose (Glucose 40% Gel 15 Gm Tube) 15 - 30 gm PO UD PRN; Protocol PRN Reason: Hypoglycemia Protocol Stop: 04/12/22 01:25 Glucose (Glucose 10 Tab/Tube) 4 - 8 tab PO UD PRN; Protocol PRN Reason: Hypoglycemia Treatment Stop: 04/12/22 01:25 Insulin Aspart (Insulin Aspart Per Unit) 0 units SC ACHS [facility] Stop: 04/12/22 01:25 Last Admin: 03/21/22 11:48 Dose: Not Given Memantine (Memantine Hcl 10 Mg Tab) 10 mg PO BID ANDREW Stop: 04/12/22 08:59 Last Admin: 03/21/22 07:11 Dose: 10 mg Metoprolol Succinate (Metoprolol Succ 25mg Ext Rel Tab) 25 mg PO QAM [facility] Stop: 04/12/22 08:59 Last Admin: 03/21/22 07:12 Dose: 25 mg Miscellaneous (Carbohydrates For Hypoglycemia ) 15 - 30 gm PO UD PRN PRN Reason: Hypoglycemia Protocol Stop: 04/12/22 01:25 Olanzapine (Olanzapine 10 Mg/2.1 Ml Sdv) 2.5 mg IM Q4H PRN PRN Reason: Anxiety/Agitation Stop: 04/13/22 02:57 Last Admin: 03/14/22 09:33 Dose: 2.5 mg Pantoprazole Sodium (Pantoprazole 40 Mg Tab) 40 mg PO DAILY ANDREW Stop: 04/12/22 08:59 Last Admin: 03/21/22 07:12 Dose: 40 mg Polyethylene Glycol (Polyethylene (Miralax) 17 Gm Pack) 17 gm PO DAILY PRN PRN Reason: Constipation Stop: 04/12/22 01:25 Last Admin: 03/15/22 08:36 Dose: 17 gm Simethicone (Simethicone 80 Mg Chew) 120 mg PO TID PRN PRN Reason: .Gas or heartburn
[2022-03-22] MEDS: PANTOprazole 40 MG TAB PO SCH (07:43)
[2022-03-22] MEDS: MEMANTINE HCL 10 MG TAB PO SCH ×2 (07:43→19:47)
[2022-03-22] MEDS: ENOXAPARIN INJ 40 MG/0.4 ML SYR SQ SCH (07:43)
[2022-03-22] MEDS: METOPROLOL SUCC 25MG EXT REL TAB PO SCH (07:43)
[2022-03-22] MEDS: ASPIRIN 81 MG ECTAB PO SCH (07:43)
[2022-03-22] MEDS: CLOPIDOGREL BISULFATE 75 MG TAB PO SCH (07:43)
[2022-03-22] MEDS: FINASTERIDE 5 MG TAB PO SCH (07:43)
[2022-03-22 08:20] LABS: Creatinine Clr Calc Pharmacy 40.9 ml/min; Est GFR (African American) 55.2 ml/min; Est GFR (Non-African American) 47.6 ml/min
[2022-03-22] MEDS: INSULIN ASPART PER UNIT SC SCH ×4 (08:38→21:15)
[2022-03-22] MEDS: POLYETHYLENE (MIRALAX) 17 GM PACK PO PRN (10:48)
--- NOTE | 2022-03-22 14:36 | Hospitalist Progress Note ---
Date of Service March 22, 2022 Assessment & Plan (1) Stroke-like symptom: Plan: Present on admission with slurred speech speech, right sided weakness and confusion possible related to TIA, but need to r/o acute CVA CT head negative for any intracranial finding MRI head showed no acute abnormality is seen in particular there is no evidence of acute infarct. MRA head showed No evidence of acute intracranial abnormality. ECHO showed no changes compare to previous echo Carotid u/s showed no sonographic evidence of hemodynamically significant stenosis in the right or left carotid arterial system. Neuro on board recommended to continue dual antiplatelet therapy with aspirin and plavix for 21 days, then plavix alone Continue PT/OT/Speech eval PT recommended short term rehab placement to ensure safety and independence before returning home to Remains medically stable as of 03/17/2022 Pleasantly confused otherwise no behavioral abnormality Will need 24-hour care with high fall risk He is going to be discharged home but he will need a semierect take hospital bed for his care at home He has strokelike symptoms and other significant comorbid conditions including CAD status post TAVR, chronic catheter associated infection, diabetes and 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 Remains stable but confused and denies any symptoms The patient requires frequent repositioning of the body in bed to avoid bedsores Acute metabolic encephalopathy Multifactorial -catheter associated UTI, hypoxemia and TIA-like symptoms Seems to be at his baseline with mild confusion Medically stable-but pleasantly confused No behavioral abnormality Questionable Hypoxia respiratory failure Not sure if we can call it hypoxia since pt had a transient episode. currently saturated well on RA Repeat CXR showed Cardiomegaly with mild central pulmonary vascular congestion without overt edema. currently on Unasyn for possible aspiration pneumonia Blood cx no growth Catheter associated UTI Abnormal UA hx BPH/urinary retention/atonic bladder sp indwelling Oliver catheter UA positive for Leukocytes urine cx grew gram positive cocci Has been getting intravenous Unasyn Catheter will be continued but may needs to be changed on discharge Status post transcatheter aortic valve replacement (TAVR) using bioprosthesis: CAD Continue aspirin and beta-nicole Denies any chest pain and/or palpitation Elevated BS Hba1c 6.5 on 03/14/22 continue monitor BS Chronic indwelling Oliver catheter: Continue finasteride Oliver catheter will be changed prior to discharge Alzheimer disease: Continue home medications No acute delirium DVT prophylaxis: on Lovenox Code Status Full Code disposition Waiting for placement once medically stable Likely to be discharged home on Tuesday or Tuesday Admission and Anticipated Discharge Date Admission Date: March 12, 2022 Subjective Patient was03/17/2022 The patient was seen and examined in medical floor He has been feeling much better, remains pleasantly confused and denies any significant symptoms He has been with one-to-one observation Does not have any issues with aggressiveness and/or uncooperativeness Awaiting placement 03/18/2022 The patient was seen and examined in the medical telemetry unit He remains stable and pleasantly confused Denies any symptoms He has not been requiring any one-to-one sitter since yesterday 03/19/2022 The patient was seen and examined in presence of the son-in-law He remained stable with ongoing confusion No agitation and or behavioral abnormality He will need 24 hours care 03/20/2022 Seen and examined in medical floor He remains confused but not any acute distress 03/21/2022 The patient was seen and examined in medical floor He remains pleasantly confused but otherwise asymptomatic 03/22/2022 The patient was seen and examined in medical floor He remains confused but otherwise denies any significant symptoms Review of Systems Review of Systems: All systems reviewed and are unremarkable except as noted below Neurologic: Remains weak and lethargic Physical Exam Physical Exam: Sitting on a chair without any acute distress Constitutional: well developed, well nourished, + ill appearing and average body habitus Eyes: PERRL, conjunctivae normal, anicteric sclerae ENMT: external ear and nose normal, oropharynx normal Neck: trachea midline, no thyromegaly Respiratory: no respiratory distress Auscultation: + crackles (Minimal crackles at the bases otherwise clear) Cardiovascular: Rate/Rhythm: regular rate and regular rhythm; not tachycardic Heart Sounds: normal S1, normal S2 and + murmur Extremities: + edema (Trace edema bilaterally ) Gastrointestinal (Abdomen): Inspection/Auscultation: normal bowel sounds; abdomen not distended Percussion/Palpation: abdomen soft; abdomen nontender Musculoskeletal: No acute arthritis in any joint Neurologic: moves all extremities and + confused Lymphatic: no cervical or axillary lymphadenopathy Results & Data Results & Data ([facility]) Vital Signs (Past 12 Hours) Vital Signs Temp Pulse Pulse Pulse Resp BP Pulse Ox 03/22/22 10:10 08/22/22 10:09 59 L 03/22/22 07:50 36.3 C L 60 20 147/80 H 94 03/22/22 03:11 36.6 C 63 18 139/67 93 O2 Del Method 03/22/22 10:10 Room Air 03/22/22 10:09 03/22/22 07:50 Room Air 03/22/22 03:11 Room Air Laboratory Results BMP 03/22/22 06:56 Creatinine 1.34 Medications Administered Current Inpatient Medications Acetaminophen (Acetaminophen 325 Mg Tab) 650 mg PO Q4H PRN PRN Reason: Pain or Fever Stop: 04/12/22 01:25 Aspirin (Aspirin 81 Mg Ectab) 81 mg PO DAILY [facility] Stop: 04/12/22 08:59 Last Admin: 03/22/22 07:43 Dose: 81 mg Clopidogrel Bisulfate (Clopidogrel Bisulfate 75 Mg Tab) 75 mg PO QAM [facility] Stop: 04/12/22 01:29 Last Admin: 03/22/22 07:43 Dose: 75 mg Dextrose (Dextrose 50% 50 Ml Syringe) 25 - 50 ml IV UD PRN; Protocol PRN Reason: Hypoglycemia Protocol Stop: 04/12/22 01:25 Enoxaparin Sodium (Enoxaparin Inj 40 Mg/0.4 Ml Syr) 40 mg SQ QAM [facility] Stop: 04/12/22 08:59 Last Admin: 03/22/22 07:43 Dose: 40 mg Finasteride (Finasteride 5 Mg Tab) 5 mg PO DAILY [facility] Stop: 04/12/22 08:59 Last Admin: 03/22/22 07:43 Dose: 5 mg Glucagon (Glucagon For Inj 1 Mg Vial) 1 mg SQ UD PRN; Protocol PRN Reason: Hypoglycemia Protocol Stop: 04/12/22 01:25 Glucose (Glucose 40% Gel 15 Gm Tube) 15 - 30 gm PO UD PRN; Protocol PRN Reason: Hypoglycemia Protocol Stop: 04/12/22 01:25 Glucose (Glucose 10 Tab/Tube) 4 - 8 tab PO UD PRN; Protocol PRN Reason: Hypoglycemia Treatment Stop: 04/12/22 01:25 Insulin Aspart (Insulin Aspart Per Unit) 0 units SC ACHS [facility] Stop: 04/12/22 01:25 Last Admin: 03/22/22 12:26 Dose: 3 units Memantine (Memantine Hcl 10 Mg Tab) 10 mg PO BID [facility] Stop: 04/12/22 08:59 Last Admin: 03/22/22 07:43 Dose: 10 mg Metoprolol Succinate (Metoprolol Succ 25mg Ext Rel Tab) 25 mg PO QAM [facility] Stop: 04/12/22 08:59 Last Admin: 03/22/22 07:43 Dose: 25 mg Miscellaneous (Carbohydrates For Hypoglycemia ) 15 - 30 gm PO UD PRN PRN Reason: Hypoglycemia Protocol Stop: 04/12/22 01:25 Olanzapine (Olanzapine 10 Mg/2.1 Ml Sdv) 2.5 mg IM Q4H PRN PRN Reason: Anxiety/Agitation Stop: 04/13/22 02:57 Last Admin: 03/14/22 09:33 Dose: 2.5 mg Pantoprazole Sodium (Pantoprazole 40 Mg Tab) 40 mg PO DAILY [facility] Stop: 04/12/22 08:59 Last Admin: 03/22/22 07:43 Dose: 40 mg Polyethylene Glycol (Polyethylene (Miralax) 17 Gm Pack) 17 gm PO DAILY PRN PRN Reason: Constipation Stop: 04/12/22 01:25 Last Admin: 03/22/22 10:48 Dose: 17 gm Simethicone (Simethicone 80 Mg Chew) 120 mg PO TID PRN PRN Reason: .Gas or heartburn
[2022-03-23 03:50] VITALS: O2SAT 96
[2022-03-23 07:54] VITALS: PULSE 71
[2022-03-23] MEDS: CLOPIDOGREL BISULFATE 75 MG TAB PO SCH (09:05)
[2022-03-23] MEDS: ENOXAPARIN INJ 40 MG/0.4 ML SYR SQ SCH (09:06)
[2022-03-23] MEDS: METOPROLOL SUCC 25MG EXT REL TAB PO SCH (09:07)
[2022-03-23] MEDS: MEMANTINE HCL 10 MG TAB PO SCH (09:07)
[2022-03-23] MEDS: ASPIRIN 81 MG ECTAB PO SCH (09:07)
[2022-03-23] MEDS: FINASTERIDE 5 MG TAB PO SCH (09:08)
[2022-03-23] MEDS: PANTOprazole 40 MG TAB PO SCH (09:08)
[2022-03-23] MEDS: INSULIN ASPART PER UNIT SC SCH ×2 (09:15→12:49)
--- NOTE | 2022-03-23 11:15 | Hospitalist Progress Note ---
Date of Service March 23, 2022 Assessment & Plan (1) Stroke-like symptom: Plan: Present on admission with slurred speech speech, right sided weakness and confusion possible related to TIA, but need to r/o acute CVA CT head negative for any intracranial finding MRI head showed no acute abnormality is seen in particular there is no evidence of acute infarct. MRA head showed No evidence of acute intracranial abnormality. ECHO showed no changes compare to previous echo Carotid u/s showed no sonographic evidence of hemodynamically significant stenosis in the right or left carotid arterial system. Neuro on board recommended to continue dual antiplatelet therapy with aspirin and plavix for 21 days, then plavix alone Continue PT/OT/Speech eval PT recommended short term rehab placement to ensure safety and independence before returning home to Remains medically stable as of 03/17/2022 Pleasantly confused otherwise no behavioral abnormality Will need 24-hour care with high fall risk He is going to be discharged home but he will need a semierect take hospital bed for his care at home He has strokelike symptoms and other significant comorbid conditions including CAD status post TAVR, chronic catheter associated infection, diabetes and 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 Remains stable but confused and denies any symptoms The patient requires frequent repositioning of the body in bed to avoid bedsores Remains medically stable but very confused Likely to be discharged this afternoon Acute metabolic encephalopathy Multifactorial -catheter associated UTI, hypoxemia and TIA-like symptoms Seems to be at his baseline with mild confusion Medically stable-but pleasantly confused No behavioral abnormality Questionable Hypoxia respiratory failure Not sure if we can call it hypoxia since pt had a transient episode. currently saturated well on RA Repeat CXR showed Cardiomegaly with mild central pulmonary vascular congestion without overt edema. currently on Unasyn for possible aspiration pneumonia -antibiotic course is finished No respiratory symptoms Catheter associated UTI Abnormal UA hx BPH/urinary retention/atonic bladder sp indwelling Oliver catheter UA positive for Leukocytes urine cx grew gram positive cocci Has been getting intravenous Unasyn Catheter will be continued but may needs to be changed on discharge We will keep the Oliver in place Status post transcatheter aortic valve replacement (TAVR) using bioprosthesis: CAD Continue aspirin and beta-nicole Denies any chest pain and/or palpitation Elevated BS Hba1c 6.5 on 03/14/22 continue monitor BS Chronic indwelling Oliver catheter: Continue finasteride Oliver catheter will be changed prior to discharge Alzheimer disease: Continue home medications No acute delirium DVT prophylaxis: on Lovenox Code Status Full Code disposition Waiting for placement once medically stable Likely to be discharged this afternoon Admission and Anticipated Discharge Date Admission Date: March 12, 2022 Subjective Patient was03/17/2022 The patient was seen and examined in medical floor He has been feeling much better, remains pleasantly confused and denies any significant symptoms He has been with one-to-one observation Does not have any issues with aggressiveness and/or uncooperativeness Awaiting placement 03/18/2022 The patient was seen and examined in the medical telemetry unit He remains stable and pleasantly confused Denies any symptoms He has not been requiring any one-to-one sitter since yesterday 03/19/2022 The patient was seen and examined in presence of the son-in-law He remained stable with ongoing confusion No agitation and or behavioral abnormality He will need 24 hours care 03/20/2022 Seen and examined in medical floor He remains confused but not any acute distress 03/21/2022 The patient was seen and examined in medical floor He remains pleasantly confused but otherwise asymptomatic 03/22/2022 The patient was seen and examined in medical floor He remains confused but otherwise denies any significant symptoms 03/23/2022 The patient was seen and examined in medical floor He remains pleasantly confused but denies any other significant symptoms No fever and or chills, no pain, no shortness of breath and no problem with urine and or bowel habit Review of Systems Review of Systems: All systems reviewed and are unremarkable except as noted below Neurologic: Remains weak and lethargic Physical Exam Physical Exam: Sitting on a chair without any acute distress Constitutional: well developed, well nourished and average body habitus; not ill appearing Eyes: PERRL, conjunctivae normal, anicteric sclerae ENMT: external ear and nose normal, oropharynx normal Neck: trachea midline, no thyromegaly Respiratory: no respiratory distress Auscultation: + crackles (Minimal crackles at the bases otherwise clear) Cardiovascular: Rate/Rhythm: regular rate and regular rhythm; not tachycardic Heart Sounds: normal S1, normal S2 and + murmur Extremities: + edema (Trace edema bilaterally ) Gastrointestinal (Abdomen): Inspection/Auscultation: normal bowel sounds; abdomen not distended Percussion/Palpation: abdomen soft; abdomen nontender Musculoskeletal: No acute arthritis in any joint Neurologic: moves all extremities and + confused Psychiatric: Insight: + poor insight Lymphatic: no cervical or axillary lymphadenopathy Results & Data Results & Data ([facility]) Vital Signs (Past 12 Hours) Vital Signs Temp Pulse Pulse Resp BP BP Pulse Ox 03/23/22 07:53 36.8 C 71 16 153/89 H 96 03/23/22 07:40 65 03/23/22 03:23 36.2 C L 55 L 20 136/71 96 O2 Del Method 03/23/22 07:53 Room Air 03/23/22 07:40 03/23/22 03:23 Room Air Medications Administered Current Inpatient Medications Acetaminophen (Acetaminophen 325 Mg Tab) 650 mg PO Q4H PRN PRN Reason: Pain or Fever Stop: 04/12/22 01:25 Aspirin (Aspirin 81 Mg Ectab) 81 mg PO DAILY [facility] Stop: 04/12/22 08:59 Last Admin: 03/23/22 09:07 Dose: 81 mg Clopidogrel Bisulfate (Clopidogrel Bisulfate 75 Mg Tab) 75 mg PO QAM [facility] Stop: 04/12/22 01:29 Last Admin: 03/23/22 09:05 Dose: 75 mg Dextrose (Dextrose 50% 50 Ml Syringe) 25 - 50 ml IV UD PRN; Protocol PRN Reason: Hypoglycemia Protocol Stop: 04/12/22 01:25 Enoxaparin Sodium (Enoxaparin Inj 40 Mg/0.4 Ml Syr) 40 mg SQ QAM [facility] Stop: 04/12/22 08:59 Last Admin: 03/23/22 09:06 Dose: 40 mg Finasteride (Finasteride 5 Mg Tab) 5 mg PO DAILY [facility] Stop: 04/12/22 08:59 Last Admin: 03/23/22 09:08 Dose: 5 mg Glucagon (Glucagon For Inj 1 Mg Vial) 1 mg SQ UD PRN; Protocol PRN Reason: Hypoglycemia Protocol Stop: 04/12/22 01:25 Glucose (Glucose 40% Gel 15 Gm Tube) 15 - 30 gm PO UD PRN; Protocol PRN Reason: Hypoglycemia Protocol Stop: 04/12/22 01:25 Glucose (Glucose 10 Tab/Tube) 4 - 8 tab PO UD PRN; Protocol PRN Reason: Hypoglycemia Treatment Stop: 04/12/22 01:25 Insulin Aspart (Insulin Aspart Per Unit) 0 units SC ACHS [facility] Stop: 04/12/22 01:25 Last Admin: 03/23/22 09:15 Dose: 2 units Memantine (Memantine Hcl 10 Mg Tab) 10 mg PO BID [facility] Stop: 04/12/22 08:59 Last Admin: 03/23/22 09:07 Dose: 10 mg Metoprolol Succinate (Metoprolol Succ 25mg Ext Rel Tab) 25 mg PO QAM [facility] Stop: 04/12/22 08:59 Last Admin: 03/23/22 09:07 Dose: 25 mg Miscellaneous (Carbohydrates For Hypoglycemia ) 15 - 30 gm PO UD PRN PRN Reason: Hypoglycemia Protocol Stop: 04/12/22 01:25 Olanzapine (Olanzapine 10 Mg/2.1 Ml Sdv) 2.5 mg IM Q4H PRN PRN Reason: Anxiety/Agitation Stop: 04/13/22 02:57 Last Admin: 03/14/22 09:33 Dose: 2.5 mg Pantoprazole Sodium (Pantoprazole 40 Mg Tab) 40 mg PO DAILY [facility] Stop: 04/12/22 08:59 Last Admin: 03/23/22 09:08 Dose: 40 mg Polyethylene Glycol (Polyethylene (Miralax) 17 Gm Pack) 17 gm PO DAILY PRN PRN Reason: Constipation Stop: 04/12/22 01:25 Last Admin: 03/22/22 10:48 Dose: 17 gm Simethicone (Simethicone 80 Mg Chew) 120 mg PO TID PRN PRN Reason: .Gas or heartburn
[2022-03-23 11:38] VITALS: BP 137/81; TEMP 98.6
--- NOTE | 2022-03-31 09:43 | Discharge Summary ---
Date of Service 2021 Admission HPI Per Admitting Provider History obtained from patient, family, and records. Limited history from patient secondary to dementia. Medical history significant for dementia, CAD, A. fib/PSVT status post ablation/hx NSVT as per records, status post TAVR, hypertension, DM2 diet- controlled, BPH/urinary retention/atonic bladder sp indwelling Oliver catheter, renal oncocytoma status post left nephrectomy Last confinement September 2020 for small bowel obstruction status post surgery. Patient with progressive junky cough symptoms the last 3 weeks as per family. No fever, no chills, no chest pain, no SOB. Family not sure about aspiration. No known recent COVID-19 contacts. Patient completed COVID-19 vaccination Outpatient evaluation at weekend clinic scheduled for tomorrow. Around 5:30 PM today, patient noted by daughter to have slurred speech and possible right-sided weakness. Patient noted to be sleepy, confused. Episodic jerking of the right side noted. No incontinence, no tongue biting. No prior episodes. No new medications ex cept for a mucolytic. Patient without headache, chest pain, SOB, abdominal pain, dysuria symptoms. O2 sats noted to be 89 on room air at some point during ER stay. IV cefepime administered at the ER. 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[employer] Admission Exam Per Admitting Provider Physical Exam: GENERAL: Comfortable, lethargic, demented, episodic jerking of right side of the body, occasional stuttering with mild dysarthria, no respiratory distress SKIN: Normal color, warm HEENT: [place] palpebral conjunctivae, no ptosis, dry buccal mucosa NECK : Supple, no tenderness CHEST : Decreased breath sounds , no tenderness HEART : Bradycardic , no obvious murmurs ABDOMEN: Some distention, nontender EXTREMITIES : No LE swelling/tenderness, no other conspicuous deformities noted NEUROLOGIC : Demented, lethargic, no facial asymmetry, mild dysarthria, MMTs BUE/BLE 4/5, intention tremors, gait and stance not assessed Principal Diagnosis Strokelike symptoms, catheter associated UTI, CAD with history of TAVR using bioprosthesis, Alzheimer's disease Discharge Exam Sitting on a chair without any acute distress Constitutional well developed, well nourished and average body habitus; not ill appearing Eyes PERRL, conjunctivae normal, anicteric sclerae ENMT external ear and nose normal, oropharynx normal Neck trachea midline, no thyromegaly Respiratory no respiratory distress Auscultation: + crackles (Minimal crackles at the bases otherwise clear) Cardiovascular Rate/Rhythm: regular rate and regular rhythm; not tachycardic Heart Sounds: normal S1, normal S2 and + murmur Extremities: + edema (Trace edema bilaterally ) Gastrointestinal (Abdomen) Inspection/Auscultation: normal bowel sounds; abdomen not distended Percussion/Palpation: abdomen soft; abdomen nontender Neurologic moves all extremities and + confused Psychiatric Insight: + poor insight Lymphatic no cervical or axillary lymphadenopathy Discharge Data Allergies Allergy/AdvReac Type Severity Reaction Status Date / Time No Known Allergies Allergy Verified 03/12/22 23:17 Consultations 03/12/22 21:39 ED Decision to Admit Stat 03/13/22 01:26 Consult Neurology Routine Ordered Studies 03/12/22 19:45 CT head/brain wo con Stat 03/13/22 01:26 MR angio head wo con Urgent MR brain wo con Routine 03/13/22 01:30 Carotid duplex [US carotid doppler BI] Routine Hospital Course (1) Stroke-like symptom: Present on admission with slurred speech speech, right sided weakness and confusion possible related to TIA, but need to r/o acute CVA CT head negative for any intracranial finding MRI head showed no acute abnormality is seen in particular there is no evidence of acute infarct. MRA head showed No evidence of acute intracranial abnormality. ECHO showed no changes compare to previous echo Carotid u/s showed no sonographic evidence of hemodynamically significant stenosis in the right or left carotid arterial system. Neuro on board recommended to continue dual antiplatelet therapy with aspirin and plavix for 21 days, then plavix alone Continue PT/OT/Speech eval PT recommended short term rehab placement to ensure safety and independence before returning home to Remains medically stable as of 03/17/2022 Pleasantly confused otherwise no behavioral abnormality Will need 24-hour care with high fall risk He is going to be discharged home but he will need a semierect take hospital bed for his care at home He has strokelike symptoms and other significant comorbid conditions including CAD status post TAVR, chronic catheter associated infection, diabetes and Alzheimer's disease which requires positioning of the body in the waist that is not feasible with an ordinary bed at home. Remains stable but confused and denies any symptoms The patient requires frequent repositioning of the body in bed to avoid bedsores Remains medically stable but very confused Likely to be discharged this afternoon Acute metabolic encephalopathy Multifactorial -catheter associated UTI, hypoxemia and TIA-like symptoms Seems to be at his baseline with mild confusion Medically stable-but pleasantly confused No behavioral abnormality Questionable Hypoxia respiratory failure Not sure if we can call it hypoxia since pt had a transient episode. currently saturated well on RA Repeat CXR showed Cardiomegaly with mild central pulmonary vascular congestion without overt edema. currently on Unasyn for possible aspiration pneumonia -antibiotic course is finished No respiratory symptoms Catheter associated UTI Abnormal UA hx BPH/urinary retention/atonic bladder sp indwelling Oliver catheter UA positive for Leukocytes urine cx grew gram positive cocci Has been getting intravenous Unasyn Catheter will be continued but may needs to be changed on discharge We will keep the Oliver in place Status post transcatheter aortic valve replacement (TAVR) using bioprosthesis: CAD Continue aspirin and beta-nicole Denies any chest pain and/or palpitation Elevated BS Hba1c 6.5 on 03/14/22 continue monitor BS Chronic indwelling Oliver catheter: Continue finasteride Oliver catheter will be changed prior to discharge Alzheimer disease: Continue home medications No acute delirium DVT prophylaxis: on Lovenox Code Status Full Code disposition Waiting for placement once medically stable Likely to be discharged this afternoon Total Time Total Time Spent Total Time Spent (In Minutes): 35 minutes Discharge Plan Discharge Items Patient Disposition: Home - Home Health Services Reason For Visit: RESP FAILURE, AMS (PRIV RM IF POSS PER [facility] REQ) Discharge Diagnosis: Strokelike symptoms, catheter associated UTI, CAD with history of TAVR using bioprosthesis, Alzheimer's disease Activity: As commented below Activity Comment: Will need assistance in ADL S Non-emergency contact: Primary Care Provider Call non-emergency contact if: you have any medication questions and your symptoms worsen Follow-up/Referrals: Melvin Cooper MD [Primary Care Provider] - (Date & Time 03/31/2022 11:20 AM Provider Melvin Cooper MD Department General Internal Medicine [facility] ) Diamond Peoples PA-C [Physician Corporate Communications Associate] - (Date & Time 04/13/2022 11:20 AM Provider Diamond Peoples PA-C Department Neurology [facility] ) Diet: Carb Consistent or DM2 Diet Texture: Easy to Chew Addtl Attending Provider Instructions: Please take precautions to avoid falls Please take your medications as advised Continue aspirin and Plavix for 10 more days and then continue only with Plavix You will need assistance in ADL S Please keep appointments with your healthcare provider Pending Studies at Discharge: No Stand-Alone Forms: My [facility], Smoking Cessation Medications and DC Order Prescriptions: New clopidogrel 75 mg Tablet 75 mg PO QAM 30 Days Qty: 30 0RF olanzapine 2.5 mg tablet 2.5 mg PO Q6HWA PRN (Reason: agitation) Qty: 20 0RF Continued finasteride 5 mg tablet 5 mg PO DAILY Qty: 90 1RF memantine 10 mg tablet 10 mg PO BID Qty: 180 3RF metoprolol succinate 25 mg tablet extended release 24 hr 25 mg PO QAM bethanechol chloride 25 mg tablet 25 mg PO BID polyethylene glycol 3350 [Miralax] 17 gram Powder In Packet 17 g PO DAILY PRN (Reason: Constipation) pantoprazole 40 mg Tablet,Delayed Release (Dr/Ec) 40 mg PO DAILY nitroglycerin [Nitrostat] 0.4 mg Tablet, Sublingual 0.4 mg sublingual DIRECTED PRN (Reason: Chest Pain) Rx Instructions: May repeat every 5 min for 3 doses. simethicone 125 mg Tablet,Chewable 125 mg PO TID PRN (Reason: .Gas or heartburn) docusate sodium 100 mg Tablet 100 mg PO BID PRN (Reason: Constipation) lutein 20 mg Capsule 20 mg PO BID Rx Instructions: give with meal/snack PreserVision AREDS [id number] Capsule 1 cap PO DAILY Rx Instructions: unknown strenght aspirin 81 mg Tablet,Delayed Release (Dr/Ec) 81 mg PO DAILY Qty: 30 0RF Rx Instructions: STOP AFTER 10 DAYS FROM NOW Discharge Orders: Discharge Order (Routine); Ordered 03/23/22 Ordered By: Pallavi Pittman/Other Patient Handouts: Managing Type 2 Diabetes Admission Data Admit Date/Time: 03/12/22 23:38 Attending Provider: Cira,Manabendra Admit Provider: Pa Braswell Primary Care Provider: Melvin Cooper Other Providers: Pa Braswell ; Earnest Nunez ; [facility] ; Bev Gallegos ; Doris Campuzano ; [facility] Other Interventions: Discharge Summary Assessment (RN) Last Done: 03/23/22 12:19
== END 2022-03-23 13:30 | disposition home health service (06) | DRG 698 ==
LOC: ED 19:42 → 2W 23:38 → SUATTDRO 23:38 → 2W 03-13 00:28
DX: G93.41 Metabolic encephalopathy; R47.81 Slurred speech; Z83.3 Family history of diabetes mellitus; G81.91 Hemiplegia, unspecified affecting right dominant side; E11.9 Type 2 diabetes mellitus without complications; Y92.019 Unspecified place in single-family (private) house as the place of occurrence of the external cause; Y84.6 Urinary catheterization as the cause of abnormal reaction of the patient, or of later complication, without mention of misadventure at the time of the procedure; R47.1 Dysarthria and anarthria; G45.9 Transient cerebral ischemic attack, unspecified; I10 Essential (primary) hypertension; Z95.2 Presence of prosthetic heart valve; R29.90 Unspecified symptoms and signs involving the nervous system; N39.0 Urinary tract infection, site not specified; J45.909 Unspecified asthma, uncomplicated; N40.1 Benign prostatic hyperplasia with lower urinary tract symptoms; T83.511A Infection and inflammatory reaction due to indwelling urethral catheter, initial encounter; R33.9 Retention of urine, unspecified; F02.80 Dementia in other diseases classified elsewhere, unspecified severity, without behavioral disturbance, psychotic disturbance, mood disturbance, and anxiety; I25.10 Atherosclerotic heart disease of native coronary artery without angina pectoris; Z98.1 Arthrodesis status; Z90.5 Acquired absence of kidney; G30.9 Alzheimer's disease, unspecified